=== PATIENT | male | born 1960 | race Caucasian/White ===

== ENCOUNTER → 2016-04-02 | Outpatient (CLI) | payer BC ==
--- NOTE | 2016-04-02 19:21 | US ---
EXAMINATION TYPE: US axilla extremity RT DATE OF EXAM: 04/02/2016 7:09 PM COMPARISON: NONE CLINICAL HISTORY: R59.1 Enlarged lymph node. Two palpable areas, no pain or tenderness TECHNOLOGIST IMPRESSION: Two palpable areas scanned. 1- Location- Right lateral anterior chest. Superficial. Vascular. Heterogeneous. Size= 0.9 x 1.0 x 0.6 cm 2- Location- Right axilla. Complex. Peripheral vascularity. Size= 2.7 x 3.3 x 2.3 cm. IMPRESSION: There is demonstrated a 9 x 6 mm axillary lymph node. There is demonstrated a complex mass with central fluid that measures 3.3 x 2.3 cm. I would consider possibilities of necrotic lymph node and also abscess.
== END | disposition home or self-care (01) ==
LOC: RADUSMAIN 18:28
PROVIDERS: ATTEND Family Medicine
DX: R59.0 Localized enlarged lymph nodes (principal)

== ENCOUNTER 2016-04-16 08:53 | Day surgery (SDC) | payer BC ==
[2016-04-16] MEDS ORDERED: SODIUM BICARB 4% 5 ML VIAL (0.48 MEQ/ML) MISCELLANE PRN (08:58)
[2016-04-16] MEDS ORDERED: ALPRAZolam 0.5 MG TAB PO ONE ×2 (08:58→09:05)
[2016-04-16 09:08] VITALS: BP 108/67; PULSE 95; RESP 20; TEMP 97.6
--- NOTE | 2016-04-16 11:57 | US ---
Ultrasound-guided core biopsy of 2 right-sided axilla masses CLINICAL HISTORY: 2 right axillary lymph nodes and history of melanoma FINDINGS: The procedure was explained to the patient. The risks, complications, benefits and alternatives were discussed and any questions were answered. Informed consent was obtained. Patient was placed supin e on the ultrasound table and prepped and draped in the usual sterile fashion. Utilizing a 18-gauge core biopsy needle 4 passes were made into the 3.3 cm right axilla lymph node an d a single pass was made into the right axilla 1 cm lymph node. Patient was stable throughout the pro cedure. Pathology is pending. All elements of maximal barrier and sterile technique were utilized. IMPRESSION: 1. Successful ultrasound guided core biopsy of 2 right axillary lymph nodes.
== END 2016-04-16 10:45 | disposition home or self-care (01) ==
LOC: RADPROMAIN 08:53
PROVIDERS: ATTEND Family Medicine
DX: C77.3 Secondary and unspecified malignant neoplasm of axilla and upper limb lymph nodes (principal); C96.9 Malignant neoplasm of lymphoid, hematopoietic and related tissue, unspecified; Z85.820 Personal history of malignant melanoma of skin
CPT/HCPCS: 38505; 76942; 88305; 88341; 88342

== ENCOUNTER → 2016-05-04 | Outpatient (CLI) | payer BC ==
--- NOTE | 2016-05-05 13:39 | PE ---
EXAMINATION TYPE: PET CT fusion whole body DATE OF EXAM: 05/04/2016 1:16 PM CLINICAL HISTORY: 55-year-old male history of right shoulder and axillary melanoma, initial staging. Patient with surgery in October 2015. TECHNIQUE: Following the intravenous administration of 13.2 mCi of F-18 FDG, whole body images are performed from the vertex to the toes. Images are reviewed on the computer in the coronal, axial, and sagittal planes. Reconstructed rotating images are created on independent workstation and reviewed on the computer. A localization and attenuation correction CT is performed in conjunction with the PET scan. Glucose level: 96 mg/dL COMPARISON: None. FINDINGS: PET: A small right supraclavicular lymph node measures 6 mm but demonstrates suspicious mild FDG uptake, m aximum SUV 2.3. The 1.0 x 1.7 cm soft tissue nodule within the subcutaneous fat of the anterior lower right axilla sh ows intense hypermetabolism, maximum SUV 7.1. A centrally necrotic right axillary lymph node measures 3.8 x 2.4 cm and shows intense hypermetabolis m, maximum SUV 8.5. There are small foci of increased FDG uptake within both doc, greater on the left, moderate hypermet abolism, maximal SUV 4.1. On the right, maximal SUV 3.1. Very early metastatic hilar lymphadenopathy is difficult to exclude. Lungs show a 1 cm nodular density medial right upper lobe at the mid lung level without discrete FDG uptake. Additional small area of focal moderate hypermetabolism at the level of the alicia hepatis, maximal LAGOS V 3.8. This may correspond to a small lymph node. 2.8 cm hypodense lesion medial left kidney shows a photopenic defect compatible with a benign cyst. Focal intense hypermetabolism involving a small bowel loop in the anterior lower left abdomen, maximu m SUV 7.1. No other bowel activity is seen. Otherwise, physiologic FDG uptake throughout the body down to the toes. ATTENUATION CORRECTION CT: Visualized intracranial structures show no evidence for midline shift or herniation. No hydrocephalus . Visualized paranasal sinuses and mastoid air cells are clear. Slight leftward nasal septal deviation. No cervical lymphadenopathy seen. Heart is upper limits of normal in size without pericardial effusion. Ascending aorta is borderline e ctatic at 3.5 cm within the tortuous vessel branching anatomy. Mild bilateral gynecomastia. No consol idation or pleural effusion. Small hiatal hernia. No mesenteric or retroperitoneal lymphadenopathy by CT size criteria. No dilate d small bowel, free fluid, or free air. Bladder is nondistended. No abnormal fluid collection the pelvis or pelvic lymphadenopathy. Bones: No osseous destructive process. Mild degenerative changes of the hips. IMPRESSION: 1. Metastatic, centrally necrotic 3.8 cm right axillary lymph node. There is also a 1.7 cm metastatic soft tissue nodule along the anterior right axilla just adjacent. 2. Additional findings are suspicious but not definitive for metastatic disease including a 6 mm righ t supraclavicular lymph node, tiny bilateral hilar lymph nodes, and a suspected portahepatic lymph no de. These show variable mild to moderate FDG uptake, maximal SUV up to 4.1 at the left hilum. If defi nitive evaluation would alter management, consider locating the small right supraclavicular lymph nod e and performing an excisional biopsy. This has the least uptake at only 2.3 SUV. 3. There is also an isolated focus of small bowel activity in the anterior left lower abdomen that s hows intense uptake. While physiologic activity is possible, given that this is an isolated focus, a metastatic small bowel deposit is difficult to exclude.
== END | disposition home or self-care (01) ==
LOC: RADPETMAIN 10:31
PROVIDERS: ATTEND Surgery Surgical Oncology
DX: C77.3 Secondary and unspecified malignant neoplasm of axilla and upper limb lymph nodes (principal); C43.9 Malignant melanoma of skin, unspecified
CPT/HCPCS: 78816; A9552

== ENCOUNTER → 2016-05-07 | Outpatient (CLI) | payer BC ==
--- NOTE | 2016-05-07 21:45 | MR ---
EXAMINATION TYPE: MR brain wo/w con DATE OF EXAM: 05/07/2016 5:08 PM COMPARISON: 06/19/2015 HISTORY: Malignant melanoma of lip, malignant neoplasm CONTRAST: Performed utilizing 15 mL intravenous MultiHance gadolinium contrast. TECHNIQUE: Multiplanar, multiecho imaging on a 3.0 Grace magnet is performed through the brain. Stud y is performed within 24 hours of arrival to the hospital. The craniovertebral junction is normal. The pituitary is normal. Diffusion-weighted imaging is performed. No abnormal hyperintensity is present to suggest an acute i ntracranial infarct or acute ischemic change. No suspicious signal abnormality is evident to suggest metastatic lesions. There are scattered subcor tical white matter changes most likely on the basis of chronic white matter ischemic changes. These a re slightly greater than expected for patient of this age. Other etiologies including vasculitis, gli osis from migraine headaches, Lyme's disease, multiple sclerosis could be considered. Metastatic lesi ons are not excluded although typical findings identified on diffusion associated with melanoma are n ot evident on this exam. Ventricles and sulci are appropriate for the patient age. No abnormal enhancement is evident. No mass effect is evident. IMPRESSIONS: 1. Chronic appearing white matter ischemic changes. 2. No suspicious changes to suggest metastatic melanoma.
== END | disposition home or self-care (01) ==
LOC: RADMRIMAIN 16:23
PROVIDERS: ATTEND Surgery Surgical Oncology
DX: C77.9 Secondary and unspecified malignant neoplasm of lymph node, unspecified (principal); C43.0 Malignant melanoma of lip; R90.82 White matter disease, unspecified; I67.82 Cerebral ischemia
CPT/HCPCS: 70553; A9577

== ENCOUNTER → 2017-04-07 | Outpatient (CLI) | payer OTHER ==
--- NOTE | 2017-04-07 13:54 | US ---
EXAMINATION TYPE: US venous doppler duplex LE BI DATE OF EXAM: 04/07/2017 1:02 PM COMPARISON: NONE CLINICAL HISTORY: Edema R60.9. SIDE PERFORMED: Bilateral TECHNIQUE: The lower extremity deep venous system is examined utilizing real time linear array sonog remigio with graded compression, doppler sonography and color-flow sonography. VESSELS IMAGED: External Iliac Vein (EIV) Common Femoral Vein Deep Femoral Vein Greater Saphenous Vein * Femoral Vein Popliteal Vein Small Saphenous Vein * Proximal Calf Veins (* superficial vessels) Right Leg: Negative for DVT Left Leg: Negative for DVT IMPRESSION: 1. Bilateral lower extremities negative for deep venous thrombosis.
== END | disposition home or self-care (01) ==
LOC: RADUSWWP 12:59
PROVIDERS: ATTEND Internal Medicine
DX: R60.9 Edema, unspecified (principal)
CPT/HCPCS: 93970

== ENCOUNTER → 2017-05-20 | Outpatient (CLI) | payer OTHER ==
[2017-05-20 14:20] LABS: Basophils % (A) 0 %; Eosinophils % (A) 0 %; HCT 37.2 % (39.0-53.0); HGB 12.3 gm/dL (13.0-17.5); Lymphocytes # (A) 0.4 k/uL (1.0-4.8); Lymphocytes % (A) 8 %; MCH 29.6 pg (25.0-35.0); MCHC 33.1 g/dL (31.0-37.0); MCV 89.5 fL (80.0-100.0); Mean Platelet Volume 6.6; Monocytes # (A) 0.2 k/uL (0-1.0); Monocytes % (A) 3 %; Neutrophils # (A) 4.4 k/uL (1.3-7.7); Neutrophils % (A) 86 %; Platelet Count 175 k/uL (150-450); RBC 4.16 m/uL (4.30-5.90); RDW 12.2 % (11.5-15.5); WBC 5.1 k/uL (3.8-10.6)
[2017-05-20 14:35] LABS: Calcium 9.3 mg/dL (8.4-10.2); Potassium 4.4 mmol/L (3.5-5.1)
== END | disposition home or self-care (01) ==
LOC: LABWHC1 13:36
PROVIDERS: ATTEND Urology
DX: Z01.818 Encounter for other preprocedural examination (principal); Z01.812 Encounter for preprocedural laboratory examination; N40.1 Benign prostatic hyperplasia with lower urinary tract symptoms; R53.83 Other fatigue; Z79.899 Other long term (current) drug therapy
CPT/HCPCS: 36415; 80048; 85025; 93005

== ENCOUNTER 2017-05-22 10:07 | Day surgery (SDC) | payer OTHER ==
[2017-05-20 15:28] VITALS: BMI 26.6
[~2017-05-22 10:07] MED LIST: DEXAMETHASONE SOD PHOSPHATE 10 MG/ML 1 ML VIAL IV ONE; MORPHINE SULFATE 4 MG/ML SYRINGE IV PRN; ceFAZolin IN SWFI 2 GM/20 ML SYRINGE IVP ONE
[2017-05-22] MEDS: LACTATED RINGERS 1,000 ML IV SCH ×2 (10:52→11:59)
[2017-05-22] MEDS ORDERED: LIDOCAINE 1% 20 ML VIAL (10MG/ML) FOR IV START INTRADERMA ONE (10:52)
[2017-05-22] MEDS: ONDANSETRON 4 MG/2 ML VIAL IVP ONE ×2 (10:53→10:54)
[2017-05-22] MEDS ORDERED: fentaNYL (PF) 50 MCG/ML 2 ML AMP ONE (12:01)
[2017-05-22] MEDS ORDERED: PROPOFOL 10 MG/ML 20 ML VIAL IV ONE (12:01)
[2017-05-22] MEDS ORDERED: LIDOCAINE 1% INJ 10MG/ML (20 ML MDV) ONE (12:01)
[2017-05-22] MEDS ORDERED: SUCCINYLCHOLINE CHLORIDE 100 MG/5 ML SYR IV ONE (12:01)
[2017-05-22] MEDS ORDERED: PHENYLEPHRINE-0.9% NACL SYG 1 MG/10 ML SYRINGE ONE (12:01)
--- NOTE | 2017-05-22 13:01 | P.OP ---
Date of Procedure: 05/22/17 Preoperative Diagnosis: BPH with Obstruction Postoperative Diagnosis: Same Procedure(s) Performed: Cystoscopy, Transurethral Resection of Prostate (TURP) Anesthesia: YOUNG Surgeon: Yunior Du Estimated Blood Loss (ml): 5 IV fluids (ml): 600 Pathology: other (Prostate chips) Condition: stable Disposition: PACU Indications for Procedure: He is a 56-year-old male with Parkinson's disease. He presents with urinary frequency, urgency, urge incontinence, and a weak urinary stream. He also reports erectile dysfunction. Physical examination was unremarkable. He tried Cialis daily, but it failed to help his voiding symptoms. It did help with his erections. He was given Cialis 20 mg, and the proper use and potential side effects were reviewed. Urodynamic testing and cystoscopy were consistent with bladder outflow obstruction. Options discussed: alpha-zane therapy vs. TUIP. He chose a trial of tamsulosin 0.8 mg daily but does not feel it works better than 0.4 mg. Trospium was prescribed, to be taken along with tamsulosin. He took Trospium and he was also on Myrbetriq, so he took both. He was then unable to void, and Bladder scan showed 922 ml in his bladder. A catheter was placed with a urine return of 750 ml. He stopped Trospium and Myrbetriq, and continues to take Tamsulosin twice daily. His catheter is now out but he continues to empty his bladder incompletely. Today, his urine looks infected, and PVR was 485 ml. Culture was sent, and he will be placed on Bactrim DS. He desires a TUIP if cleared by Medical Oncology. Operative Findings: High median bar, obstructing. Description of Procedure: The patient was taken in the operating room and placed in the dorsolithotomy position, The external genitalia was prepped and draped sterilely. The 25- Mongolian ACMI resectoscope sheath was introduced into the bladder. The bladder was inspected. Both ureteral orifices were of normal anatomic location and configuration, and clear urine effluxed from both. No tumors or foreign bodies were seen. Examination of the prostate revealed partial obstruction due to a high median bar. Using the cutting loop, incisions were made at 5:00 and 7:00, extending through the vesical neck up to the verumontanum. The incisions were carried down until the prostatic fossa was wide open. The tissue between these 2 incisions was fulgurated, as was the bed of the resection. Excellent hemostasis was attained. The resectoscope was withdrawn into the bulbous urethra. The external urinary sphincter remained intact. The prostatic fossa was open. The prostate chips were removed from the bladder. These were saved and sent for pathologic examination. The resectoscope was removed, and an 18 Mongolian Muñiz catheter was placed. The return was essentially clear. The patient tolerated the procedure well was taken to the recovery room in stable condition.
[2017-05-22 13:48] VITALS: RESP 16; TEMP 98.5
[2017-05-22 14:50] VITALS: BP 99/54; PULSE 82
== END 2017-05-22 15:11 | disposition home or self-care (01) ==
LOC: OR 10:07
PROVIDERS: ATTEND Urology
DX: N40.1 Benign prostatic hyperplasia with lower urinary tract symptoms (principal); N13.8 Other obstructive and reflux uropathy; R35.0 Frequency of micturition; N52.9 Male erectile dysfunction, unspecified; R35.1 Nocturia; R33.8 Other retention of urine; R30.0 Dysuria; R39.12 Poor urinary stream; N39.0 Urinary tract infection, site not specified; N39.41 Urge incontinence; K59.00 Constipation, unspecified; G20 Parkinson's disease; N28.9 Disorder of kidney and ureter, unspecified; C78.00 Secondary malignant neoplasm of unspecified lung; C78.7 Secondary malignant neoplasm of liver and intrahepatic bile duct; Z85.820 Personal history of malignant melanoma of skin; Z79.899 Other long term (current) drug therapy
CPT/HCPCS: 88305; 52601; J1100; J2405; J2001; J3010; J2370; J0330; J2704; J0690

== ENCOUNTER → 2017-06-09 | Outpatient (CLI) | payer OTHER | END | disposition home or self-care (01) | LOC: LABWHC1 11:43 | PROVIDERS: ATTEND Internal Medicine | DX: C43.9 Malignant melanoma of skin, unspecified (principal) | CPT/HCPCS: 36415 ==

== ENCOUNTER → 2017-06-11 | Outpatient (CLI) | payer OTHER ==
[2017-06-11 13:06] LABS: Basophils % (A) 0 %; Eosinophils # (A) 0.1 k/uL (0-0.7); Eosinophils % (A) 2 %; HCT 42.3 % (39.0-53.0); HGB 13.8 gm/dL (13.0-17.5); Lymphocytes # (A) 1.3 k/uL (1.0-4.8); Lymphocytes % (A) 24 %; MCH 29.1 pg (25.0-35.0); MCHC 32.7 g/dL (31.0-37.0); MCV 89.1 fL (80.0-100.0); Mean Platelet Volume 6.9; Monocytes # (A) 0.4 k/uL (0-1.0); Monocytes % (A) 7 %; Neutrophils # (A) 3.3 k/uL (1.3-7.7); Neutrophils % (A) 64 %; Platelet Count 198 k/uL (150-450); RBC 4.75 m/uL (4.30-5.90); RDW 12.7 % (11.5-15.5); WBC 5.2 k/uL (3.8-10.6)
[2017-06-11 13:14] LABS: INR 1.1 (<1.2); Partial Thromboplastin Time 22.8 sec (22.0-30.0); Prothrombin Time 10.5 sec (9.0-12.0)
[2017-06-11 13:29] LABS: ALT 26 U/L (21-72); AST 19 U/L (17-59); Albumin 4.1 g/dL (3.5-5.0); Alkaline Phosphatase 88 U/L (38-126); Amylase 43 U/L (30-110); Anion Gap 12 mmol/L; Blood Urea Nitrogen 24 mg/dL (9-20); Calcium 9.9 mg/dL (8.4-10.2); Carbon Dioxide 29 mmol/L (22-30); Chloride 100 mmol/L (98-107); Creatine Kinase 77 U/L (55-170); Glucose 111 mg/dL (74-99); LDH 407 U/L (313-618); Lipase 50 U/L (23-300); Magnesium 2.2 mg/dL (1.6-2.3); Phosphorus 4.4 mg/dL (2.5-4.5); Potassium 4.4 mmol/L (3.5-5.1); Sodium 141 mmol/L (137-145); Total Bilirubin 0.5 mg/dL (0.2-1.3); Total Protein 7.1 g/dL (6.3-8.2)
== END | disposition home or self-care (01) ==
LOC: LABWHC1 12:48
PROVIDERS: ATTEND Internal Medicine
DX: C79.9 Secondary malignant neoplasm of unspecified site (principal)
CPT/HCPCS: 36415; 80053; 82150; 82550; 83615; 83690; 83735; 84100; 84550; 85025; 85610; 85730

== ENCOUNTER → 2017-07-24 | Outpatient (CLI) | payer OTHER ==
[2017-07-24 16:34] LABS: ALT 95 U/L (21-72); AST 116 U/L (17-59); Albumin 3.8 g/dL (3.5-5.0); Alkaline Phosphatase 94 U/L (38-126); Anion Gap 10 mmol/L; Blood Urea Nitrogen 33 mg/dL (9-20); Calcium 9.6 mg/dL (8.4-10.2); Carbon Dioxide 30 mmol/L (22-30); Chloride 101 mmol/L (98-107); Glucose 117 mg/dL (74-99); Potassium 4.3 mmol/L (3.5-5.1); Sodium 141 mmol/L (137-145); Total Bilirubin 0.6 mg/dL (0.2-1.3); Total Protein 6.4 g/dL (6.3-8.2)
== END ==
LOC: LABWHC1 15:32
PROVIDERS: ATTEND Internal Medicine
DX: C43.9 Malignant melanoma of skin, unspecified (principal); R74.0 Nonspecific elevation of levels of transaminase and lactic acid dehydrogenase [LDH]
CPT/HCPCS: 36415; 80053

== ENCOUNTER 2017-08-26 17:31 | Emergency (ER) | payer OTHER ==
--- NOTE | 2017-08-26 18:28 | ED ---
Male Urogenital HPI - General Chief complaint: Urogenital Stated complaint: male Time Seen by Provider: 08/26/17 18:12 Source: patient, RN notes reviewed, old records reviewed Mode of arrival: ambulatory Limitations: no limitations - History of Present Illness Initial comments: Patient is a 56-year-old male with Parkinson's disease presents with urinary urge, and lower abdominal distention. He reports that he feels very full and has been having acute pain and only able to produce a small amount of urine today. He does report that he recently had a TURP procedure by Dr. Tyson. He has a history of prostate cancer and melanoma. For the last time he had acute urinary retention and was due to medications. He states that he stopped all those medications.Patient is on pramipexole and a stool softener. He states he is also on a clinical trial for melenoma and taking those medication. - Related Data Home Medications Medication Instructions Recorded Confirmed Atezolizumab [Tecentriq] 1,200 mg IV Q14D 08/26/17 08/26/17 Cobimetinib Fumarate [Cotellic] 60 mg PO DAILY 08/26/17 08/26/17 Docusate [Colace] 100 mg PO DAILY 08/26/17 08/26/17 Naproxen Sodium [Aleve] 220 mg PO DAILY PRN 08/26/17 08/26/17 Pramipexole [Mirapex] 1.5 mg PO TID 08/26/17 08/26/17 Previous Rx's Medication Instructions Recorded Sulfamethox-Tmp 800-160Mg [Bactrim 1 tab PO Q12HR #14 tab 08/26/17 DS 800-160 mg] Allergies Allergy/AdvReac Type Severity Reaction Status Date / Time No Known Allergies Allergy Verified 08/26/17 18:32 Review of Systems ROS Statement: Those systems with pertinent positive or pertinent negative responses have been documented in the HPI. ROS Other: All systems not noted in ROS Statement are negative. Past Medical History Past Medical History: Cancer, Prostate Disorder Additional Past Medical History / Comment(s): PARKINSON'S. 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 History of Any Multi-Drug Resistant Organisms: None Reported Past Surgical History: Tonsillectomy Additional Past Surgical History / Comment(s): rt axillary biopsy - POSITIVE FOR CANCER, LIP BX, RT SHOULDER MOLE BX , dental extraction Past Anesthesia/Blood Transfusion Reactions: No Reported Reaction Past Psychological History: No Psychological Hx Reported Smoking Status: Never smoker Past Alcohol Use History: None Reported Past Drug Use History: None Reported - Past Family History Mother Family Medical History: Cancer Additional Family Medical History / Comment(s): breast cancer also had moles removed - not sure if positive or not for cancer General Exam - General Exam Comments Initial Comments: 56-year-old male. Patient suffers from Parkinson's disease.. Rigid and posture. Limitations: no limitations General appearance: alert, in no apparent distress Head exam: Present: atraumatic, normocephalic, normal inspection Eye exam: Present: normal appearance, PERRL, EOMI. Absent: scleral icterus, conjunctival injection, periorbital swelling ENT exam: Present: normal exam, mucous membranes moist Neck exam: Present: normal inspection. Absent: tenderness, meningismus, lymphadenopathy Respiratory exam: Present: normal lung sounds bilaterally. Absent: respiratory distress, wheezes, rales, rhonchi, stridor Cardiovascular Exam: Present: regular rate, normal rhythm, normal heart sounds. Absent: systolic murmur, diastolic murmur, rubs, gallop, clicks GI/Abdominal exam: Present: soft, distended (Lower abdominal distention.), normal bowel sounds. Absent: tenderness, guarding, rebound, rigid Extremities exam: Present: normal inspection, full ROM, normal capillary refill. Absent: tenderness, pedal edema, joint swelling, calf tenderness Back exam: Present: normal inspection Neurological exam: Present: alert, oriented X3, CN II-XII intact Psychiatric exam: Present: normal affect, normal mood Skin exam: Present: warm, dry, intact, normal color. Absent: rash Course Vital Signs 08/26/17 08/26/17 08/26/17 18:00 19:44 21:16 Temperature 97.6 F 98.2 F 97.4 F L Pulse Rate 105 H 98 90 Respiratory 18 18 16 Rate Blood Pressure 111/68 113/67 124/75 O2 Sat by Pulse 99 100 100 Oximetry Medical Decision Making - Medical Decision Making 56 year old male with Hx of Parkinson, Melenoma, and Prostate Cancer presents 2months post TURP with CC of urinary retention. Patient had 1800 cc in bladder on Bladder scan US. Muñiz catheter initiated. Initial Urine output was cloudy and bloody. Sample obtained, and culture completed. Patient is on 2 clinical trial medications, therefore needed to contact the physician Dr. April Orta of starting any new medication. Patient Urine output eventually started to run somewhat clearer. I believe urinary retention was likely due to blood clot or debris from TURP procedure. I contacted Dr. Orta, she informed me to start patient on Bactrim. After reading clincal trial pamphlet, these medications can cause transaminitis and increased bleeding. Therefore decided to check CBC and CMP, and coags. CBC shows no significant changes from previous. Mild change in Hgb. Patient Coags are within normal range. Patient does have evidence of transaminitis, consistent with taking these medications. I discussed with patient. Patient has no significant RUQ tenderness, and discussed that these results can be sent to Dr. Orta. She will follow up with him tomorrow, and will continue bactrim until a negative urine culture. All questions answered and return parameters discussed. Discussed also following up with Urology for Catheter discontinuation. - Lab Data Result diagrams: 08/26/17 19:55 08/26/17 19:55 Lab Results 08/26/17 08/26/17 08/26/17 Range/Units 19:02 19:55 19:55 WBC 4.3 (3.8-10.6) k/uL RBC 3.79 L (4.30-5.90) m/uL Hgb 11.6 L (13.0-17.5) gm/dL Hct 34.6 L (39.0-53.0) % MCV 91.2 (80.0-100.0) fL MCH 30.5 (25.0-35.0) pg MCHC 33.5 (31.0-37.0) g/dL RDW 13.5 (11.5-15.5) % Plt Count 303 (150-450) k/uL Neutrophils % 72 % Lymphocytes % 15 % Monocytes % 6 % Eosinophils % 5 % Basophils % 0 % Neutrophils # 3.1 (1.3-7.7) k/uL Lymphocytes # 0.6 L (1.0-4.8) k/uL Monocytes # 0.3 (0-1.0) k/uL Eosinophils # 0.2 (0-0.7) k/uL Basophils # 0.0 (0-0.2) k/uL PT (9.0-12.0) sec INR (<1.2) APTT (22.0-30.0) sec Sodium 140 (137-145) mmol/L Potassium 4.1 (3.5-5.1) mmol/L Chloride 102 (98-107) mmol/L Carbon Dioxide 30 (22-30) mmol/L Anion Gap 8 mmol/L BUN 32 H (9-20) mg/dL Creatinine 0.75 (0.66-1.25) mg/dL Est GFR (CKD-EPI)AfAm >90 (>60 ml/min/1.73 sqM) Est GFR (CKD-EPI)NonAf >90 (>60 ml/min/1.73 sqM) Glucose 113 H (74-99) mg/dL Calcium 9.0 (8.4-10.2) mg/dL Total Bilirubin 0.3 (0.2-1.3) mg/dL AST 34 (17-59) U/L ALT 132 H (21-72) U/L Alkaline Phosphatase 269 H (38-126) U/L Total Protein 6.0 L (6.3-8.2) g/dL Albumin 3.4 L (3.5-5.0) g/dL Urine Color Yellow Urine Appearance Cloudy (Clear) Urine pH 6.0 (5.0-8.0) Ur Specific [place] 1.022 (1.001-1.035) Urine Protein 1+ H (Negative) Urine Glucose (UA) Negative (Negative) Urine Ketones Negative (Negative) Urine Blood Large H (Negative) Urine Nitrite Negative (Negative) Urine Bilirubin Negative (Negative) Urine Urobilinogen <2.0 (<2.0) mg/dL Ur Leukocyte Esterase Large H (Negative) Urine RBC >182 H (0-5) /hpf Urine WBC >182 H (0-5) /hpf Urine Mucus Moderate H (None) /hpf 08/26/17 Range/Units 19:55 WBC (3.8-10.6) k/uL RBC (4.30-5.90) m/uL Hgb (13.0-17.5) gm/dL Hct (39.0-53.0) % MCV (80.0-100.0) fL MCH (25.0-35.0) pg MCHC (31.0-37.0) g/dL RDW (11.5-15.5) % Plt Count (150-450) k/uL Neutrophils % % Lymphocytes % % Monocytes % % Eosinophils % % Basophils % % Neutrophils # (1.3-7.7) k/uL Lymphocytes # (1.0-4.8) k/uL Monocytes # (0-1.0) k/uL Eosinophils # (0-0.7) k/uL Basophils # (0-0.2) k/uL PT 10.5 (9.0-12.0) sec INR 1.1 (<1.2) APTT 21.8 L (22.0-30.0) sec Sodium (137-145) mmol/L Potassium (3.5-5.1) mmol/L Chloride (98-107) mmol/L Carbon Dioxide (22-30) mmol/L Anion Gap mmol/L BUN (9-20) mg/dL Creatinine (0.66-1.25) mg/dL Est GFR (CKD-EPI)AfAm (>60 ml/min/1.73 sqM) Est GFR (CKD-EPI)NonAf (>60 ml/min/1.73 sqM) Glucose (74-99) mg/dL Calcium (8.4-10.2) mg/dL Total Bilirubin (0.2-1.3) mg/dL AST (17-59) U/L ALT (21-72) U/L Alkaline Phosphatase (38-126) U/L Total Protein (6.3-8.2) g/dL Albumin (3.5-5.0) g/dL Urine Color Urine Appearance (Clear) Urine pH (5.0-8.0) Ur Specific [place] (1.001-1.035) Urine Protein (Negative) Urine Glucose (UA) (Negative) Urine Ketones (Negative) Urine Blood (Negative) Urine Nitrite (Negative) Urine Bilirubin (Negative) Urine Urobilinogen (<2.0) mg/dL Ur Leukocyte Esterase (Negative) Urine RBC (0-5) /hpf Urine WBC (0-5) /hpf Urine Mucus (None) /hpf Disposition Clinical Impression: Acute urinary retention, Elevated transaminase measurement Disposition: HOME SELF-CARE Condition: Good Instructions: Urinary Retention in Men (ED) Additional Instructions: Patient advised to follow-up with Dr. Zamora and urology. He needed follow-up with urology for discontinuation of catheter. Start the antibiotic until urine culture completed. Return to the emergency department if any alarming signs or symptoms occur. Prescriptions: Sulfamethox-Tmp 800-160Mg [Bactrim DS 800-160 mg] 1 tab PO Q12HR #14 tab Is patient prescribed a controlled substance at d/c from ED?: No When asked, does pt state using other controlled substances?: No If prescribed controlled substance>3 days was MAPS reviewed?: No If opioid is for acute pain is fill amount 7 days or less?: No If Rx opioid, was Start Talking consent form obtained?: No Referrals: Sadiq Jacinto MD [Primary Care Provider] - 1-2 days Yunior Du MD [STAFF PHYSICIAN] - 1-2 days April Orta DO [REFERRING] - 1-2 days Time of Disposition: 20:44
[2017-08-26 19:23] LABS: Appearance,Urine Cloudy (Clear); Bilirubin,Urine Negative (Negative); Blood,Urine Large (Negative); Color,Urine Yellow; Glucose,Urine (UA) Negative (Negative); Ketones,Urine Negative (Negative); Leukocyte Esterase,Urine Large (Negative); Mucus,Urine Moderate /hpf; Nitrite,Urine Negative (Negative); Protein,Urine 1+ (Negative); RBC,Urine >182 /hpf (0-5); Specific Gravity,Urine 1.022 (1.001-1.035); Urobilinogen,Urine <2.0 mg/dL (<2.0); WBC,Urine >182 /hpf (0-5)
[2017-08-26 20:07] LABS: Basophils % (A) 0 %; Eosinophils # (A) 0.2 k/uL (0-0.7); Eosinophils % (A) 5 %; HCT 34.6 % (39.0-53.0); HGB 11.6 gm/dL (13.0-17.5); Lymphocytes # (A) 0.6 k/uL (1.0-4.8); Lymphocytes % (A) 15 %; MCH 30.5 pg (25.0-35.0); MCHC 33.5 g/dL (31.0-37.0); MCV 91.2 fL (80.0-100.0); Mean Platelet Volume 6.5; Monocytes # (A) 0.3 k/uL (0-1.0); Monocytes % (A) 6 %; Neutrophils # (A) 3.1 k/uL (1.3-7.7); Neutrophils % (A) 72 %; Platelet Count 303 k/uL (150-450); RBC 3.79 m/uL (4.30-5.90); RDW 13.5 % (11.5-15.5); WBC 4.3 k/uL (3.8-10.6)
[2017-08-26 20:15] LABS: ALT 132 U/L (21-72); AST 34 U/L (17-59); Albumin 3.4 g/dL (3.5-5.0); Alkaline Phosphatase 269 U/L (38-126); Anion Gap 8 mmol/L; Blood Urea Nitrogen 32 mg/dL (9-20); Carbon Dioxide 30 mmol/L (22-30); Chloride 102 mmol/L (98-107); Glucose 113 mg/dL (74-99); Potassium 4.1 mmol/L (3.5-5.1); Sodium 140 mmol/L (137-145); Total Bilirubin 0.3 mg/dL (0.2-1.3)
[2017-08-26 20:31] LABS: INR 1.1 (<1.2); Prothrombin Time 10.5 sec (9.0-12.0)
[2017-08-26 20:33] LABS: Partial Thromboplastin Time 21.8 sec (22.0-30.0)
[2017-08-26 21:19] VITALS: BP 124/75; PULSE 90; RESP 16; TEMP 97.4
== END 2017-08-26 21:22 | disposition home or self-care (01) ==
LOC: EC 17:31
DX: R33.9 Retention of urine, unspecified (principal); R74.0 Nonspecific elevation of levels of transaminase and lactic acid dehydrogenase [LDH]; G20 Parkinson's disease; Z85.46 Personal history of malignant neoplasm of prostate; Z98.890 Other specified postprocedural states; Z79.899 Other long term (current) drug therapy; R14.0 Abdominal distension (gaseous)
CPT/HCPCS: 36415; 51702; 51798; 80053; 81001; 85025; 85610; 85730; 87086; 99284

== ENCOUNTER 2017-10-19 08:40 | Emergency (ER) | payer OTHER ==
[2017-10-19 08:50] VITALS: RESP 16; TEMP 97.5
[2017-10-19] MEDS ORDERED: SODIUM CHLORIDE 0.9% 1,000 ML IV STA (09:04)
--- NOTE | 2017-10-19 09:06 | ED ---
General Adult HPI - General Chief complaint: Nausea/Vomiting/Diarrhea Stated complaint: diarrhea Time Seen by Provider: 10/19/17 08:53 Source: patient, RN notes reviewed Mode of arrival: ambulatory Limitations: no limitations - History of Present Illness Initial comments: Patient 56-year-old male presenting to the emergency room today with a chief complaint of diarrhea 10 days. He does admit that he saw small amount of blood in brief this morning. Patient does admit that he was on antibiotics of Bactrim approximately a month ago placed on by the urologist. Patient denies any other antibiotic use. Denies any travel. Patient denies any other complaints or symptoms. Patient denies any recent fever, chills, shortness of breath, chest pain, back pain, abdominal pain, vomiting, numbness or tingling, dysuria or hematuria, constipation, or any other complaints. - Related Data Home Medications Medication Instructions Recorded Confirmed Atezolizumab [Tecentriq] 1,200 mg IV Q14D 08/26/17 10/19/17 Cobimetinib Fumarate [Cotellic] 60 mg PO DAILY 08/26/17 10/19/17 Docusate [Colace] 100 mg PO DAILY 08/26/17 10/19/17 Naproxen Sodium [Aleve] 220 mg PO DAILY PRN 08/26/17 10/19/17 Pramipexole [Mirapex] 1.5 mg PO TID 08/26/17 10/19/17 Carbidopa-Levodopa 25-100 mg 1 each PO TID 10/19/17 10/19/17 [Sinemet 25-100] Previous Rx's Medication Instructions Recorded Ciprofloxacin HCl [Cipro] 500 mg PO Q12HR #20 day 10/19/17 Allergies Allergy/AdvReac Type Severity Reaction Status Date / Time Sulfa (Sulfonamide Allergy Rash/Hives Verified 10/19/17 08:50 Antibiotics) Review of Systems ROS Statement: Those systems with pertinent positive or pertinent negative responses have been documented in the HPI. ROS Other: All systems not noted in ROS Statement are negative. Past Medical History Past Medical History: Cancer, Prostate Disorder Additional Past Medical History / Comment(s): PARKINSON'S. 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 History of Any Multi-Drug Resistant Organisms: None Reported Past Surgical History: Tonsillectomy Additional Past Surgical History / Comment(s): rt axillary biopsy - POSITIVE FOR CANCER, LIP BX, RT SHOULDER MOLE BX , dental extraction Past Anesthesia/Blood Transfusion Reactions: No Reported Reaction Past Psychological History: No Psychological Hx Reported Smoking Status: Never smoker Past Alcohol Use History: None Reported Past Drug Use History: None Reported - Past Family History Mother Family Medical History: Cancer Additional Family Medical History / Comment(s): breast cancer also had moles removed - not sure if positive or not for cancer General Exam - General Exam Comments Initial Comments: General: The patient is awake and alert, in no distress, and does not appear acutely ill. Eye: Pupils are equal, round and reactive to light, extra-ocular movements are intact. No nystagmus. There is normal conjunctiva bilaterally. No signs of icterus. Ears, nose, mouth and throat: There are moist mucous membranes and no oral lesions. Neck: The neck is supple, there is no tenderness or JVD. Cardiovascular: There is a regular rate and rhythm. No murmur, rub or gallop is appreciated. Respiratory: Lungs are clear to auscultation, respirations are non-labored, breath sounds are equal. No wheezes, stridor, rales, or rhonchi. Gastrointestinal: Soft, non-distended, non-tender abdomen without masses or organomegaly noted. There is no rebound or guarding present. No CVA tenderness. Bowel sounds are unremarkable. Musculoskeletal: Normal ROM, no tenderness. Strength 5/5. Sensation intact. Pulses equal bilaterally 2+. Neurological: A&O x 3. CN II-XII intact, There are no obvious motor or sensory deficits. Coordination appears grossly intact. Speech is normal. Skin: Skin is warm and dry and no rashes or lesions are noted. Psychiatric: Cooperative, appropriate mood & affect, normal judgment. Limitations: no limitations Course Vital Signs 10/19/17 08:47 Temperature 97.5 F L Pulse Rate 90 Respiratory 16 Rate Blood Pressure 107/66 O2 Sat by Pulse 96 Oximetry Medical Decision Making - Medical Decision Making Patient reexamined at this time shows no signs of distress is resting comfortable. His abdomen soft nontender. Patient's urinalysis does show evidence for infection. Culture has been added. Patient abdomen soft on palpation. No flank tenderness. Patient does have diarrhea for the past 10 days. Unable to give stool sample here in the emergency room. Will be given a prescription for C. diff and stool culture to be performed. Will be started on antibiotics. His [facility] urologist tomorrow. Advised return to emergency room if any symptoms increase worsen. - Lab Data Result diagrams: 10/19/17 09:14 10/19/17 09:14 Lab Results 10/19/17 10/19/17 10/19/17 Range/Units 09:14 09:14 09:14 WBC 6.1 (3.8-10.6) k/uL RBC 4.35 (4.30-5.90) m/uL Hgb 13.1 (13.0-17.5) gm/dL Hct 39.2 (39.0-53.0) % MCV 90.1 (80.0-100.0) fL MCH 30.1 (25.0-35.0) pg MCHC 33.4 (31.0-37.0) g/dL RDW 12.9 (11.5-15.5) % Plt Count 248 (150-450) k/uL Neutrophils % 78 % Lymphocytes % 13 % Monocytes % 7 % Eosinophils % 1 % Basophils % 0 % Neutrophils # 4.8 (1.3-7.7) k/uL Lymphocytes # 0.8 L (1.0-4.8) k/uL Monocytes # 0.4 (0-1.0) k/uL Eosinophils # 0.0 (0-0.7) k/uL Basophils # 0.0 (0-0.2) k/uL PT 10.8 (9.0-12.0) sec INR 1.1 (<1.2) APTT 22.5 (22.0-30.0) sec Sodium 134 L (137-145) mmol/L Potassium 4.5 (3.5-5.1) mmol/L Chloride 99 (98-107) mmol/L Carbon Dioxide 26 (22-30) mmol/L Anion Gap 9 mmol/L BUN 29 H (9-20) mg/dL Creatinine 0.80 (0.66-1.25) mg/dL Est GFR (CKD-EPI)AfAm >90 (>60 ml/min/1.73 sqM) Est GFR (CKD-EPI)NonAf >90 (>60 ml/min/1.73 sqM) Glucose 138 H (74-99) mg/dL Calcium 9.3 (8.4-10.2) mg/dL Total Bilirubin 0.7 (0.2-1.3) mg/dL AST 35 (17-59) U/L ALT 19 L (21-72) U/L Alkaline Phosphatase 105 (38-126) U/L Total Protein 6.2 L (6.3-8.2) g/dL Albumin 3.7 (3.5-5.0) g/dL Urine Color Urine Appearance (Clear) Urine pH (5.0-8.0) Ur Specific Shannon (1.001-1.035) Urine Protein (Negative) Urine Glucose (UA) (Negative) Urine Ketones (Negative) Urine Blood (Negative) Urine Nitrite (Negative) Urine Bilirubin (Negative) Urine Urobilinogen (<2.0) mg/dL Ur Leukocyte Esterase (Negative) Urine RBC (0-5) /hpf Urine WBC (0-5) /hpf Urine WBC Clumps (None) /hpf Urine Bacteria (None) /hpf Urine Mucus (None) /hpf 10/19/17 Range/Units 09:14 WBC (3.8-10.6) k/uL RBC (4.30-5.90) m/uL Hgb (13.0-17.5) gm/dL Hct (39.0-53.0) % MCV (80.0-100.0) fL MCH (25.0-35.0) pg MCHC (31.0-37.0) g/dL RDW (11.5-15.5) % Plt Count (150-450) k/uL Neutrophils % % Lymphocytes % % Monocytes % % Eosinophils % % Basophils % % Neutrophils # (1.3-7.7) k/uL Lymphocytes # (1.0-4.8) k/uL Monocytes # (0-1.0) k/uL Eosinophils # (0-0.7) k/uL Basophils # (0-0.2) k/uL PT (9.0-12.0) sec INR (<1.2) APTT (22.0-30.0) sec Sodium (137-145) mmol/L Potassium (3.5-5.1) mmol/L Chloride (98-107) mmol/L Carbon Dioxide (22-30) mmol/L Anion Gap mmol/L BUN (9-20) mg/dL Creatinine (0.66-1.25) mg/dL Est GFR (CKD-EPI)AfAm (>60 ml/min/1.73 sqM) Est GFR (CKD-EPI)NonAf (>60 ml/min/1.73 sqM) Glucose (74-99) mg/dL Calcium (8.4-10.2) mg/dL Total Bilirubin (0.2-1.3) mg/dL AST (17-59) U/L ALT (21-72) U/L Alkaline Phosphatase (38-126) U/L Total Protein (6.3-8.2) g/dL Albumin (3.5-5.0) g/dL Urine Color Yellow Urine Appearance Cloudy (Clear) Urine pH 5.5 (5.0-8.0) Ur Specific Shannon 1.017 (1.001-1.035) Urine Protein 1+ H (Negative) Urine Glucose (UA) Negative (Negative) Urine Ketones Negative (Negative) Urine Blood Large H (Negative) Urine Nitrite Positive (Negative) Urine Bilirubin Negative (Negative) Urine Urobilinogen <2.0 (<2.0) mg/dL Ur Leukocyte Esterase Large H (Negative) Urine RBC >182 H (0-5) /hpf Urine WBC 162 H (0-5) /hpf Urine WBC Clumps Occasional H (None) /hpf Urine Bacteria Many H (None) /hpf Urine Mucus Few H (None) /hpf Disposition Clinical Impression: Acute diarrhea, UTI (urinary tract infection) Disposition: HOME SELF-CARE Condition: Good Instructions: Acute Diarrhea (ED) Additional Instructions: Please use medication as discussed. Please follow-up with family doctor in the next 2 days of symptoms have not improved. Please return to emergency room if the symptoms increase or worsen or for any other concerns. Prescriptions: Ciprofloxacin HCl [Cipro] 500 mg PO Q12HR #20 day Is patient prescribed a controlled substance at d/c from ED?: No Referrals: Sadiq Jacinto MD [Primary Care Provider] - 1-2 days Yunior Du MD [STAFF PHYSICIAN] - 1-2 days Time of Disposition: 09:56
[2017-10-19 09:29] LABS: Basophils % (A) 0 %; Eosinophils % (A) 1 %; HCT 39.2 % (39.0-53.0); HGB 13.1 gm/dL (13.0-17.5); Lymphocytes # (A) 0.8 k/uL (1.0-4.8); Lymphocytes % (A) 13 %; MCH 30.1 pg (25.0-35.0); MCHC 33.4 g/dL (31.0-37.0); MCV 90.1 fL (80.0-100.0); Mean Platelet Volume 6.6; Monocytes # (A) 0.4 k/uL (0-1.0); Monocytes % (A) 7 %; Neutrophils # (A) 4.8 k/uL (1.3-7.7); Neutrophils % (A) 78 %; Platelet Count 248 k/uL (150-450); RBC 4.35 m/uL (4.30-5.90); RDW 12.9 % (11.5-15.5); WBC 6.1 k/uL (3.8-10.6)
[2017-10-19 09:35] LABS: Appearance,Urine Cloudy (Clear); Bacteria,Urine Many /hpf; Bilirubin,Urine Negative (Negative); Blood,Urine Large (Negative); Color,Urine Yellow; Glucose,Urine (UA) Negative (Negative); Ketones,Urine Negative (Negative); Leukocyte Esterase,Urine Large (Negative); Mucus,Urine Few /hpf; Nitrite,Urine Positive (Negative); PH, Urine 5.5 (5.0-8.0); Protein,Urine 1+ (Negative); RBC,Urine >182 /hpf (0-5); Specific Gravity,Urine 1.017 (1.001-1.035); Urobilinogen,Urine <2.0 mg/dL (<2.0); WBC,Urine 162 /hpf (0-5)
[2017-10-19 09:39] LABS: ALT 19 U/L (21-72); AST 35 U/L (17-59); Albumin 3.7 g/dL (3.5-5.0); Alkaline Phosphatase 105 U/L (38-126); Anion Gap 9 mmol/L; Blood Urea Nitrogen 29 mg/dL (9-20); Calcium 9.3 mg/dL (8.4-10.2); Carbon Dioxide 26 mmol/L (22-30); Chloride 99 mmol/L (98-107); Glucose 138 mg/dL (74-99); Potassium 4.5 mmol/L (3.5-5.1); Sodium 134 mmol/L (137-145); Total Bilirubin 0.7 mg/dL (0.2-1.3); Total Protein 6.2 g/dL (6.3-8.2)
[2017-10-19 09:44] LABS: INR 1.1 (<1.2); Partial Thromboplastin Time 22.5 sec (22.0-30.0); Prothrombin Time 10.8 sec (9.0-12.0)
[2017-10-19 10:14] VITALS: BP 108/68; PULSE 70
== END 2017-10-19 10:12 | disposition home or self-care (01) ==
LOC: EC 08:40
DX: N39.0 Urinary tract infection, site not specified (principal); R19.7 Diarrhea, unspecified; G20 Parkinson's disease; Z85.820 Personal history of malignant melanoma of skin; Z79.899 Other long term (current) drug therapy; Z88.2 Allergy status to sulfonamides
CPT/HCPCS: 36415; 80053; 81001; 85025; 85610; 85730; 87086; 96360; 99284

== ENCOUNTER → 2017-10-21 | Outpatient (CLI) | payer OTHER ==
--- NOTE | 2017-10-21 10:43 | CT ---
EXAMINATION TYPE: CT abdomen pelvis wo con DATE OF EXAM: 10/21/2017 HISTORY: Diarrhea per order and patient. History of melanoma. CT DLP: 529 mGycm. Automated Exposure Control for Dose Reduction was Utilized. TECHNIQUE: CT scan of the abdomen and pelvis is performed without oral or IV contrast. COMPARISON: PET/CT May 04, 2016 FINDINGS: Within the limitations of a non-contrast study, the following observations are made. LUNG BASES: There is redemonstration of 5 mm right basilar nodule axial image 9 unchanged in size fro m PET/CT. Dependent atelectasis both bases is present. LIVER/GB: There are new round hyperdense lesions scattered throughout the gallbladder measuring up to 2.1 cm on long axis sagittal image 19. Dependent density is also noted. No surrounding inflammatory changes are present. PANCREAS: No significant abnormality is seen. SPLEEN: No significant abnormality is seen. ADRENALS: No significant abnormality is seen. KIDNEYS: Simple appearing 3.0 cm cyst medially left kidney axial image 27 is redemonstrated. BOWEL: Evaluation bowel is slightly suboptimal secondary to lack of enteric contrast. Stomach is not suspiciously distended. There is no suspicious small bowel dilatation. There is mild wall thickening in the colon near splenic flexure. Fluid is seen in the right and left colon. There is fluid-filled p rominence of the left and sigmoid colon into the rectum. There is mild wall thickening with mild to m inimal surrounding fat stranding in the sigmoid colon extending into rectum. Findings consistent with diarrhea and/or mild diffuse distal colitis. GENITAL ORGANS: Prostate gland is felt mildly enlarged in size bulging on bladder base, underlying BP H is suspected. Bladder has mild concentric wall thickening presumed related to outlet obstruction LYMPH NODES: No greater than 1cm abdominal or pelvic lymph nodes are appreciated. OSSEOUS STRUCTURES: Multilevel facet arthropathy mid to lower lumbar spine is present. There is moder ate multilevel spurring in the lower thoracic spine. Moderate joint space loss in both hips is presen t. OTHER: No significant additional abnormality is seen. IMPRESSION: 1. Fluid-filled prominent of distal colon with mild wall thickening and surrounding inflammatory henson ge involving sigmoid colon and rectum is consistent with diarrhea and/or mild diffuse colitis. No bow el obstruction is present. 2. New density and rounded hyperdense lesions within gallbladder favors gallbladder sludge and gallst ones. No CT evidence for acute cholecystitis.
== END | disposition home or self-care (01) ==
LOC: RADCTMAIN 10:12
PROVIDERS: ATTEND Nurse Practitioner Adult Health
DX: R19.7 Diarrhea, unspecified (principal); N32.89 Other specified disorders of bladder
CPT/HCPCS: 74176

== ENCOUNTER 2017-11-24 12:27 | Inpatient (IN) | payer OTHER ==
--- NOTE | 2017-11-24 13:11 | ED ---
General Adult HPI - General Chief complaint: Shortness of Breath Stated complaint: tachycardia, diarrhea Time Seen by Provider: 11/24/17 12:55 Source: patient, EMS, RN notes reviewed Mode of arrival: EMS Limitations: physical limitation - History of Present Illness Initial comments: Patient is a pleasant 57-year-old male presenting to the emergency Department with complaints of not feeling well and leg pain. Patient states he was recently discharged from [facility] secondary to leg problems. Patient has continued discomfort. Patient does feel somewhat ill generally. Patient does have known C. diff. Patient states his stool is x-ray starting to improve and for more. Patient is having diarrhea around 3 times daily now. No abdominal pain. Patient feels somewhat weak all over. Patient does have stage IV malignant melanoma. Patient failed chemotherapy. Patient then went on a clinical trial which he is going to discontinue because he continues to get worse. - Related Data Home Medications Medication Instructions Recorded Confirmed Atezolizumab [Tecentriq] 1,200 mg IV Q14D 08/26/17 10/19/17 Cobimetinib Fumarate [Cotellic] 60 mg PO DAILY 08/26/17 10/19/17 Docusate [Colace] 100 mg PO DAILY 08/26/17 10/19/17 Naproxen Sodium [Aleve] 220 mg PO DAILY PRN 08/26/17 10/19/17 Pramipexole [Mirapex] 1.5 mg PO TID 08/26/17 10/19/17 Carbidopa-Levodopa 25-100 mg 1 each PO TID 10/19/17 10/19/17 [Sinemet 25-100] Previous Rx's Medication Instructions Recorded Ciprofloxacin HCl [Cipro] 500 mg PO Q12HR #20 day 10/19/17 Allergies Allergy/AdvReac Type Severity Reaction Status Date / Time Sulfa (Sulfonamide Allergy Rash/Hives Verified 10/19/17 08:50 Antibiotics) Review of Systems ROS Statement: Those systems with pertinent positive or pertinent negative responses have been documented in the HPI. ROS Other: All systems not noted in ROS Statement are negative. Constitutional: Denies: fever Eyes: Denies: eye pain ENT: Denies: ear pain Respiratory: Denies: cough Cardiovascular: Denies: chest pain Endocrine: Reports: fatigue Gastrointestinal: Reports: diarrhea Genitourinary: Denies: dysuria Musculoskeletal: Denies: back pain Neurological: Denies: headache Past Medical History Past Medical History: Cancer, Prostate Disorder Additional Past Medical History / Comment(s): PARKINSON'S. 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, C-Diff History of Any Multi-Drug Resistant Organisms: C-DIFF Date of last positivie culture/infection: unknown MDRO Source:: stool Past Surgical History: Tonsillectomy Additional Past Surgical History / Comment(s): rt axillary biopsy - POSITIVE FOR CANCER, LIP BX, RT SHOULDER MOLE BX , dental extraction Past Anesthesia/Blood Transfusion Reactions: No Reported Reaction Past Psychological History: No Psychological Hx Reported Smoking Status: Never smoker Past Alcohol Use History: None Reported Past Drug Use History: None Reported - Past Family History Mother Family Medical History: Cancer Additional Family Medical History / Comment(s): breast cancer also had moles removed - not sure if positive or not for cancer General Exam Limitations: physical limitation General appearance: alert Head exam: Present: atraumatic Eye exam: Present: normal appearance, PERRL ENT exam: Present: normal oropharynx Neck exam: Present: normal inspection Respiratory exam: Present: normal lung sounds bilaterally Cardiovascular Exam: Present: tachycardia Expanded Peripheral pulses: 2+: Dorsalis Pedis (R), Dorsalis Pedis (L) GI/Abdominal exam: Present: soft, normal bowel sounds. Absent: distended, tenderness Extremities exam: Present: pedal edema, other (Pedal edema, +1 on the right, +2 on the left. Left leg with erythema and tenderness more on the lower medial portion.) Neurological exam: Present: alert Psychiatric exam: Present: normal affect, normal mood Skin exam: Present: cyanosis (Patient has mild discoloration bilateral toes. Cap refill 3 seconds.) Course Vital Signs 11/24/17 11/24/17 11/24/17 12:39 13:07 13:13 Temperature 99.5 F 101.8 F H Pulse Rate 139 H Pulse Rate [ 141 H [employer] ] Respiratory 22 Rate Blood Pressure 96/55 O2 Sat by Pulse 95 Oximetry 11/24/17 11/24/17 11/24/17 13:48 15:26 15:32 Temperature 101.0 F H Pulse Rate 140 H 139 H Pulse Rate [ [employer] ] Respiratory 20 22 Rate Blood Pressure O2 Sat by Pulse 97 96 Oximetry - Reevaluation(s) Reevaluation #1: 11/24/17 15:44 Patient meets sepsis criteria diagnosed at 1500. Blood culture and lactic acid and IV antibiotics and fluid boluses have all been ordered. Patient reevaluated without significant improvement. Patient and family updated on results and plan. Patient is still full code at this time. Patient' s blood pressure has started to decrease. Case was discussed in detail with Dr. Funez, covering for Dr. vallejo, who admits for Dr. Jacinto. 11/24/17 15:47 case also discussed with Dr. Lopez, who will consult. EKG Findings - EKG Comments: EKG Findings:: Sinus tachycardia 141. SC 140. QRS 74. QT to 72. QTC 416. Normal axis. Normal QRS. No acute ST change. Procedures - Central Line Placement Right SC Consent Obtained: verbal consent, emergent situation Time Out Performed: Yes Patient Placed on Monitor/Pulse Ox: Yes MD Prep: mask, gown, gloves Central Line Prep: Chlorhexidine scrub Local Anesthesia Used: Lidocaine 1% Ultrasound Used for Placement: No Central Line Lumen Inserted: triple Central Line Position: good blood return, all ports aspirated, flushed, capped, sutured in place with 3-0 nylon Dressing Applied: Tegaderm Patient Tolerated Procedure: well Complications: none - Sepsis Sepsis Focused Exam #1 Time Sepsis Criteria Met: 15:00 Sepsis Focused Exam Date: 11/24/17 Sepsis Focused Exam Time: 15:45 Sepsis Focused Exam Complete: Yes Vital Signs & RN Notes Reviewed: Yes Capillary Refill: < 2 Seconds: Fingers, > 2 Seconds: Toes Peripheral Pulses: Normal: Radial (R), Radial (L) Skin Color: Cyanotic (Patient does have minimal cyanotic appearance of the distal toes) Respiratory Exam: normal lung sounds Cardiovascular Exam: tachycardia Medical Decision Making - Lab Data Result diagrams: 11/24/17 13:00 11/24/17 13:00 Lab Results 11/24/17 11/24/17 11/24/17 Range/Units 13:00 13:00 13:00 WBC 9.6 (3.8-10.6) k/uL RBC 3.36 L (4.30-5.90) m/uL Hgb 10.4 L (13.0-17.5) gm/dL Hct 32.9 L (39.0-53.0) % MCV 98.1 D (80.0-100.0) fL MCH 31.0 (25.0-35.0) pg MCHC 31.6 (31.0-37.0) g/dL RDW 14.2 (11.5-15.5) % Plt Count 93 L (150-450) k/uL Neutrophils % (Manual) 46 % Band Neutrophils % 25 % Lymphocytes % (Manual) 13 % Monocytes % (Manual) 4 % Eosinophils % (Manual) 1 % Metamyelocytes % 8 % Myelocytes % 5 % Neutrophils # (Manual) 6.80 (1.3-7.7) k/uL Lymphocytes # (Manual) 1.25 (1.0-4.8) k/uL Monocytes # (Manual) 0.38 (0-1.0) k/uL Eosinophils # (Manual) 0.10 (0-0.7) k/uL Metamyelocytes # (Man) 0.77 H (0) k/uL Myelocytes # (Manual) 0.48 H (0) k/uL Nucleated RBCs 0 (0-0) /100 WBC Manual Slide Review Performed Toxic Granulation Present Dohle Bodies Present Hypochromasia Moderate PT (9.0-12.0) sec INR (<1.2) APTT (22.0-30.0) sec Sodium 144 (137-145) mmol/L Potassium 3.1 L (3.5-5.1) mmol/L Chloride 120 H (98-107) mmol/L Carbon Dioxide 13 L (22-30) mmol/L Anion Gap 11 mmol/L BUN 29 H (9-20) mg/dL Creatinine 2.12 H (0.66-1.25) mg/dL Est GFR (CKD-EPI)AfAm 38 (>60 ml/min/1.73 sqM) Est GFR (CKD-EPI)NonAf 33 (>60 ml/min/1.73 sqM) Glucose 66 L (74-99) mg/dL Plasma Lactic Acid Yang 8.6 H* (0.7-2.0) mmol/L Calcium 4.8 L* (8.4-10.2) mg/dL Ionized Calcium Michael (4.5-5.3) mg/dL Total Bilirubin 0.7 (0.2-1.3) mg/dL AST 25 (17-59) U/L ALT 61 (21-72) U/L Alkaline Phosphatase 35 L (38-126) U/L Total Protein 2.8 L (6.3-8.2) g/dL Albumin 1.4 L (3.5-5.0) g/dL 11/24/17 11/24/17 Range/Units 13:00 14:43 WBC (3.8-10.6) k/uL RBC (4.30-5.90) m/uL Hgb (13.0-17.5) gm/dL Hct (39.0-53.0) % MCV (80.0-100.0) fL MCH (25.0-35.0) pg MCHC (31.0-37.0) g/dL RDW (11.5-15.5) % Plt Count (150-450) k/uL Neutrophils % (Manual) % Band Neutrophils % % Lymphocytes % (Manual) % Monocytes % (Manual) % Eosinophils % (Manual) % Metamyelocytes % % Myelocytes % % Neutrophils # (Manual) (1.3-7.7) k/uL Lymphocytes # (Manual) (1.0-4.8) k/uL Monocytes # (Manual) (0-1.0) k/uL Eosinophils # (Manual) (0-0.7) k/uL Metamyelocytes # (Man) (0) k/uL Myelocytes # (Manual) (0) k/uL Nucleated RBCs (0-0) /100 WBC Manual Slide Review Toxic Granulation Dohle Bodies Hypochromasia PT 13.5 H (9.0-12.0) sec INR 1.4 H (<1.2) APTT 24.0 (22.0-30.0) sec Sodium (137-145) mmol/L Potassium (3.5-5.1) mmol/L Chloride (98-107) mmol/L Carbon Dioxide (22-30) mmol/L Anion Gap mmol/L BUN (9-20) mg/dL Creatinine (0.66-1.25) mg/dL Est GFR (CKD-EPI)AfAm (>60 ml/min/1.73 sqM) Est GFR (CKD-EPI)NonAf (>60 ml/min/1.73 sqM) Glucose (74-99) mg/dL Plasma Lactic Acid Yang (0.7-2.0) mmol/L Calcium (8.4-10.2) mg/dL Ionized Calcium Michael 3.5 L* (4.5-5.3) mg/dL Total Bilirubin (0.2-1.3) mg/dL AST (17-59) U/L ALT (21-72) U/L Alkaline Phosphatase (38-126) U/L Total Protein (6.3-8.2) g/dL Albumin (3.5-5.0) g/dL - Radiology Data Radiology results: report reviewed (Ultrasound negative for DVT), image reviewed (X-ray left tib-fib shows questionable tiny avulsion fracture medial malleolus. Chest x-ray shows no acute process. Repeat x-ray does show central line in appropriate position. No pneumothorax. Mild patchy density right midlung.) Critical Care Time Critical Care Time: Yes Total Critical Care Time: 55 Disposition Clinical Impression: Septic shock, C. difficile colitis, Cellulitis Disposition: ADMITTED IP TO THIS [facility] Condition: Critical Is patient prescribed a controlled substance at d/c from ED?: No Referrals: Sadiq Jacinto MD [Primary Care Provider] - 1-2 days Decision Time: 16:11
[2017-11-24] MEDS ORDERED: ACETAMINOPHEN TAB 500 MG TAB PO STA (13:41)
[2017-11-24] MEDS: SODIUM CHLORIDE 0.9% 500 ML IV SCH ×5 (13:46→23:26)
[2017-11-24 14:13] LABS: INR 1.4 (<1.2); Prothrombin Time 13.5 sec (9.0-12.0)
[2017-11-24 14:14] LABS: Albumin 1.4 g/dL (3.5-5.0); Potassium 3.1 mmol/L (3.5-5.1); Total Bilirubin 0.7 mg/dL (0.2-1.3); Total Protein 2.8 g/dL (6.3-8.2)
--- NOTE | 2017-11-24 14:27 | XR ---
EXAMINATION TYPE: XR chest 2V DATE OF EXAM: 11/24/2017 COMPARISON: NONE HISTORY: Shortness of breath TECHNIQUE: Frontal and lateral views of the chest are obtained. FINDINGS: Scattered senescent parenchymal changes noted. Hyperinflation compatible with COPD. No evidence for infiltrate. No evidence for atelectasis. Heart size is stable. Mediastinal structures are stable and grossly unremarkable. No evidence for hilar prominence. Degenerative changes dorsal spine. IMPRESSION: 1. No evidence for acute pulmonary disease.
--- NOTE | 2017-11-24 14:28 | XR ---
EXAMINATION TYPE: XR tibia fibula LT DATE OF EXAM: 11/24/2017 CLINICAL HISTORY: pain TECHNIQUE: AP and lateral images of the left tibia and fibula are obtained. COMPARISON: None. FINDINGS: Tiny ossific density adjacent to the medial malleolar tip may reflect tiny avulsion fractur e. The joint spaces appear within normal limits. Lateral soft tissue swelling. IMPRESSION: Correlate for tiny medial malleolar avulsion fracture.
[2017-11-24 14:32] LABS: Calcium 4.8 mg/dL (8.4-10.2)
[2017-11-24 14:39] LABS: HCT 32.9 % (39.0-53.0); HGB 10.4 gm/dL (13.0-17.5); Hypochromasia Moderate; MCHC 31.6 g/dL (31.0-37.0); Mean Platelet Volume 6.8; RBC 3.36 m/uL (4.30-5.90); RDW 14.2 % (11.5-15.5); WBC 9.6 k/uL (3.8-10.6)
[2017-11-24 14:41] LABS: MCV 98.1 fL (80.0-100.0)
[2017-11-24] MEDS ORDERED: SODIUM CHLORIDE 0.9% 500 ML IV STA (14:44)
[2017-11-24] MEDS ORDERED: AMPICILLIN-SULBACTAM 3 GM in SODIUM CHLORIDE 0.9% 100 ML IVPB STA (14:45)
[2017-11-24] MEDS ORDERED: CALCIUM GLUCONATE 1,000 MG in SODIUM CHLORIDE 0.9% 100 ML IVPB ONE (14:46)
[2017-11-24 15:01] LABS: Band Neutrophils % 25 %; Dohle Bodies Present; Lymphocytes # (M) 1.25 k/uL (1.0-4.8); Metamyelocytes # (M) 0.77 k/uL (0); Metamyelocytes % 8 %; Monocytes # (M) 0.38 k/uL (0-1.0); Myelocytes # (M) 0.48 k/uL (0); Myelocytes % 5 %; Neutrophils % (M) 46 %; Nucleated Red Blood Cells 0 /100 WBC (0-0); Total Cells Counted 200; Toxic Granulation Present
[2017-11-24 15:04] LABS: Platelet Count 93 k/uL (150-450)
--- NOTE | 2017-11-24 15:37 | US ---
EXAMINATION TYPE: US venous doppler duplex LE LT DATE OF EXAM: 11/24/2017 2:54 PM COMPARISON: NONE CLINICAL HISTORY: Pain. Left lower leg pain, swelling and cellulitis x 1 week; C difficile SIDE PERFORMED: Left TECHNIQUE: The lower extremity deep venous system is examined utilizing real time linear array sonog remigio with graded compression, doppler sonography and color-flow sonography. VESSELS IMAGED: Common Femoral Vein Deep Femoral Vein Greater Saphenous Vein * Femoral Vein Popliteal Vein Small Saphenous Vein * Proximal Calf Veins (* superficial vessels) Left Leg: Negative for DVT. Thickened and stuck wall valves are noted in Femoral Vein. IMPRESSION: No evidence of DVT at this time.
[2017-11-24] MEDS ORDERED: VANCOMYCIN IV PER PHARMACY 1 EACH MISC MISCELLANE PRN (15:47)
[2017-11-24] MEDS ORDERED: SODIUM CHLORIDE 0.9% 1,000 ML IV ONE (16:00)
[2017-11-24] MEDS ORDERED: VANCOMYCIN 1,500 MG in SODIUM CHLORIDE 0.9% 250 ML IVPB STA (16:07)
[2017-11-24] MEDS ORDERED: IBUPROFEN IV 400 MG in SODIUM CHLORIDE 0.9% 250 ML IV ONE (16:11)
--- NOTE | 2017-11-24 16:27 | XR ---
EXAMINATION TYPE: XR chest 1V portable DATE OF EXAM: 11/24/2017 HISTORY: Shortness of breath. COMPARISON: 11/24/2017 TECHNIQUE: Single view of the chest is submitted. FINDINGS: Demonstrated are scattered senescent parenchymal change. Patchy density right medial lung base. Right-sided central line with its distal tip overlying the SVC . No evidence for pneumothorax. The heart is stable. Hilar and mediastinal structures are within normal limits. Degenerative changes are seen of the dorsal spine. IMPRESSION: 1. Patchy density right medial lung base. Right-sided central line with its distal tip overlying the SVC . No evidence for pneumothorax.
[2017-11-24] MEDS: NOREPINEPHRINE 16 MG in SODIUM CHLORIDE 0.9% 250 ML IV SCH (16:28)
[2017-11-24] MEDS ORDERED: Potassium Replacement Protocol 1 EACH MISC MISCELLANE PRN (16:57)
--- NOTE | 2017-11-24 17:12 | P.HPIM ---
History of Present Illness H&P Date: 11/24/17 Chief Complaint: The left leg pain and swelling and diarrhea The patient is a 57-year-old male with a past medical history of stage IV melanoma currently on chemotherapy daily with periodic biweekly IV infusions who presents to the ER with chief complaint of severe left leg pain. The patient reports increasing tenderness in his left leg over the last week, this morning the patient noted sick significant redness to the left lower extremity and worsening pain with fevers beginning when he presented here to the ER. The patient also complains of 2 weeks of diarrhea described as loose watery stools, he denies any abdominal pain nausea or vomiting. The patient denies any chest pain palpitations, but does note progressive exertional dyspnea. Patient does complain of generalized fatigue and weakness. Patient had a comprehensie workup in the ER with significant abnormal lab abnormalities serum lactate 8.6, 25% bands, serum creatinine 2.12, potassium 3.1 , serum bicarb 13. Patient was noted to be tachycardic HR 141 and febrile Tmax 101.8 and hypotensive with systolic blood pressure in the 60s, patient was given 3 L of normal saline bolus, had a central line placed and started on levophed for pressure support and started on empiric IV antibiotics with Unasyn and vancomycin and recommended for admission for septic shock. Left lower extremity venous Doppler were negative for DVT, tibia-fibula x-rays were suggestive of medial malleolus avulsion fracture Review of Systems Pertinent positives per HPI, all other review of systems are otherwise negative Past Medical History Past Medical History: Cancer, Prostate Disorder Additional Past Medical History / Comment(s): PARKINSON'S. 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, C-Diff History of Any Multi-Drug Resistant Organisms: C-DIFF Date of last positivie culture/infection: unknown MDRO Source:: stool Past Surgical History: Tonsillectomy Additional Past Surgical History / Comment(s): rt axillary biopsy - POSITIVE FOR CANCER, LIP BX, RT SHOULDER MOLE BX , dental extraction Past Anesthesia/Blood Transfusion Reactions: No Reported Reaction Past Psychological History: No Psychological Hx Reported Smoking Status: Never smoker Past Alcohol Use History: None Reported Past Drug Use History: None Reported - Past Family History Mother Family Medical History: Cancer Additional Family Medical History / Comment(s): breast cancer also had moles removed - not sure if positive or not for cancer Father Family Medical History: Congestive Heart Failure (CHF) Additional Family Medical History / Comment(s): Parkinsons Medications and Allergies Home Medications Medication Instructions Recorded Confirmed Type Carbidopa-Levodopa 25-100 mg 1 tab PO TID 10/19/17 11/24/17 History [Sinemet 25-100] Pantoprazole [Protonix] 40 mg PO DAILY 11/24/17 11/24/17 History Pramipexole Di-HCl [Mirapex] 1.5 mg PO TID 11/24/17 11/24/17 History Vancomycin HCl 125 mg PO Q6H 11/24/17 11/24/17 History predniSONE 50 mg PO BID 11/24/17 11/24/17 History Allergies Allergy/AdvReac Type Severity Reaction Status Date / Time Sulfa (Sulfonamide Allergy Rash/Hives Verified 11/24/17 16:49 Antibiotics) Physical Exam Vitals: Vital Signs Temp Pulse Pulse Resp BP Pulse Ox 11/24/17 15:32 101.0 F H 11/24/17 15:26 139 H 22 96 11/24/17 13:48 140 H 20 97 11/24/17 13:13 101.8 F H 11/24/17 13:07 141 H 11/24/17 12:39 99.5 F 139 H 22 96/55 95 Intake and Output 11/24/17 11/24/17 11/24/17 06:59 14:59 22:59 Other: Weight 79.379 kg Constitutional: No acute distress, conversant, pleasant Eyes: Anicteric sclerae, moist conjunctiva, no lid-lag, PERRLA ENMT: NC/AT,Oropharynx clear, no erythema, exudates Neck:Supple, FROM, no masses, or JVD, No carotid bruits; No thyromegaly Lungs: Clear to auscultation, Clear to percussion, Normal respiratory effort, no accessory muscle use Cardiovascular: Tachycardic, No murmurs, gallops, or rubs no peripheral edema Abdominal: Soft Nontender, nom distended, no guarding, no rebound or rigidity, Normoactive bowel sounds No hepatomegaly, No splenomegaly, No palpable mass No abdominal wall hernia noted Skin: Erythematous left lower extremity, warmth to touch, with noted swelling and induration. Extremities:No digital cyanosis No clubbing, Pedal pulses intact and symmetrical Radial pulses intact and symmetrical Normal gait and station, No calf tenderness Psychiatric: Alert and oriented to person, place and time, Appropriate affect Intact judgement Neuro: Muscles Strength 5/5 in all 4 extremities, Sensation to light touch grossly present throughout, Cranial nerves II-XII grossly intact. No focal sensory deficits Results CBC & Chem 7: 11/25/17 04:01 11/25/17 04:01 Labs: Abnormal Lab Results - Last 24 Hours (Table) 11/24/17 11/24/17 11/24/17 Range/Units 13:00 13:00 13:00 RBC 3.36 L (4.30-5.90) m/uL Hgb 10.4 L (13.0-17.5) gm/dL Hct 32.9 L (39.0-53.0) % Plt Count 93 L (150-450) k/uL Metamyelocytes # (Man) 0.77 H (0) k/uL Myelocytes # (Manual) 0.48 H (0) k/uL PT (9.0-12.0) sec INR (<1.2) Potassium 3.1 L (3.5-5.1) mmol/L Chloride 120 H (98-107) mmol/L Carbon Dioxide 13 L (22-30) mmol/L BUN 29 H (9-20) mg/dL Creatinine 2.12 H (0.66-1.25) mg/dL Glucose 66 L (74-99) mg/dL Plasma Lactic Acid Yang 8.6 H* (0.7-2.0) mmol/L Calcium 4.8 L* (8.4-10.2) mg/dL Ionized Calcium Michael (4.5-5.3) mg/dL Alkaline Phosphatase 35 L (38-126) U/L Total Protein 2.8 L (6.3-8.2) g/dL Albumin 1.4 L (3.5-5.0) g/dL 11/24/17 11/24/17 Range/Units 13:00 14:43 RBC (4.30-5.90) m/uL Hgb (13.0-17.5) gm/dL Hct (39.0-53.0) % Plt Count (150-450) k/uL Metamyelocytes # (Man) (0) k/uL Myelocytes # (Manual) (0) k/uL PT 13.5 H (9.0-12.0) sec INR 1.4 H (<1.2) Potassium (3.5-5.1) mmol/L Chloride (98-107) mmol/L Carbon Dioxide (22-30) mmol/L BUN (9-20) mg/dL Creatinine (0.66-1.25) mg/dL Glucose (74-99) mg/dL Plasma Lactic Acid Yang (0.7-2.0) mmol/L Calcium (8.4-10.2) mg/dL Ionized Calcium Michael 3.5 L* (4.5-5.3) mg/dL Alkaline Phosphatase (38-126) U/L Total Protein (6.3-8.2) g/dL Albumin (3.5-5.0) g/dL Assessment and Plan (1) Septic shock Current Visit: Yes Status: Acute Code(s): A41.9 - SEPSIS, UNSPECIFIED ORGANISM; R65.21 - SEVERE SEPSIS WITH SEPTIC SHOCK SNOMED Code(s): 30054503 (2) Cellulitis of left lower extremity Current Visit: Yes Status: Acute Code(s): L03.116 - CELLULITIS OF LEFT LOWER LIMB SNOMED Code(s): 337449927 (3) Acute kidney injury Current Visit: Yes Status: Acute Code(s): N17.9 - ACUTE KIDNEY FAILURE, UNSPECIFIED SNOMED Code(s): 80401811 (4) Hypokalemia Current Visit: Yes Status: Acute Code(s): E87.6 - HYPOKALEMIA SNOMED Code( s): 43711584 (5) C. difficile colitis Current Visit: Yes Status: Acute Code(s): A04.72 - ENTEROCOLITIS D/T CLOSTRIDIUM DIFFICILE, NOT SPCF RECUR SNOMED Code(s): 753227734 Plan: The patient is admitted to the ICU with septic shock after failure to respond to aggressive IV fluids, he started on IV Levaphed to maintain a map greater than 65, source likely left lower extremity cellulitis versus possible C. diff colitis. Patient has organ dysfunction acute kidney injury with metabolic acidosis due to renal hypoperfusion. We'll initiate septic protocol, repeat bolus 1.5L and initiated antibiotic therapy with guidance of infectious disease , continue with IV vancomycin, Unasyn and Flagyl for now. Coreas cultures are pending, final dressing cutter also consulted. We'll replace patient's potassium. Initiate [place] for pain, Zofran for nausea when necessary. Patient possibly has malleolus avulsion fracture, consult Ortho for further recommendations. Continue to follow patient's clinical course CODE STATUS Full code Discussed plan of care with the patient/Gladis Harrison DVT prophylaxis : Lovenox GI prophylaxis: Protonix Anticipated discharge:to be determined by clinical course
[2017-11-24 19:19] LABS: Appearance,Urine Cloudy (Clear); Bilirubin,Urine Negative (Negative); Blood,Urine Large (Negative); Budding Yeast,Urine Rare /hpf; Color,Urine Yellow; Glucose,Urine (UA) 3+ (Negative); Hyaline Casts,Urine 2 /lpf (0-2); Ketones,Urine Negative (Negative); Leukocyte Esterase,Urine Trace (Negative); Mucus,Urine Occasional /hpf; Nitrite,Urine Positive (Negative); PH, Urine 5.5 (5.0-8.0); Protein,Urine 1+ (Negative); RBC,Urine 16 /hpf (0-5); Specific Gravity,Urine 1.015 (1.001-1.035); Urobilinogen,Urine <2.0 mg/dL (<2.0); WBC,Urine 10 /hpf (0-5)
--- NOTE | 2017-11-24 20:29 | XR ---
EXAMINATION: XR chest 1V portable DATE AND TIME: 11/24/2017 7:07 PM CLINICAL INDICATION: pain TECHNIQUE: AP portable upright COMPARISON: 11/24/2017 FINDINGS: Right upper extremity PIC line tip superimposed over the distal SVC. The hemidiaphragms are elevated, consistent with low lung inflation at the moment of x-ray radiograph y. The mid and upper lungs are negative for consolidative pulmonary opacity, but the lower third of t he lung parenchyma cannot be visualized. The pleural spaces are negative. The cardiac silhouette appears top normal in size on this AP radiograph. The skeletal structures and soft tissues are negative for acute findings. IMPRESSION: NO DEFINITE ACUTE PROCESS.
[2017-11-24] MEDS ORDERED: FUROSEMIDE 10 MG/ML 4 ML VIAL IV STA (21:00)
[2017-11-24 21:42] LABS: ABG Base Excess -6.6 mmol/L; ABG HCO3 19 mmol/L (21-25); ABG Oxygen Saturation 97.9 % (94-97); ABG PCO2 32 mmHg (35-45); ABG PH 7.37 (7.35-7.45); ABG PO2 173 mmHg (83-108); ABG TCO2 20 mmol/L (19-24)
[2017-11-24] MEDS: AMPICILLIN-SULBACTAM 3 GM in SODIUM CHLORIDE 0.9% 100 ML IVPB SCH (21:54)
[2017-11-24 23:09] LABS: Glucose,Whole Blood 88 mg/dL (75-99)
[2017-11-24] MEDS: SODIUM CHLORIDE 0.9% 1,000 ML IV SCH (23:27)
[2017-11-25 00:01] LABS: HCT 43.6 % (39.0-53.0); Hypochromasia Slight; MCH 30.1 pg (25.0-35.0); MCHC 31.4 g/dL (31.0-37.0); MCV 95.8 fL (80.0-100.0); Platelet Count 114 k/uL (150-450); RBC 4.55 m/uL (4.30-5.90); RDW 14.3 % (11.5-15.5); WBC 12.8 k/uL (3.8-10.6)
[2017-11-25 00:03] LABS: Ionized Calcium 4.6 mg/dL (4.5-5.3)
[2017-11-25] MEDS: AMPICILLIN-SULBACTAM 3 GM in SODIUM CHLORIDE 0.9% 100 ML IVPB SCH ×2 (00:13→05:40)
[2017-11-25 00:15] LABS: Albumin 2.7 g/dL (3.5-5.0); Potassium 5.2 mmol/L (3.5-5.1); Total Bilirubin 1.6 mg/dL (0.2-1.3)
[2017-11-25 00:16] LABS: Calcium 7.8 mg/dL (8.4-10.2)
[2017-11-25 00:34] LABS: HGB 13.7 gm/dL (13.0-17.5)
[2017-11-25] MEDS ORDERED: SODIUM CHLORIDE 0.9% 1,000 ML IV ONE ×2 (01:00→07:42)
[2017-11-25 01:23] LABS: Band Neutrophils % 35 %; Lymphocytes # (M) 1.28 k/uL (1.0-4.8); Metamyelocytes # (M) 0.51 k/uL (0); Metamyelocytes % 4 %; Monocytes # (M) 0.26 k/uL (0-1.0); Neutrophils % (M) 49 %; Nucleated Red Blood Cells 0 /100 WBC (0-0); Total Cells Counted 100
[2017-11-25] MEDS: PROPOFOL 1,000 MG in EMPTY BAG 1 BAG IV SCH ×3 (02:05→12:14)
--- NOTE | 2017-11-25 02:16 | XR ---
EXAMINATION TYPE: XR chest 1V portable DATE OF EXAM: 11/25/2017 COMPARISON: 11/24/2017 HISTORY: Intubation TECHNIQUE: Single frontal view of the chest is obtained. FINDINGS: Endotracheal tube is 5 cm from the anderson. Right central venous catheter has tip in the gary perior vena cava. There is no pneumothorax. Nasogastric tube is in good position. There is slight coa rsening of interstitial markings. There is mild blunting of the right costophrenic angle. IMPRESSION: Tubing in good position. There is improvement in the congestive heart failure compared t o exam yesterday. Small right pleural effusion.
[2017-11-25] MEDS: NOREPINEPHRINE 16 MG in SODIUM CHLORIDE 0.9% 250 ML IV SCH ×3 (02:49→17:01)
[2017-11-25] MEDS: SODIUM CHLORIDE 0.9% 99 ML with VASOPRESSIN 20 UNIT IV SCH ×4 (02:49→13:18)
[2017-11-25 03:04] LABS: ABG Base Excess -8.9 mmol/L; ABG HCO3 17 mmol/L (21-25); ABG Oxygen Saturation 98.3 % (94-97); ABG PCO2 34 mmHg (35-45); ABG PH 7.31 (7.35-7.45); ABG PO2 >400 mmHg (83-108); ABG TCO2 18 mmol/L (19-24)
[2017-11-25 04:29] LABS: Albumin 2.6 g/dL (3.5-5.0); Calcium 7.2 mg/dL (8.4-10.2); Phosphorus 8.6 mg/dL (2.5-4.5); Potassium 5.3 mmol/L (3.5-5.1); Total Bilirubin 1.8 mg/dL (0.2-1.3); Total Protein 4.7 g/dL (6.3-8.2)
[2017-11-25] MEDS: SODIUM CHLORIDE 0.9% 1,000 ML IV SCH ×5 (04:29→17:04)
[2017-11-25 04:37] LABS: HCT 45.2 % (39.0-53.0); HGB 13.8 gm/dL (13.0-17.5); Hypochromasia Slight; MCH 29.6 pg (25.0-35.0); MCHC 30.5 g/dL (31.0-37.0); Mean Platelet Volume 6.9; Platelet Count 124 k/uL (150-450); RBC 4.66 m/uL (4.30-5.90); RDW 14.5 % (11.5-15.5); WBC 15.8 k/uL (3.8-10.6)
[2017-11-25 05:20] LABS: Band Neutrophils % 26 %; Lymphocytes # (M) 0.47 k/uL (1.0-4.8); Metamyelocytes # (M) 0.32 k/uL (0); Metamyelocytes % 2 %; Monocytes # (M) 0.16 k/uL (0-1.0); Myelocytes # (M) 0.16 k/uL (0); Myelocytes % 1 %; Neutrophils % (M) 67 %; Nucleated Red Blood Cells 0 /100 WBC (0-0); Total Cells Counted 100
[2017-11-25 06:49] LABS: Glucose,Whole Blood 136 mg/dL (75-99)
[2017-11-25 07:49] LABS: ABG Base Excess -7.6 mmol/L; ABG HCO3 18 mmol/L (21-25); ABG Oxygen Saturation 97.5 % (94-97); ABG PCO2 32 mmHg (35-45); ABG PH 7.36 (7.35-7.45); ABG PO2 169 mmHg (83-108); ABG TCO2 19 mmol/L (19-24)
[2017-11-25 08:35] LABS: Glucose,Whole Blood 169 mg/dL (75-99)
[2017-11-25] MEDS: CHLORHEXIDINE GLUCONATE 15 ML CUP MUCOUS MEM SCH ×2 (08:49→21:05)
[2017-11-25] MEDS: ENOXAPARIN 30 MG/0.3 ML SYRINGE SQ SCH (08:50)
[2017-11-25] MEDS: PANTOPRAZOLE 40 MG/10 ML VIAL IV SCH (08:50)
[2017-11-25] MEDS: metroNIDAZOLE-NS PMX 500 MG in SALINE 1 100ML.BAG IVPB SCH ×2 (08:50→16:04)
--- NOTE | 2017-11-25 08:52 | XR ---
EXAMINATION TYPE: XR chest 1V portable DATE OF EXAM: 11/25/2017 Comparison: 11/25/2017 Clinical History: 57-year-old male Tube placement Findings: ET tube satisfactory. NG tube courses below the diaphragm. Right subclavian CVC tip at the lower SVC level. Heart borderline enlarged. Mild diffuse interstitial prominence is similar. Suspect small righ t pleural effusion. Adjacent right basilar opacity. Impression: 1. Overall similar exam. There may be minimal residual pulmonary vascular congestion. 2. Residual small right pleural effusion with adjacent atelectasis and/or consolidation.
[2017-11-25] MEDS ORDERED: VANCOMYCIN 1,500 MG in SODIUM CHLORIDE 0.9% 250 ML IVPB SCH (09:00)
--- NOTE | 2017-11-25 10:16 | ECHOF ---
Referral Reason:elevated BNP MEASUREMENTS -------- HEIGHT: 170.2 cm WEIGHT: 80.3 kg BP: 85/58 RVIDd: 2.6 cm (< 3.3) IVSd: 0.7 cm (0.6 - 1.1) LVIDd: 4.7 cm (3.9 - 5.3) LVPWd: 1.0 cm (0.6 - 1.1) IVSs: 0.9 cm LVIDs: 4.2 cm LVPWs: 1.2 cm LAESV Index (A-L): 15.01 ml/m Ao Diam: 3.5 cm (2.0 - 3.7) AV Cusp: 2.1 cm (1.5 - 2.6) LA Diam: 3.3 cm (2.7 - 3.8) MV E Nikhil: 0.72 m/s MV DecT: 128 ms MV A Nikhil: 0.30 m/s MV E/A Ratio: 2.37 RAP: 20.00 mmHg RVSP: 36.93 mmHg FINDINGS -------- Resting tachycardia (HR>100bpm). Pt. on a vent. The left ventricular size is normal. Left ventricular wall thickness is normal. There is severe g lobal hypokinesis of LV . Overall left ventricular systolic function is severely impaired with, an EF between 20 - 25 %. The right ventricle is normal in size and function. Normal LA size by volume 22+/-6 ml/m2. The right atrium is normal in size. Aortic valve is trileaflet and is mildly thickened. Moderate mitral regurgitation is present. Mild tricuspid regurgitation present. There is borderline pulmonary hypertension. The right ventr icular systolic pressure, as measured by Doppler, is 36.93mmHg. Pulmonic valve appears structurally normal. The aortic root, ascending aorta and aortic arch are normal. The inferior vena cava is dilated with no significant inspiratory collapse which is consistent estima anton right atrial pressure of >20 mmHg. The pericardium is normal. CONCLUSIONS -------- 1. Resting tachycardia (HR>100bpm). 2. Pt. on a vent. 3. The left ventricular size is normal. 4. Left ventricular wall thickness is normal. 5. There is severe global hypokinesis of LV . 6. Overall left ventricular systolic function is severely impaired with, an EF between 20 - 25 %. 7. The right ventricle is normal in size and function. 8. Normal LA size by volume 22+/-6 ml/m2. 9. The right atrium is normal in size. 10. Aortic valve is trileaflet and is mildly thickened. 11. Moderate mitral regurgitation is present. 12. Mild tricuspid regurgitation present. 13. There is borderline pulmonary hypertension. 14. The right ventricular systolic pressure, as measured by Doppler, is 36.93mmHg. 15. Pulmonic valve appears structurally normal. 16. The aortic root, ascending aorta and aortic arch are normal. 17. The inferior vena cava is dilated with no significant inspiratory collapse which is consistent es timated right atrial pressure of >20 mmHg. 18. The pericardium is normal. [employer]: April Figueroa RDCS
--- NOTE | 2017-11-25 10:49 | P.PN ---
Subjective Progress Note Date: 11/25/17 Principal diagnosis: Patient admitted with septic shock initiated on IV pressors with Levophed and vasopressin after not responding to initial fluid resuscitation orders, continued on empiric IV antibiotics with vancomycin and Unasyn and Flagyl. Source suspected left lower extremity cellulitis superimposed on possible C. diff colitis (lab pending).PAteint Had multiple organ dysfunction and renal hypoperfusion and likely shock liver with elevated serum creatinine and transaminitis on admission, with subsequent respiratory failure due to severe septic shock. Patient ventilated and sedated, noted respiratory failure overnight requiring mechanical ventilation. Still with low-grade temperature, hypotensive and tachycardic, elevated serum lactate still at 4.2. Muñiz catheter in place making adequate urine. Objective - Vital Signs Vital signs: Vital Signs Temp 100.2 F H 11/25/17 08:00 Pulse 122 H 11/25/17 08:30 Resp 24 11/25/17 08:30 BP 84/60 11/25/17 08:30 Pulse Ox 98 11/25/17 08:30 Intake & Output 11/24/17 11/25/17 11/25/17 18:59 06:59 18:59 Intake Total 18.738 2321.232 429.496 Output Total 2800 425 Balance 18.738 -478.768 4.496 Weight 79.379 kg 80.4 kg Intake: IV 1875 250 Sodium Chloride 0.9% 1, 875 250 000 ml @ 125 mls/hr IV . Q8H CATHLEEN Rx#:[id number] Sodium Chloride 0.9% 1, 1000 000 ml @ 999 mls/hr IV . Q1H1M ONE Rx#:[id number] Intake, IV Titration 18.738 446.232 179.496 Amount Norepinephrine 16 mg In 18.738 374.525 152.826 Sodium Chloride 0.9% 250 ml @ Titrate IV .Q0M CATHLEEN Rx#:[id number] Propofol 1,000 mg In 65.357 26.67 Empty Bag 1 bag @ Titrate IV .Q0M CATHLEEN Rx#: [id number] Sodium Chloride 0.9% 99 6.35 ml @ 0.01 UNITS/MIN 3 mls /hr IV .Q24H CATHLEEN with Vasopressin 20 unit Rx#: [id number] Output: Urine 2800 425 Other: Voiding Method Indwelling Catheter - Exam Constitutional: Ventilated and intubated sedated on propofol Eyes: Anicteric sclerae, moist conjunctiva, no lid-lag, PERRLA ENMT: NC/AT,Oropharynx clear, no erythema, exudates Neck:Supple, FROM, no masses, or JVD, No carotid bruits; No thyromegaly Lungs: Clear to auscultation, Clear to percussion, Normal respiratory effort, no accessory muscle use, currently on ventilator Cardiovascular: Tachycardic regular rhythm, No murmurs, gallops, or rubs no peripheral edema Abdominal: Soft Nontender, nom distended, no guarding, no rebound or rigidity, Normoactive bowel sounds No hepatomegaly, No splenomegaly, No palpable mass No abdominal wall hernia noted Skin: Left lower extremity erythema intensity improving, no blisters or vesicles noted, warm to touch and swollen. Extremities:No digital cyanosis No clubbing, Pedal pulses intact and symmetrical Radial pulses intact and symmetrical Normal gait and station, No calf tenderness Psychiatric: Unable to assess Neuro: Currently sedated on propofol, requiring mechanical ventilation at this time - Labs CBC & Chem 7: 11/25/17 04:01 11/25/17 04:01 Labs: Abnormal Lab Results - Last 24 Hours (Table) 11/24/17 11/24/17 11/24/17 Range/Units 13:00 13:00 13:00 WBC (3.8-10.6) k/uL RBC 3.36 L (4.30-5.90) m/uL Hgb 10.4 L (13.0-17.5) gm/dL Hct 32.9 L (39.0-53.0) % MCHC (31.0-37.0) g/dL Plt Count 93 L (150-450) k/uL Neutrophils # (Manual) (1.3-7.7) k/uL Lymphocytes # (Manual) (1.0-4.8) k/uL Metamyelocytes # (Man) 0.77 H (0) k/uL Myelocytes # (Manual) 0.48 H (0) k/uL PT (9.0-12.0) sec INR (<1.2) ABG pH (7.35-7.45) ABG pCO2 (35-45) mmHg ABG pO2 (83-108) mmHg ABG HCO3 (21-25) mmol/L ABG Total CO2 (19-24) mmol/L ABG O2 Saturation (94-97) % Potassium 3.1 L (3.5-5.1) mmol/L Chloride 120 H (98-107) mmol/L Carbon Dioxide 13 L (22-30) mmol/L BUN 29 H (9-20) mg/dL Creatinine 2.12 H (0.66-1.25) mg/dL Glucose 66 L (74-99) mg/dL POC Glucose (mg/dL) (75-99) mg/dL Plasma Lactic Acid Yang 8.6 H* (0.7-2.0) mmol/L Calcium 4.8 L* (8.4-10.2) mg/dL Ionized Calcium Michael (4.5-5.3) mg/dL Phosphorus (2.5-4.5) mg/dL Total Bilirubin (0.2-1.3) mg/dL AST (17-59) U/L ALT (21-72) U/L Alkaline Phosphatase 35 L (38-126) U/L Total Protein 2.8 L (6.3-8.2) g/dL Albumin 1.4 L (3.5-5.0) g/dL Urine Protein (Negative) Urine Glucose (UA) (Negative) Urine Blood (Negative) Ur Leukocyte Esterase (Negative) Urine RBC (0-5) /hpf Urine WBC (0-5) /hpf Urine Mucus (None) /hpf Urine Yeast (Budding) (None) /hpf 11/24/17 11/24/17 11/24/17 Range/Units 13:00 14:43 19:03 WBC (3.8-10.6) k/uL RBC (4.30-5.90) m/uL Hgb (13.0-17.5) gm/dL Hct (39.0-53.0) % MCHC (31.0-37.0) g/dL Plt Count (150-450) k/uL Neutrophils # (Manual) (1.3-7.7) k/uL Lymphocytes # (Manual) (1.0-4.8) k/uL Metamyelocytes # (Man) (0) k/uL Myelocytes # (Manual) (0) k/uL PT 13.5 H (9.0-12.0) sec INR 1.4 H (<1.2) ABG pH (7.35-7.45) ABG pCO2 (35-45) mmHg ABG pO2 (83-108) mmHg ABG HCO3 (21-25) mmol/L ABG Total CO2 (19-24) mmol/L ABG O2 Saturation (94-97) % Potassium (3.5-5.1) mmol/L Chloride (98-107) mmol/L Carbon Dioxide (22-30) mmol/L BUN (9-20) mg/dL Creatinine (0.66-1.25) mg/dL Glucose (74-99) mg/dL POC Glucose (mg/dL) (75-99) mg/dL Plasma Lactic Acid Yang 3.6 H* (0.7-2.0) mmol/L Calcium (8.4-10.2) mg/dL Ionized Calcium Michael 3.5 L* (4.5-5.3) mg/dL Phosphorus (2.5-4.5) mg/dL Total Bilirubin (0.2-1.3) mg/dL AST (17-59) U/L ALT (21-72) U/L Alkaline Phosphatase (38-126) U/L Total Protein (6.3-8.2) g/dL Albumin (3.5-5.0) g/dL Urine Protein (Negative) Urine Glucose (UA) (Negative) Urine Blood (Negative) Ur Leukocyte Esterase (Negative) Urine RBC (0-5) /hpf Urine WBC (0-5) /hpf Urine Mucus (None) /hpf Urine Yeast (Budding) (None) /hpf 11/24/17 11/24/17 11/24/17 Range/Units 19:11 21:37 23:45 WBC 12.8 H (3.8-10.6) k/uL RBC (4.30-5.90) m/uL Hgb (13.0-17.5) gm/dL Hct (39.0-53.0) % MCHC (31.0-37.0) g/dL Plt Count 114 L (150-450) k/uL Neutrophils # (Manual) 10.70 H (1.3-7.7) k/uL Lymphocytes # (Manual) (1.0-4.8) k/uL Metamyelocytes # (Man) 0.51 H (0) k/uL Myelocytes # (Manual) (0) k/uL PT (9.0-12.0) sec INR (<1.2) ABG pH (7.35-7.45) ABG pCO2 32 L (35-45) mmHg ABG pO2 173 H (83-108) mmHg ABG HCO3 19 L (21-25) mmol/L ABG Total CO2 (19-24) mmol/L ABG O2 Saturation 97.9 H (94-97) % Potassium (3.5-5.1) mmol/L Chloride (98-107) mmol/L Carbon Dioxide (22-30) mmol/L BUN (9-20) mg/dL Creatinine (0.66-1.25) mg/dL Glucose (74-99) mg/dL POC Glucose (mg/dL) (75-99) mg/dL Plasma Lactic Acid Yang (0.7-2.0) mmol/L Calcium (8.4-10.2) mg/dL Ionized Calcium Michael (4.5-5.3) mg/dL Phosphorus (2.5-4.5) mg/dL Total Bilirubin (0.2-1.3) mg/dL AST (17-59) U/L ALT (21-72) U/L Alkaline Phosphatase (38-126) U/L Total Protein (6.3-8.2) g/dL Albumin (3.5-5.0) g/dL Urine Protein 1+ H (Negative) Urine Glucose (UA) 3+ H (Negative) Urine Blood Large H (Negative) Ur Leukocyte Esterase Trace H (Negative) Urine RBC 16 H (0-5) /hpf Urine WBC 10 H (0-5) /hpf Urine Mucus Occasional H (None) /hpf Urine Yeast (Budding) Rare H (None) /hpf 11/24/17 11/24/17 11/25/17 Range/Units 23:45 23:45 03:03 WBC (3.8-10.6) k/uL RBC (4.30-5.90) m/uL Hgb (13.0-17.5) gm/dL Hct (39.0-53.0) % MCHC (31.0-37.0) g/dL Plt Count (150-450) k/uL Neutrophils # (Manual) (1.3-7.7) k/uL Lymphocytes # (Manual) (1.0-4.8) k/uL Metamyelocytes # (Man) (0) k/uL Myelocytes # (Manual) (0) k/uL PT (9.0-12.0) sec INR (<1.2) ABG pH 7.31 L (7.35-7.45) ABG pCO2 34 L (35-45) mmHg ABG pO2 >400 H (83-108) mmHg ABG HCO3 17 L (21-25) mmol/L ABG Total CO2 18 L (19-24) mmol/L ABG O2 Saturation 98.3 H (94-97) % Potassium 5.2 H (3.5-5.1) mmol/L Chloride (98-107) mmol/L Carbon Dioxide 21 L (22-30) mmol/L BUN 49 H (9-20) mg/dL Creatinine 2.84 H (0.66-1.25) mg/dL Glucose 105 H (74-99) mg/dL POC Glucose (mg/dL) (75-99) mg/dL Plasma Lactic Acid Yang 5.6 H* (0.7-2.0) mmol/L Calcium 7.8 L (8.4-10.2) mg/dL Ionized Calcium Michael (4.5-5.3) mg/dL Phosphorus (2.5-4.5) mg/dL Total Bilirubin 1.6 H (0.2-1.3) mg/dL AST 123 H (17-59) U/L ALT 152 H (21-72) U/L Alkaline Phosphatase (38-126) U/L Total Protein 5.0 L (6.3-8.2) g/dL Albumin 2.7 L (3.5-5.0) g/dL Urine Protein (Negative) Urine Glucose (UA) (Negative) Urine Blood (Negative) Ur Leukocyte Esterase (Negative) Urine RBC (0-5) /hpf Urine WBC (0-5) /hpf Urine Mucus (None) /hpf Urine Yeast (Budding) (None) /hpf 11/25/17 11/25/17 11/25/17 Range/Units 04:01 04:01 04:01 WBC 15.8 H (3.8-10.6) k/uL RBC (4.30-5.90) m/uL Hgb (13.0-17.5) gm/dL Hct (39.0-53.0) % MCHC 30.5 L (31.0-37.0) g/dL Plt Count 124 L (150-450) k/uL Neutrophils # (Manual) 14.60 H (1.3-7.7) k/uL Lymphocytes # (Manual) 0.47 L (1.0-4.8) k/uL Metamyelocytes # (Man) 0.32 H (0) k/uL Myelocytes # (Manual) 0.16 H (0) k/uL PT (9.0-12.0) sec INR (<1.2) ABG pH (7.35-7.45) ABG pCO2 (35-45) mmHg ABG pO2 (83-108) mmHg ABG HCO3 (21-25) mmol/L ABG Total CO2 (19-24) mmol/L ABG O2 Saturation (94-97) % Potassium 5.3 H (3.5-5.1) mmol/L Chloride 109 H (98-107) mmol/L Carbon Dioxide 20 L (22-30) mmol/L BUN 47 H (9-20) mg/dL Creatinine 2.63 H (0.66-1.25) mg/dL Glucose 132 H (74-99) mg/dL POC Glucose (mg/dL) (75-99) mg/dL Plasma Lactic Acid Yang 4.5 H* (0.7-2.0) mmol/L Calcium 7.2 L (8.4-10.2) mg/dL Ionized Calcium Michael (4.5-5.3) mg/dL Phosphorus 8.6 H (2.5-4.5) mg/dL Total Bilirubin 1.8 H (0.2-1.3) mg/dL AST 120 H (17-59) U/L ALT 149 H (21-72) U/L Alkaline Phosphatase (38-126) U/L Total Protein 4.7 L (6.3-8.2) g/dL Albumin 2.6 L (3.5-5.0) g/dL Urine Protein (Negative) Urine Glucose (UA) (Negative) Urine Blood (Negative) Ur Leukocyte Esterase (Negative) Urine RBC (0-5) /hpf Urine WBC (0-5) /hpf Urine Mucus (None) /hpf Urine Yeast (Budding) (None) /hpf 11/25/17 11/25/17 11/25/17 Range/Units 06:48 07:42 08:24 WBC (3.8-10.6) k/uL RBC (4.30-5.90) m/uL Hgb (13.0-17.5) gm/dL Hct (39.0-53.0) % MCHC (31.0-37.0) g/dL Plt Count (150-450) k/uL Neutrophils # (Manual) (1.3-7.7) k/uL Lymphocytes # (Manual) (1.0-4.8) k/uL Metamyelocytes # (Man) (0) k/uL Myelocytes # (Manual) (0) k/uL PT (9.0-12.0) sec INR (<1.2) ABG pH (7.35-7.45) ABG pCO2 32 L (35-45) mmHg ABG pO2 169 H (83-108) mmHg ABG HCO3 18 L (21-25) mmol/L ABG Total CO2 (19-24) mmol/L ABG O2 Saturation 97.5 H (94-97) % Potassium (3.5-5.1) mmol/L Chloride (98-107) mmol/L Carbon Dioxide (22-30) mmol/L BUN (9-20) mg/dL Creatinine (0.66-1.25) mg/dL Glucose (74-99) mg/dL POC Glucose (mg/dL) 136 H 169 H (75-99) mg/dL Plasma Lactic Acid Yang (0.7-2.0) mmol/L Calcium (8.4-10.2) mg/dL Ionized Calcium Michael (4.5-5.3) mg/dL Phosphorus (2.5-4.5) mg/dL Total Bilirubin (0.2-1.3) mg/dL AST (17-59) U/L ALT (21-72) U/L Alkaline Phosphatase (38-126) U/L Total Protein (6.3-8.2) g/dL Albumin (3.5-5.0) g/dL Urine Protein (Negative) Urine Glucose (UA) (Negative) Urine Blood (Negative) Ur Leukocyte Esterase (Negative) Urine RBC (0-5) /hpf Urine WBC (0-5) /hpf Urine Mucus (None) /hpf Urine Yeast (Budding) (None) /hpf Microbiology - Last 24 Hours (Table) 11/24/17 19:11 Urine Culture - Preliminary Urine,Catheterized Assessment and Plan (1) Septic shock Narrative/Plan: * Likely secondary to left lower extremity cellulitis versus possible C. diff colitis in the setting of recent chemo and immunotherapy * Patient requiring more Iv pressor support overnight continue on levophed and vasopressin to keep map greater than 65, having adequate output * Patient still tachycardic, we'll repeat a bolus of 2 L, will need CVP line to correctly assess fluid status * Leukocytosis trending up 15.8, still febrile continue current antibiotic regimen with IV vancomycin and Flagyl and Unasyn (ID consult pending) * Coreas cultures pending Current Visit: Yes Status: Acute Code(s): A41.9 - SEPSIS, UNSPECIFIED ORGANISM; R65.21 - SEVERE SEPSIS WITH SEPTIC SHOCK SNOMED Code(s): 48518924 (2) Acute respiratory failure Narrative/Plan: * Secondary to septic shock with possible CHF exacerbation given elevated NT proBNP 5530 * Mechanical ventilation per pulmonary Current Visit: Yes Status: Acute Code(s): J96.00 - ACUTE RESPIRATORY FAILURE , UNSP W HYPOXIA OR HYPERCAPNIA SNOMED Code(s): 10413573 (3) Acute kidney injury Narrative/Plan: * Acute kidney injury with hyperkalemia and anion gap metabolic acidosis secondary to severe septic shock and renal hypoperfusion prerenal etiology * Likely ATN * Continue with aggressive fluids We'll repeat bolus and continue maintenance fluids Current Visit: Yes Status: Acute Code(s): N17.9 - ACUTE KIDNEY FAILURE, UNSPECIFIED SNOMED Code(s): 83937555 (4) Cellulitis of left lower extremity Narrative/Plan: * And treatment as above continue with antibiotic regimen Current Visit: Yes Status: Acute Code(s): L03.116 - CELLULITIS OF LEFT LOWER LIMB SNOMED Code(s): 280671733 (5) C. difficile colitis Narrative/Plan: * C. diff pending continue with Flagyl IV Current Visit: Yes Status: Acute Code(s): A04.72 - ENTEROCOLITIS D/T CLOSTRIDIUM DIFFICILE, NOT SPCF RECUR SNOMED Code(s): 502032141 (6) Transaminitis Narrative/Plan: * Likely secondary to shock liver * rule out acute hepatitis and acute cholecystitis with right upper quadrant ultrasound hep panel Current Visit: Yes Status: Acute Code(s): R74.0 - NONSPEC ELEV OF LEVELS OF TRANSAMNS & LACTIC ACID DEHYDRGNSE SNOMED Code(s): 474283093 (7) Hyperkalemia Narrative/Plan: * Previously hypokalemic, now hyperkalemic after preplacement * Superimposed on acute kidney injury likely secondary to severe septic shock Current Visit: Yes Status: Acute Code(s): E87.5 - HYPERKALEMIA SNOMED Code (s): 06509553 Plan: Disposition * Critically ill patient with septic shock requiring multiple pressors, currently on mechanical ventilation and broad-spectrum antibiotics and aggressive IV fluids * Discussed plan of care with Gladis richardson, CODE STATUS is full code. * Social work attempting to contact his children who is his next of kin
--- NOTE | 2017-11-25 10:58 | PCN ---
PROCEDURE NOTE PROCEDURE: Placement of a right femoral arterial line. PREOPERATIVE DIAGNOSIS: Acute septic shock and hypotension. POSTOPERATIVE DIAGNOSIS: Acute septic shock and hypotension. ANESTHESIA: None deployed. PROCEDURE DESCRIPTION: The patient was placed in a supine position, the area of the right groin was prepared in a sterile fashion and drapes were applied. The right femoral artery was palpated, easily cannulated, and a guidewire was placed. The dilator was placed over the guidewire, and the area was dilated. Then the femoral neck catheter was used, it is a Cook catheter, and it was placed over the guidewire, the guidewire was removed. Good blood flow and good waveform were noted, and no evidence of any immediate complication. Line was secured using silk sutures. MMODL / IJN: [id number] /
--- NOTE | 2017-11-25 11:08 | CT ---
EXAMINATION TYPE: CT lower extremity LT wo con DATE OF EXAM: 11/25/2017 COMPARISON: None HISTORY: 57-year-old male with pain R/o compartment syndrome TECHNIQUE: Contiguous axial scanning of the left leg without IV contrast. Coronal and sagittal recons tructions performed. 3-D reconstructions generated on a dedicated independent workstation. CT DLP: 762 mGycm Automated exposure control for dose reduction was used. FINDINGS: There is moderate to marked generalized subcutaneous soft tissue edema with more confluent edema raleigh g the superficial fascia of the leg. There is some mild fluid which extends along the deeper fascial planes between the superficial and de ep posterior compartments of the upper to mid leg. The remainder of the deep fascial planes are maint ained without fatty effacement. No osseous erosions. The left leg measures up to 14.3 cm wide versus 14 cm for the right length Additional confluent edema about the ankle and visualized hindfoot. Moderate knee joint effusion. No acute fracture identified. IMPRESSION: 1. EXTENSIVE SOFT TISSUE EDEMA PARTICULARLY OF THE SUBCUTANEOUS ADIPOSE LAYER AND CONFLUENT EDEMA ROBIN NG THE SUPERFICIAL FASCIA. CORRELATE FOR POSSIBLE CAUSES SUCH CELLULITIS. 2. SMALL AMOUNT OF DEEPER FASCIAL EDEMA IN THE UPPER LEG BETWEEN THE SUPERFICIAL AND DEEP POSTERIOR C OMPARTMENTS. THIS IS A NONSPECIFIC FINDING. IT CAN BE SEEN WITH DVT, FASCIITIS, MYOSITIS, MYONECROSIS , INFLAMMATORY MYOPATHY, AND COMPARTMENT SYNDROME WELL. IT SHOULD BE NOTED THAT THIS DEEPER FASCIA L EDEMA IS MUCH LESS RELATIVE TO THE EDEMA IN THE SUBCUTANEOUS TISSUES. FURTHER CLINICAL CORRELATION WILL BE NEEDED IF THERE IS CONCERN FOR COMPARTMENT SYNDROME.
--- NOTE | 2017-11-25 11:39 | P.CNPUL ---
History of Present Illness Consult date: 11/25/17 Requesting physician: Eris Funez Reason for consult: other (Acute septic shock) Chief complaint: Left leg swelling and diarrhea. History of present illness: This is a 57-year-old white male, known history of stage IV melanoma, on clinical trial/chemotherapy with daily periodic biweekly IV infusions. Patient presented to the ER yesterday with chief complaint of severe leg swelling and pain. Patient was noted to have significant tenderness in the left leg, and this has been going on for the last 1 week. There was also evidence of cellulitis, patient was complaining of fever and pain, and had a recent episode of C. difficile colitis. In the ER, the patient was clinically diagnosed as septic, and considering the patient did not improve with significant amount of fluid boluses, required norepinephrine, and later on required vasopressin, it was felt that the patient has acute septic shock from acute cellulitis of the left lower extremity. Patient was noted to have significantly elevated lactic acid of 8.6, significant bandemia was noted, and he had acute kidney injury with creatinine of 2.12. Patient was tachycardic, his temp was 101.8, and initially his systolic blood pressure was in the 50s requiring a central line placement and fluid boluses as well as norepinephrine drip. Patient was transferred to the ICU, and shortly after arrival to the ICU, I was notified by the nurse taking care of the patient that he wasn't doing too well. Hence patient was intubated, placed on mechanical ventilation, he is presently on FiO2 of 40%, tidal volume of 450, assist control rate of 20 and PEEP of 5. His venous Doppler of the left lower extremity was negative for deep vein thrombosis. X-rays of the tibia and fibula showed possible avulsion fracture of medial malleolus. CT of the left lower extremity showed moderate to marked generalized subcutaneous soft tissue edema mild fluid extending along the deeper fascial planes between the superficial and deep posterior compartment of the upper to mid leg. No fatty effacement was noted. Moderate left TM effusions noted. The findings were described as nonspecific findings, can be seen with fasciitis, myositis, myonecrosis, inflammatory myopathy, and in compartment syndrome as well. Hence a vascular surgery consultation will be initiated, infectious disease consultation was also initiated. Chest x-ray showed small tiny right-sided pleural effusion and adjacent atelectasis. Review of Systems ROS unobtainable: due to endotracheal tube (According to the significant other, patient has been mostly dealing with his metastatic melanoma recently.) Past Medical History Past Medical History: Cancer, Prostate Disorder Additional Past Medical History / Comment(s): PARKINSON'S. 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, C-Diff History of Any Multi-Drug Resistant Organisms: C-DIFF Date of last positivie culture/infection: unknown MDRO Source:: stool Past Surgical History: Tonsillectomy Additional Past Surgical History / Comment(s): rt axillary biopsy - POSITIVE FOR CANCER, LIP BX, RT SHOULDER MOLE BX , dental extraction Past Anesthesia/Blood Transfusion Reactions: No Reported Reaction Past Psychological History: No Psychological Hx Reported Smoking Status: Never smoker Past Alcohol Use History: None Reported Past Drug Use History: None Reported - Past Family History Mother Family Medical History: Cancer Additional Family Medical History / Comment(s): breast cancer also had moles removed - not sure if positive or not for cancer Father Family Medical History: Congestive Heart Failure (CHF) Additional Family Medical History / Comment(s): Parkinsons Medications and Allergies Home Medications Medication Instructions Recorded Confirmed Type Carbidopa-Levodopa 25-100 mg 1 tab PO TID 10/19/17 11/24/17 History [Sinemet 25-100] Pantoprazole [Protonix] 40 mg PO DAILY 11/24/17 11/24/17 History Pramipexole Di-HCl [Mirapex] 1.5 mg PO TID 11/24/17 11/24/17 History Vancomycin HCl 125 mg PO Q6H 11/24/17 11/24/17 History predniSONE 50 mg PO BID 11/24/17 11/24/17 History Allergies Allergy/AdvReac Type Severity Reaction Status Date / Time Sulfa (Sulfonamide Allergy Rash/Hives Verified 11/24/17 16:49 Antibiotics) Physical Exam Vitals: Vital Signs Temp Pulse Pulse Resp BP Pulse Ox 11/25/17 11:00 115 H 22 100 11/25/17 10:45 114 H 20 100 11/25/17 10:30 112 H 21 100 11/25/17 10:25 112 H 19 11/25/17 09:45 118 H 19 114/57 99 11/25/17 09:30 117 H 24 100 09/18/18 09:15 117 H 28 H 91/62 100 11/25/17 09:00 118 H 25 H 94/67 100 11/25/17 08:45 119 H 24 85/64 100 11/25/17 08:30 122 H 24 84/60 98 11/25/17 08:15 122 H 25 H 92/52 100 11/25/17 08:00 100.2 F H 123 H 23 89/58 100 11/25/17 07:45 123 H 26 H 91/60 100 11/25/17 07:30 122 H 20 99/61 100 11/25/17 07:15 121 H 20 84/56 100 11/25/17 07:00 122 H 21 85/58 100 11/25/17 06:50 123 H 27 H 86/60 100 11/25/17 06:40 122 H 19 85/63 99 11/25/17 06:30 124 H 21 100 11/25/17 06:20 123 H 27 H 98/60 100 11/25/17 06:10 125 H 22 95/70 100 11/25/17 06:00 124 H 23 86/66 100 11/25/17 05:50 124 H 26 H 90/65 99 11/25/17 05:40 125 H 23 91/69 99 11/25/17 05:30 125 H 24 96/59 99 11/25/17 05:20 126 H 26 H 100/65 100 11/25/17 05:10 126 H 25 H 88/65 99 11/25/17 05:00 126 H 24 96/58 99 11/25/17 04:50 127 H 24 99 11/25/17 04:40 128 H 27 H 97/60 99 11/25/17 04:30 128 H 21 98/60 99 18 04:20 126 H 21 84/58 100 11/25/17 04:10 127 H 22 85/58 99 11/25/17 04:00 99.9 F H 130 H 22 93/63 99 11/25/17 03:50 130 H 22 88/62 99 11/25/17 03:40 130 H 23 98/63 99 11/25/17 03:30 130 H 22 92/59 99 11/25/17 03:20 131 H 22 95/68 99 11/25/17 03:10 131 H 25 H 95/69 100 11/25/17 03:00 132 H 25 H 77/70 100 11/25/17 02:50 131 H 25 H 86/61 100 11/25/17 02:40 129 H 21 101/73 100 11/25/17 02:30 128 H 27 H 113/71 100 11/25/17 02:20 128 H 24 84/57 100 11/25/17 02:10 127 H 30 H 100/67 99 11/25/17 02:00 123 H 27 H 99 11/25/17 01:50 120 H 26 H 95/67 99 11/25/17 01:40 129 H 26 H 98 11/25/17 01:30 127 H 22 84/55 99 11/25/17 01:20 127 H 21 97/59 98 11/25/17 01:10 126 H 21 88/66 100 11/25/17 01:00 127 H 21 85/53 100 11/25/17 00:50 123 H 17 101/58 100 11/25/17 00:40 126 H 20 89/59 99 11/25/17 00:30 124 H 19 87/61 100 11/25/17 00:20 122 H 19 79/60 100 11/25/17 00:10 124 H 19 76/49 99 11/25/17 00:00 125 H 20 80/51 98 11/24/17 23:50 125 H 21 81/55 99 18 23:40 124 H 20 79/62 98 18 23:30 126 H 23 78/61 99 18 23:22 99 11/24/17 23:20 97.5 F L 123 H 19 89/72 100 11/24/17 23:10 126 H 19 75/62 98 18 23:07 126 H 11/24/17 22:40 124 H 24 103/73 99 11/24/17 22:06 99.2 F 126 H 24 103/58 100 18 21:43 125 H 30 H 97/61 100 11/24/17 20:27 128 H 34 H 99/55 100 11/24/17 20:11 126 H 32 H 100 11/24/17 19:51 125 H 40 H 95 09/17/18 19:17 127 H 24 80/43 91 L 11/24/17 19:08 161/111 11/24/17 17:33 102.3 F H 141 H 20 148/112 95 11/24/17 15:32 101.0 F H 11/24/17 15:26 139 H 22 96 11/24/17 13:48 140 H 20 97 11/24/17 13:13 101.8 F H 11/24/17 13:07 141 H 11/24/17 12:39 99.5 F 139 H 22 96/55 95 Intake and Output 11/24/17 11/25/17 11/25/17 22:59 06:59 14:59 Intake Total 43.406 2296.564 3041.145 Output Total 2800 1295 Balance 43.406 -542.866 8953.145 Intake: IV 1875 2725 Sodium Chloride 0.9% 1, 875 625 000 ml @ 125 mls/hr IV . Q8H [facility] Rx#:[id number] Sodium Chloride 0.9% 1, 2000 000 ml @ 999 mls/hr IV . Q1H1M [facility] Rx#:[id number] Sodium Chloride 0.9% 1, 1000 000 ml @ 999 mls/hr IV . Q1H1M [facility] Rx#:[id number] metroNIDAZOLE-NS PMX 500 100 mg In Saline 1 100ml.bag @ 100 mls/hr IVPB Q8HR [facility] Rx#:[id number] Intake, IV Titration 43.406 421.564 316.145 Amount Norepinephrine 16 mg In 43.406 349.857 228.863 Sodium Chloride 0.9% 250 ml @ Titrate IV .Q0M [facility] Rx#:[id number] Propofol 1,000 mg In 65.357 87.282 Empty Bag 1 bag @ Titrate IV .Q0M [facility] Rx#: [id number] Sodium Chloride 0.9% 99 6.35 ml @ 0.01 UNITS/MIN 3 mls /hr IV .Q24H [facility] with Vasopressin 20 unit Rx#: [id number] Output: Urine 2800 1295 Other: Voiding Method Indwelling Catheter Weight 80.4 kg ABP, PAP, CO, CI - Last 8 Hours Arterial Blood Pressure 109/62 Arterial Blood Pressure 114/68 Arterial Blood Pressure 106/61 Arterial Blood Pressure 112/64 Physical Exam: Revealed a 57-year-old white male, sedated, on propofol drip, on mechanical ventilation. Endotracheal tube and orogastric tube are intact. Head: Atraumatic, normocephalic. Endotracheal tube is intact, throat is clear. No erythema, no exudates. HEENT:[Neck is supple.] [No neck masses.] [No thyromegaly.] [No JVD.] No palpable lymphadenopathy noted. Chest: [Clear throughout, no crackles, no rhonchi, no wheezes.] Cardiac Exam: [Normal S1 and S2, no S3 gallop, no murmur.] Abdomen: [Soft, nontender, no megaly, no rebound, no guarding, normal bowel sounds.] Extremities: [Significant swelling and erythema noted in the left lower extremity from the knee down to the ankles, ecchymosis around the ankle is noted. There seems to be a left foot drop, diminished pulses bilaterally in both lower extremities and upper extremities. Neurological Exam: Cannot be assessed, patient is fully sedated, on propofol drip. Psychiatric: Cannot be assessed. Results - Laboratory Findings CBC and BMP: 11/25/17 04:01 11/25/17 04:01 ABG ABG pH 7.36 (7.35-7.45) 11/25/17 07:42 ABG pCO2 32 mmHg (35-45) L 11/25/17 07:42 ABG pO2 169 mmHg (83-108) H 11/25/17 07:42 ABG O2 Saturation 97.5 % (94-97) H 11/25/17 07:42 PT/INR, D-dimer PT 13.5 sec (9.0-12.0) H 11/24/17 13:00 INR 1.4 (<1.2) H 11/24/17 13:00 Abnormal lab findings: Abnormal Labs 11/24/17 11/24/17 11/24/17 13:00 13:00 13:00 WBC RBC 3.36 L Hgb 10.4 L Hct 32.9 L MCHC Plt Count 93 L Neutrophils # (Manual) Lymphocytes # (Manual) Metamyelocytes # (Man) 0.77 H Myelocytes # (Manual) 0.48 H PT INR ABG pH ABG pCO2 ABG pO2 ABG HCO3 ABG Total CO2 ABG O2 Saturation Potassium 3.1 L Chloride 120 H Carbon Dioxide 13 L BUN 29 H Creatinine 2.12 H Glucose 66 L POC Glucose (mg/dL) Plasma Lactic Acid Yang 8.6 H* Calcium 4.8 L* Ionized Calcium Michael Phosphorus Total Bilirubin AST ALT Alkaline Phosphatase 35 L Total Protein 2.8 L Albumin 1.4 L Urine Protein Urine Glucose (UA) Urine Blood Ur Leukocyte Esterase Urine RBC Urine WBC Urine Mucus Urine Yeast (Budding) 11/24/17 11/24/17 11/24/17 13:00 14:43 19:03 WBC RBC Hgb Hct MCHC Plt Count Neutrophils # (Manual) Lymphocytes # (Manual) Metamyelocytes # (Man) Myelocytes # (Manual) PT 13.5 H INR 1.4 H ABG pH ABG pCO2 ABG pO2 ABG HCO3 ABG Total CO2 ABG O2 Saturation Potassium Chloride Carbon Dioxide BUN Creatinine Glucose POC Glucose (mg/dL) Plasma Lactic Acid Yang 3.6 H* Calcium Ionized Calcium Michael 3.5 L* Phosphorus Total Bilirubin AST ALT Alkaline Phosphatase Total Protein Albumin Urine Protein Urine Glucose (UA) Urine Blood Ur Leukocyte Esterase Urine RBC Urine WBC Urine Mucus Urine Yeast (Budding) 11/24/17 11/24/17 11/24/17 19:11 21:37 23:45 WBC 12.8 H RBC Hgb Hct MCHC Plt Count 114 L Neutrophils # (Manual) 10.70 H Lymphocytes # (Manual) Metamyelocytes # (Man) 0.51 H Myelocytes # (Manual) PT INR ABG pH ABG pCO2 32 L ABG pO2 173 H ABG HCO3 19 L ABG Total CO2 ABG O2 Saturation 97.9 H Potassium Chloride Carbon Dioxide BUN Creatinine Glucose POC Glucose (mg/dL) Plasma Lactic Acid Yang Calcium Ionized Calcium Michael Phosphorus Total Bilirubin AST ALT Alkaline Phosphatase Total Protein Albumin Urine Protein 1+ H Urine Glucose (UA) 3+ H Urine Blood Large H Ur Leukocyte Esterase Trace H Urine RBC 16 H Urine WBC 10 H Urine Mucus Occasional H Urine Yeast (Budding) Rare H 11/24/17 11/24/17 11/25/17 23:45 23:45 03:03 WBC RBC Hgb Hct MCHC Plt Count Neutrophils # (Manual) Lymphocytes # (Manual) Metamyelocytes # (Man) Myelocytes # (Manual) PT INR ABG pH 7.31 L ABG pCO2 34 L ABG pO2 >400 H ABG HCO3 17 L ABG Total CO2 18 L ABG O2 Saturation 98.3 H Potassium 5.2 H Chloride Carbon Dioxide 21 L BUN 49 H Creatinine 2.84 H Glucose 105 H POC Glucose (mg/dL) Plasma Lactic Acid Yang 5.6 H* Calcium 7.8 L Ionized Calcium Michael Phosphorus Total Bilirubin 1.6 H AST 123 H ALT 152 H Alkaline Phosphatase Total Protein 5.0 L Albumin 2.7 L Urine Protein Urine Glucose (UA) Urine Blood Ur Leukocyte Esterase Urine RBC Urine WBC Urine Mucus Urine Yeast (Budding) 11/25/17 11/25/17 11/25/17 04:01 04:01 04:01 WBC 15.8 H RBC Hgb Hct MCHC 30.5 L Plt Count 124 L Neutrophils # (Manual) 14.60 H Lymphocytes # (Manual) 0.47 L Metamyelocytes # (Man) 0.32 H Myelocytes # (Manual) 0.16 H PT INR ABG pH ABG pCO2 ABG pO2 ABG HCO3 ABG Total CO2 ABG O2 Saturation Potassium 5.3 H Chloride 109 H Carbon Dioxide 20 L BUN 47 H Creatinine 2.63 H Glucose 132 H POC Glucose (mg/dL) Plasma Lactic Acid Yang 4.5 H* Calcium 7.2 L Ionized Calcium Michael Phosphorus 8.6 H Total Bilirubin 1.8 H AST 120 H ALT 149 H Alkaline Phosphatase Total Protein 4.7 L Albumin 2.6 L Urine Protein Urine Glucose (UA) Urine Blood Ur Leukocyte Esterase Urine RBC Urine WBC Urine Mucus Urine Yeast (Budding) 11/25/17 11/25/17 11/25/17 06:48 07:42 08:24 WBC RBC Hgb Hct MCHC Plt Count Neutrophils # (Manual) Lymphocytes # (Manual) Metamyelocytes # (Man) Myelocytes # (Manual) PT INR ABG pH ABG pCO2 32 L ABG pO2 169 H ABG HCO3 18 L ABG Total CO2 ABG O2 Saturation 97.5 H Potassium Chloride Carbon Dioxide BUN Creatinine Glucose POC Glucose (mg/dL) 136 H 169 H Plasma Lactic Acid Yang Calcium Ionized Calcium Michael Phosphorus Total Bilirubin AST ALT Alkaline Phosphatase Total Protein Albumin Urine Protein Urine Glucose (UA) Urine Blood Ur Leukocyte Esterase Urine RBC Urine WBC Urine Mucus Urine Yeast (Budding) - Diagnostic Findings Chest x-ray: image reviewed (As noted in HPI.) Assessment and Plan Assessment: Impression: 1 acute hypoxic respiratory failure secondary to acute septic shock secondary to cellulitis of the left lower extremity. 2 acute kidney injury secondary to sepsis and septic shock. 3 recent history of C. difficile colitis. Patient has been on oral Vancocin. This will be addressed by infectious disease who has been consulted on this case. 4 stage IV metastatic melanoma, patient is on clinical trials. 5 profound hypotension, secondary to septic shock, however considering the patient is now maximized on norepinephrine and is also maximized on vasopressin , considering the patient was on prednisone, I will go ahead and start the patient on Solu-Cortef 100 mg IV push every 8 hours. Recommendation: Continue ventilatory support, antibiotics, hemodynamic support with pressors, initiate Solu-Cortef 100 mg IV push every 8 hours, consult vascular surgery for possible compartment syndrome involving the left leg, had a long discussion with his family at bedside, placed a right femoral arterial line for hemodynamic monitoring, patient must be evaluated by infectious disease , must also be evaluated by vascular surgery. We'll continue to follow closely. Critical care time is 45 minutes, not including time spent on procedures. Time with Patient: Greater than 30
[2017-11-25 11:51] LABS: Glucose,Whole Blood 133 mg/dL (75-99)
--- NOTE | 2017-11-25 12:37 | CONS ---
CONSULTATION This is a 57-year-old male who has been admitted to [facility] intensive care unit with stage IV melanoma with mets and patient is on chemotherapy. He has been extubated. Patient has some swelling of the left lower extremity and patient had a CT scan of the lower extremity suggestive of generalized subcutaneous soft tissue edema, mild fluid extending into the deeper fascia affecting the posterior and deep compartment of the leg. On examination, patient was seen in his room. Patient has been intubated. Femoral pulses are present and dorsal pedis by the Doppler. There is some cellulitis noted in the left lower extremity. Differential diagnosis could be due to following due to the swelling and myositis and there was a concern about compartment syndrome also. His left upper thigh is soft only. Patient has swelling of the left lower extremity below the knee. There is no vascular compromise noted. At this point, we will keep the one leg pillow elevation and some compression dressing to reduce the edema for compartment syndrome. We may obtain a consult from Orthopedics to check the pressure in the different compartments. We will follow with you. MMJESSIEL / IJN: [id number] /
[2017-11-25] MEDS ORDERED: DAPTOmycin 500 MG in SODIUM CHLORIDE 0.9% 50 ML IVPB SCH (13:00)
[2017-11-25] MEDS: HYDROCORTISONE SUCCINATE 100 MG/2 ML VIAL IV SCH ×2 (13:03→17:07)
--- NOTE | 2017-11-25 13:37 | CONS ---
CONSULTATION DATE OF SERVICE: 11/25/2017 REASON FOR CONSULTATION: Sepsis/septic shock and left leg cellulitis versus C difficile colitis. HISTORY OF PRESENT ILLNESS: The patient is a 57-year-old male with a past medical history significant for stage IV melanoma. The patient is currently on a clinical trial of chemotherapy which apparently the patient is getting at [facility]. Patient also recently has been diagnosed with C difficile colitis been treated with oral antibiotics. The patient presented to the [facility] ER yesterday afternoon with chief complaints of swelling and redness to the left leg, which apparently has been going on for about a week. The patient on arrival to the ER noticed to be septic, hypotensive with a systolic at one time down to 50, received multiple fluid boluses. He was tachycardic with a heart rate in 120s to 130s and the patient did have a fever of 101.8 degrees Fahrenheit, subsequently did spike a fever 102.3. The patient subsequently has been evaluated by the ER physician. The patient initially had a normal white count, but repeat is 12.8 and this morning white count 15.8. The patient also have elevated BUN and creatinine. Creatinine on admission was 2.12, is up to 2.63 now, though it at one point was elevated to 2.8. Also has slightly elevated liver enzymes and the lactic acid is elevated at 8.6 down to 4.5 now. The patient received multiple fluid boluses. He did have a stool for C difficile requested, which is currently in the process. The patient has been treated with broad-spectrum antibiotics in form of vancomycin, Unasyn and Flagyl. Infectious Disease was consulted for further recommendation regarding antibiotic therapy. Unfortunately, I was not notified of this consult. The patient was seen on the list this morning and subsequently evaluated. The patient just came back from a CT of the left lower extremity to rule out fasciitis. The patient is currently on the vent who was maxed on Levophed earlier though Levophed slightly decreased down to 15 mcg and still requiring vasopressin for blood pressure control. He is sedated on the vent and unable to provide any history. Most of the information has been obtained from prior review of the chart and talking to nursing staff. REVIEW OF SYSTEMS: Could not be reliably obtained, though the positive points have been mentioned in HPI. PAST MEDICAL HISTORY: Significant for a melanoma stage IV, prostate disorder, history of C difficile colitis. PAST SURGICAL HISTORY: Right axillary biopsy, right shoulder surgery and dental extraction. SOCIAL HISTORY: No history of smoking, drinking or drug use. FAMILY HISTORY: Mother with history of breast cancer. Father with history of congestive heart failure and parkinsonism. ALLERGIES: Allergy to SULFA. MEDICATIONS: Medications currently include patient is on chlorhexidine, Lovenox, hydrocortisone, Flagyl, norepinephrine, Protonix, Unasyn, vancomycin, vasopressin, propofol and IV fluid. PHYSICAL EXAMINATION: On examination, blood pressure 90/55 with a pulse of 116, temperature 99.1, T-max 102. He is 100% on 40% FiO2. General description is a middle-aged male lying in bed in no distress. No tachypnea or accessory muscle of respiration use. HEENT examination shows no pallor or scleral icterus. The patient is orally intubated, limited examination of oral cavity. NECK: Trachea central. No thyromegaly. LUNGS: Unlabored breathing with decreased breath sounds at the bases. No wheeze or crackle. HEART: S1, S2. Tachycardic. ABDOMEN: Soft. There is no tenderness. No guarding or rigidity. EXTREMITIES: Right leg with no swelling redness. Left leg is swollen, erythematous, but cold to touch. No crepitus or fluctuation was noticed. NEUROLOGICALLY: The patient currently sedated on the vent. LABS: Hemoglobin 13.8, white count 15.8. BUN of 47, creatinine 2.63. Platelet count is 124. Liver enzymes are elevated. Cultures currently pending. A CT of the left leg completed and the patient with possible fasciitis versus myositis. DIAGNOSTIC IMPRESSION AND PLAN: 1. Patient with sepsis with septic shock, source is acute left lower extremity cellulitis, now with evidence of possible fasciitis and myositis in a patient who has been in and out of the hospital, could be related to either or however in view of overall critical condition will need to cover for resistant gram-positive and gram-negative pathogen such as methicillin-resistant Staphylococcus aureus and Pseudomonas aeruginosa. 2. The patient noted to have a borderline kidney function, high risk of nephrotoxicity from the vancomycin. PLAN: 1. We will discontinue the vancomycin and the Unasyn. 2. Will start the patient on daptomycin q.48 dose has been adjusted to his kidney function with the first dose now. 3. Zosyn 3.375 grams q.8 hours. 4. The patient needs to be transferred to tertiary care for possible consideration of fasciitis/myositis of the left leg. This has been discussed with the patient's RN as well as the hospitalist. 5. Aggressive IV fluid. 6. Overall prognosis remains to be poor. MMODL / IJN: [id number] /
[2017-11-25] MEDS: NEOMYCIN-BACITRACIN-POLY OINT 14 GM TUBE TOPICAL SCH (15:30)
--- NOTE | 2017-11-25 15:58 | P.CNOR ---
History of Present Illness - [facility] Consult date: 11/25/17 Consult reason: other History of present illness: Patient is a 57 year old male who presented to [facility] yesterday with regards to swelling and pain involving the left lower extremity. Symptoms had been present for about 1 week. Patient has a history of Stage 4 melanoma with metastasis which he currently receives treatment for. He also has a history of Parkinson disease. Via multiple consult notes, he has recent history of C diff. A cellulitis of the left lower extremity was documented, lab results revealed evidence of sepsis. He was admitted to the ICU. He was then intubated in the ICU due to his medical status. A initial consult was placed for a possible fracture involving the left medial malleolus. I was able to review the xrays that were present. No significant fracture was identified. Due to his current medical status, the consult was cancelled. Later on during the day there was concern of a possible compartment syndrome involving the left lower extremity. A CT scan was initially ordered, followed by a consult for vascular and infectious disease. Vascular mentioned further evaluation by Orthopedics for possible compartment syndrome. Our orthopedic team was consulted for possible compartment syndrome. Dr. Melgoza spoke with attending Eris Funez regarding the need for immediate transfer to a tertiary care facility. I was able to examine the patient at bedside. Patient was intubated, there were a few family members at bedside. I discussed with them our recommendations of a immediate transfer to a tertiary care facility for evaluation and treatment of the left lower extremity for possible compartment syndrome. I explained to the family that our service does not do fasciotomy procedures and we are inexperienced in using the tool to check compartments. I discussed with them the severity and risk of compartment syndrome and possible outcomes if left untreated. Patient family is concerned with transferring the patient to a different facility due to his current medical state. They are considering making this patient a DNR code. Review of Systems Constitutional: Reports as per HPI Past Medical History Past Medical History: Cancer, Prostate Disorder Additional Past Medical History / Comment(s): PARKINSON'S. 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, C-Diff History of Any Multi-Drug Resistant Organisms: C-DIFF Year Discovered:: unknown MDRO Source:: stool Past Surgical History: Tonsillectomy Additional Past Surgical History / Comment(s): rt axillary biopsy - POSITIVE FOR CANCER, LIP BX, RT SHOULDER MOLE BX , dental extraction Past Anesthesia/Blood Transfusion Reactions: No Reported Reaction Past Psychological History: No Psychological Hx Reported Smoking Status: Never smoker Past Alcohol Use History: None Reported Past Drug Use History: None Reported - Past Family History Mother Family Medical History: Cancer Additional Family Medical History / Comment(s): breast cancer also had moles removed - not sure if positive or not for cancer Father Family Medical History: Congestive Heart Failure (CHF) Additional Family Medical History / Comment(s): Parkinsons Medications and Allergies Home Medications Medication Instructions Recorded Confirmed Type Carbidopa-Levodopa 25-100 mg 1 tab PO TID 10/19/17 11/24/17 History [Sinemet 25-100] Pantoprazole [Protonix] 40 mg PO DAILY 11/24/17 11/24/17 History Pramipexole Di-HCl [Mirapex] 1.5 mg PO TID 11/24/17 11/24/17 History Vancomycin HCl 125 mg PO Q6H 11/24/17 11/24/17 History predniSONE 50 mg PO BID 11/24/17 11/24/17 History Allergies Allergy/AdvReac Type Severity Reaction Status Date / Time Sulfa (Sulfonamide Allergy Rash/Hives Verified 11/24/17 16:49 Antibiotics) Physical Examination Left lower extremity: Obvious soft tissue swelling present from below the knee to foot/ankle No obvious open lesions appreciated Erythema present on medial aspect of lower leg, cellulitic component Nursing staff informed me dorsal pedis pulse was recently obtained with doppler Remaining physical exam unattainable due to current medical status Results - Labs Labs: Abnormal Lab Results - Last 24 Hours (Table) 11/24/17 11/24/17 11/24/17 Range/Units 19:03 19:11 21:37 WBC (3.8-10.6) k/uL MCHC (31.0-37.0) g/dL Plt Count (150-450) k/uL Neutrophils # (Manual) (1.3-7.7) k/uL Lymphocytes # (Manual) (1.0-4.8) k/uL Metamyelocytes # (Man) (0) k/uL Myelocytes # (Manual) (0) k/uL ABG pH (7.35-7.45) ABG pCO2 32 L (35-45) mmHg ABG pO2 173 H (83-108) mmHg ABG HCO3 19 L (21-25) mmol/L ABG Total CO2 (19-24) mmol/L ABG O2 Saturation 97.9 H (94-97) % Potassium (3.5-5.1) mmol/L Chloride (98-107) mmol/L Carbon Dioxide (22-30) mmol/L BUN (9-20) mg/dL Creatinine (0.66-1.25) mg/dL Glucose (74-99) mg/dL POC Glucose (mg/dL) (75-99) mg/dL Plasma Lactic Acid Yang 3.6 H* (0.7-2.0) mmol/L Calcium (8.4-10.2) mg/dL Phosphorus (2.5-4.5) mg/dL Total Bilirubin (0.2-1.3) mg/dL AST (17-59) U/L ALT (21-72) U/L Creatine Kinase (55-170) U/L Total Protein (6.3-8.2) g/dL Albumin (3.5-5.0) g/dL Urine Protein 1+ H (Negative) Urine Glucose (UA) 3+ H (Negative) Urine Blood Large H (Negative) Ur Leukocyte Esterase Trace H (Negative) Urine RBC 16 H (0-5) /hpf Urine WBC 10 H (0-5) /hpf Urine Mucus Occasional H (None) /hpf Urine Yeast (Budding) Rare H (None) /hpf 11/24/17 11/24/17 11/24/17 Range/Units 23:45 23:45 23:45 WBC 12.8 H (3.8-10.6) k/uL MCHC (31.0-37.0) g/dL Plt Count 114 L (150-450) k/uL Neutrophils # (Manual) 10.70 H (1.3-7.7) k/uL Lymphocytes # (Manual) (1.0-4.8) k/uL Metamyelocytes # (Man) 0.51 H (0) k/uL Myelocytes # (Manual) (0) k/uL ABG pH (7.35-7.45) ABG pCO2 (35-45) mmHg ABG pO2 (83-108) mmHg ABG HCO3 (21-25) mmol/L ABG Total CO2 (19-24) mmol/L ABG O2 Saturation (94-97) % Potassium 5.2 H (3.5-5.1) mmol/L Chloride (98-107) mmol/L Carbon Dioxide 21 L (22-30) mmol/L BUN 49 H (9-20) mg/dL Creatinine 2.84 H (0.66-1.25) mg/dL Glucose 105 H (74-99) mg/dL POC Glucose (mg/dL) (75-99) mg/dL Plasma Lactic Acid Yang 5.6 H* (0.7-2.0) mmol/L Calcium 7.8 L (8.4-10.2) mg/dL Phosphorus (2.5-4.5) mg/dL Total Bilirubin 1.6 H (0.2-1.3) mg/dL AST 123 H (17-59) U/L ALT 152 H (21-72) U/L Creatine Kinase (55-170) U/L Total Protein 5.0 L (6.3-8.2) g/dL Albumin 2.7 L (3.5-5.0) g/dL Urine Protein (Negative) Urine Glucose (UA) (Negative) Urine Blood (Negative) Ur Leukocyte Esterase (Negative) Urine RBC (0-5) /hpf Urine WBC (0-5) /hpf Urine Mucus (None) /hpf Urine Yeast (Budding) (None) /hpf 11/25/17 11/25/17 11/25/17 Range/Units 03:03 04:01 04:01 WBC 15.8 H (3.8-10.6) k/uL MCHC 30.5 L (31.0-37.0) g/dL Plt Count 124 L (150-450) k/uL Neutrophils # (Manual) 14.60 H (1.3-7.7) k/uL Lymphocytes # (Manual) 0.47 L (1.0-4.8) k/uL Metamyelocytes # (Man) 0.32 H (0) k/uL Myelocytes # (Manual) 0.16 H (0) k/uL ABG pH 7.31 L (7.35-7.45) ABG pCO2 34 L (35-45) mmHg ABG pO2 >400 H (83-108) mmHg ABG HCO3 17 L (21-25) mmol/L ABG Total CO2 18 L (19-24) mmol/L ABG O2 Saturation 98.3 H (94-97) % Potassium 5.3 H (3.5-5.1) mmol/L Chloride 109 H (98-107) mmol/L Carbon Dioxide 20 L (22-30) mmol/L BUN 47 H (9-20) mg/dL Creatinine 2.63 H (0.66-1.25) mg/dL Glucose 132 H (74-99) mg/dL POC Glucose (mg/dL) (75-99) mg/dL Plasma Lactic Acid Yang (0.7-2.0) mmol/L Calcium 7.2 L (8.4-10.2) mg/dL Phosphorus 8.6 H (2.5-4.5) mg/dL Total Bilirubin 1.8 H (0.2-1.3) mg/dL AST 120 H (17-59) U/L ALT 149 H (21-72) U/L Creatine Kinase (55-170) U/L Total Protein 4.7 L (6.3-8.2) g/dL Albumin 2.6 L (3.5-5.0) g/dL Urine Protein (Negative) Urine Glucose (UA) (Negative) Urine Blood (Negative) Ur Leukocyte Esterase (Negative) Urine RBC (0-5) /hpf Urine WBC (0-5) /hpf Urine Mucus (None) /hpf Urine Yeast (Budding) (None) /hpf 11/25/17 11/25/17 11/25/17 Range/Units 04:01 06:48 07:42 WBC (3.8-10.6) k/uL MCHC (31.0-37.0) g/dL Plt Count (150-450) k/uL Neutrophils # (Manual) (1.3-7.7) k/uL Lymphocytes # (Manual) (1.0-4.8) k/uL Metamyelocytes # (Man) (0) k/uL Myelocytes # (Manual) (0) k/uL ABG pH (7.35-7.45) ABG pCO2 32 L (35-45) mmHg ABG pO2 169 H (83-108) mmHg ABG HCO3 18 L (21-25) mmol/L ABG Total CO2 (19-24) mmol/L ABG O2 Saturation 97.5 H (94-97) % Potassium (3.5-5.1) mmol/L Chloride (98-107) mmol/L Carbon Dioxide (22-30) mmol/L BUN (9-20) mg/dL Creatinine (0.66-1.25) mg/dL Glucose (74-99) mg/dL POC Glucose (mg/dL) 136 H (75-99) mg/dL Plasma Lactic Acid Yang 4.5 H* (0.7-2.0) mmol/L Calcium (8.4-10.2) mg/dL Phosphorus (2.5-4.5) mg/dL Total Bilirubin (0.2-1.3) mg/dL AST (17-59) U/L ALT (21-72) U/L Creatine Kinase (55-170) U/L Total Protein (6.3-8.2) g/dL Albumin (3.5-5.0) g/dL Urine Protein (Negative) Urine Glucose (UA) (Negative) Urine Blood (Negative) Ur Leukocyte Esterase (Negative) Urine RBC (0-5) /hpf Urine WBC (0-5) /hpf Urine Mucus (None) /hpf Urine Yeast (Budding) (None) /hpf 11/25/17 11/25/17 11/25/17 Range/Units 08:24 11:50 14:16 WBC (3.8-10.6) k/uL MCHC (31.0-37.0) g/dL Plt Count (150-450) k/uL Neutrophils # (Manual) (1.3-7.7) k/uL Lymphocytes # (Manual) (1.0-4.8) k/uL Metamyelocytes # (Man) (0) k/uL Myelocytes # (Manual) (0) k/uL ABG pH (7.35-7.45) ABG pCO2 (35-45) mmHg ABG pO2 (83-108) mmHg ABG HCO3 (21-25) mmol/L ABG Total CO2 (19-24) mmol/L ABG O2 Saturation (94-97) % Potassium (3.5-5.1) mmol/L Chloride (98-107) mmol/L Carbon Dioxide (22-30) mmol/L BUN (9-20) mg/dL Creatinine (0.66-1.25) mg/dL Glucose (74-99) mg/dL POC Glucose (mg/dL) 169 H 133 H (75-99) mg/dL Plasma Lactic Acid Yang (0.7-2.0) mmol/L Calcium (8.4-10.2) mg/dL Phosphorus (2.5-4.5) mg/dL Total Bilirubin (0.2-1.3) mg/dL AST (17-59) U/L ALT (21-72) U/L Creatine Kinase 1213 H* (55-170) U/L Total Protein (6.3-8.2) g/dL Albumin (3.5-5.0) g/dL Urine Protein (Negative) Urine Glucose (UA) (Negative) Urine Blood (Negative) Ur Leukocyte Esterase (Negative) Urine RBC (0-5) /hpf Urine WBC (0-5) /hpf Urine Mucus (None) /hpf Urine Yeast (Budding) (None) /hpf Microbiology - Last 24 Hours (Table) 11/25/17 01:56 Sputum Culture - Preliminary Sputum 11/24/17 19:11 Urine Culture - Preliminary Urine,Catheterized H & H 11/24/17 11/24/17 11/25/17 Range/Units 13:00 23:45 04:01 Hgb 10.4 L 13.7 D 13.8 (13.0-17.5) gm/dL Hct 32.9 L 43.6 45.2 (39.0-53.0) % Coagulation 11/24/17 Range/Units 13:00 INR 1.4 H (<1.2) Result Diagrams: 11/25/17 04:01 11/25/17 04:01 Assessment and Plan Plan: Imaging: CT of lower left leg obtained, please see report Xrays were reviewed of tib/fib which included ankle images. Images demonstrated intact Mortise joint, do obvious displaced fractures of lateral or medial malleolus Assessment: Left leg swelling/pain Left leg cellulitis Possible lower left leg compartment syndrome Multiple medical cormobidities Plan: Recommend immediate transfer to tertiary care facility for evaluation and treatment of possible lower left leg compartment syndrome. Time with Patient: Less than 30
[2017-11-25] MEDS: PIPERACILLIN-TAZOBACTAM 3.375 GM in DEXTROSE/WATER 1 50ML.BAG IVPB SCH (16:04)
[2017-11-25 16:37] LABS: Glucose,Whole Blood 148 mg/dL (75-99)
[2017-11-25 17:56] LABS: Glucose,Whole Blood 148 mg/dL (75-99)
[2017-11-25] MEDS ORDERED: AMPICILLIN-SULBACTAM 3 GM in SODIUM CHLORIDE 0.9% 100 ML IVPB SCH (18:00)
[2017-11-25] MEDS: INSULIN ASPART 100 UNIT/ML 1 ML 10 ML VIAL SQ SCH ×2 (18:01→21:04)
[2017-11-25 18:03] LABS: Hepatitis A Antibody IgM Non-Reactive (Non-Reactive); Hepatitis B Core IgM Non-Reactive (Non-Reactive)
--- NOTE | 2017-11-25 18:27 | US ---
EXAMINATION TYPE: US abdomen limited DATE OF EXAM: 11/25/2017 COMPARISON: Correlation CT 10/21/2017 CLINICAL HISTORY: 57-year-old male Transaminitis. Intubated ICU patient with abn GB on CT TECHNIQUE: Multiple sonographic images of the right upper quadrant are obtained. FINDINGS: EXAM MEASUREMENTS: Liver Length: 19.9 cm Gallbladder Wall: 0.3 cm CBD: 0.4 cm Right Kidney: 10.8 x 4.6 x 4.3 cm Pancreas: wnl Liver: enlarged as compared to prior CT, 2 lesions, largest within left lobe = 3.0cm, is hypoechoic with irregular borders, smaller hypoechoic area within anterior right lobe = 1.5cm Gallbladder: internal debris seen that could represent sludge ball verus other etiology, could not a ssess mobility and no vascularity noted. No abnormal gallbladder distention, wall thickening, or ho cholecystic fluid. Evidence for sonographic Florian's sign: no CBD: wnl Right Kidney: No hydronephrosis IMPRESSION: 1. Hepatomegaly (19.9 cm), new from 10/21/2017. Slightly heterogeneous appearance suggests nonspecific hepatocellular disease. 2. Two focal lesions in the liver are indeterminate, largest measuring 3 cm. When patient's condition allows, contrast enhanced dynamic liver CT or MRI can further evaluate. Metastatic disease should be excluded. 3. Abnormal lobulated material within the gallbladder. This may represent tumefactive sludge. Unable to assess mobility due to patient's condition. Recommend assessment of mobility to confirm sludge whe n patient's condition allows. Otherwise, neoplasm is in the differential. This could also be further evaluated on the dynamic CT or MRI.
[2017-11-25 20:01] LABS: Glucose,Whole Blood 180 mg/dL (75-99)
[2017-11-26 00:02] LABS: Glucose,Whole Blood 172 mg/dL (75-99)
[2017-11-26] MEDS: PIPERACILLIN-TAZOBACTAM 3.375 GM in DEXTROSE/WATER 1 50ML.BAG IVPB SCH ×3 (00:48→16:14)
[2017-11-26] MEDS: metroNIDAZOLE-NS PMX 500 MG in SALINE 1 100ML.BAG IVPB SCH ×3 (00:48→16:15)
[2017-11-26] MEDS: HYDROCORTISONE SUCCINATE 100 MG/2 ML VIAL IV SCH ×3 (00:48→16:14)
[2017-11-26] MEDS: SODIUM CHLORIDE 0.9% 1,000 ML IV SCH ×3 (00:49→16:15)
[2017-11-26] MEDS: PROPOFOL 1,000 MG in EMPTY BAG 1 BAG IV SCH ×4 (00:53→21:07)
[2017-11-26 02:46] LABS: Glucose,Whole Blood 202 mg/dL (75-99)
[2017-11-26] MEDS: INSULIN ASPART 100 UNIT/ML 1 ML 10 ML VIAL SQ SCH ×5 (03:00→21:08)
[2017-11-26 05:32] LABS: Basophils % (A) 0 %; Eosinophils % (A) 0 %; HCT 33.4 % (39.0-53.0); Hypochromasia Slight; Lymphocytes # (A) 0.3 k/uL (1.0-4.8); Lymphocytes % (A) 3 %; MCH 30.1 pg (25.0-35.0); MCHC 31.2 g/dL (31.0-37.0); MCV 96.5 fL (80.0-100.0); Mean Platelet Volume 7.4; Monocytes # (A) 0.2 k/uL (0-1.0); Monocytes % (A) 2 %; Neutrophils # (A) 8.5 k/uL (1.3-7.7); Neutrophils % (A) 94 %; RBC 3.46 m/uL (4.30-5.90); RDW 14.7 % (11.5-15.5); WBC 9.1 k/uL (3.8-10.6)
[2017-11-26 05:35] LABS: Albumin 1.9 g/dL (3.5-5.0); Calcium 7.4 mg/dL (8.4-10.2); Magnesium 2.3 mg/dL (1.6-2.3); Phosphorus 5.5 mg/dL (2.5-4.5); Potassium 3.9 mmol/L (3.5-5.1); Total Protein 3.8 g/dL (6.3-8.2)
[2017-11-26 05:59] LABS: Glucose,Whole Blood 174 mg/dL (75-99)
[2017-11-26 06:39] LABS: HGB 10.4 gm/dL (13.0-17.5); Platelet Count 77 k/uL (150-450)
[2017-11-26 07:43] LABS: ABG Base Excess -5.2 mmol/L; ABG HCO3 20 mmol/L (21-25); ABG Oxygen Saturation 98.2 % (94-97); ABG PCO2 36 mmHg (35-45); ABG PH 7.36 (7.35-7.45); ABG PO2 190 mmHg (83-108); ABG TCO2 21 mmol/L (19-24)
--- NOTE | 2017-11-26 07:54 | XR ---
EXAMINATION TYPE: XR chest 1V portable DATE OF EXAM: 11/26/2017 CLINICAL HISTORY: Difficulty breathing progress study. TECHNIQUE: Single AP portable upright view of the chest is obtained. COMPARISON: Chest x-ray from one day earlier and older studies. FINDINGS: An endotracheal tube, orogastric tube, and right-sided subclavian central venous catheter are all stable in appearance. There is persistent cardiomegaly with central vascular congestion seen on current study perhaps sligh tly more prominent due to diminished inspiration. There is patchy right basilar atelectasis and suspe cted small right pleural effusion. No pneumothorax is evident bilaterally. The osseous structures are intact. IMPRESSION: Mild cardiomegaly with perhaps slightly more prominent mild central vascular congestion t florian this may be exaggerated by diminished inspiration. Stable small right pleural effusion and asso ciated right basilar atelectasis.
[2017-11-26] MEDS ORDERED: VANCOMYCIN 1,500 MG in SODIUM CHLORIDE 0.9% 250 ML IVPB SCH (09:00)
[2017-11-26] MEDS: NEOMYCIN-BACITRACIN-POLY OINT 14 GM TUBE TOPICAL SCH (09:26)
[2017-11-26] MEDS: PANTOPRAZOLE 40 MG/10 ML VIAL IV SCH (09:26)
[2017-11-26] MEDS: CHLORHEXIDINE GLUCONATE 15 ML CUP MUCOUS MEM SCH ×2 (09:26→20:39)
[2017-11-26] MEDS: ENOXAPARIN 30 MG/0.3 ML SYRINGE SQ SCH (09:26)
[2017-11-26 09:58] LABS: Glucose,Whole Blood 163 mg/dL (75-99)
[2017-11-26 12:11] LABS: Glucose,Whole Blood 203 mg/dL (75-99)
--- NOTE | 2017-11-26 12:38 | P.PN ---
Subjective Progress Note Date: 11/26/17 Principal diagnosis: Acute hypoxic respiratory failure secondary to acute septic shock. And left lower extremity cellulitis This is a 57-year-old white male, known history of stage IV melanoma, on clinical trial/chemotherapy with daily periodic biweekly IV infusions. Patient presented to the ER yesterday with chief complaint of severe leg swelling and pain. Patient was noted to have significant tenderness in the left leg, and this has been going on for the last 1 week. There was also evidence of cellulitis, patient was complaining of fever and pain, and had a recent episode of C. difficile colitis. In the ER, the patient was clinically diagnosed as septic, and considering the patient did not improve with significant amount of fluid boluses, required norepinephrine, and later on required vasopressin, it was felt that the patient has acute septic shock from acute cellulitis of the left lower extremity. Patient was noted to have significantly elevated lactic acid of 8.6, significant bandemia was noted, and he had acute kidney injury with creatinine of 2.12. Patient was tachycardic, his temp was 101.8, and initially his systolic blood pressure was in the 50s requiring a central line placement and fluid boluses as well as norepinephrine drip. Patient was transferred to the ICU, and shortly after arrival to the ICU, I was notified by the nurse taking care of the patient that he wasn't doing too well. Hence patient was intubated, placed on mechanical ventilation, he is presently on FiO2 of 40%, tidal volume of 450, assist control rate of 20 and PEEP of 5. His venous Doppler of the left lower extremity was negative for deep vein thrombosis. X-rays of the tibia and fibula showed possible avulsion fracture of medial malleolus. CT of the left lower extremity showed moderate to marked generalized subcutaneous soft tissue edema mild fluid extending along the deeper fascial planes between the superficial and deep posterior compartment of the upper to mid leg. No fatty effacement was noted. Moderate left TM effusions noted. The findings were described as nonspecific findings, can be seen with fasciitis, myositis, myonecrosis, inflammatory myopathy, and in compartment syndrome as well. Hence a vascular surgery consultation will be initiated, infectious disease consultation was also initiated. Chest x-ray showed small tiny right-sided pleural effusion and adjacent atelectasis. Patient was reevaluated today on 11/26/2017, remains on mechanical ventilation, ventilator settings are assist control rate of 20, tidal volume of 450, FiO2 35% , cut down from 40% today. ABG today showed a pO2 of 190 pCO2 of 36 pH of 7.36. WBC count is 9.1 hemoglobin is 10.4 basic metabolic profile is improving with BUN improved and creatinine is down to 1.66, it was 2.84 on presentation and BUN was 49. Patient remains on pressors in the form of vasopressin, and his norepinephrine is down to 6 mcg/m. Chest x-ray showed mild central vascular congestion, minimal right basilar atelectasis otherwise no major change. Patient remains on propofol, 25 g, fully sedated. Cultures of urine blood and sputum are negative so far. Patient was seen by many consultants regarding his left lower extremity cellulitis, and questionable necrotizing fasciitis or compartment syndrome, almost everybody felt the patient will need to be transferred to a tertiary care center, however family declined. As a matter of fact they went on to state to me that we change his CODE STATUS to DO NOT RESUSCITATE. However he has a daughter who is supposedly coming today, and we will discuss that issue with her today. The family is basing that decision on the fact that the patient has stage IV melanoma, and overall prognosis is very poor anyway. Objective - Vital Signs Vital signs: Vital Signs Temp 98.7 F 11/26/17 08:00 Pulse 92 11/26/17 11:00 Resp 19 11/26/17 11:00 BP 114/57 11/25/17 09:45 Pulse Ox 100 11/26/17 11:00 Intake & Output 11/25/17 11/26/17 11/26/17 18:59 06:59 18:59 Intake Total 4472.225 2112.454 1067.475 Output Total 2465 1305 385 Balance 2006.225 807.454 682.475 Weight 80.4 kg 76.6 kg Intake: IV 3775.0 1587.5 762.5 0.9 300 DAPTOmycin 500 mg In 50 Sodium Chloride 0.9% 50 ml @ 100 mls/hr IVPB Q48H [facility] Rx#:[id number] Piperacillin-Tazobactam 3 25.0 62.5 37.5 .375 gm In Dextrose/Water 1 50ml.bag @ 12.5 mls/hr IVPB Q8HR [facility] Rx#: [id number] Sodium Chloride 0.9% 1, 1500 1125 625 000 ml @ 125 mls/hr IV . Q8H [facility] Rx#:[id number] Sodium Chloride 0.9% 1, 2000 000 ml @ 999 mls/hr IV . Q1H1M [facility] Rx#:[id number] metroNIDAZOLE-NS PMX 500 200 100 100 mg In Saline 1 100ml.bag @ 100 mls/hr IVPB Q8HR [facility] Rx#:[id number] Intake, IV Titration 657.225 124.954 104.975 Amount Norepinephrine 16 mg In 386.167 17.970 104.975 Sodium Chloride 0.9% 250 ml @ Titrate IV .Q0M [facility] Rx#:[id number] Propofol 1,000 mg In 192.608 106.984 Empty Bag 1 bag @ Titrate IV .Q0M [facility] Rx#: [id number] Sodium Chloride 0.9% 99 78.45 ml @ 0.01 UNITS/MIN 3 mls /hr IV .Q24H [facility] with Vasopressin 20 unit Rx#: [id number] Tube Feeding 40 370 170 Other 30 30 Output: Urine 2465 1305 385 Other: Voiding Method Indwelling Catheter Indwelling Catheter ABP, PAP, CO, CI - Last Documented Arterial Blood Pressure 90/59 - Exam Physical Exam: 57-year-old on mechanical ventilation, sedated, on propofol drip. Head: Atraumatic, normocephalic, nasogastric endotracheal tube and orogastric tube seems to be in proper positions. HEENT:[Neck is supple.] [No neck masses.] [No thyromegaly.] [No JVD.] No icterus. Moist mucous membranes noted. Chest: [Minimal crackles at the bases especially at the right base, no rhonchi, no wheezes. Cardiac Exam: [PMI is not displaced, Normal S1 and S2, no S3 gallop, no murmur.] Abdomen: [Soft, nontender, no megaly, no rebound, no guarding, normal bowel sounds.] Extremities: [Significant swelling of the left lower extremity is noted from the knee down to the ankle, foot drop is noted, ecchymosis around the ankle is noted, Yvan wrap is noted over the left lower extremity. Neurological Exam: Cannot be assessed, patient is on propofol drip. Lymphatics: No lymphadenopathy was appreciated. Psychiatric could not be assessed. - Labs CBC & Chem 7: 11/26/17 05:00 11/26/17 05:00 Labs: Abnormal Lab Results - Last 24 Hours (Table) 11/25/17 11/25/17 11/25/17 Range/Units 14:16 16:34 17:55 RBC (4.30-5.90) m/uL Hgb (13.0-17.5) gm/dL Hct (39.0-53.0) % Plt Count (150-450) k/uL Neutrophils # (1.3-7.7) k/uL Lymphocytes # (1.0-4.8) k/uL ABG pO2 (83-108) mmHg ABG HCO3 (21-25) mmol/L ABG O2 Saturation (94-97) % Chloride (98-107) mmol/L Carbon Dioxide (22-30) mmol/L BUN (9-20) mg/dL Creatinine (0.66-1.25) mg/dL Glucose (74-99) mg/dL POC Glucose (mg/dL) 148 H 148 H (75-99) mg/dL Calcium (8.4-10.2) mg/dL Phosphorus (2.5-4.5) mg/dL AST (17-59) U/L ALT (21-72) U/L Creatine Kinase 1213 H* (55-170) U/L Total Protein (6.3-8.2) g/dL Albumin (3.5-5.0) g/dL 11/25/17 11/26/17 11/26/17 Range/Units 19:59 00:00 02:44 RBC (4.30-5.90) m/uL Hgb (13.0-17.5) gm/dL Hct (39.0-53.0) % Plt Count (150-450) k/uL Neutrophils # (1.3-7.7) k/uL Lymphocytes # (1.0-4.8) k/uL ABG pO2 (83-108) mmHg ABG HCO3 (21-25) mmol/L ABG O2 Saturation (94-97) % Chloride (98-107) mmol/L Carbon Dioxide (22-30) mmol/L BUN (9-20) mg/dL Creatinine (0.66-1.25) mg/dL Glucose (74-99) mg/dL POC Glucose (mg/dL) 180 H 172 H 202 H (75-99) mg/dL Calcium (8.4-10.2) mg/dL Phosphorus (2.5-4.5) mg/dL AST (17-59) U/L ALT (21-72) U/L Creatine Kinase (55-170) U/L Total Protein (6.3-8.2) g/dL Albumin (3.5-5.0) g/dL 11/26/17 11/26/17 11/26/17 Range/Units 05:00 05:00 05:58 RBC 3.46 L (4.30-5.90) m/uL Hgb 10.4 L D (13.0-17.5) gm/dL Hct 33.4 L (39.0-53.0) % Plt Count 77 L (150-450) k/uL Neutrophils # 8.5 H (1.3-7.7) k/uL Lymphocytes # 0.3 L (1.0-4.8) k/uL ABG pO2 (83-108) mmHg ABG HCO3 (21-25) mmol/L ABG O2 Saturation (94-97) % Chloride 116 H (98-107) mmol/L Carbon Dioxide 21 L (22-30) mmol/L BUN 43 H (9-20) mg/dL Creatinine 1.66 H (0.66-1.25) mg/dL Glucose 182 H (74-99) mg/dL POC Glucose (mg/dL) 174 H (75-99) mg/dL Calcium 7.4 L (8.4-10.2) mg/dL Phosphorus 5.5 H (2.5-4.5) mg/dL AST 61 H (17-59) U/L ALT 106 H (21-72) U/L Creatine Kinase (55-170) U/L Total Protein 3.8 L (6.3-8.2) g/dL Albumin 1.9 L (3.5-5.0) g/dL 11/26/17 11/26/17 11/26/17 Range/Units 07:37 09:56 12:09 RBC (4.30-5.90) m/uL Hgb (13.0-17.5) gm/dL Hct (39.0-53.0) % Plt Count (150-450) k/uL Neutrophils # (1.3-7.7) k/uL Lymphocytes # (1.0-4.8) k/uL ABG pO2 190 H (83-108) mmHg ABG HCO3 20 L (21-25) mmol/L ABG O2 Saturation 98.2 H (94-97) % Chloride (98-107) mmol/L Carbon Dioxide (22-30) mmol/L BUN (9-20) mg/dL Creatinine (0.66-1.25) mg/dL Glucose (74-99) mg/dL POC Glucose (mg/dL) 163 H 203 H (75-99) mg/dL Calcium (8.4-10.2) mg/dL Phosphorus (2.5-4.5) mg/dL AST (17-59) U/L ALT (21-72) U/L Creatine Kinase (55-170) U/L Total Protein (6.3-8.2) g/dL Albumin (3.5-5.0) g/dL Microbiology - Last 24 Hours (Table) 11/24/17 19:11 Urine Culture - Final Urine,Catheterized 11/25/17 01:56 Gram Stain - Preliminary Sputum Sputum Culture - Preliminary 11/24/17 13:00 Blood Culture - Preliminary Blood No Growth after 24 hours Assessment and Plan Assessment: Impression: 1 acute septic shock with acute hypoxic respiratory failure requiring intubation and mechanical ventilation. 2 acute kidney injury secondary to sepsis and septic shock. Acute tubular necrosis, improving since admission with hemodynamic support, and possibly better renal perfusion. 3 recent history of C. difficile colitis. Being addressed by infectious disease 4 stage IV metastatic melanoma, has been recently on the clinical trials. 5 profound hypotension, still requiring significant amount of vasopressin and norepinephrine but improved compared to admission but pressure. Recommendation: Continue present treatment plan including hemodynamic support, ventilatory support, nutritional support, GI and DVT prophylaxis, had a long discussion with all family members including mother significant other sisters, and they all seem to be in agreement as not to transfer the patient to a tertiary care center, patient would like him to stay here and hopefully I will get a chance to discuss his condition with his daughter who is supposedly coming from out of town today. I updated his family members today on his condition, improving but the patient remains critically ill. And prognosis remains very poor and guarded. Critical care time is 45 minutes. Time with Patient: Greater than 30
[2017-11-26] MEDS: SODIUM CHLORIDE 0.9% 99 ML with VASOPRESSIN 20 UNIT IV SCH ×2 (13:00)
--- NOTE | 2017-11-26 14:11 | P.PN ---
Subjective Progress Note Date: 11/26/17 (Delayed charting patient seen at 0900) Principal diagnosis: leg pain Patient is a 57-year-old male with a past medical history of stage IV melanoma who recently finished a clinical trial medication, Parkinson's disease , and enlarged prostate who presented with complaints of diarrhea and severe left leg pain. In the ER the patient was found to have acute kidney injury, severe sepsis with an elevated lactic at 8.6. And hypotension. He was given 3 L of normal saline and remained hypotensive and therefore started on levo 5. He was started on empiric IV antibiotics with Unasyn and vancomycin. He was admitted to the ICU for further monitoring. Lower extremity venous Doppler was negative for DVT and tibial fibula x-rays were suggestive of medial malleolus avulsion fracture. Overnight on 11/24 the patient required mechanical ventilation. Critical care has been following the patient. He underwent a CT of the left lower extremity which showed extensive soft tissue edema of the subcutaneous adipose layer with confluent edema in the superficial fascia. It also showed deeper fascial edema on the upper leg. There is concern for possible compartment syndrome and vascular surgery and orthopedic surgery were consulted. They're unable to determine if patient truly had compartment syndrome. They recommended transfer to tertiary care center however family would not want surgery for the patient with his stage IV melanoma and therefore did not want transfer to tertiary care. He was seen by infectious disease and his antibiotics were broadened to daptomycin and Zosyn. There is concern for C. diff colitis was started on Flagyl as well. His stools to form to run C. diff testing however his Flagyl was continued with his history of C. diff and need for broad-spectrum antibiotics. Patient seen and examined. Currently sedated and ventilated. Nursing present at bedside they have been able to go down on his levo throughout the night. Significant other at bedside and updated on prognosis. She will also attempt to provide us with the names of his immune modulating drugs to see if there is a history of myositis with these drugs. Objective - Vital Signs Vital signs: Vital Signs Temp 100.2 F H 11/26/17 12:00 Pulse 84 11/26/17 13:00 Resp 21 11/26/17 13:00 BP 114/57 11/25/17 09:45 Pulse Ox 100 11/26/17 13:00 Intake & Output 11/25/17 11/26/17 11/26/17 18:59 06:59 18:59 Intake Total 4472.225 2112.454 1439.975 Output Total 2465 1305 515 Balance 807.454 924.975 Weight 80.4 kg 76.6 kg Intake: IV 3775.0 1587.5 1025.0 0.9 300 DAPTOmycin 500 mg In 50 Sodium Chloride 0.9% 50 ml @ 100 mls/hr IVPB Q48H [facility] Rx#:[id number] Piperacillin-Tazobactam 3 25.0 62.5 50.0 .375 gm In Dextrose/Water 1 50ml.bag @ 12.5 mls/hr IVPB Q8HR [facility] Rx#: [id number] Sodium Chloride 0.9% 1, 1500 1125 875 000 ml @ 125 mls/hr IV . Q8H [facility] Rx#:[id number] Sodium Chloride 0.9% 1, 2000 000 ml @ 999 mls/hr IV . Q1H1[facility] Rx#:[id number] metroNIDAZOLE-NS PMX 500 200 100 100 mg In Saline 1 100ml.bag @ 100 mls/hr IVPB Q8HR [facility] Rx#:[id number] Intake, IV Titration 657.225 124.954 104.975 Amount Norepinephrine 16 mg In 386.167 17.970 104.975 Sodium Chloride 0.9% 250 ml @ Titrate IV .Q0M [facility] Rx#:[id number] Propofol 1,000 mg In 192.608 106.984 Empty Bag 1 bag @ Titrate IV .Q0M [facility] Rx#: [id number] Sodium Chloride 0.9% 99 78.45 ml @ 0.01 UNITS/MIN 3 mls /hr IV .Q24H [facility] with Vasopressin 20 unit Rx#: [id number] Tube Feeding 40 370 250 Other 30 60 Output: Urine 2465 1305 515 Other: Voiding Method Indwelling Catheter Indwelling Catheter ABP, PAP, CO, CI - Last Documented Arterial Blood Pressure 84/57 - Exam General: Ill-appearing, moderate distress, appears older than stated age Derm: warm, dry, left lower extremity with dressing in place. Area of erythema and warmth and marked with pen by nursing. 2+ edema. Head: atraumatic, normocephalic, symmetric Eyes: no lid lag, anicteric sclera Mouth: no lip lesion, mucus membranes moist Cardiovascular: S1S2 reg, no murmur, positive posterior tibial pulse bilateral, Lungs: Breath sounds bilaterally, no rhonchi, no rales , no accessory muscle use , on ventilator Abdominal: soft, nontender to palpation, no guarding, no appreciable organomegaly Ext: no gross muscle atrophy, no edema, no contractures Neuro: Withdrawal to painful stimuli and left lower extremity however on maximal sedation, positive cough and gag per respiratory Psych: sedated on ventilator Lymphatic: No cervical lymphadenopathy, no axillary lymphadenopathy - Labs CBC & Chem 7: 11/26/17 05:00 11/26/17 05:00 Labs: Abnormal Lab Results - Last 24 Hours (Table) 11/25/17 11/25/17 11/25/17 Range/Units 14:16 16:34 17:55 RBC (4.30-5.90) m/uL Hgb (13.0-17.5) gm/dL Hct (39.0-53.0) % Plt Count (150-450) k/uL Neutrophils # (1.3-7.7) k/uL Lymphocytes # (1.0-4.8) k/uL ABG pO2 (83-108) mmHg ABG HCO3 (21-25) mmol/L ABG O2 Saturation (94-97) % Chloride (98-107) mmol/L Carbon Dioxide (22-30) mmol/L BUN (9-20) mg/dL Creatinine (0.66-1.25) mg/dL Glucose (74-99) mg/dL POC Glucose (mg/dL) 148 H 148 H (75-99) mg/dL Calcium (8.4-10.2) mg/dL Phosphorus (2.5-4.5) mg/dL AST (17-59) U/L ALT (21-72) U/L Creatine Kinase 1213 H* (55-170) U/L Total Protein (6.3-8.2) g/dL Albumin (3.5-5.0) g/dL 11/25/17 11/26/17 11/26/17 Range/Units 19:59 00:00 02:44 RBC (4.30-5.90) m/uL Hgb (13.0-17.5) gm/dL Hct (39.0-53.0) % Plt Count (150-450) k/uL Neutrophils # (1.3-7.7) k/uL Lymphocytes # (1.0-4.8) k/uL ABG pO2 (83-108) mmHg ABG HCO3 (21-25) mmol/L ABG O2 Saturation (94-97) % Chloride (98-107) mmol/L Carbon Dioxide (22-30) mmol/L BUN (9-20) mg/dL Creatinine (0.66-1.25) mg/dL Glucose (74-99) mg/dL POC Glucose (mg/dL) 180 H 172 H 202 H (75-99) mg/dL Calcium (8.4-10.2) mg/dL Phosphorus (2.5-4.5) mg/dL AST (17-59) U/L ALT (21-72) U/L Creatine Kinase (55-170) U/L Total Protein (6.3-8.2) g/dL Albumin (3.5-5.0) g/dL 11/26/17 11/26/17 11/26/17 Range/Units 05:00 05:00 05:58 RBC 3.46 L (4.30-5.90) m/uL Hgb 10.4 L D (13.0-17.5) gm/dL Hct 33.4 L (39.0-53.0) % Plt Count 77 L (150-450) k/uL Neutrophils # 8.5 H (1.3-7.7) k/uL Lymphocytes # 0.3 L (1.0-4.8) k/uL ABG pO2 (83-108) mmHg ABG HCO3 (21-25) mmol/L ABG O2 Saturation (94-97) % Chloride 116 H (98-107) mmol/L Carbon Dioxide 21 L (22-30) mmol/L BUN 43 H (9-20) mg/dL Creatinine 1.66 H (0.66-1.25) mg/dL Glucose 182 H (74-99) mg/dL POC Glucose (mg/dL) 174 H (75-99) mg/dL Calcium 7.4 L (8.4-10.2) mg/dL Phosphorus 5.5 H (2.5-4.5) mg/dL AST 61 H (17-59) U/L ALT 106 H (21-72) U/L Creatine Kinase (55-170) U/L Total Protein 3.8 L (6.3-8.2) g/dL Albumin 1.9 L (3.5-5.0) g/dL 11/26/17 11/26/17 11/26/17 Range/Units 07:37 09:56 12:09 RBC (4.30-5.90) m/uL Hgb (13.0-17.5) gm/dL Hct (39.0-53.0) % Plt Count (150-450) k/uL Neutrophils # (1.3-7.7) k/uL Lymphocytes # (1.0-4.8) k/uL ABG pO2 190 H (83-108) mmHg ABG HCO3 20 L (21-25) mmol/L ABG O2 Saturation 98.2 H (94-97) % Chloride (98-107) mmol/L Carbon Dioxide (22-30) mmol/L BUN (9-20) mg/dL Creatinine (0.66-1.25) mg/dL Glucose (74-99) mg/dL POC Glucose (mg/dL) 163 H 203 H (75-99) mg/dL Calcium (8.4-10.2) mg/dL Phosphorus (2.5-4.5) mg/dL AST (17-59) U/L ALT (21-72) U/L Creatine Kinase (55-170) U/L Total Protein (6.3-8.2) g/dL Albumin (3.5-5.0) g/dL Microbiology - Last 24 Hours (Table) 11/24/17 19:11 Urine Culture - Final Urine,Catheterized 11/25/17 01:56 Gram Stain - Preliminary Sputum Sputum Culture - Preliminary 11/24/17 13:00 Blood Culture - Preliminary Blood No Growth after 24 hours Assessment and Plan Assessment: Left lower extremity cellulitis with septic shock, concern for compartment syndrome -No transfer to tertiary care facility is family would not want surgery -Continue with daptomycin and Zosyn as recommended by infectious disease -Continue with wrappings -Orthopedic surgery and vascular surgery recommendations appreciated -repeat CPK in a.m. -Attempt to reach oncologist to determine correlation with medication regiment. (Atezolizumab and cobimetinib) - wean pressors as able and continue stress dose steroids. Acute hypoxic respiratory failure likely secondary to sepsis -Management as per pulmonary/critical care Acute kidney injury secondary to dehydration and ATN, improving -IV fluids -Renal dose medications -Repeat basic metabolic profile in a.m. Anemia, likely delusional with aggressive fluid resuscitation -Repeat CBC in a.m. 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 diff less likely -Patient does have a history of C. diff so would recommend continuing Flagyl will requiring broad-spectrum antibiotics Hyperkalemia, resolved DVT prophylaxis: Lovenox Discussed with: Significant other, nursing Anticipated discharge: 5-[address]: Undetermined at this point in time A total of 45 minutes was spent on the care of this complex patient more than 50 % of the time was spent in counseling and care coordination.
--- NOTE | 2017-11-26 15:17 | PN ---
PROGRESS NOTE DATE OF SERVICE: 11/26/2017. REASON FOR FOLLOWUP: Sepsis with septic shock with left lower extremity cellulitis and possible myositis. INTERVAL HISTORY: The patient's family refused the patient to be transferred to tertiary care. They were aware of the risk of worsening condition and even need for amputation with delayed surgery for possible myositis and necrotizing fasciitis. The patient's fever pattern as of this morning has improved. Last night he did have fever of 100.4 and 100.2 around noon. The patient is currently requiring 5 mcg of Levophed and some vasopressin. He remains to be sedated on the vent, unable to provide any history. Sister was present at bedside. Care was discussed with her. EXAMINATION: Blood pressure is 90/59 with a pulse of 92, temperature of 100.2. He is 100% on 40% FiO2. General description is a middle aged male, intubated on the vent. HEENT: Shows slight pallor. No scleral icterus. The patient is orally intubated. LUNGS: Unlabored breathing. Clear to auscultation anteriorly. HEART: S1, S2. Regular rate and rhythm. ABDOMEN: Soft, no tenderness. Left leg still has some swelling and redness. No crepitation has been noticed or any bullae formation. LABS: Hemoglobin 10.4, white count 9.1. BUN of 43, creatinine 1.66. DIAGNOSTIC IMPRESSION AND PLAN: Patient with sepsis and septic shock with left lower extremity cellulitis, concern for possible necrotizing fasciitis and myositis. Family refused transfer to tertiary care. The patient has some clinical improvement with less requirement of pressor support. Did have improvement in his kidney function. The daptomycin dose to be adjusted up to 24 hours and continue with Zosyn. Overall prognosis remains to be guarded. Marked redness in the right leg. Sister was present at bedside. All her questions were sought and answered. MMODL / IJN: [id number] /
--- NOTE | 2017-11-26 15:23 | PN ---
PROGRESS NOTE This is a 57-year-old gentleman who has metastatic melanoma, consulted for swelling of the both lower extremities, more on the left than on the right. Patient had a CT scan which showed some fluid and soft tissue swelling. There was also some cellulitis noted in the left lower extremity. We have been using a compression wrap and leg elevation. Patient swelling is less today. Motor function around the toes are present. Doppler signal by the foot. MMODL / IJN: [id number] /
[2017-11-26] MEDS ORDERED: SODIUM CHLORIDE 0.9% 500 ML IV ONE (15:52)
[2017-11-26 16:06] LABS: Glucose,Whole Blood 208 mg/dL (75-99)
[2017-11-26 20:36] LABS: Glucose,Whole Blood 227 mg/dL (75-99)
[2017-11-26] MEDS: DAPTOmycin 500 MG in SODIUM CHLORIDE 0.9% 50 ML IVPB SCH (21:07)
[2017-11-26] MEDS: NOREPINEPHRINE 16 MG in SODIUM CHLORIDE 0.9% 250 ML IV SCH (21:07)
[2017-11-26 23:55] LABS: Glucose,Whole Blood 168 mg/dL (75-99)
[2017-11-27] MEDS: HYDROCORTISONE SUCCINATE 100 MG/2 ML VIAL IV SCH ×4 (00:02→23:48)
[2017-11-27] MEDS: metroNIDAZOLE-NS PMX 500 MG in SALINE 1 100ML.BAG IVPB SCH ×4 (00:05→23:48)
[2017-11-27] MEDS: PIPERACILLIN-TAZOBACTAM 3.375 GM in DEXTROSE/WATER 1 50ML.BAG IVPB SCH ×4 (00:05→23:48)
[2017-11-27] MEDS: INSULIN ASPART 100 UNIT/ML 1 ML 10 ML VIAL SQ SCH ×6 (00:05→20:24)
[2017-11-27] MEDS: SODIUM CHLORIDE 0.9% 99 ML with VASOPRESSIN 20 UNIT IV SCH ×4 (00:12→13:38)
[2017-11-27] MEDS: SODIUM CHLORIDE 0.9% 1,000 ML IV SCH ×3 (03:27→18:53)
[2017-11-27] MEDS: PROPOFOL 1,000 MG in EMPTY BAG 1 BAG IV SCH ×3 (03:39→23:35)
[2017-11-27 04:17] LABS: Glucose,Whole Blood 158 mg/dL (75-99)
[2017-11-27 04:40] LABS: Basophils % (A) 0 %; Eosinophils % (A) 0 %; HCT 31.9 % (39.0-53.0); Hypochromasia Slight; Lymphocytes # (A) 0.4 k/uL (1.0-4.8); Lymphocytes % (A) 6 %; MCH 29.9 pg (25.0-35.0); MCHC 31.3 g/dL (31.0-37.0); MCV 95.5 fL (80.0-100.0); Mean Platelet Volume 7.7; Monocytes # (A) 0.2 k/uL (0-1.0); Monocytes % (A) 3 %; Neutrophils # (A) 6.2 k/uL (1.3-7.7); Neutrophils % (A) 90 %; RBC 3.35 m/uL (4.30-5.90); RDW 14.5 % (11.5-15.5); WBC 6.9 k/uL (3.8-10.6)
[2017-11-27 04:47] LABS: Platelet Count 68 k/uL (150-450)
[2017-11-27 04:52] LABS: Albumin 1.9 g/dL (3.5-5.0); Calcium 7.7 mg/dL (8.4-10.2); Magnesium 2.5 mg/dL (1.6-2.3); Phosphorus 3.7 mg/dL (2.5-4.5); Potassium 3.4 mmol/L (3.5-5.1); Total Bilirubin 1.9 mg/dL (0.2-1.3)
[2017-11-27] MEDS: POTASSIUM BICARBONATE/CIT AC 20 MEQ TABLET.EFF NG-TUBE SCH ×4 (05:14→21:51)
[2017-11-27 07:41] LABS: ABG Base Excess -4.3 mmol/L; ABG HCO3 21 mmol/L (21-25); ABG PCO2 34 mmHg (35-45); ABG PO2 168 mmHg (83-108); ABG TCO2 22 mmol/L (19-24)
--- NOTE | 2017-11-27 08:15 | XR ---
EXAMINATION TYPE: XR chest 1V portable DATE OF EXAM: 11/27/2017 COMPARISON: 11/26/2017 HISTORY: SOB, Follow Up FINDINGS: Indwelling tubes and catheters are unchanged. No change in bibasilar opacities. Stable appearance of the cardio-mediastinal structures at this time. Pleural effusion unchanged. IMPRESSION: 1. Stable portable chest. Clinical correlation and follow up until resolution is recommended.
[2017-11-27] MEDS ORDERED: ENOXAPARIN 40 MG/0.4 ML SYRINGE SQ SCH (09:00)
[2017-11-27] MEDS: NEOMYCIN-BACITRACIN-POLY OINT 14 GM TUBE TOPICAL SCH (09:33)
[2017-11-27] MEDS: PANTOPRAZOLE 40 MG/10 ML VIAL IV SCH (09:33)
[2017-11-27] MEDS: CHLORHEXIDINE GLUCONATE 15 ML CUP MUCOUS MEM SCH ×2 (09:33→20:24)
[2017-11-27 10:02] LABS: Glucose,Whole Blood 233 mg/dL (75-99)
[2017-11-27 10:02] LABS: Glucose,Whole Blood 227 mg/dL (75-99)
[2017-11-27] MEDS ORDERED: FUROSEMIDE 10 MG/ML 4 ML VIAL IV STA (10:22)
[2017-11-27 13:09] LABS: Glucose,Whole Blood 212 mg/dL (75-99)
--- NOTE | 2017-11-27 14:31 | P.PN ---
Subjective Progress Note Date: 11/27/17 Principal diagnosis: Acute hypoxic respiratory failure secondary to acute septic shock. And left lower extremity cellulitis This is a 57-year-old white male, known history of stage IV melanoma, on clinical trial/chemotherapy with daily periodic biweekly IV infusions. Patient presented to the ER yesterday with chief complaint of severe leg swelling and pain. Patient was noted to have significant tenderness in the left leg, and this has been going on for the last 1 week. There was also evidence of cellulitis, patient was complaining of fever and pain, and had a recent episode of C. difficile colitis. In the ER, the patient was clinically diagnosed as septic, and considering the patient did not improve with significant amount of fluid boluses, required norepinephrine, and later on required vasopressin, it was felt that the patient has acute septic shock from acute cellulitis of the left lower extremity. Patient was noted to have significantly elevated lactic acid of 8.6, significant bandemia was noted, and he had acute kidney injury with creatinine of 2.12. Patient was tachycardic, his temp was 101.8, and initially his systolic blood pressure was in the 50s requiring a central line placement and fluid boluses as well as norepinephrine drip. Patient was transferred to the ICU, and shortly after arrival to the ICU, I was notified by the nurse taking care of the patient that he wasn't doing too well. Hence patient was intubated, placed on mechanical ventilation, he is presently on FiO2 of 40%, tidal volume of 450, assist control rate of 20 and PEEP of 5. His venous Doppler of the left lower extremity was negative for deep vein thrombosis. X-rays of the tibia and fibula showed possible avulsion fracture of medial malleolus. CT of the left lower extremity showed moderate to marked generalized subcutaneous soft tissue edema mild fluid extending along the deeper fascial planes between the superficial and deep posterior compartment of the upper to mid leg. No fatty effacement was noted. Moderate left TM effusions noted. The findings were described as nonspecific findings, can be seen with fasciitis, myositis, myonecrosis, inflammatory myopathy, and in compartment syndrome as well. Hence a vascular surgery consultation will be initiated, infectious disease consultation was also initiated. Chest x-ray showed small tiny right-sided pleural effusion and adjacent atelectasis. Patient was reevaluated today on 11/26/2017, remains on mechanical ventilation, ventilator settings are assist control rate of 20, tidal volume of 450, FiO2 35% , cut down from 40% today. ABG today showed a pO2 of 190 pCO2 of 36 pH of 7.36. WBC count is 9.1 hemoglobin is 10.4 basic metabolic profile is improving with BUN improved and creatinine is down to 1.66, it was 2.84 on presentation and BUN was 49. Patient remains on pressors in the form of vasopressin, and his norepinephrine is down to 6 mcg/m. Chest x-ray showed mild central vascular congestion, minimal right basilar atelectasis otherwise no major change. Patient remains on propofol, 25 g, fully sedated. Cultures of urine blood and sputum are negative so far. Patient was seen by many consultants regarding his left lower extremity cellulitis, and questionable necrotizing fasciitis or compartment syndrome, almost everybody felt the patient will need to be transferred to a tertiary care center, however family declined. As a matter of fact they went on to state to me that we change his CODE STATUS to DO NOT RESUSCITATE. However he has a daughter who is supposedly coming today, and we will discuss that issue with her today. The family is basing that decision on the fact that the patient has stage IV melanoma, and overall prognosis is very poor anyway. Reevaluated today on 11/27/2017, remains on mechanical ventilation, ventilator settings are tidal volume of 450 FiO2 is down to 28%, assist control rate is 18. PEEP is 5. ABG showed a pO2 of 168 pCO2 of 34 pH of 7.40. Chest x-ray showed minimal atelectasis at the bases, and small pleural effusions. All labs were reviewed, electrolytes showed low potassium of 3.4 elevated chloride of 120 BUN is improving down to 49 and creatinine improving down to 1.54. WBC count is 6.9 hemoglobin is 10.0. Patient remains on propofol, he is on 2 g of norepinephrine which I will discontinue remains on vasopressin which is being titrated down and hopefully to discontinue sometime today if possible. Urine output is excellent, patient is developing significant edema all over, and the swelling in the left lower extremity seems to be significantly improved. But continues to have areas of erythema and cellulitis. Objective - Vital Signs Vital signs: Vital Signs Temp 98.3 F 11/27/17 12:00 Pulse 84 11/27/17 13:00 Resp 19 11/27/17 13:00 BP 85/64 11/26/17 21:15 Pulse Ox 100 11/27/17 13:00 Intake & Output 11/26/17 11/27/17 11/27/17 18:59 06:59 18:59 Intake Total 3085.002 2922.330 738.389 Output Total 765 585 485 Balance 2320.002 2337.330 253.389 Weight 80.3 kg Intake: IV 2275.0 1909.5 200 0.9 72 DAPTOmycin 500 mg In 50 Sodium Chloride 0.9% 50 ml @ 100 mls/hr IVPB Q48H [facility] Rx#:[id number] Piperacillin-Tazobactam 3 75.0 62.5 .375 gm In Dextrose/Water 1 50ml.bag @ 12.5 mls/hr IVPB Q8HR [facility] Rx#: [id number] Sodium Chloride 0.9% 1, 1500 1625 200 000 ml @ 125 mls/hr IV . Q8H [facility] Rx#:[id number] Sodium Chloride 0.9% 500 500 ml @ 999 mls/hr IV .Q31M [facility] Rx#:[id number] metroNIDAZOLE-NS PMX 500 200 100 mg In Saline 1 100ml.bag @ 100 mls/hr IVPB Q8HR [facility] Rx#:[id number] Intake, IV Titration 250.002 302.830 196.389 Amount Norepinephrine 16 mg In 150.002 57.481 10.214 Sodium Chloride 0.9% 250 ml @ Titrate IV .Q0M [facility] Rx#:[id number] Propofol 1,000 mg In 100.000 145.349 86.175 Empty Bag 1 bag @ Titrate IV .Q0M [facility] Rx#: [id number] Sodium Chloride 0.9% 99 100 100 ml @ 0.01 UNITS/MIN 3 mls /hr IV .Q24H [facility] with Vasopressin 20 unit Rx#: [id number] Tube Feeding 470 650 342 Other 90 60 Output: Urine 765 585 485 Other: Voiding Method Indwelling Catheter Indwelling Catheter Indwelling Catheter # Bowel Movements 1 ABP, PAP, CO, CI - Last Documented Arterial Blood Pressure 104/68 - Exam Physical Exam: 57-year-old, sedated, remains on mechanical ventilation. Head: Atraumatic, normocephalic, HEENT:[Neck is supple.] [No neck masses.] [No thyromegaly.] [No JVD.] No icterus. ER leg, EOMI, no icterus, tubes including endotracheal tube and orogastric tube are intact. Chest: [Diminished breath sounds at the bases, symmetrical expansion, no rhonchi. No wheezes. Cardiac Exam: [Normal S1 and S2, no S3 gallop, no murmur..] Abdomen: [Soft, nontender, no megaly, no rebound, no guarding, normal bowel sounds.] Extremities: [Cellulitis and erythema noted in the left lower extremity area, the area was demarcated, and the swelling is significantly improved. Good pulses bilaterally. Neurological Exam: Not assessed, remains on propofol.. Lymphatics: No lymphadenopathy Psychiatric could not be assessed. Remains on propofol. - Labs CBC & Chem 7: 11/27/17 04:30 11/27/17 04:30 Labs: Abnormal Lab Results - Last 24 Hours (Table) 11/26/17 11/26/17 11/26/17 Range/Units 16:04 20:34 23:53 RBC (4.30-5.90) m/uL Hgb (13.0-17.5) gm/dL Hct (39.0-53.0) % Plt Count (150-450) k/uL Lymphocytes # (1.0-4.8) k/uL ABG pCO2 (35-45) mmHg ABG pO2 (83-108) mmHg ABG O2 Saturation (94-97) % Sodium (137-145) mmol/L Potassium (3.5-5.1) mmol/L Chloride (98-107) mmol/L Carbon Dioxide (22-30) mmol/L BUN (9-20) mg/dL Creatinine (0.66-1.25) mg/dL Glucose (74-99) mg/dL POC Glucose (mg/dL) 208 H 227 H 168 H (75-99) mg/dL Calcium (8.4-10.2) mg/dL Magnesium (1.6-2.3) mg/dL Total Bilirubin (0.2-1.3) mg/dL AST (17-59) U/L ALT (21-72) U/L Alkaline Phosphatase (38-126) U/L Creatine Kinase (55-170) U/L Total Protein (6.3-8.2) g/dL Albumin (3.5-5.0) g/dL 11/27/17 11/27/17 11/27/17 Range/Units 04:16 04:30 04:30 RBC 3.35 L (4.30-5.90) m/uL Hgb 10.0 L (13.0-17.5) gm/dL Hct 31.9 L (39.0-53.0) % Plt Count 68 L (150-450) k/uL Lymphocytes # 0.4 L (1.0-4.8) k/uL ABG pCO2 (35-45) mmHg ABG pO2 (83-108) mmHg ABG O2 Saturation (94-97) % Sodium 146 H (137-145) mmol/L Potassium 3.4 L (3.5-5.1) mmol/L Chloride 120 H (98-107) mmol/L Carbon Dioxide 20 L (22-30) mmol/L BUN 49 H (9-20) mg/dL Creatinine 1.54 H (0.66-1.25) mg/dL Glucose 158 H (74-99) mg/dL POC Glucose (mg/dL) 158 H (75-99) mg/dL Calcium 7.7 L (8.4-10.2) mg/dL Magnesium 2.5 H (1.6-2.3) mg/dL Total Bilirubin 1.9 H (0.2-1.3) mg/dL AST 98 H (17-59) U/L ALT 132 H (21-72) U/L Alkaline Phosphatase 168 H (38-126) U/L Creatine Kinase 176 H (55-170) U/L Total Protein 4.0 L (6.3-8.2) g/dL Albumin 1.9 L (3.5-5.0) g/dL 11/27/17 11/27/17 11/27/17 Range/Units 07:31 09:58 09:59 RBC (4.30-5.90) m/uL Hgb (13.0-17.5) gm/dL Hct (39.0-53.0) % Plt Count (150-450) k/uL Lymphocytes # (1.0-4.8) k/uL ABG pCO2 34 L (35-45) mmHg ABG pO2 168 H (83-108) mmHg ABG O2 Saturation 98.0 H (94-97) % Sodium (137-145) mmol/L Potassium (3.5-5.1) mmol/L Chloride (98-107) mmol/L Carbon Dioxide (22-30) mmol/L BUN (9-20) mg/dL Creatinine (0.66-1.25) mg/dL Glucose (74-99) mg/dL POC Glucose (mg/dL) 233 H 227 H (75-99) mg/dL Calcium (8.4-10.2) mg/dL Magnesium (1.6-2.3) mg/dL Total Bilirubin (0.2-1.3) mg/dL AST (17-59) U/L ALT (21-72) U/L Alkaline Phosphatase (38-126) U/L Creatine Kinase (55-170) U/L Total Protein (6.3-8.2) g/dL Albumin (3.5-5.0) g/dL 11/27/17 Range/Units 13:06 RBC (4.30-5.90) m/uL Hgb (13.0-17.5) gm/dL Hct (39.0-53.0) % Plt Count (150-450) k/uL Lymphocytes # (1.0-4.8) k/uL ABG pCO2 (35-45) mmHg ABG pO2 (83-108) mmHg ABG O2 Saturation (94-97) % Sodium (137-145) mmol/L Potassium (3.5-5.1) mmol/L Chloride (98-107) mmol/L Carbon Dioxide (22-30) mmol/L BUN (9-20) mg/dL Creatinine (0.66-1.25) mg/dL Glucose (74-99) mg/dL POC Glucose (mg/dL) 212 H (75-99) mg/dL Calcium (8.4-10.2) mg/dL Magnesium (1.6-2.3) mg/dL Total Bilirubin (0.2-1.3) mg/dL AST (17-59) U/L ALT (21-72) U/L Alkaline Phosphatase (38-126) U/L Creatine Kinase (55-170) U/L Total Protein (6.3-8.2) g/dL Albumin (3.5-5.0) g/dL Microbiology - Last 24 Hours (Table) 11/24/17 13:00 Blood Culture - Preliminary Blood No Growth after 48 hours 11/25/17 01:56 Gram Stain - Preliminary Sputum Sputum Culture - Preliminary Gram Neg Bacilli Assessment and Plan Assessment: Impression: 1 acute hypoxic respiratory failure secondary to acute septic shock secondary to cellulitis of the left lower extremity. 2 stage IV metastatic melanoma, on clinical trials. 3 acute kidney injury on presentation secondary to ATN and septic shock 4 recent history of C. difficile colitis, presently on Flagyl. Recommendation: We'll continue antibiotics, continue hemodynamic, ventilatory, nutritional support today. Continue GI and DVT prophylaxis. Had a long discussion with his family members at bedside including his father and significant other, updated on his condition, patient is still critically ill, but there is definite improvement compared to the last 2 days. And the fact that the left lower extremity is less swollen the kidneys are improving, he is on lesser amount of pressors, that all points to good prognosis. We'll continue to follow. Critical care time is 40 minutes. Time with Patient: Greater than 30
--- NOTE | 2017-11-27 17:08 | P.PN ---
Subjective Progress Note Date: 11/27/17 (Delayed charting patient seen at 0815) Principal diagnosis: leg pain Patient is a 57-year-old male with a past medical history of stage IV melanoma who recently finished a clinical trial of atezolizumab and cobimetirnib (taken off for colitis), Parkinson's disease, and enlarged prostate who presented with complaints of diarrhea and severe left leg pain. In the ER the patient was found to have acute kidney injury, severe sepsis with an elevated lactic at 8.6 and hypotension. He was given 3 L of normal saline and remained hypotensive and therefore started on levo. He was started on empiric IV antibiotics with Unasyn and vancomycin. He was admitted to the ICU for further monitoring and critical care was consulted. Lower extremity venous Doppler was negative for DVT and tibial fibula x-rays were suggestive of medial malleolus avulsion fracture. Overnight on 11/24 the patient required mechanical ventilation. He underwent a CT of the left lower extremity which showed extensive soft tissue edema of the subcutaneous adipose layer with confluent edema in the superficial fascia. It also showed deeper fascial edema on the upper leg. There was concern for possible compartment syndrome and vascular surgery and orthopedic surgery were consulted. They were unable to determine if patient truly had compartment syndrome. They recommended transfer to tertiary care center however family would not want surgery for the patient with his stage IV melanoma and therefore did not want transfer to tertiary care. He was seen by infectious disease and his antibiotics were broadened to daptomycin and Zosyn. There is concern for C. diff colitis was started on Flagyl as well. His stools formed and therefore C. diff testing was not preformed. However his Flagyl was continued with his history of C. diff and need for broad- spectrum antibiotics. His pressors were able to be weanerd down and he was off levo on the morning of 11/27. Patient seen and examined. Currently sedated and ventilated, not following commends. Significant other at bedisd and updated. Nursing present at bedside. Levo off, increasing edema. Objective - Vital Signs Vital signs: Vital Signs Temp 98.3 F 11/27/17 12:00 Pulse 84 11/27/17 13:00 Resp 19 11/27/17 13:00 BP 85/64 11/26/17 21:15 Pulse Ox 100 11/27/17 13:00 Intake & Output 0911/27/17 11/27/17 18:59 06:59 18:59 Intake Total 3085.002 2922.330 867.389 Output Total 765 585 835 Balance 2320.002 2337.330 32.389 Weight 80.3 kg Intake: IV 2275.0 1909.5 215 0.9 72 DAPTOmycin 500 mg In 50 Sodium Chloride 0.9% 50 ml @ 100 mls/hr IVPB Q48H [facility] Rx#:[id number] Piperacillin-Tazobactam 3 75.0 62.5 .375 gm In Dextrose/Water 1 50ml.bag @ 12.5 mls/hr IVPB Q8HR [facility] Rx#: [id number] Sodium Chloride 0.9% 1, 1500 1625 215 000 ml @ 125 mls/hr IV . Q8H [facility] Rx#:[id number] Sodium Chloride 0.9% 500 500 ml @ 999 mls/hr IV .Q31M [facility] Rx#:[id number] metroNIDAZOLE-NS PMX 500 200 100 mg In Saline 1 100ml.bag @ 100 mls/hr IVPB Q8HR [facility] Rx#:[id number] Intake, IV Titration 250.002 302.830 196.389 Amount Norepinephrine 16 mg In 150.002 57.481 10.214 Sodium Chloride 0.9% 250 ml @ Titrate IV .Q0M [facility] Rx#:[id number] Propofol 1,000 mg In 100.000 145.349 86.175 Empty Bag 1 bag @ Titrate IV .Q0M [facility] Rx#: [id number] Sodium Chloride 0.9% 99 100 100 ml @ 0.01 UNITS/MIN 3 mls /hr IV .Q24H [facility] with Vasopressin 20 unit Rx#: [id number] Tube Feeding 470 650 456 Other 90 60 Output: Urine 765 585 835 Other: Voiding Method Indwelling Catheter Indwelling Catheter Indwelling Catheter # Bowel Movements 1 ABP, PAP, CO, CI - Last Documented Arterial Blood Pressure 104/68 - Exam General: Ill-appearing, moderate distress, appears older than stated age Derm: warm, dry, left lower extremity with dressing in place. Area of erythema and warmth and marked with pen by nursing- decreasing. 1+ edema left lower extremity. Head: atraumatic, normocephalic, symmetric Eyes: no lid lag, anicteric sclera, PERRL Mouth: no lip lesion, mucus membranes moist Neck: Trachea midline, neck supple Cardiovascular: S1S2 reg, no murmur, positive posterior tibial pulse bilateral, Lungs: Breath sounds bilaterally, no rhonchi, no rales , no accessory muscle use , on ventilator Abdominal: soft, nontender to palpation, no guarding, no appreciable organomegaly Ext: no gross muscle atrophy, diffuse anasarca, no contractures Neuro: sedated on vent Psych: sedated on ventilator Lymphatic: No cervical lymphadenopathy, no axillary lymphadenopathy - Labs CBC & Chem 7: 11/27/17 04:30 11/27/17 04:30 Labs: Abnormal Lab Results - Last 24 Hours (Table) 11/26/17 11/26/17 11/27/17 Range/Units 20:34 23:53 04:16 RBC (4.30-5.90) m/uL Hgb (13.0-17.5) gm/dL Hct (39.0-53.0) % Plt Count (150-450) k/uL Lymphocytes # (1.0-4.8) k/uL ABG pCO2 (35-45) mmHg ABG pO2 (83-108) mmHg ABG O2 Saturation (94-97) % Sodium (137-145) mmol/L Potassium (3.5-5.1) mmol/L Chloride (98-107) mmol/L Carbon Dioxide (22-30) mmol/L BUN (9-20) mg/dL Creatinine (0.66-1.25) mg/dL Glucose (74-99) mg/dL POC Glucose (mg/dL) 227 H 168 H 158 H (75-99) mg/dL Calcium (8.4-10.2) mg/dL Magnesium (1.6-2.3) mg/dL Total Bilirubin (0.2-1.3) mg/dL AST (17-59) U/L ALT (21-72) U/L Alkaline Phosphatase (38-126) U/L Creatine Kinase (55-170) U/L Total Protein (6.3-8.2) g/dL Albumin (3.5-5.0) g/dL 11/27/17 11/27/17 11/27/17 Range/Units 04:30 04:30 07:31 RBC 3.35 L (4.30-5.90) m/uL Hgb 10.0 L (13.0-17.5) gm/dL Hct 31.9 L (39.0-53.0) % Plt Count 68 L (150-450) k/uL Lymphocytes # 0.4 L (1.0-4.8) k/uL ABG pCO2 34 L (35-45) mmHg ABG pO2 168 H (83-108) mmHg ABG O2 Saturation 98.0 H (94-97) % Sodium 146 H (137-145) mmol/L Potassium 3.4 L (3.5-5.1) mmol/L Chloride 120 H (98-107) mmol/L Carbon Dioxide 20 L (22-30) mmol/L BUN 49 H (9-20) mg/dL Creatinine 1.54 H (0.66-1.25) mg/dL Glucose 158 H (74-99) mg/dL POC Glucose (mg/dL) (75-99) mg/dL Calcium 7.7 L (8.4-10.2) mg/dL Magnesium 2.5 H (1.6-2.3) mg/dL Total Bilirubin 1.9 H (0.2-1.3) mg/dL AST 98 H (17-59) U/L ALT 132 H (21-72) U/L Alkaline Phosphatase 168 H (38-126) U/L Creatine Kinase 176 H (55-170) U/L Total Protein 4.0 L (6.3-8.2) g/dL Albumin 1.9 L (3.5-5.0) g/dL 11/27/17 11/27/17 11/27/17 Range/Units 09:58 09:59 13:06 RBC (4.30-5.90) m/uL Hgb (13.0-17.5) gm/dL Hct (39.0-53.0) % Plt Count (150-450) k/uL Lymphocytes # (1.0-4.8) k/uL ABG pCO2 (35-45) mmHg ABG pO2 (83-108) mmHg ABG O2 Saturation (94-97) % Sodium (137-145) mmol/L Potassium (3.5-5.1) mmol/L Chloride (98-107) mmol/L Carbon Dioxide (22-30) mmol/L BUN (9-20) mg/dL Creatinine (0.66-1.25) mg/dL Glucose (74-99) mg/dL POC Glucose (mg/dL) 233 H 227 H 212 H (75-99) mg/dL Calcium (8.4-10.2) mg/dL Magnesium (1.6-2.3) mg/dL Total Bilirubin (0.2-1.3) mg/dL AST (17-59) U/L ALT (21-72) U/L Alkaline Phosphatase (38-126) U/L Creatine Kinase (55-170) U/L Total Protein (6.3-8.2) g/dL Albumin (3.5-5.0) g/dL Microbiology - Last 24 Hours (Table) 11/24/17 13:00 Blood Culture - Preliminary Blood No Growth after 72 hours 11/25/17 01:56 Gram Stain - Preliminary Sputum Sputum Culture - Preliminary Gram Neg Bacilli Assessment and Plan Assessment: Left lower extremity cellulitis with septic shock, concern for compartment syndrome -No transfer to tertiary care facility as family would not want surgery -Continue with daptomycin and Zosyn as recommended by infectious disease -Continue with wrappings -Orthopedic surgery and vascular surgery recommendations appreciated -repeat CPK impoving -Attempt to reach oncologist to determine correlation with medication regiment. (Atezolizumab and cobimetinib). - wean pressors as able and continue stress dose steroids. Systolic cardiomyopathy, EF 20-25% - limit IVF - No BB or ACEI due to hypotension and ELIECER - Tele - if improves will need cardiac evaluation. Hyperchloremic metabolic acidosis - suggest stopping NS with anasarca in combination, monitor BP and need for pressors - follow BMP Acute hypoxic respiratory failure likely secondary to sepsis -Management as per pulmonary/critical care GNB in sputum - await identification - Zosyn should cover Acute kidney injury secondary to dehydration and ATN, improving -IV fluids -Renal dose medications -Repeat basic metabolic profile in a.m. Anemia, likely delusional with aggressive fluid resuscitation -Repeat CBC in a.m. 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 diff less likely -Patient does have a history of C. diff so would recommend continuing Flagyl will requiring broad-spectrum antibiotics Hyperkalemia, resolved DVT prophylaxis: SCDs Discussed with: Significant other, nursing Anticipated discharge: 5-[address]: Undetermined at this point in time A total of 35 minutes was spent on the care of this complex patient more than 50 % of the time was spent in counseling and care coordination.
--- NOTE | 2017-11-27 17:09 | PN ---
PROGRESS NOTE DATE OF SERVICE: 11/27/2017 REASON FOR FOLLOWUP: Sepsis with left lower extremity cellulitis. INTERVAL HISTORY: The patient is afebrile. He still shows clinical improvement hemodynamically, currently off the Levophed. Patient remains intubated on the vent. No significant other changes have been noted by the nursing staff. PHYSICAL EXAMINATION: Blood pressure is 104/68 with a pulse of 84, temperature 98. He is 100% on 28% FiO2. General description is a middle-aged male intubated on the vent. RESPIRATORY SYSTEM: Unlabored breathing. Clear to auscultation anteriorly. HEART: S1, S2. Regular rate and rhythm. ABDOMEN: Soft. No tenderness. Left leg swelling persists, though redness has slightly decreased. LABS: Hemoglobin is 10 with a white count of 6.9, BUN of 49 and creatinine 1.54. Liver enzymes remain elevated. DIAGNOSTIC IMPRESSION AND PLAN: Patient with sepsis and septic shock. Source is left lower extremity cellulitis. Concern about possible fasciitis or myositis, currently being treated medically. He is currently on daptomycin and Zosyn. That will be continued, waiting for his clinical condition to stabilize. Family was present at the bedside. Their questions and concerns were answered. MMODL / IJN: [id number] /
[2017-11-27 17:27] LABS: Glucose,Whole Blood 189 mg/dL (75-99)
[2017-11-27] MEDS: POTASSIUM CHLORIDE ER 20 MEQ TAB.ER PO SCH (19:07)
[2017-11-27 20:08] LABS: Glucose,Whole Blood 197 mg/dL (75-99)
[2017-11-27] MEDS: DAPTOmycin 500 MG in SODIUM CHLORIDE 0.9% 50 ML IVPB SCH (20:24)
[2017-11-27 22:51] LABS: Hemoglobin A1C 7.4 % (4.0-6.0)
[2017-11-28 00:05] LABS: Glucose,Whole Blood 193 mg/dL (75-99)
[2017-11-28] MEDS: INSULIN ASPART 100 UNIT/ML 1 ML 10 ML VIAL SQ SCH ×6 (00:10→20:56)
[2017-11-28] MEDS: SODIUM CHLORIDE 0.9% 1,000 ML IV SCH (00:11)
[2017-11-28] MEDS: POTASSIUM BICARBONATE/CIT AC 20 MEQ TABLET.EFF NG-TUBE SCH ×4 (02:39→06:39)
[2017-11-28] MEDS: SODIUM CHLORIDE 0.9% 99 ML with VASOPRESSIN 20 UNIT IV SCH ×2 (03:50)
[2017-11-28 04:28] LABS: Glucose,Whole Blood 233 mg/dL (75-99)
[2017-11-28 04:47] LABS: Basophils % (A) 0 %; Eosinophils % (A) 1 %; HCT 28.8 % (39.0-53.0); HGB 9.1 gm/dL (13.0-17.5); Lymphocytes # (A) 0.3 k/uL (1.0-4.8); Lymphocytes % (A) 7 %; MCH 29.7 pg (25.0-35.0); MCHC 31.7 g/dL (31.0-37.0); MCV 93.6 fL (80.0-100.0); Mean Platelet Volume 8.4; Monocytes # (A) 0.1 k/uL (0-1.0); Monocytes % (A) 4 %; Neutrophils # (A) 3.4 k/uL (1.3-7.7); Neutrophils % (A) 89 %; RBC 3.08 m/uL (4.30-5.90); RDW 14.5 % (11.5-15.5); WBC 3.8 k/uL (3.8-10.6)
[2017-11-28 05:00] LABS: Platelet Count 62 k/uL (150-450)
[2017-11-28 05:11] LABS: Albumin 1.9 g/dL (3.5-5.0); Calcium 8.1 mg/dL (8.4-10.2); Magnesium 2.2 mg/dL (1.6-2.3); Phosphorus 2.7 mg/dL (2.5-4.5); Potassium 3.4 mmol/L (3.5-5.1); Total Bilirubin 2.2 mg/dL (0.2-1.3); Total Protein 3.9 g/dL (6.3-8.2)
[2017-11-28] MEDS: PROPOFOL 1,000 MG in EMPTY BAG 1 BAG IV SCH (05:43)
[2017-11-28 07:16] LABS: ABG Base Excess 5.4 mmol/L; ABG HCO3 28 mmol/L (21-25); ABG Oxygen Saturation 97.3 % (94-97); ABG PCO2 34 mmHg (35-45); ABG PH 7.53 (7.35-7.45); ABG PO2 113 mmHg (83-108); ABG TCO2 29 mmol/L (19-24)
[2017-11-28 07:56] LABS: Glucose,Whole Blood 164 mg/dL (75-99)
--- NOTE | 2017-11-28 08:07 | XR ---
EXAMINATION TYPE: XR chest 1V portable DATE OF EXAM: 11/28/2017 CLINICAL HISTORY: Difficulty breathing progress study. TECHNIQUE: Single AP portable semiupright view of the chest is obtained. COMPARISON: Chest x-ray from one day earlier and older studies. FINDINGS: An endotracheal tube, orogastric tube, and right-sided subclavian central venous catheter are all stable in appearance. There is persistent mild cardiomegaly with improving central vascular congestion . There is persisten t patchy bibasilar atelectasis and/or infiltrate and probable small bilateral pleural effusions redem onstrated. No pneumothorax is evident bilaterally. The osseous structures are intact. IMPRESSION: Overall stable findings, mild cardiomegaly with patchy bibasilar atelectasis and/or inf iltrates and likely tiny bilateral pleural effusions all redemonstrated. Improving central vascular c ongestion noted.
[2017-11-28] MEDS: HYDROCORTISONE SUCCINATE 100 MG/2 ML VIAL IV SCH ×2 (09:28→16:14)
[2017-11-28] MEDS: NEOMYCIN-BACITRACIN-POLY OINT 14 GM TUBE TOPICAL SCH (09:29)
[2017-11-28] MEDS: PIPERACILLIN-TAZOBACTAM 3.375 GM in DEXTROSE/WATER 1 50ML.BAG IVPB SCH ×2 (09:29→16:14)
[2017-11-28] MEDS: PANTOPRAZOLE 40 MG/10 ML VIAL IV SCH (09:30)
[2017-11-28] MEDS: CHLORHEXIDINE GLUCONATE 15 ML CUP MUCOUS MEM SCH ×2 (09:30→20:57)
[2017-11-28] MEDS: metroNIDAZOLE-NS PMX 500 MG in SALINE 1 100ML.BAG IVPB SCH ×2 (09:58→18:27)
[2017-11-28 12:03] LABS: Glucose,Whole Blood 186 mg/dL (75-99)
[2017-11-28 12:54] LABS: Glucose,Whole Blood 167 mg/dL (75-99)
--- NOTE | 2017-11-28 13:16 | P.PN ---
Subjective Progress Note Date: 11/28/17 Principal diagnosis: Acute hypoxic respiratory failure secondary to acute septic shock. This is a 57-year-old white male, known history of stage IV melanoma, on clinical trial/chemotherapy with daily periodic biweekly IV infusions. Patient presented to the ER yesterday with chief complaint of severe leg swelling and pain. Patient was noted to have significant tenderness in the left leg, and this has been going on for the last 1 week. There was also evidence of cellulitis, patient was complaining of fever and pain, and had a recent episode of C. difficile colitis. In the ER, the patient was clinically diagnosed as septic, and considering the patient did not improve with significant amount of fluid boluses, required norepinephrine, and later on required vasopressin, it was felt that the patient has acute septic shock from acute cellulitis of the left lower extremity. Patient was noted to have significantly elevated lactic acid of 8.6, significant bandemia was noted, and he had acute kidney injury with creatinine of 2.12. Patient was tachycardic, his temp was 101.8, and initially his systolic blood pressure was in the 50s requiring a central line placement and fluid boluses as well as norepinephrine drip. Patient was transferred to the ICU, and shortly after arrival to the ICU, I was notified by the nurse taking care of the patient that he wasn't doing too well. Hence patient was intubated, placed on mechanical ventilation, he is presently on FiO2 of 40%, tidal volume of 450, assist control rate of 20 and PEEP of 5. His venous Doppler of the left lower extremity was negative for deep vein thrombosis. X-rays of the tibia and fibula showed possible avulsion fracture of medial malleolus. CT of the left lower extremity showed moderate to marked generalized subcutaneous soft tissue edema mild fluid extending along the deeper fascial planes between the superficial and deep posterior compartment of the upper to mid leg. No fatty effacement was noted. Moderate left TM effusions noted. The findings were described as nonspecific findings, can be seen with fasciitis, myositis, myonecrosis, inflammatory myopathy, and in compartment syndrome as well. Hence a vascular surgery consultation will be initiated, infectious disease consultation was also initiated. Chest x-ray showed small tiny right-sided pleural effusion and adjacent atelectasis. Patient was reevaluated today on 11/26/2017, remains on mechanical ventilation, ventilator settings are assist control rate of 20, tidal volume of 450, FiO2 35% , cut down from 40% today. ABG today showed a pO2 of 190 pCO2 of 36 pH of 7.36. WBC count is 9.1 hemoglobin is 10.4 basic metabolic profile is improving with BUN improved and creatinine is down to 1.66, it was 2.84 on presentation and BUN was 49. Patient remains on pressors in the form of vasopressin, and his norepinephrine is down to 6 mcg/m. Chest x-ray showed mild central vascular congestion, minimal right basilar atelectasis otherwise no major change. Patient remains on propofol, 25 g, fully sedated. Cultures of urine blood and sputum are negative so far. Patient was seen by many consultants regarding his left lower extremity cellulitis, and questionable necrotizing fasciitis or compartment syndrome, almost everybody felt the patient will need to be transferred to a tertiary care center, however family declined. As a matter of fact they went on to state to me that we change his CODE STATUS to DO NOT RESUSCITATE. However he has a daughter who is supposedly coming today, and we will discuss that issue with her today. The family is basing that decision on the fact that the patient has stage IV melanoma, and overall prognosis is very poor anyway. Reevaluated today on 11/27/2017, remains on mechanical ventilation, ventilator settings are tidal volume of 450 FiO2 is down to 28%, assist control rate is 18. PEEP is 5. ABG showed a pO2 of 168 pCO2 of 34 pH of 7.40. Chest x-ray showed minimal atelectasis at the bases, and small pleural effusions. All labs were reviewed, electrolytes showed low potassium of 3.4 elevated chloride of 120 BUN is improving down to 49 and creatinine improving down to 1.54. WBC count is 6.9 hemoglobin is 10.0. Patient remains on propofol, he is on 2 g of norepinephrine which I will discontinue remains on vasopressin which is being titrated down and hopefully to discontinue sometime today if possible. Urine output is excellent, patient is developing significant edema all over, and the swelling in the left lower extremity seems to be significantly improved. But continues to have areas of erythema and cellulitis. Reevaluated today on 11/28/2017, remains on mechanical ventilation, ventilator settings are basically the same, unchanged since yesterday. He is on low FiO2 of 28%. ABG this morning showed a pO2 of 113 pCO2 of 34 pH of 7.53. His sodium is a bit elevated at 149, and I plan to use free water flushes via nasogastric tube. Renal profile remains abnormal but improved, creatinine is 1.40 today compared to 1.54 yesterday, 2.84 a few days ago chest x-ray continues to show by basilar atelectasis, possible small tiny pleural effusions. But improving overall. Patient remains on propofol, hence I recommended placing the propofol on hold, discussed his condition with his significant other at bedside, and I would likely plan to give the patient a weaning trial and check weaning parameters and later on today. Seems to be coming around slowly off propofol. Objective - Vital Signs Vital signs: Vital Signs Temp 99.1 F 11/28/17 12:00 Pulse 89 11/28/17 12:00 Resp 21 11/28/17 12:00 BP 82/53 11/28/17 05:00 Pulse Ox 99 11/28/17 12:00 Intake & Output 11/27/17 11/28/17 11/28/17 18:59 06:59 18:59 Intake Total 1192.546 3434.988 405.9 Output Total 1835 1900 625 Balance -513.504 -305.012 -219.1 Weight 81.6 kg 81.6 kg Intake: IV 315 386 176 0.9 pressure bags 66 36 DAPTOmycin 500 mg In 50 Sodium Chloride 0.9% 50 ml @ 100 mls/hr IVPB Q24H [facility] Rx#:[id number] Piperacillin-Tazobactam 3 50 50 .375 gm In Dextrose/Water 1 50ml.bag @ 12.5 mls/hr IVPB Q8HR [facility] Rx#: [id number] Sodium Chloride 0.9% 1, 265 120 40 000 ml @ 10 mls/hr IV . Q24H [facility] Rx#:[id number] metroNIDAZOLE-NS PMX 500 100 100 mg In Saline 1 100ml.bag @ 100 mls/hr IVPB Q8HR [facility] Rx#:[id number] Intake, IV Titration 265.496 230.988 1.9 Amount Norepinephrine 16 mg In 10.214 Sodium Chloride 0.9% 250 ml @ Titrate IV .Q0M [facility] Rx#:[id number] Propofol 1,000 mg In 107.432 152.588 Empty Bag 1 bag @ Titrate IV .Q0M [facility] Rx#: [id number] Sodium Chloride 0.9% 99 147.85 78.40 1.9 ml @ 0.01 UNITS/MIN 3 mls /hr IV .Q24H [facility] with Vasopressin 20 unit Rx#: [id number] Oral 90 Tube Feeding 741 798 228 Other 90 Output: Urine 1835 1900 625 Other: Voiding Method Indwelling Catheter Indwelling Catheter Indwelling Catheter ABP, PAP, CO, CI - Last Documented Arterial Blood Pressure 113/64 - Exam Physical Exam: 57-year-old, sedated, on propofol, ventilated. Head: Unremarkable. HEENT:[ [No neck masses.] [No thyromegaly.] [No JVD.] No icterus. Endotracheal tube is intact orogastric tube is intact Chest: [Good breath sound bilaterally no rhonchi, no wheezes. Cardiac Exam: [Normal S1 and S2, no S3 gallop, no murmur..] Abdomen: [Soft, nontender, no megaly, no rebound, no guarding, normal bowel sounds.] Extremities: [Cellulitis and erythema noted in the left lower extremity area, the area was demarcated, less swelling noted in the left lower extremity. And less erythema compared to yesterday. Neurological Exam: Not assessed, remains on propofol.. Lymphatics: No lymphadenopathy Psychiatric poorly arousable. On propofol. - Labs CBC & Chem 7: 11/28/17 04:30 11/28/17 08:00 Labs: Abnormal Lab Results - Last 24 Hours (Table) 11/27/17 11/27/17 11/27/17 Range/Units 04:30 13:06 17:20 RBC (4.30-5.90) m/uL Hgb (13.0-17.5) gm/dL Hct (39.0-53.0) % Plt Count (150-450) k/uL Lymphocytes # (1.0-4.8) k/uL ABG pH (7.35-7.45) ABG pCO2 (35-45) mmHg ABG pO2 (83-108) mmHg ABG HCO3 (21-25) mmol/L ABG Total CO2 (19-24) mmol/L ABG O2 Saturation (94-97) % Sodium (137-145) mmol/L Potassium 2.9 L (3.5-5.1) mmol/L Chloride (98-107) mmol/L BUN (9-20) mg/dL Creatinine (0.66-1.25) mg/dL Glucose (74-99) mg/dL POC Glucose (mg/dL) 212 H (75-99) mg/dL Hemoglobin A1c 7.4 H (4.0-6.0) % Calcium (8.4-10.2) mg/dL Total Bilirubin (0.2-1.3) mg/dL AST (17-59) U/L ALT (21-72) U/L Alkaline Phosphatase (38-126) U/L Total Protein (6.3-8.2) g/dL Albumin (3.5-5.0) g/dL 11/27/17 11/27/17 11/28/17 Range/Units 17:25 19:57 00:04 RBC (4.30-5.90) m/uL Hgb (13.0-17.5) gm/dL Hct (39.0-53.0) % Plt Count (150-450) k/uL Lymphocytes # (1.0-4.8) k/uL ABG pH (7.35-7.45) ABG pCO2 (35-45) mmHg ABG pO2 (83-108) mmHg ABG HCO3 (21-25) mmol/L ABG Total CO2 (19-24) mmol/L ABG O2 Saturation (94-97) % Sodium (137-145) mmol/L Potassium (3.5-5.1) mmol/L Chloride (98-107) mmol/L BUN (9-20) mg/dL Creatinine (0.66-1.25) mg/dL Glucose (74-99) mg/dL POC Glucose (mg/dL) 189 H 197 H 193 H (75-99) mg/dL Hemoglobin A1c (4.0-6.0) % Calcium (8.4-10.2) mg/dL Total Bilirubin (0.2-1.3) mg/dL AST (17-59) U/L ALT (21-72) U/L Alkaline Phosphatase (38-126) U/L Total Protein (6.3-8.2) g/dL Albumin (3.5-5.0) g/dL 11/28/17 11/28/17 11/28/17 Range/Units 01:40 04:17 04:30 RBC 3.08 L (4.30-5.90) m/uL Hgb 9.1 L (13.0-17.5) gm/dL Hct 28.8 L (39.0-53.0) % Plt Count 62 L (150-450) k/uL Lymphocytes # 0.3 L (1.0-4.8) k/uL ABG pH (7.35-7.45) ABG pCO2 (35-45) mmHg ABG pO2 (83-108) mmHg ABG HCO3 (21-25) mmol/L ABG Total CO2 (19-24) mmol/L ABG O2 Saturation (94-97) % Sodium (137-145) mmol/L Potassium 3.0 L (3.5-5.1) mmol/L Chloride (98-107) mmol/L BUN (9-20) mg/dL Creatinine (0.66-1.25) mg/dL Glucose (74-99) mg/dL POC Glucose (mg/dL) 233 H (75-99) mg/dL Hemoglobin A1c (4.0-6.0) % Calcium (8.4-10.2) mg/dL Total Bilirubin (0.2-1.3) mg/dL AST (17-59) U/L ALT (21-72) U/L Alkaline Phosphatase (38-126) U/L Total Protein (6.3-8.2) g/dL Albumin (3.5-5.0) g/dL 11/28/17 11/28/17 11/28/17 Range/Units 04:30 07:14 07:55 RBC (4.30-5.90) m/uL Hgb (13.0-17.5) gm/dL Hct (39.0-53.0) % Plt Count (150-450) k/uL Lymphocytes # (1.0-4.8) k/uL ABG pH 7.53 H (7.35-7.45) ABG pCO2 34 L (35-45) mmHg ABG pO2 113 H (83-108) mmHg ABG HCO3 28 H (21-25) mmol/L ABG Total CO2 29 H (19-24) mmol/L ABG O2 Saturation 97.3 H (94-97) % Sodium 149 H (137-145) mmol/L Potassium 3.4 L (3.5-5.1) mmol/L Chloride 118 H (98-107) mmol/L BUN 58 H (9-20) mg/dL Creatinine 1.40 H (0.66-1.25) mg/dL Glucose 191 H (74-99) mg/dL POC Glucose (mg/dL) 164 H (75-99) mg/dL Hemoglobin A1c (4.0-6.0) % Calcium 8.1 L (8.4-10.2) mg/dL Total Bilirubin 2.2 H (0.2-1.3) mg/dL AST 84 H (17-59) U/L ALT 132 H (21-72) U/L Alkaline Phosphatase 246 H (38-126) U/L Total Protein 3.9 L (6.3-8.2) g/dL Albumin 1.9 L (3.5-5.0) g/dL 11/28/17 11/28/17 Range/Units 12:02 12:53 RBC (4.30-5.90) m/uL Hgb (13.0-17.5) gm/dL Hct (39.0-53.0) % Plt Count (150-450) k/uL Lymphocytes # (1.0-4.8) k/uL ABG pH (7.35-7.45) ABG pCO2 (35-45) mmHg ABG pO2 (83-108) mmHg ABG HCO3 (21-25) mmol/L ABG Total CO2 (19-24) mmol/L ABG O2 Saturation (94-97) % Sodium (137-145) mmol/L Potassium (3.5-5.1) mmol/L Chloride (98-107) mmol/L BUN (9-20) mg/dL Creatinine (0.66-1.25) mg/dL Glucose (74-99) mg/dL POC Glucose (mg/dL) 186 H 167 H (75-99) mg/dL Hemoglobin A1c (4.0-6.0) % Calcium (8.4-10.2) mg/dL Total Bilirubin (0.2-1.3) mg/dL AST (17-59) U/L ALT (21-72) U/L Alkaline Phosphatase (38-126) U/L Total Protein (6.3-8.2) g/dL Albumin (3.5-5.0) g/dL Microbiology - Last 24 Hours (Table) 11/24/17 13:00 Blood Culture - Preliminary Blood No Growth after 72 hours Assessment and Plan Assessment: Impression: Acute hypoxic respiratory failure with left lower extremity cellulitis and septic shock on presentation. Stage IV metastatic melanoma Acute kidney injury secondary to ATN and septic shock gradually improving over the last few days but not completely resolved. Recent C. difficile colitis. Acute hypernatremia secondary to free water deficit which will be addressed accordingly by giving him free water via nasogastric tube. Continue antibiotics, hemodynamic support, nutritional support, GI and DVT prophylaxis, patient will be likely weaned, address his hypernatremia with free water correction, this will be given via nasogastric tube. Continue GI and DVT prophylaxis. Continue to hold propofol, once the patient is more awake and responsive, will check weaning parameters, may consider weaning trial even today. Discussed this with his significant other at bedside. Critical care time is 40 minutes. Patient remains critically ill and prognosis remains relatively guarded. Not to mention that the patient has stage IV metastatic melanoma. Time with Patient: Greater than 30
[2017-11-28] MEDS ORDERED: POTASSIUM BICARBONATE/CIT AC 20 MEQ TABLET.EFF PO ONE (15:24)
[2017-11-28] MEDS: POTASSIUM CHLORIDE 20 MEQ in WATER FOR INJECTION 1 100ML.BAG IVPB SCH ×2 (16:12→18:30)
[2017-11-28 16:58] LABS: Glucose,Whole Blood 152 mg/dL (75-99)
[2017-11-28 18:13] LABS: Glucose,Whole Blood 184 mg/dL (75-99)
--- NOTE | 2017-11-28 18:58 | P.PN ---
Subjective Progress Note Date: 11/28/17 (Delayed charting patient seen at 0930) Principal diagnosis: leg pain Patient is a 57-year-old male with a past medical history of stage IV melanoma who recently finished a clinical trial of atezolizumab and cobimetirnib (taken off for colitis), Parkinson's disease, and enlarged prostate who presented with complaints of diarrhea and severe left leg pain. In the ER the patient was found to have acute kidney injury, severe sepsis with an elevated lactic at 8.6 and hypotension. He was given 3 L of normal saline and remained hypotensive and therefore started on levo. He was started on empiric IV antibiotics with Unasyn and vancomycin. He was admitted to the ICU for further monitoring and critical care was consulted. Lower extremity venous Doppler was negative for DVT and tibial fibula x-rays were suggestive of medial malleolus avulsion fracture. Overnight on 11/24 the patient required mechanical ventilation. He underwent a CT of the left lower extremity which showed extensive soft tissue edema of the subcutaneous adipose layer with confluent edema in the superficial fascia. It also showed deeper fascial edema on the upper leg. There was concern for possible compartment syndrome and vascular surgery and orthopedic surgery were consulted. They were unable to determine if patient truly had compartment syndrome. They recommended transfer to tertiary care center however family would not want surgery for the patient with his stage IV melanoma and therefore did not want transfer to tertiary care. He was seen by infectious disease and his antibiotics were broadened to daptomycin and Zosyn. There is concern for C. diff colitis was started on Flagyl as well. His stools formed and therefore C. diff testing was not preformed. However his Flagyl was continued with his history of C. diff and need for broad- spectrum antibiotics. His pressors were able to be weanerd down and he was off levo on the morning of 11/27. Vasopressin discontinued on the morning on 11/28. White blood cell count had improved. Patient seen and examined.On sedation holiday and ventilated, not following commends,. but independently moving extremities. Significant other at bedside and updated. Nursing present at bedside. Objective - Vital Signs Vital signs: Vital Signs Temp 99.1 F 11/28/17 12:00 Pulse 92 11/28/17 17:00 Resp 20 11/28/17 17:00 BP 82/53 11/28/17 05:00 Pulse Ox 100 11/28/17 17:00 Intake & Output 11/27/17 11/28/17 11/28/17 18:59 06:59 18:59 Intake Total 2731.941 5584.988 993.165 Output Total 1835 1900 1025 Balance -627.504 -305.012 -31.835 Weight 81.6 kg 81.6 kg Intake: IV 315 386 281 0.9 pressure bags 66 66 DAPTOmycin 500 mg In 50 Sodium Chloride 0.9% 50 ml @ 100 mls/hr IVPB Q24H [facility] Rx#:[id number] Piperacillin-Tazobactam 3 50 50 50 .375 gm In Dextrose/Water 1 50ml.bag @ 12.5 mls/hr IVPB Q8HR [facility] Rx#: [id number] Sodium Chloride 0.9% 1, 265 120 65 000 ml @ 10 mls/hr IV . Q24H [facility] Rx#:[id number] metroNIDAZOLE-NS PMX 500 100 100 mg In Saline 1 100ml.bag @ 100 mls/hr IVPB Q8HR [facility] Rx#:[id number] Intake, IV Titration 265.496 230.988 27.165 Amount Norepinephrine 16 mg In 10.214 Sodium Chloride 0.9% 250 ml @ Titrate IV .Q0M [facility] Rx#:[id number] Propofol 1,000 mg In 107.432 152.588 19.465 Empty Bag 1 bag @ Titrate IV .Q0M [facility] Rx#: [id number] Sodium Chloride 0.9% 99 147.85 78.40 7.7 ml @ 0.01 UNITS/MIN 3 mls /hr IV .Q24H [facility] with Vasopressin 20 unit Rx#: [id number] Oral 90 Tube Feeding 627 798 285 Other 90 400 Output: Urine 1835 1900 1025 Other: Voiding Method Indwelling Catheter Indwelling Catheter Indwelling Catheter ABP, PAP, CO, CI - Last Documented Arterial Blood Pressure 107/62 - Exam General: Ill-appearing, no distress, appears older than stated age Derm: warm, dry, left lower extremity with dressing in place. Area of erythema and warmth and marked with pen by nursing significantly improved with decreased edema/warmth/ and erythema. 1+ edema left lower extremity. Head: atraumatic, normocephalic, symmetric Eyes: no lid lag, anicteric sclera, PERRL Mouth: no lip lesion, mucus membranes moist Neck: Trachea midline, neck supple Cardiovascular: S1S2 reg, no murmur, positive posterior tibial pulse bilateral, Lungs: Breath sounds bilaterally, no rhonchi, no rales , no accessory muscle use , on ventilator Abdominal: soft, nontender to palpation, no guarding, no appreciable organomegaly Ext: no gross muscle atrophy, diffuse anasarca, no contractures Neuro: Moving all 4 extremities on vent Psych: still sedated on ventilator Lymphatic: No cervical lymphadenopathy, - Labs CBC & Chem 7: 11/28/17 04:30 11/28/17 08:00 Labs: Abnormal Lab Results - Last 24 Hours (Table) 11/27/17 11/27/17 11/28/17 Range/Units 04:30 19:57 00:04 RBC (4.30-5.90) m/uL Hgb (13.0-17.5) gm/dL Hct (39.0-53.0) % Plt Count (150-450) k/uL Lymphocytes # (1.0-4.8) k/uL ABG pH (7.35-7.45) ABG pCO2 (35-45) mmHg ABG pO2 (83-108) mmHg ABG HCO3 (21-25) mmol/L ABG Total CO2 (19-24) mmol/L ABG O2 Saturation (94-97) % Sodium (137-145) mmol/L Potassium (3.5-5.1) mmol/L Chloride (98-107) mmol/L BUN (9-20) mg/dL Creatinine (0.66-1.25) mg/dL Glucose (74-99) mg/dL POC Glucose (mg/dL) 197 H 193 H (75-99) mg/dL Hemoglobin A1c 7.4 H (4.0-6.0) % Calcium (8.4-10.2) mg/dL Total Bilirubin (0.2-1.3) mg/dL AST (17-59) U/L ALT (21-72) U/L Alkaline Phosphatase (38-126) U/L Total Protein (6.3-8.2) g/dL Albumin (3.5-5.0) g/dL 11/28/17 11/28/17 11/28/17 Range/Units 01:40 04:17 04:30 RBC 3.08 L (4.30-5.90) m/uL Hgb 9.1 L (13.0-17.5) gm/dL Hct 28.8 L (39.0-53.0) % Plt Count 62 L (150-450) k/uL Lymphocytes # 0.3 L (1.0-4.8) k/uL ABG pH (7.35-7.45) ABG pCO2 (35-45) mmHg ABG pO2 (83-108) mmHg ABG HCO3 (21-25) mmol/L ABG Total CO2 (19-24) mmol/L ABG O2 Saturation (94-97) % Sodium (137-145) mmol/L Potassium 3.0 L (3.5-5.1) mmol/L Chloride (98-107) mmol/L BUN (9-20) mg/dL Creatinine (0.66-1.25) mg/dL Glucose (74-99) mg/dL POC Glucose (mg/dL) 233 H (75-99) mg/dL Hemoglobin A1c (4.0-6.0) % Calcium (8.4-10.2) mg/dL Total Bilirubin (0.2-1.3) mg/dL AST (17-59) U/L ALT (21-72) U/L Alkaline Phosphatase (38-126) U/L Total Protein (6.3-8.2) g/dL Albumin (3.5-5.0) g/dL 11/28/17 11/28/17 11/28/17 Range/Units 04:30 07:14 07:55 RBC (4.30-5.90) m/uL Hgb (13.0-17.5) gm/dL Hct (39.0-53.0) % Plt Count (150-450) k/uL Lymphocytes # (1.0-4.8) k/uL ABG pH 7.53 H (7.35-7.45) ABG pCO2 34 L (35-45) mmHg ABG pO2 113 H (83-108) mmHg ABG HCO3 28 H (21-25) mmol/L ABG Total CO2 29 H (19-24) mmol/L ABG O2 Saturation 97.3 H (94-97) % Sodium 149 H (137-145) mmol/L Potassium 3.4 L (3.5-5.1) mmol/L Chloride 118 H (98-107) mmol/L BUN 58 H (9-20) mg/dL Creatinine 1.40 H (0.66-1.25) mg/dL Glucose 191 H (74-99) mg/dL POC Glucose (mg/dL) 164 H (75-99) mg/dL Hemoglobin A1c (4.0-6.0) % Calcium 8.1 L (8.4-10.2) mg/dL Total Bilirubin 2.2 H (0.2-1.3) mg/dL AST 84 H (17-59) U/L ALT 132 H (21-72) U/L Alkaline Phosphatase 246 H (38-126) U/L Total Protein 3.9 L (6.3-8.2) g/dL Albumin 1.9 L (3.5-5.0) g/dL 11/28/17 11/28/17 11/28/17 Range/Units 12:02 12:53 16:47 RBC (4.30-5.90) m/uL Hgb (13.0-17.5) gm/dL Hct (39.0-53.0) % Plt Count (150-450) k/uL Lymphocytes # (1.0-4.8) k/uL ABG pH (7.35-7.45) ABG pCO2 (35-45) mmHg ABG pO2 (83-108) mmHg ABG HCO3 (21-25) mmol/L ABG Total CO2 (19-24) mmol/L ABG O2 Saturation (94-97) % Sodium (137-145) mmol/L Potassium (3.5-5.1) mmol/L Chloride (98-107) mmol/L BUN (9-20) mg/dL Creatinine (0.66-1.25) mg/dL Glucose (74-99) mg/dL POC Glucose (mg/dL) 186 H 167 H 152 H (75-99) mg/dL Hemoglobin A1c (4.0-6.0) % Calcium (8.4-10.2) mg/dL Total Bilirubin (0.2-1.3) mg/dL AST (17-59) U/L ALT (21-72) U/L Alkaline Phosphatase (38-126) U/L Total Protein (6.3-8.2) g/dL Albumin (3.5-5.0) g/dL 11/28/17 Range/Units 18:11 RBC (4.30-5.90) m/uL Hgb (13.0-17.5) gm/dL Hct (39.0-53.0) % Plt Count (150-450) k/uL Lymphocytes # (1.0-4.8) k/uL ABG pH (7.35-7.45) ABG pCO2 (35-45) mmHg ABG pO2 (83-108) mmHg ABG HCO3 (21-25) mmol/L ABG Total CO2 (19-24) mmol/L ABG O2 Saturation (94-97) % Sodium (137-145) mmol/L Potassium (3.5-5.1) mmol/L Chloride (98-107) mmol/L BUN (9-20) mg/dL Creatinine (0.66-1.25) mg/dL Glucose (74-99) mg/dL POC Glucose (mg/dL) 184 H (75-99) mg/dL Hemoglobin A1c (4.0-6.0) % Calcium (8.4-10.2) mg/dL Total Bilirubin (0.2-1.3) mg/dL AST (17-59) U/L ALT (21-72) U/L Alkaline Phosphatase (38-126) U/L Total Protein (6.3-8.2) g/dL Albumin (3.5-5.0) g/dL Microbiology - Last 24 Hours (Table) 11/24/17 13:00 Blood Culture - Preliminary Blood No Growth after 96 hours Assessment and Plan Assessment: Left lower extremity cellulitis with septic shock (resolved), compartment syndrome ruled out. -Continue with daptomycin and Zosyn as recommended by infectious disease -Continue with wrappings -Orthopedic surgery and vascular surgery recommendations appreciated -repeat CPK improved Systolic cardiomyopathy, EF 20-25% - limit IVF - No BB or ACEI due to hypotension and [facility] - Tele - consult cardio Hypernatremia - increase free water in tube feeds goal would be 1.4L per day will increase to 200cc q 4 hours. Hypokalemia - replace and recheck Acute hypoxic respiratory failure likely secondary to sepsis -Management as per pulmonary/critical care GNB in sputum - await identification - Zosyn should cover Acute kidney injury secondary to dehydration and ATN, improving -IV fluids completed, receivied lasix 11/27 -Renal dose medications -Repeat basic metabolic profile in a.m. Anemia, likely delusional with aggressive fluid resuscitation -Repeat CBC in a.m. 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 diff less likely -Patient does have a history of C. diff so would recommend continuing Flagyl will requiring broad-spectrum antibiotics Hyperkalemia, resolved Hyperchloremic metabolic acidosis, resolved DVT prophylaxis: SCDs Discussed with: Significant other, nursing Anticipated discharge: 4-[address]: Undetermined at this point in time A total of 35 minutes was spent on the care of this complex patient more than 50 % of the time was spent in counseling and care coordination.
[2017-11-28 20:33] LABS: Glucose,Whole Blood 229 mg/dL (75-99)
[2017-11-28] MEDS: DAPTOmycin 500 MG in SODIUM CHLORIDE 0.9% 50 ML IVPB SCH (20:57)
[2017-11-29 00:02] LABS: Glucose,Whole Blood 189 mg/dL (75-99)
[2017-11-29] MEDS: INSULIN ASPART 100 UNIT/ML 1 ML 10 ML VIAL SQ SCH ×6 (00:13→20:35)
[2017-11-29] MEDS: SODIUM CHLORIDE 0.9% 1,000 ML IV SCH (00:14)
[2017-11-29] MEDS: PIPERACILLIN-TAZOBACTAM 3.375 GM in DEXTROSE/WATER 1 50ML.BAG IVPB SCH ×4 (00:14→23:01)
[2017-11-29] MEDS: HYDROCORTISONE SUCCINATE 100 MG/2 ML VIAL IV SCH ×4 (00:14→23:01)
[2017-11-29] MEDS: metroNIDAZOLE-NS PMX 500 MG in SALINE 1 100ML.BAG IVPB SCH ×4 (00:15→23:01)
[2017-11-29 05:14] LABS: HCT 27.9 % (39.0-53.0); HGB 8.9 gm/dL (13.0-17.5); Hypochromasia Slight; MCH 30.5 pg (25.0-35.0); MCHC 31.8 g/dL (31.0-37.0); MCV 95.9 fL (80.0-100.0); RBC 2.91 m/uL (4.30-5.90); RDW 14.5 % (11.5-15.5); WBC 4.9 k/uL (3.8-10.6)
[2017-11-29 05:26] LABS: Platelet Count 84 k/uL (150-450)
[2017-11-29 05:32] LABS: Albumin 1.9 g/dL (3.5-5.0); Magnesium 2.2 mg/dL (1.6-2.3); Phosphorus 2.4 mg/dL (2.5-4.5); Potassium 3.4 mmol/L (3.5-5.1); Total Bilirubin 2.7 mg/dL (0.2-1.3)
[2017-11-29 05:37] LABS: INR 1.4 (<1.2); Prothrombin Time 13.1 sec (9.0-12.0)
--- NOTE | 2017-11-29 05:52 | PN ---
PROGRESS NOTE DATE OF SERVICE: 11/28/2017. REASON FOR FOLLOWUP: 1. Left lower extremity cellulitis. 2. Gram-negative pneumonia. INTERVAL HISTORY: The patient is afebrile. He is hemodynamically stable. The patient is to be intubated on the vent, sedated and unable to provide any history. No significant diarrhea. EXAMINATION: Blood pressure 130/62 with a pulse of 89, temperature 98. He is 99% on the FiO2. General description is a middle-aged male lying in bed in no distress. RESPIRATORY SYSTEM: Unlabored breathing. Clear to auscultation anteriorly. HEART: S1, S2. Regular rate and rhythm. ABDOMEN: Soft, no tenderness. Left leg with swelling and redness slightly decreased. No drainage. There is blister on the dorsal aspect of his left foot. LABS: Hemoglobin is 9.1, white count 3.8, BUN of 58, creatinine is 1.40. Sputum showing a gram-negative bacilli. DIAGNOSTIC IMPRESSION AND PLAN: 1. Patient with acute left lower extremity cellulitis with concern for possible myositis and secondary sepsis and septic shock, currently covered with daptomycin. 2. Patient with gram negative pneumonia currently covered with Zosyn. Will continue watching his kidney function closely. Continue supportive care. MMODL / IJN: [id number] /
[2017-11-29 05:59] LABS: Glucose,Whole Blood 211 mg/dL (75-99)
[2017-11-29] MEDS ORDERED: POTASSIUM CHLORIDE 20 MEQ in WATER FOR INJECTION 1 100ML.BAG IVPB SCH (06:30)
[2017-11-29] MEDS: POTASSIUM CHLORIDE 20 MEQ in WATER FOR INJECTION 1 100ML.BAG IVPB SCH ×2 (06:58→09:39)
--- NOTE | 2017-11-29 06:58 | XR ---
EXAMINATION TYPE: XR chest 1V portable DATE OF EXAM: 11/29/2017 HISTORY: Tube placement. REFERENCE: Previous study dated 11/28/2017. FINDINGS: The patient is ET tube, NG tube and right subclavian catheter remain in place, unchanged in appearance. There is bibasilar airspace disease. There are small, bilateral effusions. Heart size upper limits of normal. IMPRESSION: 1. MILD BIBASILAR AIRSPACE DISEASE. 2. SMALL, BILATERAL EFFUSIONS.
[2017-11-29 07:43] LABS: ABG Base Excess 8.3 mmol/L; ABG HCO3 31 mmol/L (21-25); ABG Oxygen Saturation 98.5 % (94-97); ABG PCO2 35 mmHg (35-45); ABG PH 7.55 (7.35-7.45); ABG PO2 100 mmHg (83-108); ABG TCO2 32 mmol/L (19-24)
[2017-11-29 09:35] LABS: Glucose,Whole Blood 204 mg/dL (75-99)
[2017-11-29] MEDS: PANTOPRAZOLE 40 MG/10 ML VIAL IV SCH (09:37)
[2017-11-29] MEDS: CHLORHEXIDINE GLUCONATE 15 ML CUP MUCOUS MEM SCH ×2 (09:37→20:35)
[2017-11-29] MEDS: NEOMYCIN-BACITRACIN-POLY OINT 14 GM TUBE TOPICAL SCH (09:38)
[2017-11-29 10:59] LABS: Potassium 3.1 mmol/L (3.5-5.1)
--- NOTE | 2017-11-29 11:25 | P.CRDCN ---
History of Present Illness Consult date: 11/29/17 History of present illness: This is a 57-year-old gentleman with history of stage IV melanoma who was the clinical trials with some experimental medications, history of Parkinson's disease and also prostate issues was admitted to the hospital with increasing left leg pain and also diarrhea. In the emergency room and was diagnosed to have acute kidney injury and severe sepsis and hypotension. Apparently in the emergency room patient developed respiratory difficulties requiring intubation. He is being treated for infected legs. He was on vasopressors, which are gradually weaned off. We're asked to see the patient because of cardiomyopathy with an ejection fraction of 20-25%. Apparently while he was on experimental medication during the trial, patient was having periodic echocardiograms. The last echocardiogram was about 6 weeks ago and apparently his LV function was preserved at the time. His blood pressures running in the range of 110 today. Patient is essentially intubated and unresponsive. His prognosis seems to be poor. I'm going to add small dose of Coreg. If he tolerates it will gradually increase the dose. He is a renal functions have some improvement. If that remains stable, we'll make add PATEL inhibitor. Prognosis overall is poor Review of Systems As per the chart Past Medical History Past Medical History: Cancer, Prostate Disorder Additional Past Medical History / Comment(s): PARKINSON'S. 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, C-Diff History of Any Multi-Drug Resistant Organisms: C-DIFF Date of last positivie culture/infection: unknown MDRO Source:: stool Past Surgical History: Tonsillectomy Additional Past Surgical History / Comment(s): rt axillary biopsy - POSITIVE FOR CANCER, LIP BX, RT SHOULDER MOLE BX , dental extraction Past Anesthesia/Blood Transfusion Reactions: No Reported Reaction Past Psychological History: No Psychological Hx Reported Smoking Status: Never smoker Past Alcohol Use History: None Reported Past Drug Use History: None Reported - Past Family History Mother Family Medical History: Cancer Additional Family Medical History / Comment(s): breast cancer also had moles removed - not sure if positive or not for cancer Father Family Medical History: Congestive Heart Failure (CHF) Additional Family Medical History / Comment(s): Parkinsons Medications and Allergies Home Medications Medication Instructions Recorded Confirmed Type Carbidopa-Levodopa 25-100 mg 1 tab PO TID 10/19/17 11/24/17 History [Sinemet 25-100] Pantoprazole [Protonix] 40 mg PO DAILY 11/24/17 11/24/17 History Pramipexole Di-HCl [Mirapex] 1.5 mg PO TID 11/24/17 11/24/17 History Vancomycin HCl 125 mg PO Q6H 11/24/17 11/24/17 History predniSONE 50 mg PO BID 11/24/17 11/24/17 History Allergies Allergy/AdvReac Type Severity Reaction Status Date / Time Sulfa (Sulfonamide Allergy Rash/Hives Verified 11/24/17 16:49 Antibiotics) Physical Exam Vitals: Vital Signs Temp Pulse Resp Pulse Ox 11/29/17 11:00 81 22 99 11/29/17 10:00 78 21 99 11/29/17 09:00 84 21 99 11/29/17 08:00 99.7 F H 89 22 99 11/29/17 07:00 89 23 100 11/29/17 06:00 79 19 100 11/29/17 05:00 76 20 99 11/29/17 04:00 99.1 F 84 20 99 11/29/17 03:00 83 20 99 11/29/17 02:00 88 20 100 11/29/17 01:00 85 20 100 11/29/17 00:00 99.1 F 85 19 99 11/28/17 23:00 89 20 11/28/17 22:00 91 21 11/28/17 21:00 89 20 99 11/28/17 20:00 99.8 F H 92 20 99 11/28/17 19:00 94 21 100 11/28/17 18:00 98.8 F 89 20 100 11/28/17 17:00 92 20 100 11/28/17 16:00 88 20 99 11/28/17 15:00 87 20 99 11/28/17 14:00 88 20 99 11/28/17 13:00 88 19 99 11/28/17 12:00 99.1 F 89 21 99 Intake and Output 11/28/17 11/29/17 11/29/17 22:59 06:59 14:59 Intake Total 745 1248 908.5 Output Total 710 935 440 Balance 35 313 468.5 Intake: IV 203 278 366.5 0.9 pressure bags 48 48 24 DAPTOmycin 500 mg In 50 Sodium Chloride 0.9% 50 ml @ 100 mls/hr IVPB Q24H [facility] Rx#:[id number] Piperacillin-Tazobactam 3 50 50 12.5 .375 gm In Dextrose/Water 1 50ml.bag @ 12.5 mls/hr IVPB Q8HR [facility] Rx#: [id number] Potassium Chloride 20 meq 200 In Water For Injection 1 100ml.bag @ 50 mls/hr IVPB Q2H [facility] Rx#: [id number] Sodium Chloride 0.9% 1, 55 80 30 000 ml @ 10 mls/hr IV . Q24H [facility] Rx#:[id number] metroNIDAZOLE-NS PMX 500 100 100 mg In Saline 1 100ml.bag @ 100 mls/hr IVPB Q8HR [facility] Rx#:[id number] Tube Feeding 342 570 342 Other 200 400 200 Output: Urine 710 935 440 Other: Voiding Method Indwelling Catheter Indwelling Catheter Weight 81.9 kg ABP, PAP, CO, CI - Last 8 Hours Arterial Blood Pressure 123/70 Arterial Blood Pressure 122/68 Arterial Blood Pressure 124/69 Arterial Blood Pressure 125/68 Arterial Blood Pressure 120/65 Arterial Blood Pressure 119/63 Arterial Blood Pressure 124/71 Arterial Blood Pressure 123/66 GENERAL EXAM: Patient is intubated and unresponsive HEENT: Normocephalic. CHEST: No chest wall deformity. LUNGS: Diminished air entry HEART: S1 and S2 normal with no audible mumurs or gallops. Regular rhythm, ABDOMEN: No hepatosplenomegaly, normal bowel sounds, no guarding or rigidity. SKIN: No rashes CENTRAL NERVOUS SYSTEM: Patient is unresponsive EXTREMITIES: No cyanosis, clubbing or edema. Results 11/29/17 04:50 11/29/17 10:15 Cardiac Enzymes 11/29/17 Range/Units 04:50 AST 94 H (17-59) U/L Coagulation 11/29/17 Range/Units 05:15 PT 13.1 H (9.0-12.0) sec CBC 11/29/17 Range/Units 04:50 WBC 4.9 (3.8-10.6) k/uL RBC 2.91 L (4.30-5.90) m/uL Hgb 8.9 L (13.0-17.5) gm/dL Hct 27.9 L (39.0-53.0) % Plt Count 84 L (150-450) k/uL Comprehensive Metabolic Panel 11/29/17 11/29/17 Range/Units 04:50 10:15 Sodium 152 H 152 H (137-145) mmol/L Potassium 3.4 L 3.1 L (3.5-5.1) mmol/L Chloride 116 H 117 H (98-107) mmol/L Carbon Dioxide 30 30 (22-30) mmol/L BUN 55 H (9-20) mg/dL Creatinine 1.26 H (0.66-1.25) mg/dL Glucose 196 H (74-99) mg/dL Calcium 8.0 L (8.4-10.2) mg/dL AST 94 H (17-59) U/L ALT 142 H (21-72) U/L Alkaline Phosphatase 315 H (38-126) U/L Total Protein 4.0 L (6.3-8.2) g/dL Albumin 1.9 L (3.5-5.0) g/dL Current Medications Generic Name Dose Route Start Last Admin Trade Name Freq PRN Reason Stop Dose Admin Carvedilol 1.563 mg 11/29/17 11:15 Coreg PO BID-W/MEALS [facility] Chlorhexidine Gluconate 15 ml 11/25/17 09:00 11/29/17 09:37 Peridex MUCOUS MEM 15 ml BID [facility] Administration Hydrocortisone Sodium Succinate 100 mg 11/25/17 11:45 11/29/17 09:37 Solu-Cortef IV 100 mg Q8HR [facility] Administration Norepinephrine Bitartrate 16 250 mls @ 0 mls/hr 11/24/17 15:45 11/27/17 10:30 mg/ Sodium Chloride IV 0 mcg/min .Q0M [facility] 0 mls/hr Titration Protocol Titrate Vasopressin 20 unit/ Sodium 100 mls @ 3 mls/hr 11/25/17 02:00 11/28/17 09:00 Chloride IV 0 units/min .Q24H [facility] 0 mls/hr Titration Protocol 0.01 UNITS/MIN Propofol 1,000 mg/ IV Solution 100 mls @ 0 mls/hr 11/25/17 02:00 11/28/17 07: 20 IV 0 mcg/kg/min .Q0M [facility] 0 mls/hr Titration Protocol Titrate Metronidazole 500 mg/ IV 100 mls @ 100 mls/hr 11/25/17 08:30 11/29/17 09:37 Solution IVPB 100 mls/hr Q8HR [facility] Administration Piperacillin/Tazobactam/ 50 mls @ 12.5 mls/hr 11/25/17 16:00 11/29/17 09:37 Dextrose 3.375 gm/ IV Solution IVPB 12.5 mls/hr Q8HR [facility] Administration Daptomycin 500 mg/ Sodium 50 mls @ 100 mls/hr 11/26/17 21:00 11/28/17 20:57 Chloride IVPB 100 mls/hr Q24H [facility] Administration Protocol Dextrose/Water 1,000 mls @ 100 mls/hr 11/29/17 09:30 Dextrose 5%-Water Iv Soln IV .Q10H [facility] Insulin Aspart 0 unit 11/26/17 16:00 11/29/17 09:37 Novolog SQ 6 unit Q4H [facility] Administration Protocol Miscellaneous Information 1 each 11/24/17 16:57 Potassium Per Protocol MISCELLANE DAILY PRN Per Protocol Protocol Neomycin/Polymyxin/Bacitracin 1 applic 11/25/17 13:00 11/29/17 09:38 Triple Antibiotic Ointment TOPICAL 1 applic DAILY [facility] Administration Pantoprazole Sodium 40 mg 11/25/17 09:00 11/29/17 09:37 Protonix IV 40 mg DAILY [facility] Administration Intake and Output 11/28/17 11/29/17 11/29/17 22:59 06:59 14:59 Intake Total 745 1248 908.5 Output Total 710 935 440 Balance 35 313 468.5 Intake: IV 203 278 366.5 0.9 pressure bags 48 48 24 DAPTOmycin 500 mg In 50 Sodium Chloride 0.9% 50 ml @ 100 mls/hr IVPB Q24H [facility] Rx#:[id number] Piperacillin-Tazobactam 3 50 50 12.5 .375 gm In Dextrose/Water 1 50ml.bag @ 12.5 mls/hr IVPB Q8HR [facility] Rx#: [id number] Potassium Chloride 20 meq 200 In Water For Injection 1 100ml.bag @ 50 mls/hr IVPB Q2H [facility] Rx#: [id number] Sodium Chloride 0.9% 1, 55 80 30 000 ml @ 10 mls/hr IV . Q24H [facility] Rx#:[id number] metroNIDAZOLE-NS PMX 500 100 100 mg In Saline 1 100ml.bag @ 100 mls/hr IVPB Q8HR [facility] Rx#:[id number] Tube Feeding 342 570 342 Other 200 400 200 Output: Urine 710 935 440 Other: Voiding Method Indwelling Catheter Indwelling Catheter Weight 81.9 kg 11/29/17 04:50 11/29/17 10:15 EKG Interpretations (text) Sinus tachycardia Assessment and Plan (1) Cardiomyopathy, nonischemic Current Visit: Yes Status: Acute Code(s): I42.8 - OTHER CARDIOMYOPATHIES SNOMED Code(s): 04814988 (2) Acute respiratory failure Current Visit: Yes Status: Acute Code(s): J96.00 - ACUTE RESPIRATORY FAILURE , UNSP W HYPOXIA OR HYPERCAPNIA SNOMED Code(s): 88556076 (3) C. difficile colitis Current Visit: Yes Status: Acute Code(s): A04.72 - ENTEROCOLITIS D/T CLOSTRIDIUM DIFFICILE, NOT SPCF RECUR SNOMED Code(s): 627470218 (4) Cellulitis of left lower extremity Current Visit: Yes Status: Acute Code(s): L03.116 - CELLULITIS OF LEFT LOWER LIMB SNOMED Code(s): 099756215 (5) Septic shock Current Visit: Yes Status: Acute Code(s): A41.9 - SEPSIS, UNSPECIFIED ORGANISM; R65.21 - SEVERE SEPSIS WITH SEPTIC SHOCK SNOMED Code(s): 79214019 Plan: I'll start him on small dose of Coreg and increase the dose as tolerated. If the blood pressure and kidney function remained stable, we'll my also add PATEL inhibitor. Overall prognosis is guarded
[2017-11-29] MEDS: DEXTROSE 5% IN WATER 1,000 ML IV SCH ×2 (11:27→18:51)
[2017-11-29 11:48] LABS: Glucose,Whole Blood 169 mg/dL (75-99)
[2017-11-29] MEDS: CARVEDILOL 1.563 MG TAB PO SCH ×2 (12:09→17:17)
--- NOTE | 2017-11-29 12:14 | P.PN ---
Subjective Progress Note Date: 11/29/17 Principal diagnosis: Acute hypoxic respiratory failure secondary to acute septic shock. This is a 57-year-old white male, known history of stage IV melanoma, on clinical trial/chemotherapy with daily periodic biweekly IV infusions. Patient presented to the ER yesterday with chief complaint of severe leg swelling and pain. Patient was noted to have significant tenderness in the left leg, and this has been going on for the last 1 week. There was also evidence of cellulitis, patient was complaining of fever and pain, and had a recent episode of C. difficile colitis. In the ER, the patient was clinically diagnosed as septic, and considering the patient did not improve with significant amount of fluid boluses, required norepinephrine, and later on required vasopressin, it was felt that the patient has acute septic shock from acute cellulitis of the left lower extremity. Patient was noted to have significantly elevated lactic acid of 8.6, significant bandemia was noted, and he had acute kidney injury with creatinine of 2.12. Patient was tachycardic, his temp was 101.8, and initially his systolic blood pressure was in the 50s requiring a central line placement and fluid boluses as well as norepinephrine drip. Patient was transferred to the ICU, and shortly after arrival to the ICU, I was notified by the nurse taking care of the patient that he wasn't doing too well. Hence patient was intubated, placed on mechanical ventilation, he is presently on FiO2 of 40%, tidal volume of 450, assist control rate of 20 and PEEP of 5. His venous Doppler of the left lower extremity was negative for deep vein thrombosis. X-rays of the tibia and fibula showed possible avulsion fracture of medial malleolus. CT of the left lower extremity showed moderate to marked generalized subcutaneous soft tissue edema mild fluid extending along the deeper fascial planes between the superficial and deep posterior compartment of the upper to mid leg. No fatty effacement was noted. Moderate left TM effusions noted. The findings were described as nonspecific findings, can be seen with fasciitis, myositis, myonecrosis, inflammatory myopathy, and in compartment syndrome as well. Hence a vascular surgery consultation will be initiated, infectious disease consultation was also initiated. Chest x-ray showed small tiny right-sided pleural effusion and adjacent atelectasis. Patient was reevaluated today on 11/26/2017, remains on mechanical ventilation, ventilator settings are assist control rate of 20, tidal volume of 450, FiO2 35% , cut down from 40% today. ABG today showed a pO2 of 190 pCO2 of 36 pH of 7.36. WBC count is 9.1 hemoglobin is 10.4 basic metabolic profile is improving with BUN improved and creatinine is down to 1.66, it was 2.84 on presentation and BUN was 49. Patient remains on pressors in the form of vasopressin, and his norepinephrine is down to 6 mcg/m. Chest x-ray showed mild central vascular congestion, minimal right basilar atelectasis otherwise no major change. Patient remains on propofol, 25 g, fully sedated. Cultures of urine blood and sputum are negative so far. Patient was seen by many consultants regarding his left lower extremity cellulitis, and questionable necrotizing fasciitis or compartment syndrome, almost everybody felt the patient will need to be transferred to a tertiary care center, however family declined. As a matter of fact they went on to state to me that we change his CODE STATUS to DO NOT RESUSCITATE. However he has a daughter who is supposedly coming today, and we will discuss that issue with her today. The family is basing that decision on the fact that the patient has stage IV melanoma, and overall prognosis is very poor anyway. Reevaluated today on 11/27/2017, remains on mechanical ventilation, ventilator settings are tidal volume of 450 FiO2 is down to 28%, assist control rate is 18. PEEP is 5. ABG showed a pO2 of 168 pCO2 of 34 pH of 7.40. Chest x-ray showed minimal atelectasis at the bases, and small pleural effusions. All labs were reviewed, electrolytes showed low potassium of 3.4 elevated chloride of 120 BUN is improving down to 49 and creatinine improving down to 1.54. WBC count is 6.9 hemoglobin is 10.0. Patient remains on propofol, he is on 2 g of norepinephrine which I will discontinue remains on vasopressin which is being titrated down and hopefully to discontinue sometime today if possible. Urine output is excellent, patient is developing significant edema all over, and the swelling in the left lower extremity seems to be significantly improved. But continues to have areas of erythema and cellulitis. Reevaluated today on 11/28/2017, remains on mechanical ventilation, ventilator settings are basically the same, unchanged since yesterday. He is on low FiO2 of 28%. ABG this morning showed a pO2 of 113 pCO2 of 34 pH of 7.53. His sodium is a bit elevated at 149, and I plan to use free water flushes via nasogastric tube. Renal profile remains abnormal but improved, creatinine is 1.40 today compared to 1.54 yesterday, 2.84 a few days ago chest x-ray continues to show by basilar atelectasis, possible small tiny pleural effusions. But improving overall. Patient remains on propofol, hence I recommended placing the propofol on hold, discussed his condition with his significant other at bedside, and I would likely plan to give the patient a weaning trial and check weaning parameters and later on today. Seems to be coming around slowly off propofol. Reevaluated today on 11/29/2017, patient has been off propofol now for almost over 24 hours, remains on mechanical ventilation, follows simple instructions, but does not open eyes. Seems to be quite lethargic, but in no distress, remains on mechanical ventilation, endotracheal tube is intact. His sodium is climbing up again, and I have recommended changing his IV fluid to D5W, and we will continue free water flushes. His ventilator settings are unchanged, remains on 28% FiO2. ABG showed a pO2 of 100 pCO2 of 35 pH of 7.55. Sodium is 152 today. Renal profile continues to improve, BUN today is 55 and creatinine is 1.6. WBC count is 4.9 hemoglobin is 8.9. Platelets are down to 84,000, but improved compared to platelets in the last few days but in the 60s and 70,000. Chest x-ray showed mild bibasilar atelectasis, and small tiny effusions. Seen by cardiology today for his cardiomyopathy and LV dysfunction, ejection fraction was noted to be 20-25%. recommended adding Coreg. Objective - Vital Signs Vital signs: Vital Signs Temp 99.7 F H 11/29/17 08:00 Pulse 81 11/29/17 11:00 Resp 22 11/29/17 11:00 BP 82/53 11/28/17 05:00 Pulse Ox 99 11/29/17 11:00 Intake & Output 11/28/17 11/29/17 11/29/17 18:59 06:59 18:59 Intake Total 4018.368 9883 994.0 Output Total 1135 1285 540 Balance -80.835 500 454.0 Weight 81.6 kg 81.9 kg Intake: IV 342 387 395.0 0.9 pressure bags 72 72 30 DAPTOmycin 500 mg In 50 Sodium Chloride 0.9% 50 ml @ 100 mls/hr IVPB Q24H [facility] Rx#:[id number] Piperacillin-Tazobactam 3 100 50 25.0 .375 gm In Dextrose/Water 1 50ml.bag @ 12.5 mls/hr IVPB Q8HR [facility] Rx#: [id number] Potassium Chloride 20 meq 200 In Water For Injection 1 100ml.bag @ 50 mls/hr IVPB Q2H [facility] Rx#: [id number] Sodium Chloride 0.9% 1, 70 115 40 000 ml @ 10 mls/hr IV . Q24H [facility] Rx#:[id number] metroNIDAZOLE-NS PMX 500 100 100 100 mg In Saline 1 100ml.bag @ 100 mls/hr IVPB Q8HR [facility] Rx#:[id number] Intake, IV Titration 27.165 Amount Propofol 1,000 mg In 19.465 Empty Bag 1 bag @ Titrate IV .Q0M [facility] Rx#: [id number] Sodium Chloride 0.9% 99 7.7 ml @ 0.01 UNITS/MIN 3 mls /hr IV .Q24H [facility] with Vasopressin 20 unit Rx#: [id number] Tube Feeding 285 798 399 Other 400 600 200 Output: Urine 1135 1285 540 Other: Voiding Method Indwelling Catheter Indwelling Catheter ABP, PAP, CO, CI - Last Documented Arterial Blood Pressure 123/70 - Exam Physical Exam: 57-year-old, off propofol, off sedation, quite lethargic, does not open eyes even upon deep painful stimuli. Head: Normocephalic, atraumatic. HEENT:[ [No neck masses.] [No thyromegaly.] [No JVD.] No icterus. PERRLA, EOMI , endotracheal tube is intact orogastric tube is intact. Chest: [Diminished breath sounds at the bases, no rhonchi and no wheezes.. Cardiac Exam: [Normal S1 and S2, no S3 gallop, no murmur..] Abdomen: [Soft, nontender, no megaly, no rebound, no guarding, normal bowel sounds.] Extremities: [Cellulitis and erythema noted in the left lower extremity area, improving, the area of redness is regressing, however he has a large blister on the dorsal aspect of the left foot, seems to be full of serous fluid. Measuring about 34 severe. Will likely culture that location today. Left foot drop is noted. Neurological Exam: Not assessed, remains on propofol.. Lymphatics: No lymphadenopathy Psychiatric poorly arousable. Does not open eyes. Follows other simple instructions. - Labs CBC & Chem 7: 11/29/17 04:50 11/29/17 10:15 Labs: Abnormal Lab Results - Last 24 Hours (Table) 11/28/17 11/28/17 11/28/17 Range/Units 12:02 12:53 16:47 RBC (4.30-5.90) m/uL Hgb (13.0-17.5) gm/dL Hct (39.0-53.0) % Plt Count (150-450) k/uL PT (9.0-12.0) sec INR (<1.2) ABG pH (7.35-7.45) ABG HCO3 (21-25) mmol/L ABG Total CO2 (19-24) mmol/L ABG O2 Saturation (94-97) % Sodium (137-145) mmol/L Potassium (3.5-5.1) mmol/L Chloride (98-107) mmol/L BUN (9-20) mg/dL Creatinine (0.66-1.25) mg/dL Glucose (74-99) mg/dL POC Glucose (mg/dL) 186 H 167 H 152 H (75-99) mg/dL Calcium (8.4-10.2) mg/dL Phosphorus (2.5-4.5) mg/dL Total Bilirubin (0.2-1.3) mg/dL AST (17-59) U/L ALT (21-72) U/L Alkaline Phosphatase (38-126) U/L Total Protein (6.3-8.2) g/dL Albumin (3.5-5.0) g/dL 11/28/17 11/28/17 11/29/17 Range/Units 18:11 20:31 00:00 RBC (4.30-5.90) m/uL Hgb (13.0-17.5) gm/dL Hct (39.0-53.0) % Plt Count (150-450) k/uL PT (9.0-12.0) sec INR (<1.2) ABG pH (7.35-7.45) ABG HCO3 (21-25) mmol/L ABG Total CO2 (19-24) mmol/L ABG O2 Saturation (94-97) % Sodium (137-145) mmol/L Potassium (3.5-5.1) mmol/L Chloride (98-107) mmol/L BUN (9-20) mg/dL Creatinine (0.66-1.25) mg/dL Glucose (74-99) mg/dL POC Glucose (mg/dL) 184 H 229 H 189 H (75-99) mg/dL Calcium (8.4-10.2) mg/dL Phosphorus (2.5-4.5) mg/dL Total Bilirubin (0.2-1.3) mg/dL AST (17-59) U/L ALT (21-72) U/L Alkaline Phosphatase (38-126) U/L Total Protein (6.3-8.2) g/dL Albumin (3.5-5.0) g/dL 11/29/17 11/29/17 11/29/17 Range/Units 04:50 04:50 05:15 RBC 2.91 L (4.30-5.90) m/uL Hgb 8.9 L (13.0-17.5) gm/dL Hct 27.9 L (39.0-53.0) % Plt Count 84 L (150-450) k/uL PT 13.1 H (9.0-12.0) sec INR 1.4 H (<1.2) ABG pH (7.35-7.45) ABG HCO3 (21-25) mmol/L ABG Total CO2 (19-24) mmol/L ABG O2 Saturation (94-97) % Sodium 152 H (137-145) mmol/L Potassium 3.4 L (3.5-5.1) mmol/L Chloride 116 H (98-107) mmol/L BUN 55 H (9-20) mg/dL Creatinine 1.26 H (0.66-1.25) mg/dL Glucose 196 H (74-99) mg/dL POC Glucose (mg/dL) (75-99) mg/dL Calcium 8.0 L (8.4-10.2) mg/dL Phosphorus 2.4 L (2.5-4.5) mg/dL Total Bilirubin 2.7 H (0.2-1.3) mg/dL AST 94 H (17-59) U/L ALT 142 H (21-72) U/L Alkaline Phosphatase 315 H (38-126) U/L Total Protein 4.0 L (6.3-8.2) g/dL Albumin 1.9 L (3.5-5.0) g/dL 11/29/17 11/29/17 11/29/17 Range/Units 05:57 07:33 09:33 RBC (4.30-5.90) m/uL Hgb (13.0-17.5) gm/dL Hct (39.0-53.0) % Plt Count (150-450) k/uL PT (9.0-12.0) sec INR (<1.2) ABG pH 7.55 H (7.35-7.45) ABG HCO3 31 H (21-25) mmol/L ABG Total CO2 32 H (19-24) mmol/L ABG O2 Saturation 98.5 H (94-97) % Sodium (137-145) mmol/L Potassium (3.5-5.1) mmol/L Chloride (98-107) mmol/L BUN (9-20) mg/dL Creatinine (0.66-1.25) mg/dL Glucose (74-99) mg/dL POC Glucose (mg/dL) 211 H 204 H (75-99) mg/dL Calcium (8.4-10.2) mg/dL Phosphorus (2.5-4.5) mg/dL Total Bilirubin (0.2-1.3) mg/dL AST (17-59) U/L ALT (21-72) U/L Alkaline Phosphatase (38-126) U/L Total Protein (6.3-8.2) g/dL Albumin (3.5-5.0) g/dL 11/29/17 11/29/17 Range/Units 10:15 11:44 RBC (4.30-5.90) m/uL Hgb (13.0-17.5) gm/dL Hct (39.0-53.0) % Plt Count (150-450) k/uL PT (9.0-12.0) sec INR (<1.2) ABG pH (7.35-7.45) ABG HCO3 (21-25) mmol/L ABG Total CO2 (19-24) mmol/L ABG O2 Saturation (94-97) % Sodium 152 H (137-145) mmol/L Potassium 3.1 L (3.5-5.1) mmol/L Chloride 117 H (98-107) mmol/L BUN (9-20) mg/dL Creatinine (0.66-1.25) mg/dL Glucose (74-99) mg/dL POC Glucose (mg/dL) 169 H (75-99) mg/dL Calcium (8.4-10.2) mg/dL Phosphorus (2.5-4.5) mg/dL Total Bilirubin (0.2-1.3) mg/dL AST (17-59) U/L ALT (21-72) U/L Alkaline Phosphatase (38-126) U/L Total Protein (6.3-8.2) g/dL Albumin (3.5-5.0) g/dL Microbiology - Last 24 Hours (Table) 11/24/17 13:00 Blood Culture - Preliminary Blood No Growth after 96 hours Assessment and Plan Assessment: Impression: Acute hypoxic respiratory failure secondary to septic shock, secondary to acute cellulitis of the left lower extremity. Stage IV metastatic melanoma Acute kidney injury secondary to ATN and septic shock gradually improving over the last few days but not completely resolved. Recent C. difficile colitis. Not documented on this admission. Acute hypernatremia secondary to free water deficit, change IV fluid to D5W, continue free water flushes via nasogastric tube. Nonischemic cardiomyopathy as noted on his echocardiogram. Being addressed by cardiology. Metabolic encephalopathy may consider a CT of the brain, however will remain off propofol, address the hypernatremia, consider neurology consultation if the patient doesn't improve in the next 24 hours. Continue antibiotics, hemodynamic support, nutritional support, GI and DVT prophylaxis, considering his metabolic encephalopathy picture, patient is not ready to be weaned at this point. Family at bedside were all updated on his condition, and we'll continue to follow. Patient remains critically ill, not quite ready for extubation, and all his other issues are being addressed. As noted above. Critical care time is 35 minutes. Time with Patient: Greater than 30
[2017-11-29] MEDS ORDERED: POTASSIUM PHOSPHATE 10 MMOL in SODIUM CHLORIDE 0.9% 100 ML IV ONE (12:49)
[2017-11-29] MEDS ORDERED: Phosphorus Replacement Protoco 1 EACH MISC MISCELLANE PRN (12:49)
--- NOTE | 2017-11-29 14:42 | P.PN ---
Subjective Progress Note Date: 11/29/17 Principal diagnosis: leg pain Patient is a 57-year-old male with a past medical history of stage IV melanoma who recently finished a clinical trial of atezolizumab and cobimetirnib (taken off for colitis), Parkinson's disease, and enlarged prostate who presented with complaints of diarrhea and severe left leg pain. In the ER the patient was found to have acute kidney injury, severe sepsis with an elevated lactic at 8.6 and hypotension. He was given 3 L of normal saline and remained hypotensive and therefore started on levo. He was started on empiric IV antibiotics with Unasyn and vancomycin. He was admitted to the ICU for further monitoring and critical care was consulted. Lower extremity venous Doppler was negative for DVT and tibial fibula x-rays were suggestive of medial malleolus avulsion fracture. Overnight on 11/24 the patient required mechanical ventilation. He underwent a CT of the left lower extremity which showed extensive soft tissue edema of the subcutaneous adipose layer with confluent edema in the superficial fascia. It also showed deeper fascial edema on the upper leg. There was concern for possible compartment syndrome and vascular surgery and orthopedic surgery were consulted. They were unable to determine if patient truly had compartment syndrome. They recommended transfer to tertiary care center however family would not want surgery for the patient with his stage IV melanoma and therefore did not want transfer to tertiary care. He was seen by infectious disease and his antibiotics were broadened to daptomycin and Zosyn. There is concern for C. diff colitis was started on Flagyl as well. His stools formed and therefore C. diff testing was not preformed. However his Flagyl was continued with his history of C. diff and need for broad- spectrum antibiotics. His pressors were able to be weanerd down and he was off levo on the morning of 11/27. Vasopressin discontinued on the morning on 11/28. White blood cell count had improved. Sedation was held on the morning of 11/28 and patient did not have improvement in mentation by the morning of 11/29. Patient seen and examined. Still off sedation, grimacing with suctioning, not following commands. No acute events overnight. Objective - Vital Signs Vital signs: Vital Signs Temp 99.7 F H 11/29/17 12:00 Pulse 70 11/29/17 14:00 Resp 20 11/29/17 14:00 BP 82/53 11/28/17 05:00 Pulse Ox 100 11/29/17 14:00 Intake & Output 11/28/17 11/29/17 11/29/17 18:59 06:59 18:59 Intake Total 4296.349 4268 1852.0 Output Total 1135 1285 855 Balance -80.835 500 997.0 Weight 81.6 kg 81.9 kg Intake: IV 342 387 668.0 0.9 pressure bags 72 72 48 DAPTOmycin 500 mg In 50 Sodium Chloride 0.9% 50 ml @ 100 mls/hr IVPB Q24H [facility] Rx#:[id number] Dextrose 5% in Water 1, 200 000 ml @ 100 mls/hr IV . Q10H [facility] Rx#:[id number] Piperacillin-Tazobactam 3 100 50 50.0 .375 gm In Dextrose/Water 1 50ml.bag @ 12.5 mls/hr IVPB Q8HR [facility] Rx#: [id number] Potassium Chloride 20 meq 200 In Water For Injection 1 100ml.bag @ 50 mls/hr IVPB Q2H [facility] Rx#: [id number] Sodium Chloride 0.9% 1, 70 115 70 000 ml @ 10 mls/hr IV . Q24H [facility] Rx#:[id number] metroNIDAZOLE-NS PMX 500 100 100 100 mg In Saline 1 100ml.bag @ 100 mls/hr IVPB Q8HR [facility] Rx#:[id number] Intake, IV Titration 27.165 Amount Propofol 1,000 mg In 19.465 Empty Bag 1 bag @ Titrate IV .Q0M [facility] Rx#: [id number] Sodium Chloride 0.9% 99 7.7 ml @ 0.01 UNITS/MIN 3 mls /hr IV .Q24H [facility] with Vasopressin 20 unit Rx#: [id number] Tube Feeding 285 798 684 Other 400 600 500 Output: Urine 1135 1285 855 Other: Voiding Method Indwelling Catheter Indwelling Catheter ABP, PAP, CO, CI - Last Documented Arterial Blood Pressure 118/66 - Exam General: Ill-appearing, no distress, appears older than stated age Derm: warm, dry, left lower extremity with dressing in place. Area of erythema and warmth and marked with pen by nursing decreased size of area/edema/warmth/ and erythema. 1+ edema left lower extremity. Head: atraumatic, normocephalic, symmetric Eyes: no lid lag, anicteric sclera, PERRL Mouth: no lip lesion, mucus membranes moist Neck: Trachea midline, neck supple Cardiovascular: S1S2 reg, no murmur, positive posterior tibial pulse bilateral, Lungs: Course breath sounds bilaterally, no rhonchi, no rales , no accessory muscle use, on ventilator Abdominal: soft, nontender to palpation, no guarding, no appreciable organomegaly Ext: no gross muscle atrophy, diffuse anasarca, no contractures Neuro: Grimicing to suctioning, no withdrawal to pain in b/l upper extremities. Psych: still on vnt off sedation but not responsive. - Labs CBC & Chem 7: 11/29/17 04:50 11/29/17 10:15 Labs: Abnormal Lab Results - Last 24 Hours (Table) 11/28/17 11/28/17 11/28/17 Range/Units 16:47 18:11 20:31 RBC (4.30-5.90) m/uL Hgb (13.0-17.5) gm/dL Hct (39.0-53.0) % Plt Count (150-450) k/uL PT (9.0-12.0) sec INR (<1.2) ABG pH (7.35-7.45) ABG HCO3 (21-25) mmol/L ABG Total CO2 (19-24) mmol/L ABG O2 Saturation (94-97) % Sodium (137-145) mmol/L Potassium (3.5-5.1) mmol/L Chloride (98-107) mmol/L BUN (9-20) mg/dL Creatinine (0.66-1.25) mg/dL Glucose (74-99) mg/dL POC Glucose (mg/dL) 152 H 184 H 229 H (75-99) mg/dL Calcium (8.4-10.2) mg/dL Phosphorus (2.5-4.5) mg/dL Total Bilirubin (0.2-1.3) mg/dL AST (17-59) U/L ALT (21-72) U/L Alkaline Phosphatase (38-126) U/L Total Protein (6.3-8.2) g/dL Albumin (3.5-5.0) g/dL 0911/29/17 11/29/17 Range/Units 00:00 04:50 04:50 RBC 2.91 L (4.30-5.90) m/uL Hgb 8.9 L (13.0-17.5) gm/dL Hct 27.9 L (39.0-53.0) % Plt Count 84 L (150-450) k/uL PT (9.0-12.0) sec INR (<1.2) ABG pH (7.35-7.45) ABG HCO3 (21-25) mmol/L ABG Total CO2 (19-24) mmol/L ABG O2 Saturation (94-97) % Sodium 152 H (137-145) mmol/L Potassium 3.4 L (3.5-5.1) mmol/L Chloride 116 H (98-107) mmol/L BUN 55 H (9-20) mg/dL Creatinine 1.26 H (0.66-1.25) mg/dL Glucose 196 H (74-99) mg/dL POC Glucose (mg/dL) 189 H (75-99) mg/dL Calcium 8.0 L (8.4-10.2) mg/dL Phosphorus 2.4 L (2.5-4.5) mg/dL Total Bilirubin 2.7 H (0.2-1.3) mg/dL AST 94 H (17-59) U/L ALT 142 H (21-72) U/L Alkaline Phosphatase 315 H (38-126) U/L Total Protein 4.0 L (6.3-8.2) g/dL Albumin 1.9 L (3.5-5.0) g/dL 11/29/17 11/29/17 11/29/17 Range/Units 05:15 05:57 07:33 RBC (4.30-5.90) m/uL Hgb (13.0-17.5) gm/dL Hct (39.0-53.0) % Plt Count (150-450) k/uL PT 13.1 H (9.0-12.0) sec INR 1.4 H (<1.2) ABG pH 7.55 H (7.35-7.45) ABG HCO3 31 H (21-25) mmol/L ABG Total CO2 32 H (19-24) mmol/L ABG O2 Saturation 98.5 H (94-97) % Sodium (137-145) mmol/L Potassium (3.5-5.1) mmol/L Chloride (98-107) mmol/L BUN (9-20) mg/dL Creatinine (0.66-1.25) mg/dL Glucose (74-99) mg/dL POC Glucose (mg/dL) 211 H (75-99) mg/dL Calcium (8.4-10.2) mg/dL Phosphorus (2.5-4.5) mg/dL Total Bilirubin (0.2-1.3) mg/dL AST (17-59) U/L ALT (21-72) U/L Alkaline Phosphatase (38-126) U/L Total Protein (6.3-8.2) g/dL Albumin (3.5-5.0) g/dL 11/29/17 11/29/17 11/29/17 Range/Units 09:33 10:15 11:44 RBC (4.30-5.90) m/uL Hgb (13.0-17.5) gm/dL Hct (39.0-53.0) % Plt Count (150-450) k/uL PT (9.0-12.0) sec INR (<1.2) ABG pH (7.35-7.45) ABG HCO3 (21-25) mmol/L ABG Total CO2 (19-24) mmol/L ABG O2 Saturation (94-97) % Sodium 152 H (137-145) mmol/L Potassium 3.1 L (3.5-5.1) mmol/L Chloride 117 H (98-107) mmol/L BUN (9-20) mg/dL Creatinine (0.66-1.25) mg/dL Glucose (74-99) mg/dL POC Glucose (mg/dL) 204 H 169 H (75-99) mg/dL Calcium (8.4-10.2) mg/dL Phosphorus (2.5-4.5) mg/dL Total Bilirubin (0.2-1.3) mg/dL AST (17-59) U/L ALT (21-72) U/L Alkaline Phosphatase (38-126) U/L Total Protein (6.3-8.2) g/dL Albumin (3.5-5.0) g/dL Microbiology - Last 24 Hours (Table) 11/24/17 13:00 Blood Culture - Preliminary Blood No Growth after 96 hours Assessment and Plan Assessment: Left lower extremity cellulitis with septic shock (resolved), compartment syndrome ruled out. -Continue with daptomycin and Zosyn as recommended by infectious disease -Continue with wrappings -Orthopedic surgery and vascular surgery recommendations appreciated Systolic cardiomyopathy, EF 20-25% - limit IVF - low doses coreg ordered by cardio - Tele - cardio recs Metabolic encephalopathy - monitor off sedation for improvement - D/W significant other they would not interventions such a trach or PEG. Family is all in agreement per her. Hypernatremia - increase free water in tube feeds goal would be increase to 300 cc q 4 hours Hypokalemia - replace and recheck Acute hypoxic respiratory failure likely secondary to sepsis -Management as per pulmonary/critical care GNB PNA - await identification - Zosyn should cover - ID recs Acute kidney injury secondary to dehydration and ATN, improving -IV fluids completed -Renal dose medications -Repeat basic metabolic profile in a.m. Anemia, likely delusional with aggressive fluid resuscitation -Repeat CBC in a.m. 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 diff less likely -Patient does have a history of C. diff so would recommend continuing Flagyl will requiring broad-spectrum antibiotics Hyperkalemia, resolved Hyperchloremic metabolic acidosis, resolved DVT prophylaxis: SCDs Discussed with: Significant other, nursing Anticipated discharge: 4-6 days ? [address]: Undetermined at this point in time A total of 35 minutes was spent on the care of this complex patient more than 50 % of the time was spent in counseling and care coordination.
[2017-11-29 14:43] LABS: Potassium 3.4 mmol/L (3.5-5.1)
[2017-11-29 17:10] LABS: Glucose,Whole Blood 263 mg/dL (75-99)
[2017-11-29] MEDS: INSULIN DETEMIR 100 UNIT/ML 10 ML VIAL SQ SCH (17:58)
[2017-11-29 19:55] LABS: Glucose,Whole Blood 257 mg/dL (75-99)
[2017-11-29] MEDS: DAPTOmycin 500 MG in SODIUM CHLORIDE 0.9% 50 ML IVPB SCH (20:35)
[2017-11-29 20:55] LABS: Potassium 3.3 mmol/L (3.5-5.1)
[2017-11-29 21:47] LABS: Glucose,Whole Blood 293 mg/dL (75-99)
[2017-11-29] MEDS: POTASSIUM BICARBONATE/CIT AC 20 MEQ TABLET.EFF NG-TUBE SCH ×2 (22:33→23:01)
[2017-11-29 22:56] LABS: Glucose,Whole Blood 279 mg/dL (75-99)
[2017-11-29] MEDS ORDERED: INSULIN REGULAR BOLUS (FROM DRIP BAG) IV PRN (23:35)
[2017-11-30] MEDS ORDERED: INSULIN REGULAR 100 UNIT in SODIUM CHLORIDE 0.9% 100 ML IV SCH ×2
[2017-11-30 00:04] LABS: Glucose,Whole Blood 247 mg/dL (75-99)
[2017-11-30 00:33] LABS: Glucose,Whole Blood 224 mg/dL (75-99)
[2017-11-30 01:20] LABS: Glucose,Whole Blood 190 mg/dL (75-99)
[2017-11-30 02:08] LABS: Glucose,Whole Blood 167 mg/dL (75-99)
[2017-11-30 03:02] LABS: Glucose,Whole Blood 167 mg/dL (75-99)
[2017-11-30] MEDS: POTASSIUM CHLORIDE 20 MEQ in WATER FOR INJECTION 1 100ML.BAG IVPB SCH ×2 (03:03→05:22)
[2017-11-30 04:04] LABS: Glucose,Whole Blood 157 mg/dL (75-99)
[2017-11-30 04:45] LABS: HCT 28.1 % (39.0-53.0); HGB 8.8 gm/dL (13.0-17.5); Hypochromasia Slight; MCH 29.8 pg (25.0-35.0); MCHC 31.5 g/dL (31.0-37.0); MCV 94.5 fL (80.0-100.0); Mean Platelet Volume 9.1; RBC 2.97 m/uL (4.30-5.90); RDW 14.5 % (11.5-15.5); WBC 5.5 k/uL (3.8-10.6)
[2017-11-30 04:58] LABS: Platelet Count 95 k/uL (150-450)
[2017-11-30 05:16] LABS: Albumin 1.9 g/dL (3.5-5.0); Calcium 7.9 mg/dL (8.4-10.2); Magnesium 2.2 mg/dL (1.6-2.3); Phosphorus 2.5 mg/dL (2.5-4.5); Potassium 3.5 mmol/L (3.5-5.1)
[2017-11-30 05:22] LABS: Glucose,Whole Blood 131 mg/dL (75-99)
[2017-11-30] MEDS: DEXTROSE 5% IN WATER 1,000 ML IV SCH ×3 (05:23→23:45)
[2017-11-30 06:03] LABS: Glucose,Whole Blood 140 mg/dL (75-99)
--- NOTE | 2017-11-30 06:39 | XR ---
EXAMINATION TYPE: XR chest 1V portable DATE OF EXAM: 11/30/2017 HISTORY: Tube placement. REFERENCE: Previous study dated 11/29/2017. FINDINGS: The patient's ET tube, NG tube and right subclavian catheter remain in place, unchanged in appearance. There is continuing bibasilar airspace disease. The heart is mildly enlarged. There are small, bilate ral effusions. IMPRESSION: NO SIGNIFICANT INTERVAL CHANGE IN THE APPEARANCE OF THE CHEST.
[2017-11-30 07:14] LABS: Glucose,Whole Blood 173 mg/dL (75-99)
[2017-11-30 07:47] LABS: ABG Base Excess 8.1 mmol/L; ABG HCO3 31 mmol/L (21-25); ABG Oxygen Saturation 96.7 % (94-97); ABG PCO2 36 mmHg (35-45); ABG PH 7.54 (7.35-7.45); ABG PO2 90 mmHg (83-108); ABG TCO2 32 mmol/L (19-24)
[2017-11-30] MEDS: metroNIDAZOLE-NS PMX 500 MG in SALINE 1 100ML.BAG IVPB SCH ×3 (07:53→23:46)
[2017-11-30] MEDS: PIPERACILLIN-TAZOBACTAM 3.375 GM in DEXTROSE/WATER 1 50ML.BAG IVPB SCH ×3 (07:53→23:45)
[2017-11-30] MEDS: CHLORHEXIDINE GLUCONATE 15 ML CUP MUCOUS MEM SCH ×2 (07:53→21:28)
[2017-11-30] MEDS: HYDROCORTISONE SUCCINATE 100 MG/2 ML VIAL IV SCH ×2 (07:53→15:37)
[2017-11-30] MEDS: NEOMYCIN-BACITRACIN-POLY OINT 14 GM TUBE TOPICAL SCH (07:54)
[2017-11-30] MEDS: CARVEDILOL 1.563 MG TAB PO SCH (07:54)
[2017-11-30] MEDS: PANTOPRAZOLE 40 MG/10 ML VIAL IV SCH (07:54)
[2017-11-30] MEDS: INSULIN DETEMIR 100 UNIT/ML 10 ML VIAL SQ SCH ×2 (08:11→09:56)
[2017-11-30 08:18] LABS: Glucose,Whole Blood 183 mg/dL (75-99)
[2017-11-30 09:12] LABS: Glucose,Whole Blood 180 mg/dL (75-99)
[2017-11-30 10:10] LABS: Glucose,Whole Blood 191 mg/dL (75-99)
--- NOTE | 2017-11-30 11:06 | P.PN ---
Subjective Progress Note Date: 11/30/17 This patient made significant progress since yesterday. He seemed to be responding to verbal stimuli. His blood pressure is more stable. No arrhythmias noted. Could increase the dose of the Coreg and add lisinopril. His renal function is improved. Creatinine is 1.06. Rest of the management to be continued Objective - Vital Signs Vital signs: Vital Signs Temp 97.6 F 11/30/17 08:00 Pulse 66 11/30/17 10:00 Resp 20 11/30/17 10:00 BP 82/53 11/28/17 05:00 Pulse Ox 100 11/30/17 10:00 Intake & Output 11/29/17 11/30/17 11/30/17 18:59 06:59 18:59 Intake Total 3186.5 3455.543 1110.03 Output Total 1295 1235 525 Balance 1891.5 2220.543 585.03 Weight 81.4 kg Intake: IV 1360.5 1676 579.0 0.9 pressure bags 78 66 24 DAPTOmycin 500 mg In 50 Sodium Chloride 0.9% 50 ml @ 100 mls/hr IVPB Q24H [facility] Rx#:[id number] Dextrose 5% in Water 1, 700 1100 400 000 ml @ 100 mls/hr IV . Q10H [facility] Rx#:[id number] Piperacillin-Tazobactam 3 62.5 50 25.0 .375 gm In Dextrose/Water 1 50ml.bag @ 12.5 mls/hr IVPB Q8HR [facility] Rx#: [id number] Potassium Chloride 20 meq 200 200 In Water For Injection 1 100ml.bag @ 50 mls/hr IVPB Q2H [facility] Rx#: [id number] Sodium Chloride 0.9% 1, 120 110 30 000 ml @ 10 mls/hr IV . Q24H [facility] Rx#:[id number] metroNIDAZOLE-NS PMX 500 200 100 100 mg In Saline 1 100ml.bag @ 100 mls/hr IVPB Q8HR [facility] Rx#:[id number] Intake, IV Titration 24.543 3.03 Amount Insulin Regular 100 unit 24.543 3.03 In Sodium Chloride 0.9% 100 ml @ Per Protocol IV .Q0M [facility] Rx#:[id number] Tube Feeding 1026 855 228 Other 800 900 300 Output: Urine 1295 1235 525 Other: Voiding Method Indwelling Catheter Indwelling Catheter Indwelling Catheter ABP, PAP, CO, CI - Last Documented Arterial Blood Pressure 128/65 - Exam GENERAL EXAM: Patient is alert and seems to follow commands. Still intubated HEENT: Normocephalic. Normal reaction of pupils, equal size, normal range of extraocular motion. No erythema or exudates in the throat. NECK: No masses, no nuchal rigidity. CHEST: No chest wall deformity. LUNGS: Equal air entry with no crackles or wheeze. HEART: S1 and S2 normal with no audible mumurs or gallops. Regular rhythm, femorals equal on both sides.. ABDOMEN: No hepatosplenomegaly, normal bowel sounds, no guarding or rigidity. SKIN: No rashes CENTRAL NERVOUS SYSTEM: Alert. EXTREMITIES: Bilateral ulceration on edema - Labs CBC & Chem 7: 11/30/17 04:35 11/30/17 04:35 Labs: Abnormal Lab Results - Last 24 Hours (Table) 11/29/17 11/29/17 11/29/17 Range/Units 11:44 14:05 16:50 RBC (4.30-5.90) m/uL Hgb (13.0-17.5) gm/dL Hct (39.0-53.0) % Plt Count (150-450) k/uL ABG pH (7.35-7.45) ABG HCO3 (21-25) mmol/L ABG Total CO2 (19-24) mmol/L Sodium 150 H (137-145) mmol/L Potassium 3.4 L (3.5-5.1) mmol/L Chloride 116 H (98-107) mmol/L Carbon Dioxide (22-30) mmol/L BUN (9-20) mg/dL Glucose (74-99) mg/dL POC Glucose (mg/dL) 169 H 263 H (75-99) mg/dL Calcium (8.4-10.2) mg/dL Total Bilirubin (0.2-1.3) mg/dL AST (17-59) U/L ALT (21-72) U/L Alkaline Phosphatase (38-126) U/L Total Protein (6.3-8.2) g/dL Albumin (3.5-5.0) g/dL 11/29/17 11/29/17 11/29/17 Range/Units 19:53 20:25 21:46 RBC (4.30-5.90) m/uL Hgb (13.0-17.5) gm/dL Hct (39.0-53.0) % Plt Count (150-450) k/uL ABG pH (7.35-7.45) ABG HCO3 (21-25) mmol/L ABG Total CO2 (19-24) mmol/L Sodium 149 H (137-145) mmol/L Potassium 3.3 L (3.5-5.1) mmol/L Chloride 114 H (98-107) mmol/L Carbon Dioxide 31 H (22-30) mmol/L BUN (9-20) mg/dL Glucose (74-99) mg/dL POC Glucose (mg/dL) 257 H 293 H (75-99) mg/dL Calcium (8.4-10.2) mg/dL Total Bilirubin (0.2-1.3) mg/dL AST (17-59) U/L ALT (21-72) U/L Alkaline Phosphatase (38-126) U/L Total Protein (6.3-8.2) g/dL Albumin (3.5-5.0) g/dL 11/29/17 11/30/17 11/30/17 Range/Units 22:54 00:03 00:32 RBC (4.30-5.90) m/uL Hgb (13.0-17.5) gm/dL Hct (39.0-53.0) % Plt Count (150-450) k/uL ABG pH (7.35-7.45) ABG HCO3 (21-25) mmol/L ABG Total CO2 (19-24) mmol/L Sodium (137-145) mmol/L Potassium (3.5-5.1) mmol/L Chloride (98-107) mmol/L Carbon Dioxide (22-30) mmol/L BUN (9-20) mg/dL Glucose (74-99) mg/dL POC Glucose (mg/dL) 279 H 247 H 224 H (75-99) mg/dL Calcium (8.4-10.2) mg/dL Total Bilirubin (0.2-1.3) mg/dL AST (17-59) U/L ALT (21-72) U/L Alkaline Phosphatase (38-126) U/L Total Protein (6.3-8.2) g/dL Albumin (3.5-5.0) g/dL 11/30/17 11/30/17 11/30/17 Range/Units 01:18 01:25 02:06 RBC (4.30-5.90) m/uL Hgb (13.0-17.5) gm/dL Hct (39.0-53.0) % Plt Count (150-450) k/uL ABG pH (7.35-7.45) ABG HCO3 (21-25) mmol/L ABG Total CO2 (19-24) mmol/L Sodium (137-145) mmol/L Potassium 3.3 L (3.5-5.1) mmol/L Chloride (98-107) mmol/L Carbon Dioxide (22-30) mmol/L BUN (9-20) mg/dL Glucose (74-99) mg/dL POC Glucose (mg/dL) 190 H 167 H (75-99) mg/dL Calcium (8.4-10.2) mg/dL Total Bilirubin (0.2-1.3) mg/dL AST (17-59) U/L ALT (21-72) U/L Alkaline Phosphatase (38-126) U/L Total Protein (6.3-8.2) g/dL Albumin (3.5-5.0) g/dL 11/30/17 11/30/17 11/30/17 Range/Units 03:00 04:03 04:35 RBC 2.97 L (4.30-5.90) m/uL Hgb 8.8 L (13.0-17.5) gm/dL Hct 28.1 L (39.0-53.0) % Plt Count 95 L (150-450) k/uL ABG pH (7.35-7.45) ABG HCO3 (21-25) mmol/L ABG Total CO2 (19-24) mmol/L Sodium (137-145) mmol/L Potassium (3.5-5.1) mmol/L Chloride (98-107) mmol/L Carbon Dioxide (22-30) mmol/L BUN (9-20) mg/dL Glucose (74-99) mg/dL POC Glucose (mg/dL) 167 H 157 H (75-99) mg/dL Calcium (8.4-10.2) mg/dL Total Bilirubin (0.2-1.3) mg/dL AST (17-59) U/L ALT (21-72) U/L Alkaline Phosphatase (38-126) U/L Total Protein (6.3-8.2) g/dL Albumin (3.5-5.0) g/dL 11/30/17 11/30/17 11/30/17 Range/Units 04:35 05:21 06:01 RBC (4.30-5.90) m/uL Hgb (13.0-17.5) gm/dL Hct (39.0-53.0) % Plt Count (150-450) k/uL ABG pH (7.35-7.45) ABG HCO3 (21-25) mmol/L ABG Total CO2 (19-24) mmol/L Sodium 148 H (137-145) mmol/L Potassium (3.5-5.1) mmol/L Chloride 113 H (98-107) mmol/L Carbon Dioxide (22-30) mmol/L BUN 53 H (9-20) mg/dL Glucose 149 H (74-99) mg/dL POC Glucose (mg/dL) 131 H 140 H (75-99) mg/dL Calcium 7.9 L (8.4-10.2) mg/dL Total Bilirubin 2.0 H (0.2-1.3) mg/dL AST 72 H (17-59) U/L ALT 135 H (21-72) U/L Alkaline Phosphatase 334 H (38-126) U/L Total Protein 4.0 L (6.3-8.2) g/dL Albumin 1.9 L (3.5-5.0) g/dL 11/30/17 11/30/17 11/30/17 Range/Units 07:03 07:39 08:16 RBC (4.30-5.90) m/uL Hgb (13.0-17.5) gm/dL Hct (39.0-53.0) % Plt Count (150-450) k/uL ABG pH 7.54 H (7.35-7.45) ABG HCO3 31 H (21-25) mmol/L ABG Total CO2 32 H (19-24) mmol/L Sodium (137-145) mmol/L Potassium (3.5-5.1) mmol/L Chloride (98-107) mmol/L Carbon Dioxide (22-30) mmol/L BUN (9-20) mg/dL Glucose (74-99) mg/dL POC Glucose (mg/dL) 173 H 183 H (75-99) mg/dL Calcium (8.4-10.2) mg/dL Total Bilirubin (0.2-1.3) mg/dL AST (17-59) U/L ALT (21-72) U/L Alkaline Phosphatase (38-126) U/L Total Protein (6.3-8.2) g/dL Albumin (3.5-5.0) g/dL 11/30/17 11/30/17 Range/Units 09:10 10:07 RBC (4.30-5.90) m/uL Hgb (13.0-17.5) gm/dL Hct (39.0-53.0) % Plt Count (150-450) k/uL ABG pH (7.35-7.45) ABG HCO3 (21-25) mmol/L ABG Total CO2 (19-24) mmol/L Sodium (137-145) mmol/L Potassium (3.5-5.1) mmol/L Chloride (98-107) mmol/L Carbon Dioxide (22-30) mmol/L BUN (9-20) mg/dL Glucose (74-99) mg/dL POC Glucose (mg/dL) 180 H 191 H (75-99) mg/dL Calcium (8.4-10.2) mg/dL Total Bilirubin (0.2-1.3) mg/dL AST (17-59) U/L ALT (21-72) U/L Alkaline Phosphatase (38-126) U/L Total Protein (6.3-8.2) g/dL Albumin (3.5-5.0) g/dL Microbiology - Last 24 Hours (Table) 11/29/17 17:57 Gram Stain - Preliminary Foot - Left Wound Culture - Preliminary 11/29/17 18:28 Anaerobic Culture - Preliminary Foot - Left 11/24/17 13:00 Blood Culture - Preliminary Blood No Growth after 120 hours Assessment and Plan (1) Cardiomyopathy, nonischemic Current Visit: Yes Status: Acute Code(s): I42.8 - OTHER CARDIOMYOPATHIES SNOMED Code(s): 28505703 (2) Acute respiratory failure Current Visit: Yes Status: Acute Code(s): J96.00 - ACUTE RESPIRATORY FAILURE , UNSP W HYPOXIA OR HYPERCAPNIA SNOMED Code(s): 38855935 (3) C. difficile colitis Current Visit: Yes Status: Acute Code(s): A04.72 - ENTEROCOLITIS D/T CLOSTRIDIUM DIFFICILE, NOT SPCF RECUR SNOMED Code(s): 110414436 (4) Cellulitis of left lower extremity Current Visit: Yes Status: Acute Code(s): L03.116 - CELLULITIS OF LEFT LOWER LIMB SNOMED Code(s): 326878768 (5) Septic shock Current Visit: Yes Status: Acute Code(s): A41.9 - SEPSIS, UNSPECIFIED ORGANISM; R65.21 - SEVERE SEPSIS WITH SEPTIC SHOCK SNOMED Code(s): 42034305 Plan: I'll start him on small dose of Coreg and increase the dose as tolerated. If the blood pressure and kidney function remained stable, we'll my also add PATEL inhibitor. Overall prognosis is guarded. 11/30/2017: I'm going to increase the dose of Coreg 2.125 mg twice daily. We' ll also add lisinopril. We'll follow renal functions closely.
[2017-11-30 12:01] LABS: Glucose,Whole Blood 151 mg/dL (75-99)
[2017-11-30] MEDS: INSULIN ASPART 100 UNIT/ML 1 ML 10 ML VIAL SQ SCH ×2 (12:25→17:57)
[2017-11-30] MEDS: LISINOPRIL 2.5 MG TAB PO SCH (13:21)
--- NOTE | 2017-11-30 13:30 | P.PN ---
Subjective Progress Note Date: 11/30/17 Principal diagnosis: Acute hypoxic respiratory failure secondary to acute septic shock. This is a 57-year-old white male, known history of stage IV melanoma, on clinical trial/chemotherapy with daily periodic biweekly IV infusions. Patient presented to the ER yesterday with chief complaint of severe leg swelling and pain. Patient was noted to have significant tenderness in the left leg, and this has been going on for the last 1 week. There was also evidence of cellulitis, patient was complaining of fever and pain, and had a recent episode of C. difficile colitis. In the ER, the patient was clinically diagnosed as septic, and considering the patient did not improve with significant amount of fluid boluses, required norepinephrine, and later on required vasopressin, it was felt that the patient has acute septic shock from acute cellulitis of the left lower extremity. Patient was noted to have significantly elevated lactic acid of 8.6, significant bandemia was noted, and he had acute kidney injury with creatinine of 2.12. Patient was tachycardic, his temp was 101.8, and initially his systolic blood pressure was in the 50s requiring a central line placement and fluid boluses as well as norepinephrine drip. Patient was transferred to the ICU, and shortly after arrival to the ICU, I was notified by the nurse taking care of the patient that he wasn't doing too well. Hence patient was intubated, placed on mechanical ventilation, he is presently on FiO2 of 40%, tidal volume of 450, assist control rate of 20 and PEEP of 5. His venous Doppler of the left lower extremity was negative for deep vein thrombosis. X-rays of the tibia and fibula showed possible avulsion fracture of medial malleolus. CT of the left lower extremity showed moderate to marked generalized subcutaneous soft tissue edema mild fluid extending along the deeper fascial planes between the superficial and deep posterior compartment of the upper to mid leg. No fatty effacement was noted. Moderate left TM effusions noted. The findings were described as nonspecific findings, can be seen with fasciitis, myositis, myonecrosis, inflammatory myopathy, and in compartment syndrome as well. Hence a vascular surgery consultation will be initiated, infectious disease consultation was also initiated. Chest x-ray showed small tiny right-sided pleural effusion and adjacent atelectasis. Patient was reevaluated today on 11/26/2017, remains on mechanical ventilation, ventilator settings are assist control rate of 20, tidal volume of 450, FiO2 35% , cut down from 40% today. ABG today showed a pO2 of 190 pCO2 of 36 pH of 7.36. WBC count is 9.1 hemoglobin is 10.4 basic metabolic profile is improving with BUN improved and creatinine is down to 1.66, it was 2.84 on presentation and BUN was 49. Patient remains on pressors in the form of vasopressin, and his norepinephrine is down to 6 mcg/m. Chest x-ray showed mild central vascular congestion, minimal right basilar atelectasis otherwise no major change. Patient remains on propofol, 25 g, fully sedated. Cultures of urine blood and sputum are negative so far. Patient was seen by many consultants regarding his left lower extremity cellulitis, and questionable necrotizing fasciitis or compartment syndrome, almost everybody felt the patient will need to be transferred to a tertiary care center, however family declined. As a matter of fact they went on to state to me that we change his CODE STATUS to DO NOT RESUSCITATE. However he has a daughter who is supposedly coming today, and we will discuss that issue with her today. The family is basing that decision on the fact that the patient has stage IV melanoma, and overall prognosis is very poor anyway. Reevaluated today on 11/27/2017, remains on mechanical ventilation, ventilator settings are tidal volume of 450 FiO2 is down to 28%, assist control rate is 18. PEEP is 5. ABG showed a pO2 of 168 pCO2 of 34 pH of 7.40. Chest x-ray showed minimal atelectasis at the bases, and small pleural effusions. All labs were reviewed, electrolytes showed low potassium of 3.4 elevated chloride of 120 BUN is improving down to 49 and creatinine improving down to 1.54. WBC count is 6.9 hemoglobin is 10.0. Patient remains on propofol, he is on 2 g of norepinephrine which I will discontinue remains on vasopressin which is being titrated down and hopefully to discontinue sometime today if possible. Urine output is excellent, patient is developing significant edema all over, and the swelling in the left lower extremity seems to be significantly improved. But continues to have areas of erythema and cellulitis. Reevaluated today on 11/28/2017, remains on mechanical ventilation, ventilator settings are basically the same, unchanged since yesterday. He is on low FiO2 of 28%. ABG this morning showed a pO2 of 113 pCO2 of 34 pH of 7.53. His sodium is a bit elevated at 149, and I plan to use free water flushes via nasogastric tube. Renal profile remains abnormal but improved, creatinine is 1.40 today compared to 1.54 yesterday, 2.84 a few days ago chest x-ray continues to show by basilar atelectasis, possible small tiny pleural effusions. But improving overall. Patient remains on propofol, hence I recommended placing the propofol on hold, discussed his condition with his significant other at bedside, and I would likely plan to give the patient a weaning trial and check weaning parameters and later on today. Seems to be coming around slowly off propofol. Reevaluated today on 11/29/2017, patient has been off propofol now for almost over 24 hours, remains on mechanical ventilation, follows simple instructions, but does not open eyes. Seems to be quite lethargic, but in no distress, remains on mechanical ventilation, endotracheal tube is intact. His sodium is climbing up again, and I have recommended changing his IV fluid to D5W, and we will continue free water flushes. His ventilator settings are unchanged, remains on 28% FiO2. ABG showed a pO2 of 100 pCO2 of 35 pH of 7.55. Sodium is 152 today. Renal profile continues to improve, BUN today is 55 and creatinine is 1.6. WBC count is 4.9 hemoglobin is 8.9. Platelets are down to 84,000, but improved compared to platelets in the last few days but in the 60s and 70,000. Chest x-ray showed mild bibasilar atelectasis, and small tiny effusions. Seen by cardiology today for his cardiomyopathy and LV dysfunction, ejection fraction was noted to be 20-25%. recommended adding Coreg. Reevaluated today on 11/30/2017, remains on mechanical ventilation, off propofol now for the last 2 days, today he is showing some neurological improvement, mental status is improving, patient is opening eyes, he seems to be very weak, but follows simple instructions. He was even placed on a trial of pressure support and CPAP, noted to have good volumes, respiratory rate is in the low 20s with tidal volume of over 500. Patient is weaning of all, he is probably extubated, however my only concern is his profound weakness, and the patient will not be able to clear secretions easily at this point. Would like him to demonstrate a bit of more strength and more awakening before I would go ahead and extubated the patient. All his family members at bedside, and they were updated on his condition. His labs, x-rays, vent settings, ABG were all reviewed. And seems to be improving since admission. Including his renal profile. Still being followed by cardiology regarding his LV dysfunction. And that is a separate issue.chest x-ray continues to show minimal bibasilar atelectasis. And small tiny effusions. Objective - Vital Signs Vital signs: Vital Signs Temp 98.1 F 11/30/17 12:00 Pulse 59 L 11/30/17 13:00 Resp 20 11/30/17 13:00 BP 82/53 11/28/17 05:00 Pulse Ox 100 11/30/17 13:00 Intake & Output 11/29/17 11/30/17 11/30/17 18:59 06:59 18:59 Intake Total 3186.5 3455.543 1540.03 Output Total 1295 1235 810 Balance 1891.5 2220.543 730.03 Weight 81.4 kg Intake: IV 1360.5 1676 952.0 0.9 pressure bags 78 66 42 DAPTOmycin 500 mg In 50 Sodium Chloride 0.9% 50 ml @ 100 mls/hr IVPB Q24H [facility] Rx#:[id number] Dextrose 5% in Water 1, 700 1100 700 000 ml @ 100 mls/hr IV . Q10H [facility] Rx#:[id number] Piperacillin-Tazobactam 3 62.5 50 50.0 .375 gm In Dextrose/Water 1 50ml.bag @ 12.5 mls/hr IVPB Q8HR [facility] Rx#: [id number] Potassium Chloride 20 meq 200 200 In Water For Injection 1 100ml.bag @ 50 mls/hr IVPB Q2H [facility] Rx#: [id number] Sodium Chloride 0.9% 1, 120 110 60 000 ml @ 10 mls/hr IV . Q24H [facility] Rx#:[id number] metroNIDAZOLE-NS PMX 500 200 100 100 mg In Saline 1 100ml.bag @ 100 mls/hr IVPB Q8HR [facility] Rx#:[id number] Intake, IV Titration 24.543 3.03 Amount Insulin Regular 100 unit 24.543 3.03 In Sodium Chloride 0.9% 100 ml @ Per Protocol IV .Q0M [facility] Rx#:[id number] Tube Feeding 1026 855 285 Other 800 900 300 Output: Urine 1295 1235 810 Other: Voiding Method Indwelling Catheter Indwelling Catheter Indwelling Catheter ABP, PAP, CO, CI - Last Documented Arterial Blood Pressure 121/62 - Exam Physical Exam: 57-year-old, off propofol, off sedation, more awake, more arousable today, follows simple instructions. Head: relatively unremarkable, endotracheal tube and orogastric tube are intact. HEENT:[ [No neck masses.] [No thyromegaly.] [No JVD.] No icterus. PERRLA, EOMI , Chest: [fairly good breath sound bilaterally no rhonchi no wheezes. Only diminished at the bases. Cardiac Exam: [Normal S1 and S2, no S3 gallop, no murmur..] Abdomen: [Soft, nontender, no megaly, no rebound, no guarding, normal bowel sounds.] Extremities: [Cellulitis and erythema noted in the left lower extremity area, improving, the area of redness is regressing,left foot is wrapped with sterile dressing. Still has left foot drop noted . Neurological Exam: awake, generally weak, follows simple instructions. Lymphatics: No lymphadenopathy Psychiatric arousable, follows simple instructions, cannot fully assess mental status.however he seems to comprehend well. - Labs CBC & Chem 7: 11/30/17 04:35 11/30/17 04:35 Labs: Abnormal Lab Results - Last 24 Hours (Table) 11/29/17 11/29/17 11/29/17 Range/Units 14:05 16:50 19:53 RBC (4.30-5.90) m/uL Hgb (13.0-17.5) gm/dL Hct (39.0-53.0) % Plt Count (150-450) k/uL ABG pH (7.35-7.45) ABG HCO3 (21-25) mmol/L ABG Total CO2 (19-24) mmol/L Sodium 150 H (137-145) mmol/L Potassium 3.4 L (3.5-5.1) mmol/L Chloride 116 H (98-107) mmol/L Carbon Dioxide (22-30) mmol/L BUN (9-20) mg/dL Glucose (74-99) mg/dL POC Glucose (mg/dL) 263 H 257 H (75-99) mg/dL Calcium (8.4-10.2) mg/dL Total Bilirubin (0.2-1.3) mg/dL AST (17-59) U/L ALT (21-72) U/L Alkaline Phosphatase (38-126) U/L Total Protein (6.3-8.2) g/dL Albumin (3.5-5.0) g/dL 11/29/17 11/29/17 11/29/17 Range/Units 20:25 21:46 22:54 RBC (4.30-5.90) m/uL Hgb (13.0-17.5) gm/dL Hct (39.0-53.0) % Plt Count (150-450) k/uL ABG pH (7.35-7.45) ABG HCO3 (21-25) mmol/L ABG Total CO2 (19-24) mmol/L Sodium 149 H (137-145) mmol/L Potassium 3.3 L (3.5-5.1) mmol/L Chloride 114 H (98-107) mmol/L Carbon Dioxide 31 H (22-30) mmol/L BUN (9-20) mg/dL Glucose (74-99) mg/dL POC Glucose (mg/dL) 293 H 279 H (75-99) mg/dL Calcium (8.4-10.2) mg/dL Total Bilirubin (0.2-1.3) mg/dL AST (17-59) U/L ALT (21-72) U/L Alkaline Phosphatase (38-126) U/L Total Protein (6.3-8.2) g/dL Albumin (3.5-5.0) g/dL 11/30/17 11/30/17 11/30/17 Range/Units 00:03 00:32 01:18 RBC (4.30-5.90) m/uL Hgb (13.0-17.5) gm/dL Hct (39.0-53.0) % Plt Count (150-450) k/uL ABG pH (7.35-7.45) ABG HCO3 (21-25) mmol/L ABG Total CO2 (19-24) mmol/L Sodium (137-145) mmol/L Potassium (3.5-5.1) mmol/L Chloride (98-107) mmol/L Carbon Dioxide (22-30) mmol/L BUN (9-20) mg/dL Glucose (74-99) mg/dL POC Glucose (mg/dL) 247 H 224 H 190 H (75-99) mg/dL Calcium (8.4-10.2) mg/dL Total Bilirubin (0.2-1.3) mg/dL AST (17-59) U/L ALT (21-72) U/L Alkaline Phosphatase (38-126) U/L Total Protein (6.3-8.2) g/dL Albumin (3.5-5.0) g/dL 11/30/17 11/30/17 11/30/17 Range/Units 01:25 02:06 03:00 RBC (4.30-5.90) m/uL Hgb (13.0-17.5) gm/dL Hct (39.0-53.0) % Plt Count (150-450) k/uL ABG pH (7.35-7.45) ABG HCO3 (21-25) mmol/L ABG Total CO2 (19-24) mmol/L Sodium (137-145) mmol/L Potassium 3.3 L (3.5-5.1) mmol/L Chloride (98-107) mmol/L Carbon Dioxide (22-30) mmol/L BUN (9-20) mg/dL Glucose (74-99) mg/dL POC Glucose (mg/dL) 167 H 167 H (75-99) mg/dL Calcium (8.4-10.2) mg/dL Total Bilirubin (0.2-1.3) mg/dL AST (17-59) U/L ALT (21-72) U/L Alkaline Phosphatase (38-126) U/L Total Protein (6.3-8.2) g/dL Albumin (3.5-5.0) g/dL 11/30/17 11/30/17 11/30/17 Range/Units 04:03 04:35 04:35 RBC 2.97 L (4.30-5.90) m/uL Hgb 8.8 L (13.0-17.5) gm/dL Hct 28.1 L (39.0-53.0) % Plt Count 95 L (150-450) k/uL ABG pH (7.35-7.45) ABG HCO3 (21-25) mmol/L ABG Total CO2 (19-24) mmol/L Sodium 148 H (137-145) mmol/L Potassium (3.5-5.1) mmol/L Chloride 113 H (98-107) mmol/L Carbon Dioxide (22-30) mmol/L BUN 53 H (9-20) mg/dL Glucose 149 H (74-99) mg/dL POC Glucose (mg/dL) 157 H (75-99) mg/dL Calcium 7.9 L (8.4-10.2) mg/dL Total Bilirubin 2.0 H (0.2-1.3) mg/dL AST 72 H (17-59) U/L ALT 135 H (21-72) U/L Alkaline Phosphatase 334 H (38-126) U/L Total Protein 4.0 L (6.3-8.2) g/dL Albumin 1.9 L (3.5-5.0) g/dL 11/30/17 11/30/17 11/30/17 Range/Units 05:21 06:01 07:03 RBC (4.30-5.90) m/uL Hgb (13.0-17.5) gm/dL Hct (39.0-53.0) % Plt Count (150-450) k/uL ABG pH (7.35-7.45) ABG HCO3 (21-25) mmol/L ABG Total CO2 (19-24) mmol/L Sodium (137-145) mmol/L Potassium (3.5-5.1) mmol/L Chloride (98-107) mmol/L Carbon Dioxide (22-30) mmol/L BUN (9-20) mg/dL Glucose (74-99) mg/dL POC Glucose (mg/dL) 131 H 140 H 173 H (75-99) mg/dL Calcium (8.4-10.2) mg/dL Total Bilirubin (0.2-1.3) mg/dL AST (17-59) U/L ALT (21-72) U/L Alkaline Phosphatase (38-126) U/L Total Protein (6.3-8.2) g/dL Albumin (3.5-5.0) g/dL 11/30/17 11/30/17 11/30/17 Range/Units 07:39 08:16 09:10 RBC (4.30-5.90) m/uL Hgb (13.0-17.5) gm/dL Hct (39.0-53.0) % Plt Count (150-450) k/uL ABG pH 7.54 H (7.35-7.45) ABG HCO3 31 H (21-25) mmol/L ABG Total CO2 32 H (19-24) mmol/L Sodium (137-145) mmol/L Potassium (3.5-5.1) mmol/L Chloride (98-107) mmol/L Carbon Dioxide (22-30) mmol/L BUN (9-20) mg/dL Glucose (74-99) mg/dL POC Glucose (mg/dL) 183 H 180 H (75-99) mg/dL Calcium (8.4-10.2) mg/dL Total Bilirubin (0.2-1.3) mg/dL AST (17-59) U/L ALT (21-72) U/L Alkaline Phosphatase (38-126) U/L Total Protein (6.3-8.2) g/dL Albumin (3.5-5.0) g/dL 11/30/17 11/30/17 Range/Units 10:07 11:59 RBC (4.30-5.90) m/uL Hgb (13.0-17.5) gm/dL Hct (39.0-53.0) % Plt Count (150-450) k/uL ABG pH (7.35-7.45) ABG HCO3 (21-25) mmol/L ABG Total CO2 (19-24) mmol/L Sodium (137-145) mmol/L Potassium (3.5-5.1) mmol/L Chloride (98-107) mmol/L Carbon Dioxide (22-30) mmol/L BUN (9-20) mg/dL Glucose (74-99) mg/dL POC Glucose (mg/dL) 191 H 151 H (75-99) mg/dL Calcium (8.4-10.2) mg/dL Total Bilirubin (0.2-1.3) mg/dL AST (17-59) U/L ALT (21-72) U/L Alkaline Phosphatase (38-126) U/L Total Protein (6.3-8.2) g/dL Albumin (3.5-5.0) g/dL Microbiology - Last 24 Hours (Table) 11/29/17 17:57 Gram Stain - Preliminary Foot - Left Wound Culture - Preliminary 11/29/17 18:28 Anaerobic Culture - Preliminary Foot - Left 11/24/17 13:00 Blood Culture - Preliminary Blood No Growth after 120 hours Assessment and Plan Assessment: Impression: Acute hypoxic respiratory failure secondary to septic shock, secondary to acute cellulitis of the left lower extremity. History of stage IV melanoma, on clinical trials. Acute kidney injury secondary to ATN and septic shock almost back to normal with creatinine of 1.06 today. Recent C. difficile colitis. Not documented on this admission.remains on Flagyl. Acute hypernatremia secondary to free water deficit, change IV fluid to D5W, continue free water flushes via nasogastric tube.improved today on 11/30 after changing the main IV fluid and continued water via nasogastric tube. Nonischemic cardiomyopathy as noted on his echocardiogram. Being addressed by cardiology. Metabolic encephalopathy improving today, but the patient seems to have significant weakness and possibly polyneuropathy. Continue antibiotics, hemodynamic support, nutritional support, GI and DVT prophylaxis, patient is even tolerating pressure support and CPAP trial well. However considering his profound weakness and most likely inability to clear his airways or cough. May delay extubation today until the patient is a bit more stronger. Family was updated on his condition, and will continue to follow in the ICU. If the patient demonstrates significant improvement later today, may even x-ray the patient later today. In the meantime he is still on pressure support of 10and CPAP.patient remains critically ill, critical care time is 34 minutes. Time with Patient: Greater than 30
--- NOTE | 2017-11-30 14:19 | P.PN ---
Subjective Progress Note Date: 11/30/17 Principal diagnosis: leg pain Patient is a 57-year-old male with a past medical history of stage IV melanoma who recently finished a clinical trial of atezolizumab and cobimetirnib (taken off for colitis), Parkinson's disease, and enlarged prostate who presented with complaints of diarrhea and severe left leg pain. In the ER the patient was found to have acute kidney injury, severe sepsis with an elevated lactic at 8.6 and hypotension. He was given 3 L of normal saline and remained hypotensive and therefore started on levo. He was started on empiric IV antibiotics with Unasyn and vancomycin. He was admitted to the ICU for further monitoring and critical care was consulted. Lower extremity venous Doppler was negative for DVT and tibial fibula x-rays were suggestive of medial malleolus avulsion fracture. Overnight on 11/24 the patient required mechanical ventilation. He underwent a CT of the left lower extremity which showed extensive soft tissue edema of the subcutaneous adipose layer with confluent edema in the superficial fascia. It also showed deeper fascial edema on the upper leg. There was concern for possible compartment syndrome and vascular surgery and orthopedic surgery were consulted. They were unable to determine if patient truly had compartment syndrome. They recommended transfer to tertiary care center however family would not want surgery for the patient with his stage IV melanoma and therefore did not want transfer to tertiary care. He was seen by infectious disease and his antibiotics were broadened to daptomycin and Zosyn. There is concern for C. diff colitis was started on Flagyl as well. His stools formed and therefore C. diff testing was not preformed. However his Flagyl was continued with his history of C. diff and need for broad- spectrum antibiotics. His pressors were able to be weanerd down and he was off levo on the morning of 11/27. Vasopressin discontinued on the morning on 11/28. White blood cell count had improved. Sedation was held on the morning of 11/28 and patient did not have improvement in mentation by the morning of 11/29. He was awake and following commands on the morning of 11/30 and is undergoing a spontaneous breathing trial. He also developed hyperglycemia overnight on 11/29 requiring insulin drip to be initiated. Patient seen and examined. Off sedation. Following commands by nodding having closing eyes. Still significantly weak and having difficulty moving her extremities. Currently undergoing spontaneous breathing trial. Objective - Vital Signs Vital signs: Vital Signs Temp 98.1 F 11/30/17 12:00 Pulse 59 L 11/30/17 13:00 Resp 20 11/30/17 13:00 BP 82/53 11/28/17 05:00 Pulse Ox 100 11/30/17 13:00 Intake & Output 11/29/17 11/30/17 11/30/17 18:59 06:59 18:59 Intake Total 3186.5 3455.543 1597.03 Output Total 1295 1235 810 Balance 1891.5 2220.543 787.03 Weight 81.4 kg Intake: IV 1360.5 1676 952.0 0.9 pressure bags 78 66 42 DAPTOmycin 500 mg In 50 Sodium Chloride 0.9% 50 ml @ 100 mls/hr IVPB Q24H [facility] Rx#:[id number] Dextrose 5% in Water 1, 700 1100 700 000 ml @ 100 mls/hr IV . Q10H [facility] Rx#:[id number] Piperacillin-Tazobactam 3 62.5 50 50.0 .375 gm In Dextrose/Water 1 50ml.bag @ 12.5 mls/hr IVPB Q8HR [facility] Rx#: [id number] Potassium Chloride 20 meq 200 200 In Water For Injection 1 100ml.bag @ 50 mls/hr IVPB Q2H [facility] Rx#: [id number] Sodium Chloride 0.9% 1, 120 110 60 000 ml @ 10 mls/hr IV . Q24H [facility] Rx#:[id number] metroNIDAZOLE-NS PMX 500 200 100 100 mg In Saline 1 100ml.bag @ 100 mls/hr IVPB Q8HR [facility] Rx#:[id number] Intake, IV Titration 24.543 3.03 Amount Insulin Regular 100 unit 24.543 3.03 In Sodium Chloride 0.9% 100 ml @ Per Protocol IV .Q0M [facility] Rx#:[id number] Tube Feeding 1026 855 342 Other 800 900 300 Output: Urine 1295 1235 810 Other: Voiding Method Indwelling Catheter Indwelling Catheter Indwelling Catheter ABP, PAP, CO, CI - Last Documented Arterial Blood Pressure 121/62 - Exam General: Ill-appearing, no distress, appears older than stated age Derm: warm, dry, left lower extremity with dressing in place. edema resolved, erythema and warmth improving Head: atraumatic, normocephalic, symmetric Eyes: no lid lag, anicteric sclera, PERRL Mouth: no lip lesion, mucus membranes moist Neck: Trachea midline, neck supple Cardiovascular: S1S2 reg, no murmur, positive posterior tibial pulse bilateral, Lungs: Course breath sounds bilaterally, no rhonchi, no rales , no accessory muscle use, on ventilator Abdominal: soft, nontender to palpation, no guarding, no appreciable organomegaly Ext: no gross muscle atrophy, diffuse anasarca, no contractures Neuro: Moving bilateral lower extremities independently, unable to show thumbs up, following commands appropriately, positive cough, positive gag Psych: Nodding yes/on on vent, still slightly lethargic, not anxious - Labs CBC & Chem 7: 11/30/17 04:35 11/30/17 04:35 Labs: Abnormal Lab Results - Last 24 Hours (Table) 11/29/17 11/29/17 11/29/17 Range/Units 14:05 16:50 19:53 RBC (4.30-5.90) m/uL Hgb (13.0-17.5) gm/dL Hct (39.0-53.0) % Plt Count (150-450) k/uL ABG pH (7.35-7.45) ABG HCO3 (21-25) mmol/L ABG Total CO2 (19-24) mmol/L Sodium 150 H (137-145) mmol/L Potassium 3.4 L (3.5-5.1) mmol/L Chloride 116 H (98-107) mmol/L Carbon Dioxide (22-30) mmol/L BUN (9-20) mg/dL Glucose (74-99) mg/dL POC Glucose (mg/dL) 263 H 257 H (75-99) mg/dL Calcium (8.4-10.2) mg/dL Total Bilirubin (0.2-1.3) mg/dL AST (17-59) U/L ALT (21-72) U/L Alkaline Phosphatase (38-126) U/L Total Protein (6.3-8.2) g/dL Albumin (3.5-5.0) g/dL 11/29/17 11/29/17 11/29/17 Range/Units 20:25 21:46 22:54 RBC (4.30-5.90) m/uL Hgb (13.0-17.5) gm/dL Hct (39.0-53.0) % Plt Count (150-450) k/uL ABG pH (7.35-7.45) ABG HCO3 (21-25) mmol/L ABG Total CO2 (19-24) mmol/L Sodium 149 H (137-145) mmol/L Potassium 3.3 L (3.5-5.1) mmol/L Chloride 114 H (98-107) mmol/L Carbon Dioxide 31 H (22-30) mmol/L BUN (9-20) mg/dL Glucose (74-99) mg/dL POC Glucose (mg/dL) 293 H 279 H (75-99) mg/dL Calcium (8.4-10.2) mg/dL Total Bilirubin (0.2-1.3) mg/dL AST (17-59) U/L ALT (21-72) U/L Alkaline Phosphatase (38-126) U/L Total Protein (6.3-8.2) g/dL Albumin (3.5-5.0) g/dL 11/30/17 11/30/17 11/30/17 Range/Units 00:03 00:32 01:18 RBC (4.30-5.90) m/uL Hgb (13.0-17.5) gm/dL Hct (39.0-53.0) % Plt Count (150-450) k/uL ABG pH (7.35-7.45) ABG HCO3 (21-25) mmol/L ABG Total CO2 (19-24) mmol/L Sodium (137-145) mmol/L Potassium (3.5-5.1) mmol/L Chloride (98-107) mmol/L Carbon Dioxide (22-30) mmol/L BUN (9-20) mg/dL Glucose (74-99) mg/dL POC Glucose (mg/dL) 247 H 224 H 190 H (75-99) mg/dL Calcium (8.4-10.2) mg/dL Total Bilirubin (0.2-1.3) mg/dL AST (17-59) U/L ALT (21-72) U/L Alkaline Phosphatase (38-126) U/L Total Protein (6.3-8.2) g/dL Albumin (3.5-5.0) g/dL 11/30/17 11/30/17 11/30/17 Range/Units 01:25 02:06 03:00 RBC (4.30-5.90) m/uL Hgb (13.0-17.5) gm/dL Hct (39.0-53.0) % Plt Count (150-450) k/uL ABG pH (7.35-7.45) ABG HCO3 (21-25) mmol/L ABG Total CO2 (19-24) mmol/L Sodium (137-145) mmol/L Potassium 3.3 L (3.5-5.1) mmol/L Chloride (98-107) mmol/L Carbon Dioxide (22-30) mmol/L BUN (9-20) mg/dL Glucose (74-99) mg/dL POC Glucose (mg/dL) 167 H 167 H (75-99) mg/dL Calcium (8.4-10.2) mg/dL Total Bilirubin (0.2-1.3) mg/dL AST (17-59) U/L ALT (21-72) U/L Alkaline Phosphatase (38-126) U/L Total Protein (6.3-8.2) g/dL Albumin (3.5-5.0) g/dL 11/30/17 11/30/17 11/30/17 Range/Units 04:03 04:35 04:35 RBC 2.97 L (4.30-5.90) m/uL Hgb 8.8 L (13.0-17.5) gm/dL Hct 28.1 L (39.0-53.0) % Plt Count 95 L (150-450) k/uL ABG pH (7.35-7.45) ABG HCO3 (21-25) mmol/L ABG Total CO2 (19-24) mmol/L Sodium 148 H (137-145) mmol/L Potassium (3.5-5.1) mmol/L Chloride 113 H (98-107) mmol/L Carbon Dioxide (22-30) mmol/L BUN 53 H (9-20) mg/dL Glucose 149 H (74-99) mg/dL POC Glucose (mg/dL) 157 H (75-99) mg/dL Calcium 7.9 L (8.4-10.2) mg/dL Total Bilirubin 2.0 H (0.2-1.3) mg/dL AST 72 H (17-59) U/L ALT 135 H (21-72) U/L Alkaline Phosphatase 334 H (38-126) U/L Total Protein 4.0 L (6.3-8.2) g/dL Albumin 1.9 L (3.5-5.0) g/dL 11/30/17 11/30/17 11/30/17 Range/Units 05:21 06:01 07:03 RBC (4.30-5.90) m/uL Hgb (13.0-17.5) gm/dL Hct (39.0-53.0) % Plt Count (150-450) k/uL ABG pH (7.35-7.45) ABG HCO3 (21-25) mmol/L ABG Total CO2 (19-24) mmol/L Sodium (137-145) mmol/L Potassium (3.5-5.1) mmol/L Chloride (98-107) mmol/L Carbon Dioxide (22-30) mmol/L BUN (9-20) mg/dL Glucose (74-99) mg/dL POC Glucose (mg/dL) 131 H 140 H 173 H (75-99) mg/dL Calcium (8.4-10.2) mg/dL Total Bilirubin (0.2-1.3) mg/dL AST (17-59) U/L ALT (21-72) U/L Alkaline Phosphatase (38-126) U/L Total Protein (6.3-8.2) g/dL Albumin (3.5-5.0) g/dL 11/30/17 11/30/17 11/30/17 Range/Units 07:39 08:16 09:10 RBC (4.30-5.90) m/uL Hgb (13.0-17.5) gm/dL Hct (39.0-53.0) % Plt Count (150-450) k/uL ABG pH 7.54 H (7.35-7.45) ABG HCO3 31 H (21-25) mmol/L ABG Total CO2 32 H (19-24) mmol/L Sodium (137-145) mmol/L Potassium (3.5-5.1) mmol/L Chloride (98-107) mmol/L Carbon Dioxide (22-30) mmol/L BUN (9-20) mg/dL Glucose (74-99) mg/dL POC Glucose (mg/dL) 183 H 180 H (75-99) mg/dL Calcium (8.4-10.2) mg/dL Total Bilirubin (0.2-1.3) mg/dL AST (17-59) U/L ALT (21-72) U/L Alkaline Phosphatase (38-126) U/L Total Protein (6.3-8.2) g/dL Albumin (3.5-5.0) g/dL 11/30/17 11/30/17 Range/Units 10:07 11:59 RBC (4.30-5.90) m/uL Hgb (13.0-17.5) gm/dL Hct (39.0-53.0) % Plt Count (150-450) k/uL ABG pH (7.35-7.45) ABG HCO3 (21-25) mmol/L ABG Total CO2 (19-24) mmol/L Sodium (137-145) mmol/L Potassium (3.5-5.1) mmol/L Chloride (98-107) mmol/L Carbon Dioxide (22-30) mmol/L BUN (9-20) mg/dL Glucose (74-99) mg/dL POC Glucose (mg/dL) 191 H 151 H (75-99) mg/dL Calcium (8.4-10.2) mg/dL Total Bilirubin (0.2-1.3) mg/dL AST (17-59) U/L ALT (21-72) U/L Alkaline Phosphatase (38-126) U/L Total Protein (6.3-8.2) g/dL Albumin (3.5-5.0) g/dL Microbiology - Last 24 Hours (Table) 11/29/17 17:57 Gram Stain - Preliminary Foot - Left Wound Culture - Preliminary 11/29/17 18:28 Anaerobic Culture - Preliminary Foot - Left 11/24/17 13:00 Blood Culture - Preliminary Blood No Growth after 120 hours Assessment and Plan Assessment: Left lower extremity cellulitis with septic shock (resolved), compartment syndrome ruled out. -Continue with daptomycin and Zosyn as recommended by infectious disease, flagyl with history of c. diff -Continue with wrappings -Orthopedic surgery and vascular surgery recommendations appreciated - wean stress dose steroids Hyperglycemia - start levemir 20 units, and SSI, turn off insulin gtt Systolic cardiomyopathy, EF 20-25% - coreg and lisinopril - Tele - cardio recs Metabolic encephalopathy, improving - monitor off sedation for improvement Hypernatremia - free water in tube feeds goal at 300 cc q 4 hours Hypokalemia - replace and recheck Acute hypoxic respiratory failure likely secondary to sepsis -Management as per pulmonary/critical care GNB PNA - await identification - Zosyn should cover - ID recs Anemia, stable -Repeat CBC in a.m. Thrombocytopenia, likely reactive secondary to sepsis, improving -resume lovenox Transaminitis -suspect at baseline with probable mass on liver ultrasound -Hepatitis profile negative Severe protein calorie malnutrition -Albumin 2.7 - tube feedings at goal -Oral supplementation once patient is extubated Diarrhea, resolved Hyperkalemia, resolved Hyperchloremic metabolic acidosis, resolved Acute kidney injury secondary to dehydration and ATN, resolved DVT prophylaxis: SCDs Discussed with: Significant other, nursing Anticipated discharge: 4-6 days ? place: Undetermined at this point in time A total of 35 minutes was spent on the care of this complex patient more than 50 % of the time was spent in counseling and care coordination.
[2017-11-30] MEDS: ENOXAPARIN 40 MG/0.4 ML SYRINGE SQ SCH (15:37)
[2017-11-30 18:08] LABS: Glucose,Whole Blood 128 mg/dL (75-99)
[2017-11-30] MEDS: CARVEDILOL 3.125 MG TAB PO SCH (18:40)
[2017-11-30] MEDS: DAPTOmycin 500 MG in SODIUM CHLORIDE 0.9% 50 ML IVPB SCH (21:28)
--- NOTE | 2017-12-01 00:03 | PN ---
PROGRESS NOTE DATE OF SERVICE: 11/30/2017. REASON FOR FOLLOWUP: Left lower extremity cellulitis with gram-negative pneumonia. INTERVAL HISTORY: The patient is currently afebrile. He is hemodynamically stable. He has been given sedation holidays and has been responding appropriately per the nursing staff. No significant purulent secretions to the ET and no diarrhea. The left leg swelling and redness continues to improve. EXAMINATION: Blood pressure is 107/55 with a pulse of 80, temperature 98. He is 100% on General description is a middle-aged male lying in bed in no distress. Respiratory system unlabored breathing. Clear to auscultation anteriorly. Heart S1, S2. Regular rate and rhythm. Abdomen soft, no tenderness. Legs currently dressed up. No obvious drainage on the dressing. LABS: Hemoglobin is 8.8 with a white count of 5.5, BUN of 53, creatinine 1.06. DIAGNOSTIC IMPRESSION AND PLAN: 1. Patient with left lower extremity cellulitis with sepsis, concern of possible being treated medically. Continue with daptomycin. 2. The patient gram-negative pneumonia with ID still pending. He is currently covered with Zosyn that will be continued and continue supportive care. MMODL / IJN: [id number] /
[2017-12-01] MEDS: HYDROCORTISONE SUCCINATE 100 MG/2 ML VIAL IV SCH ×3 (00:27→17:20)
[2017-12-01] MEDS: INSULIN ASPART 100 UNIT/ML 1 ML 10 ML VIAL SQ SCH ×6 (00:27→20:19)
[2017-12-01 00:28] LABS: Glucose,Whole Blood 197 mg/dL (75-99)
[2017-12-01 05:27] LABS: ABG Base Excess 6.7 mmol/L; ABG HCO3 29 mmol/L (21-25); ABG Oxygen Saturation 97.2 % (94-97); ABG PCO2 34 mmHg (35-45); ABG PH 7.54 (7.35-7.45); ABG PO2 81 mmHg (83-108); ABG TCO2 30 mmol/L (19-24)
[2017-12-01 05:57] LABS: HCT 28.1 % (39.0-53.0); Hypochromasia Slight; MCH 30.3 pg (25.0-35.0); MCV 94.8 fL (80.0-100.0); Mean Platelet Volume 8.7; Platelet Count 142 k/uL (150-450); RBC 2.96 m/uL (4.30-5.90); RDW 14.5 % (11.5-15.5); WBC 5.7 k/uL (3.8-10.6)
[2017-12-01 06:08] LABS: ALT 117 U/L (21-72); AST 49 U/L (17-59); Albumin 1.8 g/dL (3.5-5.0); Alkaline Phosphatase 320 U/L (38-126); Anion Gap 5 mmol/L; Blood Urea Nitrogen 46 mg/dL (9-20); Calcium 7.7 mg/dL (8.4-10.2); Carbon Dioxide 28 mmol/L (22-30); Chloride 111 mmol/L (98-107); Glucose 254 mg/dL (74-99); Magnesium 2.2 mg/dL (1.6-2.3); Phosphorus 3.2 mg/dL (2.5-4.5); Sodium 144 mmol/L (137-145); Total Bilirubin 1.7 mg/dL (0.2-1.3); Total Protein 3.8 g/dL (6.3-8.2)
[2017-12-01 06:18] LABS: Glucose,Whole Blood 268 mg/dL (75-99)
--- NOTE | 2017-12-01 08:09 | XR ---
EXAMINATION TYPE: XR chest 1V portable DATE OF EXAM: 12/01/2017 COMPARISON: 11/30/2017 HISTORY: Tube placed TECHNIQUE: Single frontal view of the chest is obtained. FINDINGS: ET and NG tube are stable. Right-sided central line unchanged. Bilateral consolidation and pleural effusion noted. Mild central venous congestion not excluded. No pneumothorax. Arthropathy of the shoulders. Heart size stable. IMPRESSION: 1. Stable bilateral consolidation and pleural effusion.
[2017-12-01 08:21] LABS: Glucose,Whole Blood 266 mg/dL (75-99)
--- NOTE | 2017-12-01 09:28 | P.PN ---
Subjective Progress Note Date: 12/01/17 Principal diagnosis: Sepsis, cellulitis, acute kidney injury Progress note dated 12/01/2017 This is a 57-year-old male who was admitted on November 24 and intubated on November 25. The patient came in with respiratory failure, sepsis, cellulitis , acute kidney injury, and stage IV melanoma. The patient was intubated and remains on volume assist control mode on the . Currently, the patient's on the assist control mode rate of 20, tidal volume 450, FiO2 20%, and PEEP of 5. Arterial blood gases show a PaO2 of 81 a PaCO2 of 44 and a pH 7.54. The patient is receiving dextrose at 100 mL an hour and vital AF at 57 with a goal of 57 mL an hour. Sputum Gram stain is negative. Currently, the patient is not receiving any sedation. We'll place him on pressure support of 5 and CPAP of 5 and after 30 minutes, we'll get a full set a weaning parameters including atenolol I am, minute volume, respiratory rate, negative inspiratory force, rapid shallow breathing index, and cuff leak test. He may or may not get an arterial blood gas. At that point, we'll make a decision about possible extubation. He slowed open his eyes and his mental status is somewhat poor as that may be a negative against extubation. The patient is a DO NOT RESUSCITATE. Objective - Vital Signs Vital signs: Vital Signs Temp 99.3 F 12/01/17 05:00 Pulse 72 12/01/17 08:00 Resp 22 12/01/17 08:00 BP 82/53 11/28/17 05:00 Pulse Ox 98 12/01/17 08:00 Intake & Output 11/30/17 12/01/17 12/01/17 18:59 06:59 18:59 Intake Total 2416.03 3201.0 643 Output Total 1230 1175 285 Balance 1186.03 2026.0 358 Weight 85.5 kg Intake: IV 1657.0 1560.0 229 0.9 pressure bags 72 45 9 DAPTOmycin 500 mg In 50 Sodium Chloride 0.9% 50 ml @ 100 mls/hr IVPB Q24H [facility] Rx#:[id number] Dextrose 5% in Water 1, 1200 1200 200 000 ml @ 100 mls/hr IV . Q10H [facility] Rx#:[id number] Piperacillin-Tazobactam 3 75.0 75.0 .375 gm In Dextrose/Water 1 50ml.bag @ 12.5 mls/hr IVPB Q8HR [facility] Rx#: [id number] Sodium Chloride 0.9% 1, 110 90 20 000 ml @ 10 mls/hr IV . Q24H [facility] Rx#:[id number] metroNIDAZOLE-NS PMX 500 200 100 mg In Saline 1 100ml.bag @ 100 mls/hr IVPB Q8HR [facility] Rx#:[id number] Intake, IV Titration 3.03 Amount Insulin Regular 100 unit 3.03 In Sodium Chloride 0.9% 100 ml @ Per Protocol IV .Q0M [facility] Rx#:[id number] Tube Feeding 456 741 114 Other 300 900 300 Output: Urine 1230 1175 285 Other: Voiding Method Indwelling Catheter Indwelling Catheter # Bowel Movements 1 1 1 ABP, PAP, CO, CI - Last Documented Arterial Blood Pressure 103/31 - Exam No acute distress, with an orally placed. NG tube and endotracheal tube. HEENT examination is grossly unremarkable. Mucous membranes are moist. Neck supple. Full range of motion. No adenopathy thyromegaly or neck vein distention. Cardiovascular examination reveals regular rhythm rate. S1-S2 normal. No S3 or S4. No discernible murmur noted. Heart sounds are distant. Lungs reveal bilateral coarse rhonchi. Breath sounds equal bilaterally. No wheezes or crackles. Abdomen soft bowel sounds are heard. No masses or tenderness. Extremities are intact. No cyanosis clubbing or edema. Skin is without rash or lesion. Neurologic examination is difficult to assess. The patient appears to be sleepy but does have a good handgrip and slowly open his eyes. - Labs CBC & Chem 7: 12/01/17 05:25 12/01/17 05:25 Labs: Abnormal Lab Results - Last 24 Hours (Table) 11/30/17 11/30/17 11/30/17 Range/Units 10:07 11:59 17:56 RBC (4.30-5.90) m/uL Hgb (13.0-17.5) gm/dL Hct (39.0-53.0) % Plt Count (150-450) k/uL ABG pH (7.35-7.45) ABG pCO2 (35-45) mmHg ABG pO2 (83-108) mmHg ABG HCO3 (21-25) mmol/L ABG Total CO2 (19-24) mmol/L ABG O2 Saturation (94-97) % Potassium (3.5-5.1) mmol/L Chloride (98-107) mmol/L BUN (9-20) mg/dL Glucose (74-99) mg/dL POC Glucose (mg/dL) 191 H 151 H 128 H (75-99) mg/dL Calcium (8.4-10.2) mg/dL Total Bilirubin (0.2-1.3) mg/dL ALT (21-72) U/L Alkaline Phosphatase (38-126) U/L Total Protein (6.3-8.2) g/dL Albumin (3.5-5.0) g/dL 12/01/17 12/01/17 12/01/17 Range/Units 00:22 05:21 05:25 RBC 2.96 L (4.30-5.90) m/uL Hgb 9.0 L (13.0-17.5) gm/dL Hct 28.1 L (39.0-53.0) % Plt Count 142 L (150-450) k/uL ABG pH 7.54 H (7.35-7.45) ABG pCO2 34 L (35-45) mmHg ABG pO2 81 L (83-108) mmHg ABG HCO3 29 H (21-25) mmol/L ABG Total CO2 30 H (19-24) mmol/L ABG O2 Saturation 97.2 H (94-97) % Potassium (3.5-5.1) mmol/L Chloride (98-107) mmol/L BUN (9-20) mg/dL Glucose (74-99) mg/dL POC Glucose (mg/dL) 197 H (75-99) mg/dL Calcium (8.4-10.2) mg/dL Total Bilirubin (0.2-1.3) mg/dL ALT (21-72) U/L Alkaline Phosphatase (38-126) U/L Total Protein (6.3-8.2) g/dL Albumin (3.5-5.0) g/dL 12/01/17 12/01/17 12/01/17 Range/Units 05:25 06:16 08:18 RBC (4.30-5.90) m/uL Hgb (13.0-17.5) gm/dL Hct (39.0-53.0) % Plt Count (150-450) k/uL ABG pH (7.35-7.45) ABG pCO2 (35-45) mmHg ABG pO2 (83-108) mmHg ABG HCO3 (21-25) mmol/L ABG Total CO2 (19-24) mmol/L ABG O2 Saturation (94-97) % Potassium 3.0 L (3.5-5.1) mmol/L Chloride 111 H (98-107) mmol/L BUN 46 H (9-20) mg/dL Glucose 254 H (74-99) mg/dL POC Glucose (mg/dL) 268 H 266 H (75-99) mg/dL Calcium 7.7 L (8.4-10.2) mg/dL Total Bilirubin 1.7 H (0.2-1.3) mg/dL ALT 117 H (21-72) U/L Alkaline Phosphatase 320 H (38-126) U/L Total Protein 3.8 L (6.3-8.2) g/dL Albumin 1.8 L (3.5-5.0) g/dL Microbiology - Last 24 Hours (Table) 11/29/17 17:57 Gram Stain - Preliminary Foot - Left Wound Culture - Preliminary 11/24/17 13:00 Blood Culture - Final Blood No Growth after 144 hours Assessment and Plan Assessment: Assessment Acute hypoxemic respiratory failure secondary to septic shock with cellulitis of the left lower extremity Routine ventilator management Stage IV melanoma Acute kidney injury secondary to ATN and septic shock Recent Clostridium difficile colitis Hypernatremia Nonischemic cardiomyopathy Metabolic encephalopathy Plan: Plan dated 12/01/2017 The patient's chest x-ray stable with bilateral lower lobe infiltrates or atelectasis and pleural effusions. The patient will be giving a spontaneous breathing trial today with PSV of 5 and CPAP of 5. Sputum is showing gram- negative bacilli. White count 5.7 hemoglobin 9 hematocrit 28.1 and platelet count 142,000. Arterial blood gases do demonstrate a metabolic alkalosis likely secondary to hypokalemia. Sodium is 144 potassium 3 chloride 111 CO2 28 ng are 46 and 0.95. Albumin is 1.8. AST was 117 alkaline phosphatase was 320 AST was 49 and bilirubin was 1.7. Medications are reviewed. Additional recommendations and suggestions are forthcoming. Again after 30 minutes we will go ahead and get a full set a weaning parameters and a cuff leak. Pending that, additional recommendations will be made. Medications are reviewed. Actually, his weaning parameters are reasonable. His rapid shallow breathing index is only 46. He passes cuff leak test. We will attempt a trial of extubation. Critical care time 34 minutes Time with Patient: Greater than 30
[2017-12-01] MEDS: metroNIDAZOLE-NS PMX 500 MG in SALINE 1 100ML.BAG IVPB SCH ×2 (09:52→17:24)
[2017-12-01] MEDS: PIPERACILLIN-TAZOBACTAM 3.375 GM in DEXTROSE/WATER 1 50ML.BAG IVPB SCH ×2 (09:52→16:00)
[2017-12-01] MEDS: NEOMYCIN-BACITRACIN-POLY OINT 14 GM TUBE TOPICAL SCH (09:53)
[2017-12-01] MEDS: ENOXAPARIN 40 MG/0.4 ML SYRINGE SQ SCH (09:53)
[2017-12-01] MEDS: CHLORHEXIDINE GLUCONATE 15 ML CUP MUCOUS MEM SCH (09:53)
[2017-12-01] MEDS: PANTOPRAZOLE 40 MG/10 ML VIAL IV SCH (09:53)
[2017-12-01] MEDS: INSULIN DETEMIR 100 UNIT/ML 10 ML VIAL SQ SCH (09:53)
[2017-12-01 09:57] LABS: Glucose,Whole Blood 223 mg/dL (75-99)
[2017-12-01] MEDS ORDERED: POTASSIUM BICARBONATE/CIT AC 20 MEQ TABLET.EFF NG-TUBE SCH (10:00)
[2017-12-01] MEDS: POTASSIUM CHLORIDE 40 MEQ in SODIUM CHLORIDE 0.9% 250 ML IVPB SCH ×2 (10:17→14:45)
[2017-12-01] MEDS: CARVEDILOL 3.125 MG TAB PO SCH ×2 (10:20→17:34)
[2017-12-01] MEDS: IPRATROPIUM-ALBUTEROL 3 ML NEB INHALATION SCH ×3 (10:54→20:04)
[2017-12-01] MEDS ORDERED: IPRATROPIUM-ALBUTEROL 3 ML NEB INHALATION SCH (12:00)
[2017-12-01 12:20] LABS: Glucose,Whole Blood 185 mg/dL (75-99)
[2017-12-01] MEDS: DEXTROSE 5% IN WATER 1,000 ML IV SCH (12:43)
[2017-12-01 17:33] LABS: Glucose,Whole Blood 94 mg/dL (75-99)
[2017-12-01 20:19] LABS: Glucose,Whole Blood 84 mg/dL (75-99)
[2017-12-01] MEDS: LISINOPRIL 2.5 MG TAB PO SCH (20:19)
[2017-12-01] MEDS: DAPTOmycin 500 MG in SODIUM CHLORIDE 0.9% 50 ML IVPB SCH (20:20)
[2017-12-01 23:53] LABS: Glucose,Whole Blood 116 mg/dL (75-99)
[2017-12-02] MEDS: DEXTROSE 5% IN WATER 1,000 ML IV SCH ×3 (00:03→18:18)
[2017-12-02] MEDS: PIPERACILLIN-TAZOBACTAM 3.375 GM in DEXTROSE/WATER 1 50ML.BAG IVPB SCH ×3 (00:04→16:20)
[2017-12-02] MEDS: metroNIDAZOLE-NS PMX 500 MG in SALINE 1 100ML.BAG IVPB SCH ×3 (00:04→16:20)
[2017-12-02] MEDS: INSULIN ASPART 100 UNIT/ML 1 ML 10 ML VIAL SQ SCH ×7 (00:04→21:40)
[2017-12-02] MEDS: HYDROCORTISONE SUCCINATE 100 MG/2 ML VIAL IV SCH ×3 (00:05→16:22)
--- NOTE | 2017-12-02 01:42 | PN ---
PROGRESS NOTE DATE OF SERVICE: 12/01/2017 REASON FOR FOLLOWUP: 1. Left lower extremity cellulitis. 2. Gram-negative pneumonia. INTERVAL HISTORY: The patient is afebrile. The patient was extubated this morning. He has been breathing comfortably post extubation; slightly lethargic, though. No nausea or vomiting. Has some occasional cough; not bringing up any sputum. No abdominal pain. No pain in the left leg area. PHYSICAL EXAMINATION: Blood pressure 110/51 with a pulse of 53, temperature 98. He is 100% on 2 L nasal cannula. General description is a middle-aged male lying in bed in no distress. RESPIRATORY SYSTEM: Unlabored breathing. Clear to auscultation anteriorly. HEART: S1, S2. Regular rate and rhythm. ABDOMEN: Soft. No tenderness. LABS: Hemoglobin is 9 with a white count of 5.7. BUN of 46, creatinine 0.95. Sputum with a gram-negative, ID not known, but sensitive to Zosyn. DIAGNOSTIC IMPRESSION AND PLAN: 1. Patient admitted to hospital with sepsis and septic shock. Source is left lower extremity cellulitis. Concern about possible myositis/fasciitis that has been treated medically, as the patient's family refuses admission of the patient to tertiary care. Patient is currently on daptomycin. That will be continued. 2. Patient with gram-negative pneumonia, currently covered with Zosyn. That will be continued. Transition to oral once his oral intake is improved. Continue with supportive care. MMODL / IJN: [id number] /
[2017-12-02 04:21] LABS: Glucose,Whole Blood 148 mg/dL (75-99)
[2017-12-02 05:07] LABS: HCT 29.7 % (39.0-53.0); HGB 9.2 gm/dL (13.0-17.5); Hypochromasia Slight; MCH 29.5 pg (25.0-35.0); MCV 95.1 fL (80.0-100.0); Mean Platelet Volume 8.4; Platelet Count 174 k/uL (150-450); RBC 3.12 m/uL (4.30-5.90); RDW 14.5 % (11.5-15.5); WBC 5.8 k/uL (3.8-10.6)
[2017-12-02 05:33] LABS: ALT 92 U/L (21-72); AST 33 U/L (17-59); Albumin 1.8 g/dL (3.5-5.0); Alkaline Phosphatase 296 U/L (38-126); Anion Gap 3 mmol/L; Blood Urea Nitrogen 36 mg/dL (9-20); Calcium 7.6 mg/dL (8.4-10.2); Carbon Dioxide 28 mmol/L (22-30); Chloride 113 mmol/L (98-107); Glucose 147 mg/dL (74-99); Magnesium 2.2 mg/dL (1.6-2.3); Phosphorus 3.5 mg/dL (2.5-4.5); Potassium 3.2 mmol/L (3.5-5.1); Sodium 144 mmol/L (137-145); Total Bilirubin 1.2 mg/dL (0.2-1.3); Total Protein 3.8 g/dL (6.3-8.2)
[2017-12-02] MEDS: POTASSIUM CHLORIDE ER 20 MEQ TAB.ER PO SCH ×5 (08:08→18:17)
[2017-12-02] MEDS: PANTOPRAZOLE 40 MG/10 ML VIAL IV SCH (08:11)
[2017-12-02] MEDS: LISINOPRIL 2.5 MG TAB PO SCH (08:14)
[2017-12-02] MEDS: ENOXAPARIN 40 MG/0.4 ML SYRINGE SQ SCH (08:14)
[2017-12-02] MEDS: CARVEDILOL 3.125 MG TAB PO SCH ×2 (08:27→18:17)
[2017-12-02 08:39] LABS: Glucose,Whole Blood 204 mg/dL (75-99)
--- NOTE | 2017-12-02 08:42 | P.PN ---
Subjective Progress Note Date: 12/02/17 Principal diagnosis: Sepsis, cellulitis, acute kidney injury Progress note dated 12/01/2017 This is a 57-year-old male who was admitted on November 24 and intubated on November 25. The patient came in with respiratory failure, sepsis, cellulitis , acute kidney injury, and stage IV melanoma. The patient was intubated and remains on volume assist control mode on the . Currently, the patient's on the assist control mode rate of 20, tidal volume 450, FiO2 20%, and PEEP of 5. Arterial blood gases show a PaO2 of 81 a PaCO2 of 44 and a pH 7.54. The patient is receiving dextrose at 100 mL an hour and vital AF at 57 with a goal of 57 mL an hour. Sputum Gram stain is negative. Currently, the patient is not receiving any sedation. We'll place him on pressure support of 5 and CPAP of 5 and after 30 minutes, we'll get a full set a weaning parameters including atenolol I am, minute volume, respiratory rate, negative inspiratory force, rapid shallow breathing index, and cuff leak test. He may or may not get an arterial blood gas. At that point, we'll make a decision about possible extubation. He slowed open his eyes and his mental status is somewhat poor as that may be a negative against extubation. The patient is a DO NOT RESUSCITATE. On 12/02/2017 patient seen again in follow-up in intensive care unit. He was extubated yesterday, this morning he is doing well, tolerating extubation well, pulse ox on 2 L per nasal cannula is 100%, patient is afebrile, hemodynamically stable. He is awake, alert, responding appropriately, denies any distress, he states he does get dyspneic with exertion, such as repositioning. Has a weak cough, has severe generalized weakness. We will provide her incentive spirometer, and encourage patient to deep breathe and cough. No new chest x- ray today. Microbiology showed sputum culture positive for gram-negative rods, patient is covered with Zosyn. Left leg cellulitis, with possible myositis/ fasciitis is being treated medically per family's request, patient is on daptomycin. Transfer to a tertiary hospital was suggested to the family, but they opted to remain in this hospital, and continue medical treatment. Patient is taking in soft diet, tolerating it well. His labs reviewed, WBC is 5.8, hemoglobin is 9.2, sodium is 144, potassium 3.2, chloride is 113, BUN is 36, creatinine 0.97. Potassium is being replaced per protocol, CO2 is 28. Patient was negative for C. diff this admission. He is having ongoing diarrhea, had 3 bowel movements today. Sodium today is 144, his maintenance IV fluids his D5W at a rate of 100 ML per hour. Objective - Vital Signs Vital signs: Vital Signs Temp 97.6 F 12/02/17 04:00 Pulse 63 12/02/17 07:00 Resp 21 12/02/17 07:00 BP 82/53 11/28/17 05:00 Pulse Ox 100 12/02/17 07:00 Intake & Output 12/01/17 12/02/17 12/02/17 18:59 06:59 18:59 Intake Total 2406 1946.5 116 Output Total 1510 1255 125 Balance 896 691.5 -9 Weight 85.5 kg 84.3 kg Intake: IV 1685 1526.5 116 0.9 pressure bags 75 69 6 DAPTOmycin 500 mg In 50 Sodium Chloride 0.9% 50 ml @ 100 mls/hr IVPB Q24H [facility] Rx#:[id number] Dextrose 5% in Water 1, 1300 1200 100 000 ml @ 100 mls/hr IV . Q10H [facility] Rx#:[id number] Piperacillin-Tazobactam 3 150 37.5 .375 gm In Dextrose/Water 1 50ml.bag @ 12.5 mls/hr IVPB Q8HR [facility] Rx#: [id number] Sodium Chloride 0.9% 1, 60 70 10 000 ml @ 10 mls/hr IV . Q24H [facility] Rx#:[id number] metroNIDAZOLE-NS PMX 500 100 100 mg In Saline 1 100ml.bag @ 100 mls/hr IVPB Q8HR [facility] Rx#:[id number] Intake, IV Titration 250 Amount Potassium Chloride 40 meq 250 In Sodium Chloride 0.9% 250 ml @ 62.5 mls/hr IVPB Q4H [facility] Rx#:[id number] Oral 420 Tube Feeding 171 Other 300 Output: Urine 1510 1255 125 Other: Voiding Method Indwelling Catheter Indwelling Catheter # Bowel Movements 1 1 ABP, PAP, CO, CI - Last Documented Arterial Blood Pressure 135/69 - Exam GENERAL EXAM: Alert, pleasant, generally weak 57-year-old white male, comfortable in no apparent distress. HEAD: Normocephalic/atraumatic. EYES: Normal reaction of pupils, equal size. Conjunctiva pink, sclera white. NOSE: Clear with pink turbinates. THROAT: No erythema or exudates. NECK: No masses, no JVD, no thyroid enlargement, no adenopathy. CHEST: No chest wall deformity. Symmetrical expansion. LUNGS: Equal air entry with bibasilar crackles, and diminished at the bases CVS: Regular rate and rhythm, normal S1 and S2, no gallops, no murmurs, no rubs ABDOMEN: Soft, nontender. No hepatosplenomegaly, normal bowel sounds, no guarding or rigidity. EXTREMITIES: No clubbing, no cyanosis, 2+ pulses and upper and lower extremities. Patient has upper and lower extremity edema. Bilateral lower extremities are Yvan wrapped, left lower leg has cellulitis rash, covered with a dressing, mid boot is on left leg. MUSCULOSKELETAL: Muscle strength and tone normal. SPINE: No scoliosis or deformity SKIN: No rashes CENTRAL NERVOUS SYSTEM: Alert and oriented to self and place. Patient has severe generalized weakness, his speech is slow, but appropriate - Labs CBC & Chem 7: 12/02/17 04:20 12/02/17 04:20 Labs: Abnormal Lab Results - Last 24 Hours (Table) 12/01/17 12/01/17 12/01/17 Range/Units 09:56 12:17 23:51 RBC (4.30-5.90) m/uL Hgb (13.0-17.5) gm/dL Hct (39.0-53.0) % Potassium (3.5-5.1) mmol/L Chloride (98-107) mmol/L BUN (9-20) mg/dL Glucose (74-99) mg/dL POC Glucose (mg/dL) 223 H 185 H 116 H (75-99) mg/dL Calcium (8.4-10.2) mg/dL ALT (21-72) U/L Alkaline Phosphatase (38-126) U/L Total Protein (6.3-8.2) g/dL Albumin (3.5-5.0) g/dL 12/02/17 12/02/17 12/02/17 Range/Units 04:19 04:20 04:20 RBC 3.12 L (4.30-5.90) m/uL Hgb 9.2 L (13.0-17.5) gm/dL Hct 29.7 L (39.0-53.0) % Potassium 3.2 L (3.5-5.1) mmol/L Chloride 113 H (98-107) mmol/L BUN 36 H (9-20) mg/dL Glucose 147 H (74-99) mg/dL POC Glucose (mg/dL) 148 H (75-99) mg/dL Calcium 7.6 L (8.4-10.2) mg/dL ALT 92 H (21-72) U/L Alkaline Phosphatase 296 H (38-126) U/L Total Protein 3.8 L (6.3-8.2) g/dL Albumin 1.8 L (3.5-5.0) g/dL Microbiology - Last 24 Hours (Table) 11/29/17 18:28 Anaerobic Culture - Preliminary Foot - Left 11/29/17 17:57 Gram Stain - Final Foot - Left Wound Culture - Final 11/25/17 01:56 Gram Stain - Preliminary Sputum Sputum Culture - Preliminary Gram Neg Jake Non-Bulker Assessment and Plan Plan: Assessment: Acute hypoxic respiratory failure secondary to septic shock, secondary to acute cellulitis of the left lower extremity. History of stage IV melanoma, on clinical trials. Acute kidney injury secondary to ATN and septic shock almost back to normal with creatinine of 1.06 today. Recent C. difficile colitis. Not documented on this admission.remains on Flagyl. Acute hypernatremia secondary to free water deficit, resolved Nonischemic cardiomyopathy as noted on his echocardiogram. Being addressed by cardiology. Metabolic encephalopathy improving today, but the patient seems to have significant weakness and possibly polyneuropathy. Plan: Encourage deep breathing and coughing, provided incentive spirometry. Aspiration precautions, patient has extremely weak cough, needs supervision and assistance with meals. Hemodynamic stable, renal profile has improved, patient is nonoliguric. No new chest x-rays today, GI and DVT prophylaxis, consult physical therapy and mobilization. Antibiotic's per ID service. No acute issues overnight. Still for transfer out of the intensive care unit today to general medical floor I performed a history & physical examination of the patient and discussed their management with my nurse practitioner, Yancy Gold. I reviewed the nurse practitioner's note and agree with the documented findings and plan of care. Lung sounds are positive for diminished, with bibasilar crackles. The findings and the impression was discussed with the patient. I attest to the documentation by the nurse practitioner. Time with Patient: Greater than 30
[2017-12-02] MEDS: IPRATROPIUM-ALBUTEROL 3 ML NEB INHALATION SCH ×4 (08:44→19:57)
--- NOTE | 2017-12-02 08:48 | PN ---
PROGRESS NOTE DATE OF SERVICE: 12/01/2017 PRESENT COMPLAINT: Tired. INTERVAL HISTORY: This patient in the ICU presented with severe cellulitis in left lower extremity and also pneumonia, is on broad-spectrum antibiotics. Patient was in acute renal failure, now creatinine has recovered. The patient was extubated earlier today, on 2 L nasal cannula. No following commands. Patient is on a clear liquid diet. Patient pretty much has been in bed. Telemetry shows sinus rhythm. Patient has a diaper rash for which he is being treated. Patient's sister did obtain power of insurance defense attorney, but now patient is able to actually follow commands. REVIEW OF SYSTEMS: Done for constitutional, cardiovascular, GI, pulmonary, dermatological; relevant findings as above. CURRENT MEDICATIONS: Reviewed that include DuoNeb, Coreg, IV daptomycin, IV fluids, Lovenox, IV Solu-Cortef, Levemir, Zestril, IV Flagyl, triple antibiotic topical, IV Zosyn. PHYSICAL EXAMINATION: Afebrile, pulse 53, respiration 23, blood pressure 125/65, pulse ox 100% on 4 L. GENERAL APPEARANCE: Lying in bed, tired appearing. EYES: Pupils equal, conjunctivae are normal. HEENT: External appearance of nose and ears normal. Oral cavity dry. NECK: JVD unable to assess. Mass not palpable. RESPIRATORY: Effort increased. LUNGS: Decreased breath sounds, some crackles. CARDIOVASCULAR: First and second sounds normal, some edema. ABDOMEN: Soft, nontender, Liver and spleen not palpable. LYMPHATIC: No lymph node enlargement in neck axillae. PSYCHIATRY: Answering simple questions. EXTREMITIES: Dressing over the left leg. INVESTIGATIONS: White count 5.7, hemoglobin 9. Blood gases show a pH of 7.54, potassium of 3, BUN 46, creatinine 0.95, albumin of 1.8. Chest x-ray, bilateral consolidation. ASSESSMENT: 1. Bilateral pneumonia, suspect gram-negative organism, probably causing sepsis present on admission. 2. Left lower extremity cellulitis causing sepsis, present on admission. 3. Acute renal failure likely acute tubular necrosis, now recovered. 4. Hypokalemia. 5. Hyperchloremia. 6. Hyperbilirubinemia. 7. Hypoalbuminemia, possibly acute phase reactant. 8. Acute hypoxic respiratory failure secondary to pneumonia. 9. Normocytic anemia, cause unknown. 10.Stage IV lymphoma. PLAN: Continue with DuoNeb, IV daptomycin, IV Flagyl, IV Zosyn. Prognosis guarded. No family currently present. Antibiotics to be coordinated by Dr. Aburto. Care was discussed with the nurse. MMODL / IJN: [id number] /
[2017-12-02] MEDS: INSULIN DETEMIR 100 UNIT/ML 10 ML VIAL SQ SCH (08:56)
[2017-12-02] MEDS: AMPICILLIN-SULBACTAM 3 GM in SODIUM CHLORIDE 0.9% 100 ML IVPB SCH (13:56)
[2017-12-02] MEDS: NEOMYCIN-BACITRACIN-POLY OINT 14 GM TUBE TOPICAL SCH (16:21)
[2017-12-02 16:36] LABS: Glucose,Whole Blood 196 mg/dL (75-99)
--- NOTE | 2017-12-02 19:02 | PN ---
PROGRESS NOTE DATE OF SERVICE: 12/02/2017 PRESENTING COMPLAINT: Tired. INTERVAL HISTORY: This patient, who was initially in the ICU, presented with severe cellulitis of left lower extremity and pneumonia. He also was in acute renal failure. Creatinine since has recovered. The patient was on the ventilator, now moved out of the ICU to the medical floor. Tolerating a soft diet. Tired. Answering questions. REVIEW OF SYSTEMS: Done for constitutional, cardiovascular, GI, pulmonary; relevant findings as above. CURRENT MEDICATIONS: Reviewed. They include: 1. DuoNeb. 2. Coreg. 3. IV daptomycin. 4. IV fluids. 5. Levemir. 6. Zestril. 7. IV Flagyl. 8. IV Zosyn. PHYSICAL EXAMINATION: Temperature 96.9, pulse 61, respiration 15, blood pressure 115/61, pulse ox 98% on 2 L. GENERAL APPEARANCE: Lying in bed, awake, tired-appearing. EYES: Pupils equal. Conjunctivae normal. HEENT: External appearance of nose and ears normal. Oral cavity normal. NECK: JVD unable to assess. Mass not palpable. RESPIRATORY: Effort increased. LUNGS: Decreased breath sounds. CARDIOVASCULAR: First and second sounds normal. Edema present. ABDOMEN: Soft, non-tender. Liver and spleen not palpable. PSYCHIATRY: Awake. Answering simple questions. EXTREMITIES: Dressing over the legs. INVESTIGATIONS: White count 5.8, hemoglobin 9.2, potassium 3.2, BUN 36, creatinine 0.97. ASSESSMENT: 1. Bilateral pneumonia; suspect gram-negative organism probably causing sepsis, present on admission, with improvement. 2. Left lower extremity cellulitis causing sepsis, present on admission. 3. Acute renal failure, likely acute tubular necrosis, now resolved. 4. Hypokalemia. 5. Hyperchloremia. 6. Hyperbilirubinemia. 7. Hypoalbuminemia, probably an acute phase reactant. 8. Acute hypoxic respiratory failure secondary to pneumonia, improving. 9. Normocytic anemia, cause unknown. 10.Stage IV lymphoma. PLAN: Prognosis is guarded. Continue current medication and treatment plan, antibiotics per Dr. Aburto. Will follow. MMODL / IJN: [id number] /
[2017-12-02 20:48] LABS: Glucose,Whole Blood 259 mg/dL (75-99)
[2017-12-02] MEDS: DAPTOmycin 500 MG in SODIUM CHLORIDE 0.9% 50 ML IVPB SCH (21:41)
--- NOTE | 2017-12-02 23:23 | PN ---
PROGRESS NOTE DATE OF SERVICE: 12/02/2017 REASON FOR FOLLOWUP: 1. Left leg cellulitis. 2. Gram-negative pneumonia. INTERVAL HISTORY: The patient is afebrile. He has been breathing comfortably. Denies having any chest pain or shortness of breath. Occasional cough. No abdominal pain and no diarrhea. PHYSICAL EXAMINATION: Blood pressure 105/62 with a pulse of 64, temperature 97. He is 94% on room air. General description is a middle-aged male lying in bed in no distress. RESPIRATORY SYSTEM: Unlabored breathing. Clear to auscultation anteriorly. HEART: S1, S2. Regular rate and rhythm. ABDOMEN: Soft. No tenderness. Left leg is currently dressed up. No obvious drainage on the dressing. LABS: Hemoglobin is 9.2, white count 5.8. BUN of 36, creatinine 0.97. DIAGNOSTIC IMPRESSION AND PLAN: Patient admitted to hospital with sepsis, source left lower extremity cellulitis, currently covered with daptomycin with gram-negative pneumonia. Patient has shown clinical improvement and the patient improve hopefully finish therapy with oral antibiotic on discharge. Continue with supportive care. MMODL / IJN: [id number] /
[2017-12-03 00:17] LABS: Glucose,Whole Blood 217 mg/dL (75-99)
[2017-12-03] MEDS: metroNIDAZOLE-NS PMX 500 MG in SALINE 1 100ML.BAG IVPB SCH ×3 (00:33→15:55)
[2017-12-03] MEDS: HYDROCORTISONE SUCCINATE 100 MG/2 ML VIAL IV SCH ×3 (00:33→15:56)
[2017-12-03] MEDS: PIPERACILLIN-TAZOBACTAM 3.375 GM in DEXTROSE/WATER 1 50ML.BAG IVPB SCH ×3 (00:33→16:02)
[2017-12-03] MEDS: INSULIN ASPART 100 UNIT/ML 1 ML 10 ML VIAL SQ SCH ×5 (00:33→21:24)
[2017-12-03 04:19] LABS: Glucose,Whole Blood 162 mg/dL (75-99)
[2017-12-03 07:42] LABS: Glucose,Whole Blood 132 mg/dL (75-99)
[2017-12-03] MEDS: CARVEDILOL 3.125 MG TAB PO SCH ×2 (07:43→17:38)
[2017-12-03] MEDS: PANTOPRAZOLE 40 MG/10 ML VIAL IV SCH (07:43)
[2017-12-03] MEDS: ENOXAPARIN 40 MG/0.4 ML SYRINGE SQ SCH (07:44)
[2017-12-03] MEDS: LISINOPRIL 2.5 MG TAB PO SCH (07:45)
[2017-12-03] MEDS: NEOMYCIN-BACITRACIN-POLY OINT 14 GM TUBE TOPICAL SCH (07:45)
[2017-12-03] MEDS: IPRATROPIUM-ALBUTEROL 3 ML NEB INHALATION SCH ×4 (09:07→19:40)
[2017-12-03 09:31] LABS: Anion Gap 3 mmol/L; Blood Urea Nitrogen 27 mg/dL (9-20); Calcium 7.7 mg/dL (8.4-10.2); Carbon Dioxide 30 mmol/L (22-30); Chloride 112 mmol/L (98-107); Glucose 119 mg/dL (74-99); Potassium 3.4 mmol/L (3.5-5.1); Sodium 145 mmol/L (137-145)
[2017-12-03] MEDS ORDERED: FUROSEMIDE 10 MG/ML 4 ML VIAL IV STA (10:13)
[2017-12-03] MEDS ORDERED: Potassium Replacement Protocol 1 EACH MISC MISCELLANE PRN (10:14)
[2017-12-03] MEDS: INSULIN DETEMIR 100 UNIT/ML 10 ML VIAL SQ SCH (10:36)
[2017-12-03] MEDS: ARTIFICIAL TEARS-HYPROMELLOSE DROPS 15 ML BTL BOTH EYES PRN ×2 (10:37→20:40)
[2017-12-03] MEDS: POTASSIUM CHLORIDE ER 20 MEQ TAB.ER PO SCH ×2 (11:30→12:22)
--- NOTE | 2017-12-03 11:40 | P.PN ---
Subjective Progress Note Date: 12/03/17 Principal diagnosis: Sepsis, cellulitis, acute kidney injury Progress note dated 12/01/2017 This is a 57-year-old male who was admitted on November 24 and intubated on November 25. The patient came in with respiratory failure, sepsis, cellulitis , acute kidney injury, and stage IV melanoma. The patient was intubated and remains on volume assist control mode on the . Currently, the patient's on the assist control mode rate of 20, tidal volume 450, FiO2 20%, and PEEP of 5. Arterial blood gases show a PaO2 of 81 a PaCO2 of 44 and a pH 7.54. The patient is receiving dextrose at 100 mL an hour and vital AF at 57 with a goal of 57 mL an hour. Sputum Gram stain is negative. Currently, the patient is not receiving any sedation. We'll place him on pressure support of 5 and CPAP of 5 and after 30 minutes, we'll get a full set a weaning parameters including atenolol I am, minute volume, respiratory rate, negative inspiratory force, rapid shallow breathing index, and cuff leak test. He may or may not get an arterial blood gas. At that point, we'll make a decision about possible extubation. He slowed open his eyes and his mental status is somewhat poor as that may be a negative against extubation. The patient is a DO NOT RESUSCITATE. On 12/02/2017 patient seen again in follow-up in intensive care unit. He was extubated yesterday, this morning he is doing well, tolerating extubation well, pulse ox on 2 L per nasal cannula is 100%, patient is afebrile, hemodynamically stable. He is awake, alert, responding appropriately, denies any distress, he states he does get dyspneic with exertion, such as repositioning. Has a weak cough, has severe generalized weakness. We will provide her incentive spirometer, and encourage patient to deep breathe and cough. No new chest x- ray today. Microbiology showed sputum culture positive for gram-negative rods, patient is covered with Zosyn. Left leg cellulitis, with possible myositis/ fasciitis is being treated medically per family's request, patient is on daptomycin. Transfer to a tertiary hospital was suggested to the family, but they opted to remain in this hospital, and continue medical treatment. Patient is taking in soft diet, tolerating it well. His labs reviewed, WBC is 5.8, hemoglobin is 9.2, sodium is 144, potassium 3.2, chloride is 113, BUN is 36, creatinine 0.97. Potassium is being replaced per protocol, CO2 is 28. Patient was negative for C. diff this admission. He is having ongoing diarrhea, had 3 bowel movements today. Sodium today is 144, his maintenance IV fluids his D5W at a rate of 100 ML per hour. On patient seen in follow-up on medical surgical floor. He is resting in bed, in no acute distress, there is to be a bit stronger, his voice is little louder. There is still significant generalized edema, and patient is unable to raise his arms or legs, he is barely able to make a fist, he is only able to wiggle his toes. Denies any distress, denies any chest pain or shortness of breath, he is currently on room air, his pulse ox is 99%. He is afebrile. Her, diminished at the bases. 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 ID service is following, wound cultures were negative, urine and blood cultures were negative. Patient has generalized anasarca, we will order a dose of IV Lasix. Objective - Vital Signs Vital signs: Vital Signs Temp 97.5 F L 12/03/17 07:00 Pulse 57 L 12/03/17 07:00 Resp 18 12/03/17 07:00 BP 135/70 12/03/17 07:00 Pulse Ox 99 12/03/17 07:00 Intake & Output 12/02/17 12/03/17 12/03/17 18:59 06:59 18:59 Intake Total 2084 600 Output Total 1125 1550 Balance 959 -1550 600 Weight 84.3 kg 85 kg 85 kg Intake: IV 1484 0.9 pressure bags 24 Dextrose 5% in Water 1, 1300 000 ml @ 100 mls/hr IV . Q10H [facility] Rx#:[id number] Piperacillin-Tazobactam 3 50 .375 gm In Dextrose/Water 1 50ml.bag @ 12.5 mls/hr IVPB Q8HR [facility] Rx#: [id number] Sodium Chloride 0.9% 1, 10 000 ml @ 10 mls/hr IV . Q24H [facility] Rx#:[id number] metroNIDAZOLE-NS PMX 500 100 mg In Saline 1 100ml.bag @ 100 mls/hr IVPB Q8HR [facility] Rx#:[id number] Oral 600 600 Output: Urine 1125 1550 Other: Voiding Method Indwelling Catheter Indwelling Catheter Indwelling Catheter # Bowel Movements 1 ABP, PAP, CO, CI - Last Documented Arterial Blood Pressure 135/67 - Exam GENERAL EXAM: Alert, pleasant, generally weak 57-year-old white male, comfortable in no apparent distress. HEAD: Normocephalic/atraumatic. EYES: Normal reaction of pupils, equal size. Conjunctiva pink, sclera white. NOSE: Clear with pink turbinates. THROAT: No erythema or exudates. NECK: No masses, no JVD, no thyroid enlargement, no adenopathy. CHEST: No chest wall deformity. Symmetrical expansion. LUNGS: Equal air entry with bibasilar crackles, and diminished at the bases CVS: Regular rate and rhythm, normal S1 and S2, no gallops, no murmurs, no rubs ABDOMEN: Soft, nontender. No hepatosplenomegaly, normal bowel sounds, no guarding or rigidity. EXTREMITIES: No clubbing, no cyanosis, 2+ pulses and upper and lower extremities. Patient has upper and lower extremity edema. Bilateral lower extremities are Yvan wrapped, left lower leg has cellulitis rash, covered with a dressing, mid boot is on left leg. MUSCULOSKELETAL: Muscle strength and tone normal. SPINE: No scoliosis or deformity SKIN: No rashes CENTRAL NERVOUS SYSTEM: Alert and oriented to self and place. Patient has severe generalized weakness, his speech is slow, but appropriate - Labs CBC & Chem 7: 12/02/17 04:20 12/03/17 08:31 Labs: Abnormal Lab Results - Last 24 Hours (Table) 12/02/17 12/02/17 12/03/17 Range/Units 16:23 20:46 00:15 Potassium (3.5-5.1) mmol/L Chloride (98-107) mmol/L BUN (9-20) mg/dL Glucose (74-99) mg/dL POC Glucose (mg/dL) 196 H 259 H 217 H (75-99) mg/dL Calcium (8.4-10.2) mg/dL 12/03/17 12/03/17 12/03/17 Range/Units 04:16 07:38 08:31 Potassium 3.4 L (3.5-5.1) mmol/L Chloride 112 H (98-107) mmol/L BUN 27 H (9-20) mg/dL Glucose 119 H (74-99) mg/dL POC Glucose (mg/dL) 162 H 132 H (75-99) mg/dL Calcium 7.7 L (8.4-10.2) mg/dL Assessment and Plan Plan: Assessment: Acute hypoxic respiratory failure secondary to septic shock, secondary to acute cellulitis of the left lower extremity. History of stage IV melanoma, on clinical trials. Acute kidney injury secondary to ATN and septic shock almost back to normal with creatinine of 1.06 today. Recent C. difficile colitis. Not documented on this admission.remains on Flagyl. Acute hypernatremia secondary to free water deficit, resolved Nonischemic cardiomyopathy as noted on his echocardiogram. Being addressed by cardiology. Metabolic encephalopathy improving today, but the patient seems to have significant weakness and possibly polyneuropathy. Plan: Continue current medical treatment, continue aspiration precautions, provided incentive spirometer. Encourage deep breathing and coughing. Patient has significant generalized anasarca, we will give a dose of IV Lasix. Continue nebulized bronchodilators. GI and DVT prophylaxis. I performed a history & physical examination of the patient and discussed their management with my nurse practitioner, Yancy Gold. I reviewed the nurse practitioner's note and agree with the documented findings and plan of care. Lung sounds are positive for diminished, with bibasilar crackles. The findings and the impression was discussed with the patient. I attest to the documentation by the nurse practitioner. Time with Patient: Less than 30
[2017-12-03 12:08] LABS: Glucose,Whole Blood 166 mg/dL (75-99)
--- NOTE | 2017-12-03 13:24 | P.PN ---
Subjective Mr. Spence is seen and examined sitting up in bed with spouse at the bedside. He was extubated and transferred to the medical floor. He denies chest pain, shortness of breath, dizziness or palpitations. Blood pressure tolerating coreg and lisinopril that has been added, 135/70 heart rate 57. Telemetry tracings indicate sinus mechanism with no acute arrhythmia. Laboratory data reviewed, potassium 3.4, sodium 145, creatinine 0.95. Objective - Vital Signs Vital signs: Vital Signs Temp 97.5 F L 12/03/17 07:00 Pulse 57 L 12/03/17 07:00 Resp 18 12/03/17 07:00 BP 135/70 12/03/17 07:00 Pulse Ox 99 12/03/17 07:00 Intake & Output 12/02/17 12/03/17 12/03/17 18:59 06:59 18:59 Intake Total 2084 600 Output Total 1125 1550 Balance 959 -1550 600 Weight 84.3 kg 85 kg 85 kg Intake: IV 1484 0.9 pressure bags 24 Dextrose 5% in Water 1, 1300 000 ml @ 100 mls/hr IV . Q10H [facility] Rx#:[id number] Piperacillin-Tazobactam 3 50 .375 gm In Dextrose/Water 1 50ml.bag @ 12.5 mls/hr IVPB Q8HR [facility] Rx#: [id number] Sodium Chloride 0.9% 1, 10 000 ml @ 10 mls/hr IV . Q24H [facility] Rx#:[id number] metroNIDAZOLE-NS PMX 500 100 mg In Saline 1 100ml.bag @ 100 mls/hr IVPB Q8HR [facility] Rx#:[id number] Oral 600 600 Output: Urine 1125 1550 Other: Voiding Method Indwelling Catheter Indwelling Catheter Indwelling Catheter # Bowel Movements 1 ABP, PAP, CO, CI - Last Documented Arterial Blood Pressure 135/67 - Exam GENERAL: Well-appearing, well-nourished and in no acute distress. NECK: Supple without JVD or thyromegaly. LUNGS: Breath sounds clear to auscultation bilaterally. Respiration equal and unlabored. No wheezes, rales or rhonchi. HEART: Regular rate and rhythm without murmurs, rubs or gallops. S1 and S2 heard. EXTREMITIES: Diffuse edema to hands and lower extremities. Yvan wraps in place bilaterally. - Labs CBC & Chem 7: 12/02/17 04:20 12/03/17 08:31 Labs: Abnormal Lab Results - Last 24 Hours (Table) 12/02/17 12/02/17 12/03/17 Range/Units 16:23 20:46 00:15 Potassium (3.5-5.1) mmol/L Chloride (98-107) mmol/L BUN (9-20) mg/dL Glucose (74-99) mg/dL POC Glucose (mg/dL) 196 H 259 H 217 H (75-99) mg/dL Calcium (8.4-10.2) mg/dL 12/03/17 12/03/17 12/03/17 Range/Units 04:16 07:38 08:31 Potassium 3.4 L (3.5-5.1) mmol/L Chloride 112 H (98-107) mmol/L BUN 27 H (9-20) mg/dL Glucose 119 H (74-99) mg/dL POC Glucose (mg/dL) 162 H 132 H (75-99) mg/dL Calcium 7.7 L (8.4-10.2) mg/dL 12/03/17 Range/Units 12:04 Potassium (3.5-5.1) mmol/L Chloride (98-107) mmol/L BUN (9-20) mg/dL Glucose (74-99) mg/dL POC Glucose (mg/dL) 166 H (75-99) mg/dL Calcium (8.4-10.2) mg/dL Assessment and Plan Assessment: ASSESSMENT Nonischemic cardiomyopathy, EF 20-25% Acute respiratory failure Cellulitis of left lower extremity Septic shock Acute kidney injury, improved since admission. Creatinine down to 0.95 from peak of 2.84 Hypokalemia, on replacement per protocol C. diff Stage IV melanoma, on clinical trials Mitral regurgitation Pulmonary hypertension, RVSP 36.93 mmHg PLAN Tolerating lisinopril and coreg at current doses. Continue current medical regimen. Consider small dose of PO lasix daily. Follow up with Dr. Young at discharge. Nurse Practitioner note has been reviewed, I agree with a documented findings and plan of care. Patient was seen and examined.
--- NOTE | 2017-12-03 15:27 | PN ---
PROGRESS NOTE DATE OF SERVICE: 12/03/2017 REASON FOR FOLLOWUP: 1. Left leg cellulitis. 2. Gram-negative pneumonia. INTERVAL HISTORY: The patient is currently afebrile. He is breathing comfortably. Denies having any chest pain or shortness of breath, no cough, no abdominal pain, no diarrhea. Denies pain to the left foot, leg area. He did have a blister on the left foot that has opened up, but no purulent drainage. PHYSICAL EXAMINATION: Blood pressure 110/59 with a pulse of 64 temperature 97.8. He is 94% on room air. General description is a middle-aged male, lying in bed in no distress. RESPIRATORY SYSTEM: Unlabored breathing, clear to auscultation anteriorly. HEART: S1, S2. Regular rate and rhythm. ABDOMEN: Soft, no tenderness. The left leg is currently dressed up, no obvious drainage on the dressing. LABS: BUN of 27, creatinine 0.95. DIAGNOSTIC IMPRESSION AND PLAN: Patient admitted to the hospital with sepsis with left leg cellulitis with gram- negative pneumonia. Patient currently covered with daptomycin and Zosyn. He did have a blister left foot has opened up, but no purulent drainage. PLAN: At this time is to keep the patient on his antibiotic finishing therapy with oral antibiotics. On discharge, continue supportive care. MMODL / IJN: [id number] /
[2017-12-03] MEDS: ACETAMINOPHEN TAB 325 MG TAB PO PRN (15:56)
--- NOTE | 2017-12-03 16:53 | P.CONS ---
History of Present Illness - Chief Complaint Medical debility - History of Present Illness I had the opportunity to see patient for inpatient rehab consultation with regard to medical debility. He was admitted to [facility] November 24 left leg pain, swelling, diarrhea, diagnosis of sepsis and cellulitis. Known stage IV melanoma with metastatic sits. Seen by Dr. Salinas who notes acute hypoxic respiratory failure and acute kidney injury. Seen by orthopedics who recommends tertiary care facility. Seen by Dr. Young who notes nonischemic cardiomyopathy. Tib-fib x-ray suspicious for medial malleolus fracture. Lower extremity Doppler negative for DVT. Lower extremity CT significant for multiple edema. Abdominal ultrasound shows right kidney without hydronephrosis. Chest x-ray demonstrates stable bilateral consolidation and effusion. PT reports total assistance for bed mobility and unable to assess standing or transfers. OT reports unable to assess any basic self-care tasks. Previous functional history as elicited patient: 57-year-old right-handed white male who is lives in 2 floor home alone. On disability related to cancer. Describes independent with own cooking, laundry, driving, sitdown shower and gait with [address] Jacinto is regular doctor. Doesn't smoke or drink. Family history mother with lupus. Review of Systems Review of systems: ENT: Denies sneezes or discharge. Eyes: Denies discharge or photophobia. Cardiac: Denies chest pain or palpitation. Pulmonary: Denies cough or shortness of breath. Gastrointestinal: Denies nausea, emesis, constipation, diarrhea. Genitourinary: Denies discharge or frequency. Musculoskeletal: Denies muscle or bone aches. Neurologic: Severe generalized weakness unable to lift any limb. Endocrine: Denies shakes or sweats. Oncology: Denies cancers. Dermatologic: Denies rash, itching, pruritus. ALLERGY/immunology: Denies sneezes, rashes. Past Medical History Past Medical History: Cancer, Prostate Disorder Additional Past Medical History / Comment(s): PARKINSON'S. 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, C-Diff History of Any Multi-Drug Resistant Organisms: C-DIFF Year Discovered:: unknown MDRO Source:: stool Past Surgical History: Tonsillectomy Additional Past Surgical History / Comment(s): rt axillary biopsy - POSITIVE FOR CANCER, LIP BX, RT SHOULDER MOLE BX , dental extraction Past Anesthesia/Blood Transfusion Reactions: No Reported Reaction Past Psychological History: No Psychological Hx Reported Smoking Status: Never smoker Past Alcohol Use History: None Reported Past Drug Use History: None Reported - Past Family History Mother Family Medical History: Cancer Additional Family Medical History / Comment(s): breast cancer also had moles removed - not sure if positive or not for cancer Father Family Medical History: Congestive Heart Failure (CHF) Additional Family Medical History / Comment(s): Parkinsons Medications and Allergies Home Medications Medication Instructions Recorded Confirmed Type Carbidopa-Levodopa 25-100 mg 1 tab PO TID 10/19/17 11/24/17 History [Sinemet 25-100] Pantoprazole [Protonix] 40 mg PO DAILY 11/24/17 11/24/17 History Pramipexole Di-HCl [Mirapex] 1.5 mg PO TID 11/24/17 11/24/17 History Vancomycin HCl 125 mg PO Q6H 11/24/17 11/24/17 History predniSONE 50 mg PO BID 11/24/17 11/24/17 History Allergies Allergy/AdvReac Type Severity Reaction Status Date / Time Sulfa (Sulfonamide Allergy Rash/Hives Verified 11/24/17 16:49 Antibiotics) Physical Exam Vitals: Vital Signs Temp Pulse Pulse Resp BP Pulse Ox 12/03/17 16:20 73 16 12/03/17 15:00 97.7 F 73 16 100/57 94 L 12/03/17 14:25 97.8 F 64 15 110/59 94 L 12/03/17 13:19 62 12/03/17 07:00 97.5 F L 57 L 18 135/70 99 12/02/17 22:42 97.0 F L 64 17 105/62 94 L 12/02/17 20:16 60 12/02/17 20:01 60 Intake and Output 12/03/17 12/03/17 12/03/17 06:59 14:59 22:59 Intake Total 1350 Output Total 800 1400 600 Balance -800 -50 -600 Intake: IV 150 Piperacillin-Tazobactam 3 50 .375 gm In Dextrose/Water 1 50ml.bag @ 12.5 mls/hr IVPB Q8HR [facility] Rx#: [id number] metroNIDAZOLE-NS PMX 500 100 mg In Saline 1 100ml.bag @ 100 mls/hr IVPB Q8HR [facility] Rx#:[id number] Oral 1200 Output: Urine 800 1400 600 Other: Voiding Method Indwelling Catheter Indwelling Catheter Indwelling Catheter # Bowel Movements 1 1 Weight 85 kg 85 kg 85 kg Skin: Good color, texture, turgor. General: Medium build and comfortable appearance. Head: Normocephalic, atraumatic. Eyes: Symmetric. Pupils equal round. Ears: Symmetric. Hearing within normal limits. Mouth: Clear. Neck: Supple. Carotid without bruit. Cardiac: Regular rate and rhythm. Lungs: Clear anteriorly and posteriorly. Abdomen: Soft active nontender. Extremities: Normal tone. Neurological: Mental status: Alert, cooperative, pleasant. Cranial nerves: Symmetric facial tone and trapezius. Motor: No voluntary movement any limb. Sensation: Intact throughout. DTRs: Symmetric and equal throughout. Mobility: Total assistance for bed mobility. Results CBC & Chem 7: 12/02/17 04:20 12/03/17 08:31 Labs: Abnormal Lab Results - Last 24 Hours (Table) 12/02/17 12/03/17 12/03/17 Range/Units 20:46 00:15 04:16 Potassium (3.5-5.1) mmol/L Chloride (98-107) mmol/L BUN (9-20) mg/dL Glucose (74-99) mg/dL POC Glucose (mg/dL) 259 H 217 H 162 H (75-99) mg/dL Calcium (8.4-10.2) mg/dL 12/03/17 12/03/17 12/03/17 Range/Units 07:38 08:31 12:04 Potassium 3.4 L (3.5-5.1) mmol/L Chloride 112 H (98-107) mmol/L BUN 27 H (9-20) mg/dL Glucose 119 H (74-99) mg/dL POC Glucose (mg/dL) 132 H 166 H (75-99) mg/dL Calcium 7.7 L (8.4-10.2) mg/dL Assessment and Plan (1) Cellulitis of left lower extremity Current Visit: Yes Status: Acute Code(s): L03.116 - CELLULITIS OF LEFT LOWER LIMB SNOMED Code(s): 554881388 (2) Septic shock Current Visit: Yes Status: Acute Code(s): A41.9 - SEPSIS, UNSPECIFIED ORGANISM; R65.21 - SEVERE SEPSIS WITH SEPTIC SHOCK SNOMED Code(s): 66959309 Plan: Impression: 1. Medical debility. 2. Lower extremity cephalitis. 3. Septic shock. 4. Nonischemic artery biopsy. 5. Acute hypoxic respiratory failure. 6. Acute kidney injury. Comments and plan: At this time PT are ongoing but really there performing therapy on the patient rather than with the patient. At this time, patient has very poor rehab prognosis.
[2017-12-03 17:45] LABS: Glucose,Whole Blood 167 mg/dL (75-99)
[2017-12-03] MEDS: DAPTOmycin 500 MG in SODIUM CHLORIDE 0.9% 50 ML IVPB SCH (20:40)
[2017-12-03 21:20] LABS: Glucose,Whole Blood 214 mg/dL (75-99)
[2017-12-03] MEDS: CARBIDOPA-LEVODOPA 25-100 MG 1 EACH TAB PO SCH (21:24)
--- NOTE | 2017-12-03 23:50 | PN ---
PROGRESS NOTE DATE OF SERVICE: 12/03/2017 PRESENTING COMPLAINT: Tired. INTERVAL HISTORY: Patient initially was in the ICU, moved out of the same. Presented with severe cellulitis of left lower extremity and pneumonia. Also was in acute renal failure, which has resolved. The patient is status post being on the ventilator. Tolerating his diet well. Does talk slowly. REVIEW OF SYSTEMS: Done for constitutional, cardiovascular, GI, pulmonary; relevant findings as above. CURRENT MEDICATIONS: Reviewed. They include: 1. DuoNeb. 2. Sinemet. Home dose was resumed. 3. Coreg. 4. IV daptomycin. 5. IV Solu-Cortef. 6. IV Flagyl. 7. IV Zosyn. PHYSICAL EXAMINATION: Temperature 97.7, pulse 73, respiration 16, blood pressure 100/57, pulse ox 94% on room air. GENERAL APPEARANCE: Sitting up, tired-appearing. EYES: Pupils equal. Conjunctivae normal. HEENT: External appearance of nose and ears normal. Oral cavity normal. NECK: JVD unable to assess. Mass not palpable. RESPIRATORY: Effort normal. LUNGS: Diminished breath sounds. CARDIOVASCULAR: First and second sounds normal. Edema present. ABDOMEN: Soft, nontender. Liver and spleen not palpable. NEUROLOGICAL: Weakness in all the limbs. Speech is slow. EXTREMITIES: Dressing on the lower extremities. INVESTIGATIONS: Potassium 3.4, BUN 27, creatinine 0.95. ASSESSMENT: 1. Bilateral pneumonia; suspect gram-negative organism causing sepsis, present on admission, with improvement. 2. Left lower extremity cellulitis causing sepsis, present on admission. 3. Acute renal failure, likely acute tubular necrosis, now resolved. 4. Hypokalemia. 5. Hyperchloremia. 6. Hyperbilirubinemia. 7. Hypoalbuminemia, probably an acute phase reactant. 8. Acute hypoxic respiratory failure secondary to pneumonia, improving. 9. Normocytic anemia; cause unknown. 10.Stage IV lymphoma. 11.Parkinson disease. PLAN: Continue current medication and treatment plan. Antibiotics Dr. Aburto. Probably give 24 hours for the Parkinson medications to kick in. Right now patient needs full assist. Prognosis guarded. Will follow. MMODL / IJN: [id number] /
[2017-12-04] MEDS: metroNIDAZOLE-NS PMX 500 MG in SALINE 1 100ML.BAG IVPB SCH ×2 (00:06→08:20)
[2017-12-04] MEDS: PIPERACILLIN-TAZOBACTAM 3.375 GM in DEXTROSE/WATER 1 50ML.BAG IVPB SCH ×4 (00:06→23:15)
[2017-12-04] MEDS: HYDROCORTISONE SUCCINATE 100 MG/2 ML VIAL IV SCH ×4 (00:07→23:15)
[2017-12-04] MEDS ORDERED: POTASSIUM CHLORIDE 20 MEQ in WATER FOR INJECTION 1 100ML.BAG IVPB STA (07:06)
[2017-12-04 07:19] LABS: Glucose,Whole Blood 100 mg/dL (75-99)
[2017-12-04] MEDS: INSULIN ASPART 100 UNIT/ML 1 ML 10 ML VIAL SQ SCH ×4 (07:35→21:20)
[2017-12-04] MEDS: IPRATROPIUM-ALBUTEROL 3 ML NEB INHALATION SCH ×4 (08:08→20:29)
[2017-12-04] MEDS: CARBIDOPA-LEVODOPA 25-100 MG 1 EACH TAB PO SCH ×3 (08:19→21:20)
[2017-12-04] MEDS: LISINOPRIL 2.5 MG TAB PO SCH (08:19)
[2017-12-04] MEDS: ENOXAPARIN 40 MG/0.4 ML SYRINGE SQ SCH (08:20)
[2017-12-04] MEDS: PANTOPRAZOLE 40 MG/10 ML VIAL IV SCH (08:20)
[2017-12-04] MEDS: ARTIFICIAL TEARS-HYPROMELLOSE DROPS 15 ML BTL BOTH EYES PRN (08:20)
[2017-12-04] MEDS: CARVEDILOL 3.125 MG TAB PO SCH ×2 (08:21→17:16)
[2017-12-04 08:59] LABS: Anion Gap 0 mmol/L; Blood Urea Nitrogen 26 mg/dL (9-20); Calcium 7.7 mg/dL (8.4-10.2); Carbon Dioxide 33 mmol/L (22-30); Chloride 110 mmol/L (98-107); Glucose 100 mg/dL (74-99); Potassium 3.6 mmol/L (3.5-5.1); Sodium 143 mmol/L (137-145)
[2017-12-04] MEDS ORDERED: POTASSIUM CHLORIDE 10 MEQ in WATER FOR INJECTION 1 100ML.BAG IVPB STA (09:54)
[2017-12-04] MEDS: INSULIN DETEMIR 100 UNIT/ML 10 ML VIAL SQ SCH (10:43)
--- NOTE | 2017-12-04 10:55 | P.PN ---
Subjective Progress Note Date: 12/04/17 Principal diagnosis: Sepsis, cellulitis, acute kidney injury Progress note dated 12/01/2017 This is a 57-year-old male who was admitted on November 24 and intubated on November 25. The patient came in with respiratory failure, sepsis, cellulitis , acute kidney injury, and stage IV melanoma. The patient was intubated and remains on volume assist control mode on the . Currently, the patient's on the assist control mode rate of 20, tidal volume 450, FiO2 20%, and PEEP of 5. Arterial blood gases show a PaO2 of 81 a PaCO2 of 44 and a pH 7.54. The patient is receiving dextrose at 100 mL an hour and vital AF at 57 with a goal of 57 mL an hour. Sputum Gram stain is negative. Currently, the patient is not receiving any sedation. We'll place him on pressure support of 5 and CPAP of 5 and after 30 minutes, we'll get a full set a weaning parameters including atenolol I am, minute volume, respiratory rate, negative inspiratory force, rapid shallow breathing index, and cuff leak test. He may or may not get an arterial blood gas. At that point, we'll make a decision about possible extubation. He slowed open his eyes and his mental status is somewhat poor as that may be a negative against extubation. The patient is a DO NOT RESUSCITATE. On 12/02/2017 patient seen again in follow-up in intensive care unit. He was extubated yesterday, this morning he is doing well, tolerating extubation well, pulse ox on 2 L per nasal cannula is 100%, patient is afebrile, hemodynamically stable. He is awake, alert, responding appropriately, denies any distress, he states he does get dyspneic with exertion, such as repositioning. Has a weak cough, has severe generalized weakness. We will provide her incentive spirometer, and encourage patient to deep breathe and cough. No new chest x- ray today. Microbiology showed sputum culture positive for gram-negative rods, patient is covered with Zosyn. Left leg cellulitis, with possible myositis/ fasciitis is being treated medically per family's request, patient is on daptomycin. Transfer to a tertiary hospital was suggested to the family, but they opted to remain in this hospital, and continue medical treatment. Patient is taking in soft diet, tolerating it well. His labs reviewed, WBC is 5.8, hemoglobin is 9.2, sodium is 144, potassium 3.2, chloride is 113, BUN is 36, creatinine 0.97. Potassium is being replaced per protocol, CO2 is 28. Patient was negative for C. diff this admission. He is having ongoing diarrhea, had 3 bowel movements today. Sodium today is 144, his maintenance IV fluids his D5W at a rate of 100 ML per hour. On patient seen in follow-up on medical surgical floor. He is resting in bed, in no acute distress, there is to be a bit stronger, his voice is little louder. There is still significant generalized edema, and patient is unable to raise his arms or legs, he is barely able to make a fist, he is only able to wiggle his toes. Denies any distress, denies any chest pain or shortness of breath, he is currently on room air, his pulse ox is 99%. He is afebrile. Her, diminished at the bases. 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 ID service is following, wound cultures were negative, urine and blood cultures were negative. Patient has generalized anasarca, we will order a dose of IV Lasix. On 12/04/2017 patient seen in follow-up on medical surgical floor. In no acute distress, he is resting in bed, his significant other is at the bedside, no shortness of breath, currently on room air, his pulse ox is 96%, lung sounds are clear, diminished at the bases. History we gave patient a dose of IV Lasix , and patient has produced over 5500 mL of urine output, in the swelling in his upper and lower extremities has improved. Patient remains on daptomycin, and Zosyn. No ongoing fevers, no chills, still has severe generalized weakness, physical therapy has evaluated the patient, most likely patient will require rehab placement after discharge. Awake and alert, oriented 3. He would like to resume managing his own affairs, and his significant other is going to the Court today in regards to the guardianship affairs. Objective - Vital Signs Vital signs: Vital Signs Temp 96.9 F L 12/04/17 07:00 Pulse 64 12/04/17 08:12 Resp 18 12/04/17 07:00 BP 104/57 12/04/17 07:00 Pulse Ox 96 12/04/17 07:00 Intake & Output 12/03/17 12/04/17 12/04/17 18:59 06:59 18:59 Intake Total 1950 100 400 Output Total 3925 1650 Balance -1974 400 Weight 85 kg 86 kg 86 kg Intake: IV 150 Piperacillin-Tazobactam 3 50 .375 gm In Dextrose/Water 1 50ml.bag @ 12.5 mls/hr IVPB Q8HR [facility] Rx#: [id number] metroNIDAZOLE-NS PMX 500 100 mg In Saline 1 100ml.bag @ 100 mls/hr IVPB Q8HR [facility] Rx#:[id number] Oral 1800 100 400 Output: Urine 3925 1650 Other: Voiding Method Indwelling Catheter Indwelling Catheter Indwelling Catheter # Bowel Movements 1 ABP, PAP, CO, CI - Last Documented Arterial Blood Pressure 135/67 - Exam GENERAL EXAM: Alert, pleasant, generally weak 57-year-old white male, comfortable in no apparent distress. HEAD: Normocephalic/atraumatic. EYES: Normal reaction of pupils, equal size. Conjunctiva pink, sclera white. NOSE: Clear with pink turbinates. THROAT: No erythema or exudates. NECK: No masses, no JVD, no thyroid enlargement, no adenopathy. CHEST: No chest wall deformity. Symmetrical expansion. LUNGS: Equal air entry with diminished at the bases CVS: Regular rate and rhythm, normal S1 and S2, no gallops, no murmurs, no rubs ABDOMEN: Soft, nontender. No hepatosplenomegaly, normal bowel sounds, no guarding or rigidity. EXTREMITIES: No clubbing, no cyanosis, 2+ pulses and upper and lower extremities. Patient has upper and lower extremity edema. Bilateral lower extremities are Yvan wrapped, left lower leg has cellulitis rash, covered with a dressing, mid boot is on left leg. MUSCULOSKELETAL: Muscle strength and tone normal. SPINE: No scoliosis or deformity SKIN: No rashes CENTRAL NERVOUS SYSTEM: Alert and oriented to self and place. Patient has severe generalized weakness, his speech is slow, but appropriate - Labs CBC & Chem 7: 12/02/17 04:20 12/04/17 07:39 Labs: Abnormal Lab Results - Last 24 Hours (Table) 12/03/17 12/03/1718 Range/Units 12:04 17:23 20:56 Chloride (98-107) mmol/L Carbon Dioxide (22-30) mmol/L BUN (9-20) mg/dL Glucose (74-99) mg/dL POC Glucose (mg/dL) 166 H 167 H 214 H (75-99) mg/dL Calcium (8.4-10.2) mg/dL 12/04/17 12/04/17 Range/Units 07:18 07:39 Chloride 110 H (98-107) mmol/L Carbon Dioxide 33 H (22-30) mmol/L BUN 26 H (9-20) mg/dL Glucose 100 H (74-99) mg/dL POC Glucose (mg/dL) 100 H (75-99) mg/dL Calcium 7.7 L (8.4-10.2) mg/dL Microbiology - Last 24 Hours (Table) 11/29/17 18:28 Anaerobic Culture - Final Foot - Left Assessment and Plan Plan: Assessment: Acute hypoxic respiratory failure secondary to septic shock, secondary to acute cellulitis of the left lower extremity. History of stage IV melanoma, on clinical trials. Acute kidney injury secondary to ATN and septic shock almost back to normal with creatinine of 1.06 today. Recent C. difficile colitis. Not documented on this admission.remains on Flagyl. Acute hypernatremia secondary to free water deficit, resolved Nonischemic cardiomyopathy as noted on his echocardiogram. Being addressed by cardiology. Metabolic encephalopathy improving today, but the patient seems to have significant weakness and possibly polyneuropathy. Plan: Continue current medical treatment, continue encouraging deep breathing and coughing, maintain aspiration precautions, and nebulized bronchodilators, no acute issues overnight. I performed a history & physical examination of the patient and discussed their management with my nurse practitioner, Yancy Gold. I reviewed the nurse practitioner's note and agree with the documented findings and plan of care. Lung sounds are positive for diminished. The findings and the impression was discussed with the patient. I attest to the documentation by the nurse practitioner. Time with Patient: Less than 30
[2017-12-04 12:44] LABS: Glucose,Whole Blood 201 mg/dL (75-99)
[2017-12-04] MEDS: metroNIDAZOLE 500 MG TAB PO SCH ×2 (15:21→21:20)
[2017-12-04 17:02] LABS: Glucose,Whole Blood 243 mg/dL (75-99)
[2017-12-04 20:40] LABS: Glucose,Whole Blood 238 mg/dL (75-99)
[2017-12-04] MEDS: DAPTOmycin 500 MG in SODIUM CHLORIDE 0.9% 50 ML IVPB SCH (22:14)
--- NOTE | 2017-12-04 22:20 | PN ---
PROGRESS NOTE DATE OF SERVICE: 12/04/2017 REASON FOR FOLLOWUP: 1. Left lower extremity cellulitis. 2. Gram-negative pneumonia. INTERVAL HISTORY: The patient is afebrile. He seems to be more awake, alert. He is breathing comfortably. Minimal cough. No chest pain. No abdominal pain or any worsening pain in the left leg area. PHYSICAL EXAMINATION: Blood pressure 95/52 with a pulse of 83, temperature of 98.6. He is 96% on room air. General description is a middle-aged male lying in bed in no distress. RESPIRATORY SYSTEM: Unlabored breathing. Clear to auscultation anteriorly. HEART: S1, S2. Regular rate and rhythm. ABDOMEN: Soft. No tenderness. The left leg redness has improved. Did have blister that has opened on the dorsum of his left foot, but no evidence of any cellulitis. DIAGNOSTIC IMPRESSION AND PLAN: Patient with acute left lower extremity cellulitis with concern about possible myositis with sepsis in a patient who also has evidence of a gram-negative pneumonia. Patient is currently on daptomycin and Zosyn with a plan to finish therapy with oral antibiotics. Local care to continue to the left foot blister with an ABD followed by an Yvan wrap to keep the swelling down. Continue with supportive care. MMODL / IJN: [id number] /
[2017-12-05] MEDS: ACETAMINOPHEN TAB 325 MG TAB PO PRN (04:05)
[2017-12-05] MEDS: IPRATROPIUM-ALBUTEROL 3 ML NEB INHALATION SCH ×4 (07:19→20:24)
[2017-12-05 07:37] LABS: Glucose,Whole Blood 149 mg/dL (75-99)
[2017-12-05] MEDS: PIPERACILLIN-TAZOBACTAM 3.375 GM in DEXTROSE/WATER 1 50ML.BAG IVPB SCH ×2 (08:15→15:48)
[2017-12-05] MEDS: INSULIN DETEMIR 100 UNIT/ML 10 ML VIAL SQ SCH (08:15)
[2017-12-05] MEDS: INSULIN ASPART 100 UNIT/ML 1 ML 10 ML VIAL SQ SCH ×4 (08:15→21:15)
[2017-12-05] MEDS: metroNIDAZOLE 500 MG TAB PO SCH ×3 (08:16→21:15)
[2017-12-05] MEDS: ENOXAPARIN 40 MG/0.4 ML SYRINGE SQ SCH (08:16)
[2017-12-05] MEDS: CARVEDILOL 3.125 MG TAB PO SCH ×2 (08:16→15:49)
[2017-12-05] MEDS: LISINOPRIL 2.5 MG TAB PO SCH (08:16)
[2017-12-05] MEDS: CARBIDOPA-LEVODOPA 25-100 MG 1 EACH TAB PO SCH ×3 (08:16→21:15)
[2017-12-05] MEDS: HYDROCORTISONE SUCCINATE 100 MG/2 ML VIAL IV SCH ×2 (08:16→15:48)
[2017-12-05] MEDS: PANTOPRAZOLE 40 MG/10 ML VIAL IV SCH (08:17)
--- NOTE | 2017-12-05 12:09 | P.PN ---
Subjective Progress Note Date: 12/05/17 Principal diagnosis: Sepsis, cellulitis, acute kidney injury Progress note dated 12/01/2017 This is a 57-year-old male who was admitted on November 24 and intubated on November 25. The patient came in with respiratory failure, sepsis, cellulitis , acute kidney injury, and stage IV melanoma. The patient was intubated and remains on volume assist control mode on the . Currently, the patient's on the assist control mode rate of 20, tidal volume 450, FiO2 20%, and PEEP of 5. Arterial blood gases show a PaO2 of 81 a PaCO2 of 44 and a pH 7.54. The patient is receiving dextrose at 100 mL an hour and vital AF at 57 with a goal of 57 mL an hour. Sputum Gram stain is negative. Currently, the patient is not receiving any sedation. We'll place him on pressure support of 5 and CPAP of 5 and after 30 minutes, we'll get a full set a weaning parameters including atenolol I am, minute volume, respiratory rate, negative inspiratory force, rapid shallow breathing index, and cuff leak test. He may or may not get an arterial blood gas. At that point, we'll make a decision about possible extubation. He slowed open his eyes and his mental status is somewhat poor as that may be a negative against extubation. The patient is a DO NOT RESUSCITATE. On 12/02/2017 patient seen again in follow-up in intensive care unit. He was extubated yesterday, this morning he is doing well, tolerating extubation well, pulse ox on 2 L per nasal cannula is 100%, patient is afebrile, hemodynamically stable. He is awake, alert, responding appropriately, denies any distress, he states he does get dyspneic with exertion, such as repositioning. Has a weak cough, has severe generalized weakness. We will provide her incentive spirometer, and encourage patient to deep breathe and cough. No new chest x- ray today. Microbiology showed sputum culture positive for gram-negative rods, patient is covered with Zosyn. Left leg cellulitis, with possible myositis/ fasciitis is being treated medically per family's request, patient is on daptomycin. Transfer to a tertiary hospital was suggested to the family, but they opted to remain in this hospital, and continue medical treatment. Patient is taking in soft diet, tolerating it well. His labs reviewed, WBC is 5.8, hemoglobin is 9.2, sodium is 144, potassium 3.2, chloride is 113, BUN is 36, creatinine 0.97. Potassium is being replaced per protocol, CO2 is 28. Patient was negative for C. diff this admission. He is having ongoing diarrhea, had 3 bowel movements today. Sodium today is 144, his maintenance IV fluids his D5W at a rate of 100 ML per hour. On patient seen in follow-up on medical surgical floor. He is resting in bed, in no acute distress, there is to be a bit stronger, his voice is little louder. There is still significant generalized edema, and patient is unable to raise his arms or legs, he is barely able to make a fist, he is only able to wiggle his toes. Denies any distress, denies any chest pain or shortness of breath, he is currently on room air, his pulse ox is 99%. He is afebrile. Her, diminished at the bases. 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 ID service is following, wound cultures were negative, urine and blood cultures were negative. Patient has generalized anasarca, we will order a dose of IV Lasix. On 12/04/2017 patient seen in follow-up on medical surgical floor. In no acute distress, he is resting in bed, his significant other is at the bedside, no shortness of breath, currently on room air, his pulse ox is 96%, lung sounds are clear, diminished at the bases. History we gave patient a dose of IV Lasix , and patient has produced over 5500 mL of urine output, in the swelling in his upper and lower extremities has improved. Patient remains on daptomycin, and Zosyn. No ongoing fevers, no chills, still has severe generalized weakness, physical therapy has evaluated the patient, most likely patient will require rehab placement after discharge. Awake and alert, oriented 3. He would like to resume managing his own affairs, and his significant other is going to the Court today in regards to the guardianship affairs. On 12/05/2017 patient seen in follow-up on medical surgical floor. He is working with physical therapy, he is getting a bit stronger, able to lift his arms up, turn his head, and hold is more upright at times. Has severe generalized weakness. Remains on room air, 6 is 95%, he is afebrile, hemodynamically stable. He is alert and oriented 3. No pulmonary complaints, no shortness of breath or chest pain, no new labs or chest x-rays. She remains on the same antibiotics in the form of daptomycin and Zosyn, Flagyl was added. No ongoing fever or chills. He is tolerating oral diet. Objective - Vital Signs Vital signs: Vital Signs Temp 98.1 F 12/05/17 07:00 Pulse 88 12/05/17 11:46 Resp 18 12/05/17 07:00 BP 121/72 12/05/17 07:00 Pulse Ox 95 12/05/17 07:00 Intake & Output 12/04/17 12/05/17 12/05/17 18:59 06:59 18:59 Intake Total 1707 1100 Output Total 1600 700 Balance 107 400 Weight 86 kg 86 kg Intake: Oral 1650 1100 Tube Feeding 57 Output: Urine 1600 700 Other: Voiding Method Indwelling Catheter Indwelling Catheter Indwelling Catheter # Bowel Movements 1 ABP, PAP, CO, CI - Last Documented Arterial Blood Pressure 135/67 - Exam GENERAL EXAM: Alert, pleasant, generally weak 57-year-old white male, comfortable in no apparent distress. HEAD: Normocephalic/atraumatic. EYES: Normal reaction of pupils, equal size. Conjunctiva pink, sclera white. NOSE: Clear with pink turbinates. THROAT: No erythema or exudates. NECK: No masses, no JVD, no thyroid enlargement, no adenopathy. CHEST: No chest wall deformity. Symmetrical expansion. LUNGS: Equal air entry with diminished at the bases CVS: Regular rate and rhythm, normal S1 and S2, no gallops, no murmurs, no rubs ABDOMEN: Soft, nontender. No hepatosplenomegaly, normal bowel sounds, no guarding or rigidity. EXTREMITIES: No clubbing, no cyanosis, 2+ pulses and upper and lower extremities. Patient has upper and lower extremity edema. Bilateral lower extremities are Yvan wrapped, left lower leg has cellulitis rash, covered with a dressing, mid boot is on left leg. MUSCULOSKELETAL: Muscle strength and tone normal. SPINE: No scoliosis or deformity SKIN: No rashes CENTRAL NERVOUS SYSTEM: Alert and oriented to self and place. Patient has severe generalized weakness, his speech is slow, but appropriate - Labs CBC & Chem 7: 12/02/17 04:20 12/04/17 07:39 Labs: Abnormal Lab Results - Last 24 Hours (Table) 12/04/17 12/04/17 12/04/17 Range/Units 12:32 17:00 20:25 POC Glucose (mg/dL) 201 H 243 H 238 H (75-99) mg/dL 12/05/17 Range/Units 07:16 POC Glucose (mg/dL) 149 H (75-99) mg/dL Assessment and Plan Plan: Assessment: Acute hypoxic respiratory failure secondary to septic shock, secondary to acute cellulitis of the left lower extremity. History of stage IV melanoma, on clinical trials. Acute kidney injury secondary to ATN and septic shock almost back to normal with creatinine of 1.06 today. Recent C. difficile colitis. Not documented on this admission.remains on Flagyl. Acute hypernatremia secondary to free water deficit, resolved Nonischemic cardiomyopathy as noted on his echocardiogram. Being addressed by cardiology. Metabolic encephalopathy improving today, but the patient seems to have significant weakness and possibly polyneuropathy. Plan: Continue current antibiotic coverage, continue encouraging deep breathing and coughing, physical therapy. No acute pulmonary issues, no acute events overnight. He was dynamically stable, on room air. Lung sounds are clear. Afebrile. From pulmonary/critical care standpoint we will sign off, and follow patient on as-needed basis. I performed a history & physical examination of the patient and discussed their management with my nurse practitioner, Yancy Gold. I reviewed the nurse practitioner's note and agree with the documented findings and plan of care. Lung sounds are positive for diminished. The findings and the impression was discussed with the patient. I attest to the documentation by the nurse practitioner. Time with Patient: Less than 30
[2017-12-05 12:46] LABS: Glucose,Whole Blood 246 mg/dL (75-99)
[2017-12-05 17:13] LABS: Glucose,Whole Blood 213 mg/dL (75-99)
--- NOTE | 2017-12-05 17:51 | PN ---
PROGRESS NOTE DATE OF SERVICE: 12/05/2017. REASON FOR FOLLOWUP: 1. Left leg cellulitis with blister on his left foot. 2. Gram-negative pneumonia. INTERVAL HISTORY: The patient is afebrile. He is breathing comfortably. Denies having any chest pain. No shortness of breath. Occasional cough. No abdominal pain with no worsening pain to the left leg area. PHYSICAL EXAMINATION: Blood pressure 97/55 with a pulse of 81, temperature of 99.2. He is 96% on room air. General description is a middle-aged male lying in bed in no distress. RESPIRATORY SYSTEM: Unlabored breathing. Clear to auscultation anteriorly. HEART: S1, S2. Regular rate and rhythm. ABDOMEN: Soft, no tenderness. Left leg swelling and redness have improved. However, the blister on the left foot on the dorsal aspect showing some slough tissue and some swelling and minimal erythema. LABS: No new labs have been obtained today. DIAGNOSTIC IMPRESSION AND PLAN: 1. Patient with left leg cellulitis that has shown clinical improvement, now with a blister on the dorsum of his left foot with some slough tissue. Discussed with the Vascular Surgeon to see if the patient will benefit from a surgical debridement of the same. Continue Yvan wrap to keep some of the swelling down. The patient to continue daptomycin at this point. 2. The patient gram-negative pneumonia currently covered with Zosyn. That will be continued for now switching to oral antibiotics on discharge. Continue supportive care. MMODL / IJN: [id number] /
[2017-12-05 21:10] LABS: Glucose,Whole Blood 226 mg/dL (75-99)
[2017-12-05] MEDS: DAPTOmycin 500 MG in SODIUM CHLORIDE 0.9% 50 ML IVPB SCH (21:14)
--- NOTE | 2017-12-05 22:33 | PN ---
PROGRESS NOTE DATE OF SERVICE: 12/04/2017. PRESENTING COMPLAINT: Tired. INTERVAL HISTORY: This patient was seen by me yesterday. The patient was admitted to the ICU with severe cellulitis of the left lower extremity and pneumonia, also in acute renal failure that has resolved. The patient continues to communicate better. The patient's antiparkinson medications were resumed. PT and OT consulted. The patient is status post being on the ventilator. Eating better. Limbs are still weak. Wound on the lower extremity. REVIEW OF SYSTEMS: Done for constitutional, cardiovascular, GI, pulmonary; relevant findings as above. CURRENT MEDICATIONS: Reviewed. EXAMINATION: Temp 98.6, pulse 83, respirations 18, blood pressure 95/52, pulse ox 96 percent on room air. GENERAL APPEARANCE: Lying in bed, awake, tired. EYES: Pupils equal. Conjunctivae normal. HEENT: External nose and ears normal. Oral cavity normal. NECK: JVD unable to assess. Mass not palpable. Respiratory effort normal. LUNGS: Diminished breath sounds. CARDIOVASCULAR: 1st and 2nd heart sounds. No edema present. ABDOMEN: Soft, nontender. Liver and spleen not palpable. NEUROLOGIC: Still has weakness in all the limbs. EXTREMITIES: Wounds on both lower extremities and blood on the left foot. INVESTIGATIONS: Potassium 3.6, BUN 26, creatinine 1.0. ASSESSMENT: 1. Bilateral pneumonia, suspect gram-negative organism causing sepsis, present on admission, with significant improvement. 2. Left lower extremity cellulitis causing sepsis, present on admission. 3. Acute renal failure, likely acute tubular necrosis, now resolved. 4. Hypokalemia. 5. Hyperchloremia. 6. Hyperbilirubinemia. 7. Hypoalbuminemia, probably an acute phase reactant. 8. Acute hypoxic respiratory failure secondary to pneumonia, much improved. 9. Normocytic anemia, cause unknown. 10.Stage IV lymphoma. 11.Parkinson disease. 12.Medical debility, probably worsening of Parkinson disease and from underlying sepsis. PLAN: The patient had be started on his Sinemet. Family informed me that the patient also takes, it looks like Mirapex at home. Will clarify the same and resume the same. MMODL / IJN: [id number] /
--- NOTE | 2017-12-05 22:36 | PN ---
PROGRESS NOTE DATE OF SERVICE: 12/05/2017. PRESENT COMPLAINT: Tired. INTERVAL HISTORY: Patient initially was in the ICU. Presented with severe cellulitis of the left lower extremity, pneumonia, acute renal failure. The patient is status post being on the ventilator. The patient was also on started on his Parkinson's medications. The patient continues to feel better. Speech is clearing up. Moving his limbs slightly better. REVIEW OF SYSTEMS: Done for constitutional, cardiovascular, GI, pulmonary, neuromuscular; relevant findings above. CURRENT MEDICATIONS: Reviewed, include Sinemet, IV daptomycin, IV Solu-Cortef, Flagyl, IV Zosyn. PHYSICAL EXAMINATION: Temperature 99.2, pulse 81, respiratory rate 18, blood pressure 97/55, pulse ox 96 percent on room air. GENERAL: Lying in bed, awake. EYE: Pupils equal. Conjunctivae normal. HEENT: External nose and ears normal. Oral cavity normal. NECK: JVD not raised. Mass not palpable. Respiratory effort normal. LUNGS: Diminished breath sounds. CARDIOVASCULAR: 1st and 2nd sounds. No edema present. ABDOMEN: Soft, nontender. Liver and spleen not palpable. NEUROLOGICAL: Still weakness in all 4 limbs. The patient's power is 1 to 2/5, especially in the upper extremities. Wound on the left foot and dressings on both lower extremities. INVESTIGATIONS: Potassium 3.6, BUN 26, creatinine 1.0. ASSESSMENT: 1. Bilateral pneumonia, suspect gram-negative organism causing sepsis, present on admission, much improvement. 2. Left lower extremity cellulitis causing sepsis, present on admission. 3. Acute renal failure, likely acute tubular necrosis, now resolved. 4. Hypokalemia. 5. Hyperchloremia. 6. Hyperbilirubinemia. 7. Hypoalbuminemia, acute phase reactant. 8. Acute hypoxic respiratory failure secondary to pneumonia, much improved. 9. Normocytic anemia, cause unknown. 10.Stage IV lymphoma. The patient has been on trial medications. 11.Parkinson disease with worsening because of acute presentation. 12.Medical debility. PLAN: Continue with antibiotics as per Dr. Aburto. We will get a neurological opinion for the Parkinson's. The patient has already been put back on his Sinemet and Mirapex. PT/OT on the case. The patient is able to communicate normally even though speech is slow, felt to be from Parkinson's. Repeat labs and chest x-ray in the morning. MMODL / IJN: [id number] /
[2017-12-05] MEDS: PRAMIPEXOLE 0.5 MG TAB PO SCH (22:48)
[2017-12-06] MEDS: PIPERACILLIN-TAZOBACTAM 3.375 GM in DEXTROSE/WATER 1 50ML.BAG IVPB SCH ×3 (00:57→16:30)
[2017-12-06] MEDS: HYDROCORTISONE SUCCINATE 100 MG/2 ML VIAL IV SCH ×3 (00:57→16:30)
[2017-12-06 07:31] LABS: Glucose,Whole Blood 222 mg/dL (75-99)
[2017-12-06] MEDS: IPRATROPIUM-ALBUTEROL 3 ML NEB INHALATION SCH ×4 (07:47→20:28)
[2017-12-06 07:58] LABS: Basophils % (A) 0 %; Eosinophils % (A) 0 %; HCT 30.7 % (39.0-53.0); HGB 9.4 gm/dL (13.0-17.5); Lymphocytes # (A) 0.6 k/uL (1.0-4.8); Lymphocytes % (A) 9 %; MCH 29.1 pg (25.0-35.0); MCHC 30.6 g/dL (31.0-37.0); MCV 94.9 fL (80.0-100.0); Mean Platelet Volume 7.5; Monocytes # (A) 0.2 k/uL (0-1.0); Monocytes % (A) 3 %; Neutrophils # (A) 5.6 k/uL (1.3-7.7); Neutrophils % (A) 86 %; Platelet Count 317 k/uL (150-450); RBC 3.24 m/uL (4.30-5.90); WBC 6.4 k/uL (3.8-10.6)
[2017-12-06 08:12] LABS: ALT 41 U/L (21-72); AST 25 U/L (17-59); Albumin 1.8 g/dL (3.5-5.0); Alkaline Phosphatase 244 U/L (38-126); Anion Gap 2 mmol/L; Blood Urea Nitrogen 26 mg/dL (9-20); Calcium 7.5 mg/dL (8.4-10.2); Carbon Dioxide 30 mmol/L (22-30); Chloride 104 mmol/L (98-107); Glucose 191 mg/dL (74-99); Potassium 3.4 mmol/L (3.5-5.1); Sodium 136 mmol/L (137-145); Total Bilirubin 0.7 mg/dL (0.2-1.3); Total Protein 3.8 g/dL (6.3-8.2)
[2017-12-06] MEDS: CARBIDOPA-LEVODOPA 25-100 MG 1 EACH TAB PO SCH ×3 (08:39→22:16)
[2017-12-06] MEDS: ENOXAPARIN 40 MG/0.4 ML SYRINGE SQ SCH (08:40)
[2017-12-06] MEDS: metroNIDAZOLE 500 MG TAB PO SCH ×3 (08:40→22:16)
[2017-12-06] MEDS: PANTOPRAZOLE 40 MG TABLET PO SCH (08:40)
[2017-12-06] MEDS: INSULIN ASPART 100 UNIT/ML 1 ML 10 ML VIAL SQ SCH ×4 (08:40→22:16)
[2017-12-06] MEDS: LISINOPRIL 2.5 MG TAB PO SCH (08:40)
[2017-12-06] MEDS: CARVEDILOL 3.125 MG TAB PO SCH ×2 (08:40→16:30)
[2017-12-06] MEDS: PRAMIPEXOLE 0.5 MG TAB PO SCH ×3 (08:40→22:16)
[2017-12-06] MEDS: INSULIN DETEMIR 100 UNIT/ML 10 ML VIAL SQ SCH (08:42)
--- NOTE | 2017-12-06 09:41 | XR ---
EXAMINATION TYPE: XR chest 1V portable DATE OF EXAM: 12/06/2017 HISTORY: Tube placement. REFERENCE: Previous study dated 12/01/2017. FINDINGS: The patient has been extubated. The NG tube is been removed. A right subclavian catheter re trace in place. Its tip is in the superior vena cava. The heart is mildly enlarged. There is worsening left basilar airspace disease. There is some minimal atelectasis at the right lung base. I could not exclude small effusions. IMPRESSION: 1. LEFT BASILAR AIRSPACE DISEASE AND TO A LESSER EXTENT RIGHT BASILAR AIRSPACE DISEASE. 2. I COULD NOT EXCLUDE SMALL, BILATERAL EFFUSIONS.
[2017-12-06 11:47] LABS: Glucose,Whole Blood 237 mg/dL (75-99)
--- NOTE | 2017-12-06 15:59 | P.CNNES ---
History of Present Illness Consult date: 12/06/17 Requesting physician: Mau Wooten Reason for Consult: Parkinsons Chief complaint: Tremor-Medication Management History of Present Illness: Neurology is consulting on a 57-year-old male with significant medical history including ICU stay, bilateral pneumonia, left lower extremity cellulitis causing sepsis, acute renal failure, hypokalemia, hyperchloremia, hyperbilirubinemia, hypoalbuminemia, acute hypoxic respiratory failure secondary to pneumonia, normocytic anemia, stage IV lymphoma, Parkinsons disease and medical debility. Neurology is consulting for assistance with Parkinsons management specifically medication management. Patient was without his Parkinsons medication for approximately 2 weeks while inpatient in the ICU. Patient was previously taking Sinemet 25/100 mg and Mirapex 1.5 mg by mouth 3 times a day. Patient was restarted on Sinemet on 12/03/17 at 2200 hrs. and Mirapex on 12/05/17 at 2200 hrs. Neurology is being requested to evaluate the patient for possible medication adjustment for both tremor control as well as muscle stiffness. On contact, the patient was alert and oriented 3, resting in bed in no acute distress. Family/friend in the room 1. Review of Systems systems not noted are negative Past Medical History Past Medical History: Cancer, Prostate Disorder Additional Past Medical History / Comment(s): PARKINSON'S. 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, C-Diff History of Any Multi-Drug Resistant Organisms: C-DIFF Date of last positivie culture/infection: unknown MDRO Source:: stool Past Surgical History: Tonsillectomy Additional Past Surgical History / Comment(s): rt axillary biopsy - POSITIVE FOR CANCER, LIP BX, RT SHOULDER MOLE BX , dental extraction Past Anesthesia/Blood Transfusion Reactions: No Reported Reaction Past Psychological History: No Psychological Hx Reported Smoking Status: Never smoker Past Alcohol Use History: None Reported Past Drug Use History: None Reported - Past Family History Mother Family Medical History: Cancer Additional Family Medical History / Comment(s): breast cancer also had moles removed - not sure if positive or not for cancer Father Family Medical History: Congestive Heart Failure (CHF) Additional Family Medical History / Comment(s): Parkinsons Medications and Allergies Home Medications Medication Instructions Recorded Confirmed Type Carbidopa-Levodopa 25-100 mg 1 tab PO TID 10/19/17 11/24/17 History [Sinemet 25-100] Pantoprazole [Protonix] 40 mg PO DAILY 11/24/17 11/24/17 History Pramipexole Di-HCl [Mirapex] 1.5 mg PO TID 11/24/17 11/24/17 History Vancomycin HCl 125 mg PO Q6H 11/24/17 11/24/17 History predniSONE 50 mg PO BID 11/24/17 11/24/17 History Allergies Allergy/AdvReac Type Severity Reaction Status Date / Time Sulfa (Sulfonamide Allergy Rash/Hives Verified 11/24/17 16:49 Antibiotics) Physical Examination - Vital Signs Vital Signs: Vital Signs Temp Pulse Pulse Resp BP BP Pulse Ox 12/06/17 15:22 16 12/06/17 14:38 97.6 F 81 16 94/59 94 L 12/06/17 11:40 78 12/06/17 11:25 74 12/06/17 08:00 16 12/06/17 07:56 88 12/06/17 07:48 80 12/06/17 07:15 98.7 F 78 16 113/65 94 L 12/05/17 23:00 98.3 F 85 18 95/51 95 12/05/17 20:35 84 12/05/17 20:24 84 12/05/17 17:04 80 12/05/17 16:50 80 Intake and Output 12/06/17 12/06/17 12/06/17 06:59 14:59 22:59 Output Total 900 900 Balance -900 -900 Output: Urine 900 900 Other: Voiding Method Indwelling Catheter Indwelling Catheter # Bowel Movements 1 Weight 85 kg General appearance: Alert & oriented x3, no apparent distress. Head: Atraumatic, normocephalic, normal inspection Eyes: Well appearance, PERRLA, EOMI. Absent scleral icterus, conjunctival injection, nystagmus, periorbital swelling. Ear, nose and throat: Normal exam, mucous membranes moist Neck: Normal inspection, absent tenderness, lymphadenopathy. Respiratory: No increased work of breathing Cardiovascular: Regular rate, rhythm GI/abdominal: No guarding Extremities: Bilateral lower extremities extremely stiff, bilateral upper extremities laterally stiff right greater than left Neurological: cranial nerves II through XII intact no lateralizing weakness no seizure activity noted on physical exam strength in upper extremities 12 out of 5 Strength in lower extremities 2 out of 5 Bilateral lower extremities bandaged bilaterally Woundleft lower extremity Psychological: Mood and Affect appropriate for setting Results - Laboratory Findings CBC and BMP: 12/06/17 07:28 12/06/17 07:28 Abnormal Lab Findings: Abnormal Labs 11/24/17 11/24/17 11/24/17 13:00 13:00 13:00 WBC RBC 3.36 L Hgb 10.4 L Hct 32.9 L MCHC Plt Count 93 L Neutrophils # Neutrophils # (Manual) Lymphocytes # Lymphocytes # (Manual) Metamyelocytes # (Man) 0.77 H Myelocytes # (Manual) 0.48 H PT INR ABG pH ABG pCO2 ABG pO2 ABG HCO3 ABG Total CO2 ABG O2 Saturation Sodium Potassium 3.1 L Chloride 120 H Carbon Dioxide 13 L BUN 29 H Creatinine 2.12 H Glucose 66 L POC Glucose (mg/dL) Hemoglobin A1c Plasma Lactic Acid Yang 8.6 H* Calcium 4.8 L* Ionized Calcium Michael Phosphorus Magnesium Total Bilirubin AST ALT Alkaline Phosphatase 35 L Creatine Kinase Total Protein 2.8 L Albumin 1.4 L Urine Protein Urine Glucose (UA) Urine Blood Ur Leukocyte Esterase Urine RBC Urine WBC Urine Mucus Urine Yeast (Budding) 11/24/17 11/24/17 11/24/17 13:00 14:43 19:03 WBC RBC Hgb Hct MCHC Plt Count Neutrophils # Neutrophils # (Manual) Lymphocytes # Lymphocytes # (Manual) Metamyelocytes # (Man) Myelocytes # (Manual) PT 13.5 H INR 1.4 H ABG pH ABG pCO2 ABG pO2 ABG HCO3 ABG Total CO2 ABG O2 Saturation Sodium Potassium Chloride Carbon Dioxide BUN Creatinine Glucose POC Glucose (mg/dL) Hemoglobin A1c Plasma Lactic Acid Yang 3.6 H* Calcium Ionized Calcium Michael 3.5 L* Phosphorus Magnesium Total Bilirubin AST ALT Alkaline Phosphatase Creatine Kinase Total Protein Albumin Urine Protein Urine Glucose (UA) Urine Blood Ur Leukocyte Esterase Urine RBC Urine WBC Urine Mucus Urine Yeast (Budding) 11/24/17 11/24/17 11/24/17 19:11 21:37 23:45 WBC 12.8 H RBC Hgb Hct MCHC Plt Count 114 L Neutrophils # Neutrophils # (Manual) 10.70 H Lymphocytes # Lymphocytes # (Manual) Metamyelocytes # (Man) 0.51 H Myelocytes # (Manual) PT INR ABG pH ABG pCO2 32 L ABG pO2 173 H ABG HCO3 19 L ABG Total CO2 ABG O2 Saturation 97.9 H Sodium Potassium Chloride Carbon Dioxide BUN Creatinine Glucose POC Glucose (mg/dL) Hemoglobin A1c Plasma Lactic Acid Yang Calcium Ionized Calcium Michael Phosphorus Magnesium Total Bilirubin AST ALT Alkaline Phosphatase Creatine Kinase Total Protein Albumin Urine Protein 1+ H Urine Glucose (UA) 3+ H Urine Blood Large H Ur Leukocyte Esterase Trace H Urine RBC 16 H Urine WBC 10 H Urine Mucus Occasional H Urine Yeast (Budding) Rare H 11/24/17 11/24/17 11/25/17 23:45 23:45 03:03 WBC RBC Hgb Hct MCHC Plt Count Neutrophils # Neutrophils # (Manual) Lymphocytes # Lymphocytes # (Manual) Metamyelocytes # (Man) Myelocytes # (Manual) PT INR ABG pH 7.31 L ABG pCO2 34 L ABG pO2 >400 H ABG HCO3 17 L ABG Total CO2 18 L ABG O2 Saturation 98.3 H Sodium Potassium 5.2 H Chloride Carbon Dioxide 21 L BUN 49 H Creatinine 2.84 H Glucose 105 H POC Glucose (mg/dL) Hemoglobin A1c Plasma Lactic Acid Yang 5.6 H* Calcium 7.8 L Ionized Calcium Michael Phosphorus Magnesium Total Bilirubin 1.6 H AST 123 H ALT 152 H Alkaline Phosphatase Creatine Kinase Total Protein 5.0 L Albumin 2.7 L Urine Protein Urine Glucose (UA) Urine Blood Ur Leukocyte Esterase Urine RBC Urine WBC Urine Mucus Urine Yeast (Budding) 11/25/17 11/25/17 11/25/17 04:01 04:01 04:01 WBC 15.8 H RBC Hgb Hct MCHC 30.5 L Plt Count 124 L Neutrophils # Neutrophils # (Manual) 14.60 H Lymphocytes # Lymphocytes # (Manual) 0.47 L Metamyelocytes # (Man) 0.32 H Myelocytes # (Manual) 0.16 H PT INR ABG pH ABG pCO2 ABG pO2 ABG HCO3 ABG Total CO2 ABG O2 Saturation Sodium Potassium 5.3 H Chloride 109 H Carbon Dioxide 20 L BUN 47 H Creatinine 2.63 H Glucose 132 H POC Glucose (mg/dL) Hemoglobin A1c Plasma Lactic Acid Yang 4.5 H* Calcium 7.2 L Ionized Calcium Michael Phosphorus 8.6 H Magnesium Total Bilirubin 1.8 H AST 120 H ALT 149 H Alkaline Phosphatase Creatine Kinase Total Protein 4.7 L Albumin 2.6 L Urine Protein Urine Glucose (UA) Urine Blood Ur Leukocyte Esterase Urine RBC Urine WBC Urine Mucus Urine Yeast (Budding) 11/25/17 11/25/17 11/25/17 06:48 07:42 08:24 WBC RBC Hgb Hct MCHC Plt Count Neutrophils # Neutrophils # (Manual) Lymphocytes # Lymphocytes # (Manual) Metamyelocytes # (Man) Myelocytes # (Manual) PT INR ABG pH ABG pCO2 32 L ABG pO2 169 H ABG HCO3 18 L ABG Total CO2 ABG O2 Saturation 97.5 H Sodium Potassium Chloride Carbon Dioxide BUN Creatinine Glucose POC Glucose (mg/dL) 136 H 169 H Hemoglobin A1c Plasma Lactic Acid Yang Calcium Ionized Calcium Michael Phosphorus Magnesium Total Bilirubin AST ALT Alkaline Phosphatase Creatine Kinase Total Protein Albumin Urine Protein Urine Glucose (UA) Urine Blood Ur Leukocyte Esterase Urine RBC Urine WBC Urine Mucus Urine Yeast (Budding) 11/25/17 11/25/17 11/25/17 11:50 14:16 16:34 WBC RBC Hgb Hct MCHC Plt Count Neutrophils # Neutrophils # (Manual) Lymphocytes # Lymphocytes # (Manual) Metamyelocytes # (Man) Myelocytes # (Manual) PT INR ABG pH ABG pCO2 ABG pO2 ABG HCO3 ABG Total CO2 ABG O2 Saturation Sodium Potassium Chloride Carbon Dioxide BUN Creatinine Glucose POC Glucose (mg/dL) 133 H 148 H Hemoglobin A1c Plasma Lactic Acid Yang Calcium Ionized Calcium Michael Phosphorus Magnesium Total Bilirubin AST ALT Alkaline Phosphatase Creatine Kinase 1213 H* Total Protein Albumin Urine Protein Urine Glucose (UA) Urine Blood Ur Leukocyte Esterase Urine RBC Urine WBC Urine Mucus Urine Yeast (Budding) 11/25/17 11/25/17 11/26/17 17:55 19:59 00:00 WBC RBC Hgb Hct MCHC Plt Count Neutrophils # Neutrophils # (Manual) Lymphocytes # Lymphocytes # (Manual) Metamyelocytes # (Man) Myelocytes # (Manual) PT INR ABG pH ABG pCO2 ABG pO2 ABG HCO3 ABG Total CO2 ABG O2 Saturation Sodium Potassium Chloride Carbon Dioxide BUN Creatinine Glucose POC Glucose (mg/dL) 148 H 180 H 172 H Hemoglobin A1c Plasma Lactic Acid Yang Calcium Ionized Calcium Michael Phosphorus Magnesium Total Bilirubin AST ALT Alkaline Phosphatase Creatine Kinase Total Protein Albumin Urine Protein Urine Glucose (UA) Urine Blood Ur Leukocyte Esterase Urine RBC Urine WBC Urine Mucus Urine Yeast (Budding) 11/26/17 11/26/17 11/26/17 02:44 05:00 05:00 WBC RBC 3.46 L Hgb 10.4 L D Hct 33.4 L MCHC Plt Count 77 L Neutrophils # 8.5 H Neutrophils # (Manual) Lymphocytes # 0.3 L Lymphocytes # (Manual) Metamyelocytes # (Man) Myelocytes # (Manual) PT INR ABG pH ABG pCO2 ABG pO2 ABG HCO3 ABG Total CO2 ABG O2 Saturation Sodium Potassium Chloride 116 H Carbon Dioxide 21 L BUN 43 H Creatinine 1.66 H Glucose 182 H POC Glucose (mg/dL) 202 H Hemoglobin A1c Plasma Lactic Acid Yang Calcium 7.4 L Ionized Calcium Michael Phosphorus 5.5 H Magnesium Total Bilirubin AST 61 H ALT 106 H Alkaline Phosphatase Creatine Kinase Total Protein 3.8 L Albumin 1.9 L Urine Protein Urine Glucose (UA) Urine Blood Ur Leukocyte Esterase Urine RBC Urine WBC Urine Mucus Urine Yeast (Budding) 11/26/17 11/26/17 11/26/17 05:58 07:37 09:56 WBC RBC Hgb Hct MCHC Plt Count Neutrophils # Neutrophils # (Manual) Lymphocytes # Lymphocytes # (Manual) Metamyelocytes # (Man) Myelocytes # (Manual) PT INR ABG pH ABG pCO2 ABG pO2 190 H ABG HCO3 20 L ABG Total CO2 ABG O2 Saturation 98.2 H Sodium Potassium Chloride Carbon Dioxide BUN Creatinine Glucose POC Glucose (mg/dL) 174 H 163 H Hemoglobin A1c Plasma Lactic Acid Yang Calcium Ionized Calcium Michael Phosphorus Magnesium Total Bilirubin AST ALT Alkaline Phosphatase Creatine Kinase Total Protein Albumin Urine Protein Urine Glucose (UA) Urine Blood Ur Leukocyte Esterase Urine RBC Urine WBC Urine Mucus Urine Yeast (Budding) 11/26/17 11/26/17 11/26/17 12:09 16:04 20:34 WBC RBC Hgb Hct MCHC Plt Count Neutrophils # Neutrophils # (Manual) Lymphocytes # Lymphocytes # (Manual) Metamyelocytes # (Man) Myelocytes # (Manual) PT INR ABG pH ABG pCO2 ABG pO2 ABG HCO3 ABG Total CO2 ABG O2 Saturation Sodium Potassium Chloride Carbon Dioxide BUN Creatinine Glucose POC Glucose (mg/dL) 203 H 208 H 227 H Hemoglobin A1c Plasma Lactic Acid Yang Calcium Ionized Calcium Michael Phosphorus Magnesium Total Bilirubin AST ALT Alkaline Phosphatase Creatine Kinase Total Protein Albumin Urine Protein Urine Glucose (UA) Urine Blood Ur Leukocyte Esterase Urine RBC Urine WBC Urine Mucus Urine Yeast (Budding) 11/26/17 11/27/17 11/27/17 23:53 04:16 04:30 WBC RBC 3.35 L Hgb 10.0 L Hct 31.9 L MCHC Plt Count 68 L Neutrophils # Neutrophils # (Manual) Lymphocytes # 0.4 L Lymphocytes # (Manual) Metamyelocytes # (Man) Myelocytes # (Manual) PT INR ABG pH ABG pCO2 ABG pO2 ABG HCO3 ABG Total CO2 ABG O2 Saturation Sodium Potassium Chloride Carbon Dioxide BUN Creatinine Glucose POC Glucose (mg/dL) 168 H 158 H Hemoglobin A1c Plasma Lactic Acid Yang Calcium Ionized Calcium Michael Phosphorus Magnesium Total Bilirubin AST ALT Alkaline Phosphatase Creatine Kinase Total Protein Albumin Urine Protein Urine Glucose (UA) Urine Blood Ur Leukocyte Esterase Urine RBC Urine WBC Urine Mucus Urine Yeast (Budding) 11/27/17 11/27/17 11/27/17 04:30 04:30 07:31 WBC RBC Hgb Hct MCHC Plt Count Neutrophils # Neutrophils # (Manual) Lymphocytes # Lymphocytes # (Manual) Metamyelocytes # (Man) Myelocytes # (Manual) PT INR ABG pH ABG pCO2 34 L ABG pO2 168 H ABG HCO3 ABG Total CO2 ABG O2 Saturation 98.0 H Sodium 146 H Potassium 3.4 L Chloride 120 H Carbon Dioxide 20 L BUN 49 H Creatinine 1.54 H Glucose 158 H POC Glucose (mg/dL) Hemoglobin A1c 7.4 H Plasma Lactic Acid Yang Calcium 7.7 L Ionized Calcium Michael Phosphorus Magnesium 2.5 H Total Bilirubin 1.9 H AST 98 H ALT 132 H Alkaline Phosphatase 168 H Creatine Kinase 176 H Total Protein 4.0 L Albumin 1.9 L Urine Protein Urine Glucose (UA) Urine Blood Ur Leukocyte Esterase Urine RBC Urine WBC Urine Mucus Urine Yeast (Budding) 11/27/17 11/27/17 11/27/17 09:58 09:59 13:06 WBC RBC Hgb Hct MCHC Plt Count Neutrophils # Neutrophils # (Manual) Lymphocytes # Lymphocytes # (Manual) Metamyelocytes # (Man) Myelocytes # (Manual) PT INR ABG pH ABG pCO2 ABG pO2 ABG HCO3 ABG Total CO2 ABG O2 Saturation Sodium Potassium Chloride Carbon Dioxide BUN Creatinine Glucose POC Glucose (mg/dL) 233 H 227 H 212 H Hemoglobin A1c Plasma Lactic Acid Yang Calcium Ionized Calcium Michael Phosphorus Magnesium Total Bilirubin AST ALT Alkaline Phosphatase Creatine Kinase Total Protein Albumin Urine Protein Urine Glucose (UA) Urine Blood Ur Leukocyte Esterase Urine RBC Urine WBC Urine Mucus Urine Yeast (Budding) 0911/27/17 11/27/17 17:20 17:25 19:57 WBC RBC Hgb Hct MCHC Plt Count Neutrophils # Neutrophils # (Manual) Lymphocytes # Lymphocytes # (Manual) Metamyelocytes # (Man) Myelocytes # (Manual) PT INR ABG pH ABG pCO2 ABG pO2 ABG HCO3 ABG Total CO2 ABG O2 Saturation Sodium Potassium 2.9 L Chloride Carbon Dioxide BUN Creatinine Glucose POC Glucose (mg/dL) 189 H 197 H Hemoglobin A1c Plasma Lactic Acid Yang Calcium Ionized Calcium Michael Phosphorus Magnesium Total Bilirubin AST ALT Alkaline Phosphatase Creatine Kinase Total Protein Albumin Urine Protein Urine Glucose (UA) Urine Blood Ur Leukocyte Esterase Urine RBC Urine WBC Urine Mucus Urine Yeast (Budding) 11/28/17 11/28/17 11/28/17 00:04 01:40 04:17 WBC RBC Hgb Hct MCHC Plt Count Neutrophils # Neutrophils # (Manual) Lymphocytes # Lymphocytes # (Manual) Metamyelocytes # (Man) Myelocytes # (Manual) PT INR ABG pH ABG pCO2 ABG pO2 ABG HCO3 ABG Total CO2 ABG O2 Saturation Sodium Potassium 3.0 L Chloride Carbon Dioxide BUN Creatinine Glucose POC Glucose (mg/dL) 193 H 233 H Hemoglobin A1c Plasma Lactic Acid Yang Calcium Ionized Calcium Michael Phosphorus Magnesium Total Bilirubin AST ALT Alkaline Phosphatase Creatine Kinase Total Protein Albumin Urine Protein Urine Glucose (UA) Urine Blood Ur Leukocyte Esterase Urine RBC Urine WBC Urine Mucus Urine Yeast (Budding) 11/28/17 11/28/17 11/28/17 04:30 04:30 07:14 WBC RBC 3.08 L Hgb 9.1 L Hct 28.8 L MCHC Plt Count 62 L Neutrophils # Neutrophils # (Manual) Lymphocytes # 0.3 L Lymphocytes # (Manual) Metamyelocytes # (Man) Myelocytes # (Manual) PT INR ABG pH 7.53 H ABG pCO2 34 L ABG pO2 113 H ABG HCO3 28 H ABG Total CO2 29 H ABG O2 Saturation 97.3 H Sodium 149 H Potassium 3.4 L Chloride 118 H Carbon Dioxide BUN 58 H Creatinine 1.40 H Glucose 191 H POC Glucose (mg/dL) Hemoglobin A1c Plasma Lactic Acid Yang Calcium 8.1 L Ionized Calcium Michael Phosphorus Magnesium Total Bilirubin 2.2 H AST 84 H ALT 132 H Alkaline Phosphatase 246 H Creatine Kinase Total Protein 3.9 L Albumin 1.9 L Urine Protein Urine Glucose (UA) Urine Blood Ur Leukocyte Esterase Urine RBC Urine WBC Urine Mucus Urine Yeast (Budding) 11/28/17 11/28/17 11/28/17 07:55 12:02 12:53 WBC RBC Hgb Hct MCHC Plt Count Neutrophils # Neutrophils # (Manual) Lymphocytes # Lymphocytes # (Manual) Metamyelocytes # (Man) Myelocytes # (Manual) PT INR ABG pH ABG pCO2 ABG pO2 ABG HCO3 ABG Total CO2 ABG O2 Saturation Sodium Potassium Chloride Carbon Dioxide BUN Creatinine Glucose POC Glucose (mg/dL) 164 H 186 H 167 H Hemoglobin A1c Plasma Lactic Acid Yang Calcium Ionized Calcium Michael Phosphorus Magnesium Total Bilirubin AST ALT Alkaline Phosphatase Creatine Kinase Total Protein Albumin Urine Protein Urine Glucose (UA) Urine Blood Ur Leukocyte Esterase Urine RBC Urine WBC Urine Mucus Urine Yeast (Budding) 11/28/17 11/28/17 11/28/17 16:47 18:11 20:31 WBC RBC Hgb Hct MCHC Plt Count Neutrophils # Neutrophils # (Manual) Lymphocytes # Lymphocytes # (Manual) Metamyelocytes # (Man) Myelocytes # (Manual) PT INR ABG pH ABG pCO2 ABG pO2 ABG HCO3 ABG Total CO2 ABG O2 Saturation Sodium Potassium Chloride Carbon Dioxide BUN Creatinine Glucose POC Glucose (mg/dL) 152 H 184 H 229 H Hemoglobin A1c Plasma Lactic Acid Yang Calcium Ionized Calcium Michael Phosphorus Magnesium Total Bilirubin AST ALT Alkaline Phosphatase Creatine Kinase Total Protein Albumin Urine Protein Urine Glucose (UA) Urine Blood Ur Leukocyte Esterase Urine RBC Urine WBC Urine Mucus Urine Yeast (Budding) 11/29/17 11/29/17 11/29/17 00:00 04:50 04:50 WBC RBC 2.91 L Hgb 8.9 L Hct 27.9 L MCHC Plt Count 84 L Neutrophils # Neutrophils # (Manual) Lymphocytes # Lymphocytes # (Manual) Metamyelocytes # (Man) Myelocytes # (Manual) PT INR ABG pH ABG pCO2 ABG pO2 ABG HCO3 ABG Total CO2 ABG O2 Saturation Sodium 152 H Potassium 3.4 L Chloride 116 H Carbon Dioxide BUN 55 H Creatinine 1.26 H Glucose 196 H POC Glucose (mg/dL) 189 H Hemoglobin A1c Plasma Lactic Acid Yang Calcium 8.0 L Ionized Calcium Michael Phosphorus 2.4 L Magnesium Total Bilirubin 2.7 H AST 94 H ALT 142 H Alkaline Phosphatase 315 H Creatine Kinase Total Protein 4.0 L Albumin 1.9 L Urine Protein Urine Glucose (UA) Urine Blood Ur Leukocyte Esterase Urine RBC Urine WBC Urine Mucus Urine Yeast (Budding) 11/29/17 11/29/17 11/29/17 05:15 05:57 07:33 WBC RBC Hgb Hct MCHC Plt Count Neutrophils # Neutrophils # (Manual) Lymphocytes # Lymphocytes # (Manual) Metamyelocytes # (Man) Myelocytes # (Manual) PT 13.1 H INR 1.4 H ABG pH 7.55 H ABG pCO2 ABG pO2 ABG HCO3 31 H ABG Total CO2 32 H ABG O2 Saturation 98.5 H Sodium Potassium Chloride Carbon Dioxide BUN Creatinine Glucose POC Glucose (mg/dL) 211 H Hemoglobin A1c Plasma Lactic Acid Yang Calcium Ionized Calcium Michael Phosphorus Magnesium Total Bilirubin AST ALT Alkaline Phosphatase Creatine Kinase Total Protein Albumin Urine Protein Urine Glucose (UA) Urine Blood Ur Leukocyte Esterase Urine RBC Urine WBC Urine Mucus Urine Yeast (Budding) 11/29/17 11/29/17 11/29/17 09:33 10:15 11:44 WBC RBC Hgb Hct MCHC Plt Count Neutrophils # Neutrophils # (Manual) Lymphocytes # Lymphocytes # (Manual) Metamyelocytes # (Man) Myelocytes # (Manual) PT INR ABG pH ABG pCO2 ABG pO2 ABG HCO3 ABG Total CO2 ABG O2 Saturation Sodium 152 H Potassium 3.1 L Chloride 117 H Carbon Dioxide BUN Creatinine Glucose POC Glucose (mg/dL) 204 H 169 H Hemoglobin A1c Plasma Lactic Acid Yang Calcium Ionized Calcium Michael Phosphorus Magnesium Total Bilirubin AST ALT Alkaline Phosphatase Creatine Kinase Total Protein Albumin Urine Protein Urine Glucose (UA) Urine Blood Ur Leukocyte Esterase Urine RBC Urine WBC Urine Mucus Urine Yeast (Budding) 11/29/17 11/29/17 11/29/17 14:05 16:50 19:53 WBC RBC Hgb Hct MCHC Plt Count Neutrophils # Neutrophils # (Manual) Lymphocytes # Lymphocytes # (Manual) Metamyelocytes # (Man) Myelocytes # (Manual) PT INR ABG pH ABG pCO2 ABG pO2 ABG HCO3 ABG Total CO2 ABG O2 Saturation Sodium 150 H Potassium 3.4 L Chloride 116 H Carbon Dioxide BUN Creatinine Glucose POC Glucose (mg/dL) 263 H 257 H Hemoglobin A1c Plasma Lactic Acid Yang Calcium Ionized Calcium Michael Phosphorus Magnesium Total Bilirubin AST ALT Alkaline Phosphatase Creatine Kinase Total Protein Albumin Urine Protein Urine Glucose (UA) Urine Blood Ur Leukocyte Esterase Urine RBC Urine WBC Urine Mucus Urine Yeast (Budding) 11/29/17 11/29/17 11/29/17 20:25 21:46 22:54 WBC RBC Hgb Hct MCHC Plt Count Neutrophils # Neutrophils # (Manual) Lymphocytes # Lymphocytes # (Manual) Metamyelocytes # (Man) Myelocytes # (Manual) PT INR ABG pH ABG pCO2 ABG pO2 ABG HCO3 ABG Total CO2 ABG O2 Saturation Sodium 149 H Potassium 3.3 L Chloride 114 H Carbon Dioxide 31 H BUN Creatinine Glucose POC Glucose (mg/dL) 293 H 279 H Hemoglobin A1c Plasma Lactic Acid Yang Calcium Ionized Calcium Michael Phosphorus Magnesium Total Bilirubin AST ALT Alkaline Phosphatase Creatine Kinase Total Protein Albumin Urine Protein Urine Glucose (UA) Urine Blood Ur Leukocyte Esterase Urine RBC Urine WBC Urine Mucus Urine Yeast (Budding) 11/30/17 11/30/17 11/30/17 00:03 00:32 01:18 WBC RBC Hgb Hct MCHC Plt Count Neutrophils # Neutrophils # (Manual) Lymphocytes # Lymphocytes # (Manual) Metamyelocytes # (Man) Myelocytes # (Manual) PT INR ABG pH ABG pCO2 ABG pO2 ABG HCO3 ABG Total CO2 ABG O2 Saturation Sodium Potassium Chloride Carbon Dioxide BUN Creatinine Glucose POC Glucose (mg/dL) 247 H 224 H 190 H Hemoglobin A1c Plasma Lactic Acid Yang Calcium Ionized Calcium Michael Phosphorus Magnesium Total Bilirubin AST ALT Alkaline Phosphatase Creatine Kinase Total Protein Albumin Urine Protein Urine Glucose (UA) Urine Blood Ur Leukocyte Esterase Urine RBC Urine WBC Urine Mucus Urine Yeast (Budding) 11/30/17 11/30/17 11/30/17 01:25 02:06 03:00 WBC RBC Hgb Hct MCHC Plt Count Neutrophils # Neutrophils # (Manual) Lymphocytes # Lymphocytes # (Manual) Metamyelocytes # (Man) Myelocytes # (Manual) PT INR ABG pH ABG pCO2 ABG pO2 ABG HCO3 ABG Total CO2 ABG O2 Saturation Sodium Potassium 3.3 L Chloride Carbon Dioxide BUN Creatinine Glucose POC Glucose (mg/dL) 167 H 167 H Hemoglobin A1c Plasma Lactic Acid Yang Calcium Ionized Calcium Michael Phosphorus Magnesium Total Bilirubin AST ALT Alkaline Phosphatase Creatine Kinase Total Protein Albumin Urine Protein Urine Glucose (UA) Urine Blood Ur Leukocyte Esterase Urine RBC Urine WBC Urine Mucus Urine Yeast (Budding) 11/30/17 11/30/17 11/30/17 04:03 04:35 04:35 WBC RBC 2.97 L Hgb 8.8 L Hct 28.1 L MCHC Plt Count 95 L Neutrophils # Neutrophils # (Manual) Lymphocytes # Lymphocytes # (Manual) Metamyelocytes # (Man) Myelocytes # (Manual) PT INR ABG pH ABG pCO2 ABG pO2 ABG HCO3 ABG Total CO2 ABG O2 Saturation Sodium 148 H Potassium Chloride 113 H Carbon Dioxide BUN 53 H Creatinine Glucose 149 H POC Glucose (mg/dL) 157 H Hemoglobin A1c Plasma Lactic Acid Yang Calcium 7.9 L Ionized Calcium Michael Phosphorus Magnesium Total Bilirubin 2.0 H AST 72 H ALT 135 H Alkaline Phosphatase 334 H Creatine Kinase Total Protein 4.0 L Albumin 1.9 L Urine Protein Urine Glucose (UA) Urine Blood Ur Leukocyte Esterase Urine RBC Urine WBC Urine Mucus Urine Yeast (Budding) 11/30/17 11/30/17 11/30/17 05:21 06:01 07:03 WBC RBC Hgb Hct MCHC Plt Count Neutrophils # Neutrophils # (Manual) Lymphocytes # Lymphocytes # (Manual) Metamyelocytes # (Man) Myelocytes # (Manual) PT INR ABG pH ABG pCO2 ABG pO2 ABG HCO3 ABG Total CO2 ABG O2 Saturation Sodium Potassium Chloride Carbon Dioxide BUN Creatinine Glucose POC Glucose (mg/dL) 131 H 140 H 173 H Hemoglobin A1c Plasma Lactic Acid Yang Calcium Ionized Calcium Michael Phosphorus Magnesium Total Bilirubin AST ALT Alkaline Phosphatase Creatine Kinase Total Protein Albumin Urine Protein Urine Glucose (UA) Urine Blood Ur Leukocyte Esterase Urine RBC Urine WBC Urine Mucus Urine Yeast (Budding) 11/30/17 11/30/17 11/30/17 07:39 08:16 09:10 WBC RBC Hgb Hct MCHC Plt Count Neutrophils # Neutrophils # (Manual) Lymphocytes # Lymphocytes # (Manual) Metamyelocytes # (Man) Myelocytes # (Manual) PT INR ABG pH 7.54 H ABG pCO2 ABG pO2 ABG HCO3 31 H ABG Total CO2 32 H ABG O2 Saturation Sodium Potassium Chloride Carbon Dioxide BUN Creatinine Glucose POC Glucose (mg/dL) 183 H 180 H Hemoglobin A1c Plasma Lactic Acid Yang Calcium Ionized Calcium Michael Phosphorus Magnesium Total Bilirubin AST ALT Alkaline Phosphatase Creatine Kinase Total Protein Albumin Urine Protein Urine Glucose (UA) Urine Blood Ur Leukocyte Esterase Urine RBC Urine WBC Urine Mucus Urine Yeast (Budding) 11/30/17 11/30/17 11/30/17 10:07 11:59 17:56 WBC RBC Hgb Hct MCHC Plt Count Neutrophils # Neutrophils # (Manual) Lymphocytes # Lymphocytes # (Manual) Metamyelocytes # (Man) Myelocytes # (Manual) PT INR ABG pH ABG pCO2 ABG pO2 ABG HCO3 ABG Total CO2 ABG O2 Saturation Sodium Potassium Chloride Carbon Dioxide BUN Creatinine Glucose POC Glucose (mg/dL) 191 H 151 H 128 H Hemoglobin A1c Plasma Lactic Acid Yagn Calcium Ionized Calcium Michael Phosphorus Magnesium Total Bilirubin AST ALT Alkaline Phosphatase Creatine Kinase Total Protein Albumin Urine Protein Urine Glucose (UA) Urine Blood Ur Leukocyte Esterase Urine RBC Urine WBC Urine Mucus Urine Yeast (Budding) 12/01/17 12/01/17 12/01/17 00:22 05:21 05:25 WBC RBC 2.96 L Hgb 9.0 L Hct 28.1 L MCHC Plt Count 142 L Neutrophils # Neutrophils # (Manual) Lymphocytes # Lymphocytes # (Manual) Metamyelocytes # (Man) Myelocytes # (Manual) PT INR ABG pH 7.54 H ABG pCO2 34 L ABG pO2 81 L ABG HCO3 29 H ABG Total CO2 30 H ABG O2 Saturation 97.2 H Sodium Potassium Chloride Carbon Dioxide BUN Creatinine Glucose POC Glucose (mg/dL) 197 H Hemoglobin A1c Plasma Lactic Acid Yang Calcium Ionized Calcium Michael Phosphorus Magnesium Total Bilirubin AST ALT Alkaline Phosphatase Creatine Kinase Total Protein Albumin Urine Protein Urine Glucose (UA) Urine Blood Ur Leukocyte Esterase Urine RBC Urine WBC Urine Mucus Urine Yeast (Budding) 12/01/17 12/01/17 12/01/17 05:25 06:16 08:18 WBC RBC Hgb Hct MCHC Plt Count Neutrophils # Neutrophils # (Manual) Lymphocytes # Lymphocytes # (Manual) Metamyelocytes # (Man) Myelocytes # (Manual) PT INR ABG pH ABG pCO2 ABG pO2 ABG HCO3 ABG Total CO2 ABG O2 Saturation Sodium Potassium 3.0 L Chloride 111 H Carbon Dioxide BUN 46 H Creatinine Glucose 254 H POC Glucose (mg/dL) 268 H 266 H Hemoglobin A1c Plasma Lactic Acid Yang Calcium 7.7 L Ionized Calcium Michael Phosphorus Magnesium Total Bilirubin 1.7 H AST ALT 117 H Alkaline Phosphatase 320 H Creatine Kinase Total Protein 3.8 L Albumin 1.8 L Urine Protein Urine Glucose (UA) Urine Blood Ur Leukocyte Esterase Urine RBC Urine WBC Urine Mucus Urine Yeast (Budding) 12/01/17 12/01/17 12/01/17 09:56 12:17 23:51 WBC RBC Hgb Hct MCHC Plt Count Neutrophils # Neutrophils # (Manual) Lymphocytes # Lymphocytes # (Manual) Metamyelocytes # (Man) Myelocytes # (Manual) PT INR ABG pH ABG pCO2 ABG pO2 ABG HCO3 ABG Total CO2 ABG O2 Saturation Sodium Potassium Chloride Carbon Dioxide BUN Creatinine Glucose POC Glucose (mg/dL) 223 H 185 H 116 H Hemoglobin A1c Plasma Lactic Acid Yang Calcium Ionized Calcium Michael Phosphorus Magnesium Total Bilirubin AST ALT Alkaline Phosphatase Creatine Kinase Total Protein Albumin Urine Protein Urine Glucose (UA) Urine Blood Ur Leukocyte Esterase Urine RBC Urine WBC Urine Mucus Urine Yeast (Budding) 12/02/17 12/02/17 12/02/17 04:19 04:20 04:20 WBC RBC 3.12 L Hgb 9.2 L Hct 29.7 L MCHC Plt Count Neutrophils # Neutrophils # (Manual) Lymphocytes # Lymphocytes # (Manual) Metamyelocytes # (Man) Myelocytes # (Manual) PT INR ABG pH ABG pCO2 ABG pO2 ABG HCO3 ABG Total CO2 ABG O2 Saturation Sodium Potassium 3.2 L Chloride 113 H Carbon Dioxide BUN 36 H Creatinine Glucose 147 H POC Glucose (mg/dL) 148 H Hemoglobin A1c Plasma Lactic Acid Yang Calcium 7.6 L Ionized Calcium Michael Phosphorus Magnesium Total Bilirubin AST ALT 92 H Alkaline Phosphatase 296 H Creatine Kinase Total Protein 3.8 L Albumin 1.8 L Urine Protein Urine Glucose (UA) Urine Blood Ur Leukocyte Esterase Urine RBC Urine WBC Urine Mucus Urine Yeast (Budding) 12/02/17 12/02/17 12/02/17 08:26 10:14 16:23 WBC RBC Hgb Hct MCHC Plt Count Neutrophils # Neutrophils # (Manual) Lymphocytes # Lymphocytes # (Manual) Metamyelocytes # (Man) Myelocytes # (Manual) PT INR ABG pH ABG pCO2 ABG pO2 ABG HCO3 ABG Total CO2 ABG O2 Saturation Sodium Potassium 3.3 L Chloride Carbon Dioxide BUN Creatinine Glucose POC Glucose (mg/dL) 204 H 196 H Hemoglobin A1c Plasma Lactic Acid Yang Calcium Ionized Calcium Michael Phosphorus Magnesium Total Bilirubin AST ALT Alkaline Phosphatase Creatine Kinase Total Protein Albumin Urine Protein Urine Glucose (UA) Urine Blood Ur Leukocyte Esterase Urine RBC Urine WBC Urine Mucus Urine Yeast (Budding) 12/02/17 12/03/17 12/03/17 20:46 00:15 04:16 WBC RBC Hgb Hct MCHC Plt Count Neutrophils # Neutrophils # (Manual) Lymphocytes # Lymphocytes # (Manual) Metamyelocytes # (Man) Myelocytes # (Manual) PT INR ABG pH ABG pCO2 ABG pO2 ABG HCO3 ABG Total CO2 ABG O2 Saturation Sodium Potassium Chloride Carbon Dioxide BUN Creatinine Glucose POC Glucose (mg/dL) 259 H 217 H 162 H Hemoglobin A1c Plasma Lactic Acid Yang Calcium Ionized Calcium Michael Phosphorus Magnesium Total Bilirubin AST ALT Alkaline Phosphatase Creatine Kinase Total Protein Albumin Urine Protein Urine Glucose (UA) Urine Blood Ur Leukocyte Esterase Urine RBC Urine WBC Urine Mucus Urine Yeast (Budding) 12/03/17 12/03/17 12/03/17 07:38 08:31 12:04 WBC RBC Hgb Hct MCHC Plt Count Neutrophils # Neutrophils # (Manual) Lymphocytes # Lymphocytes # (Manual) Metamyelocytes # (Man) Myelocytes # (Manual) PT INR ABG pH ABG pCO2 ABG pO2 ABG HCO3 ABG Total CO2 ABG O2 Saturation Sodium Potassium 3.4 L Chloride 112 H Carbon Dioxide BUN 27 H Creatinine Glucose 119 H POC Glucose (mg/dL) 132 H 166 H Hemoglobin A1c Plasma Lactic Acid Yang Calcium 7.7 L Ionized Calcium Michael Phosphorus Magnesium Total Bilirubin AST ALT Alkaline Phosphatase Creatine Kinase Total Protein Albumin Urine Protein Urine Glucose (UA) Urine Blood Ur Leukocyte Esterase Urine RBC Urine WBC Urine Mucus Urine Yeast (Budding) 12/03/17 12/03/17 12/04/17 17:23 20:56 07:18 WBC RBC Hgb Hct MCHC Plt Count Neutrophils # Neutrophils # (Manual) Lymphocytes # Lymphocytes # (Manual) Metamyelocytes # (Man) Myelocytes # (Manual) PT INR ABG pH ABG pCO2 ABG pO2 ABG HCO3 ABG Total CO2 ABG O2 Saturation Sodium Potassium Chloride Carbon Dioxide BUN Creatinine Glucose POC Glucose (mg/dL) 167 H 214 H 100 H Hemoglobin A1c Plasma Lactic Acid Yang Calcium Ionized Calcium Michael Phosphorus Magnesium Total Bilirubin AST ALT Alkaline Phosphatase Creatine Kinase Total Protein Albumin Urine Protein Urine Glucose (UA) Urine Blood Ur Leukocyte Esterase Urine RBC Urine WBC Urine Mucus Urine Yeast (Budding) 12/04/17 12/04/17 12/04/17 07:39 12:32 17:00 WBC RBC Hgb Hct MCHC Plt Count Neutrophils # Neutrophils # (Manual) Lymphocytes # Lymphocytes # (Manual) Metamyelocytes # (Man) Myelocytes # (Manual) PT INR ABG pH ABG pCO2 ABG pO2 ABG HCO3 ABG Total CO2 ABG O2 Saturation Sodium Potassium Chloride 110 H Carbon Dioxide 33 H BUN 26 H Creatinine Glucose 100 H POC Glucose (mg/dL) 201 H 243 H Hemoglobin A1c Plasma Lactic Acid Yang Calcium 7.7 L Ionized Calcium Michael Phosphorus Magnesium Total Bilirubin AST ALT Alkaline Phosphatase Creatine Kinase Total Protein Albumin Urine Protein Urine Glucose (UA) Urine Blood Ur Leukocyte Esterase Urine RBC Urine WBC Urine Mucus Urine Yeast (Budding) 12/04/17 12/05/17 12/05/17 20:25 07:16 12:26 WBC RBC Hgb Hct MCHC Plt Count Neutrophils # Neutrophils # (Manual) Lymphocytes # Lymphocytes # (Manual) Metamyelocytes # (Man) Myelocytes # (Manual) PT INR ABG pH ABG pCO2 ABG pO2 ABG HCO3 ABG Total CO2 ABG O2 Saturation Sodium Potassium Chloride Carbon Dioxide BUN Creatinine Glucose POC Glucose (mg/dL) 238 H 149 H 246 H Hemoglobin A1c Plasma Lactic Acid Yang Calcium Ionized Calcium Michael Phosphorus Magnesium Total Bilirubin AST ALT Alkaline Phosphatase Creatine Kinase Total Protein Albumin Urine Protein Urine Glucose (UA) Urine Blood Ur Leukocyte Esterase Urine RBC Urine WBC Urine Mucus Urine Yeast (Budding) 12/05/17 12/05/17 12/06/17 17:07 20:55 07:13 WBC RBC Hgb Hct MCHC Plt Count Neutrophils # Neutrophils # (Manual) Lymphocytes # Lymphocytes # (Manual) Metamyelocytes # (Man) Myelocytes # (Manual) PT INR ABG pH ABG pCO2 ABG pO2 ABG HCO3 ABG Total CO2 ABG O2 Saturation Sodium Potassium Chloride Carbon Dioxide BUN Creatinine Glucose POC Glucose (mg/dL) 213 H 226 H 222 H Hemoglobin A1c Plasma Lactic Acid Yang Calcium Ionized Calcium Michael Phosphorus Magnesium Total Bilirubin AST ALT Alkaline Phosphatase Creatine Kinase Total Protein Albumin Urine Protein Urine Glucose (UA) Urine Blood Ur Leukocyte Esterase Urine RBC Urine WBC Urine Mucus Urine Yeast (Budding) 12/06/17 12/06/17 12/06/17 07:28 07:28 11:39 WBC RBC 3.24 L Hgb 9.4 L Hct 30.7 L MCHC 30.6 L Plt Count Neutrophils # Neutrophils # (Manual) Lymphocytes # 0.6 L Lymphocytes # (Manual) Metamyelocytes # (Man) Myelocytes # (Manual) PT INR ABG pH ABG pCO2 ABG pO2 ABG HCO3 ABG Total CO2 ABG O2 Saturation Sodium 136 L Potassium 3.4 L Chloride Carbon Dioxide BUN 26 H Creatinine Glucose 191 H POC Glucose (mg/dL) 237 H Hemoglobin A1c Plasma Lactic Acid Yang Calcium 7.5 L Ionized Calcium Michael Phosphorus Magnesium Total Bilirubin AST ALT Alkaline Phosphatase 244 H Creatine Kinase Total Protein 3.8 L Albumin 1.8 L Urine Protein Urine Glucose (UA) Urine Blood Ur Leukocyte Esterase Urine RBC Urine WBC Urine Mucus Urine Yeast (Budding) Assessment and Plan (1) Parkinsons Current Visit: Yes Status: Acute Code(s): G20 - PARKINSON'S DISEASE SNOMED Code(s): 66542854 (2) Generalized muscle weakness Current Visit: Yes Status: Acute Code(s): M62.81 - MUSCLE WEAKNESS ( GENERALIZED) SNOMED Code(s): 22891797 (3) History of muscle stiffness Current Visit: Yes Status: Acute Code(s): Z87.39 - PERSONAL HISTORY OF DISEASES OF THE MS SYS AND CONN TISS SNOMED Code(s): 426801140 Plan: patient does have significant history of Parkinson's disease. Patient does have significant history of stay in the ICU with significant debility due to multiple concurrent medical comorbidities. As a result, patient was off his medication for Parkinson's for an extended period of time. Patient has been placed back on medication and does appear to be adjusting to re-administration of medication. Tremor does appear to be relatively well controlled. Family states that his lower extremity restless leg was significantly worse before patient's medication was reimplemented. Provider did not see much if any lower extremity restless leg. Given the patient's good response so far to medication reimplementation, we recommend continued surveillance and monitoring with no medication changes at this time. Status: Neurology recommends medication continuation is implemented, reassess in the next 24-48 hours Neurology will continue to follow and provide updates as needed or warranted. I have discussed the plan of care with the physician prior to implementation and he agrees with the plan as implemented.
[2017-12-06 17:09] LABS: Glucose,Whole Blood 188 mg/dL (75-99)
[2017-12-06 21:01] LABS: Glucose,Whole Blood 215 mg/dL (75-99)
[2017-12-06] MEDS: COLLAGENASE 250 UNIT/GM OINTMENT 30 GM TUBE TOPICAL SCH (22:15)
[2017-12-06] MEDS: DAPTOmycin 500 MG in SODIUM CHLORIDE 0.9% 50 ML IVPB SCH (22:15)
[2017-12-07] MEDS: HYDROCORTISONE SUCCINATE 100 MG/2 ML VIAL IV SCH ×4 (00:54→23:06)
[2017-12-07] MEDS: PIPERACILLIN-TAZOBACTAM 3.375 GM in DEXTROSE/WATER 1 50ML.BAG IVPB SCH ×3 (00:54→16:17)
--- NOTE | 2017-12-07 05:07 | PN ---
PROGRESS NOTE DATE OF SERVICE: 12/06/2017. REASON FOR FOLLOWUP: 1. Left leg cellulitis with left foot wound. 2. Pneumonia. INTERVAL HISTORY: The patient is afebrile. He seems to be breathing comfortably. Denies significant chest pain. Occasional cough. No abdominal pain. No diarrhea and no worsening pain to the left leg and foot area. PHYSICAL EXAMINATION: Blood pressure is 94/59 with a pulse of 81, temperature 97.6. General description is a middle-aged male lying in bed in no distress. Respiratory system unlabored breathing. Clear to auscultation anteriorly. Heart S1, S2. Regular rate and rhythm. Abdomen soft. No tenderness. Left foot currently dressed up. No obvious drainage on the dressing. LABS: Hemoglobin 11.4, white count of 6.4, BUN of 26, creatinine 0.90. DIAGNOSTIC IMPRESSION AND PLAN: 1. Patient with left leg cellulitis with left foot blister formation. Local care has been discussed with vascular surgeon recommending Santyl cream daily and no surgical debridement. 2. The patient with possible gram negative pneumonia. X-ray this morning shows bibasilar airspace disease. Currently on Zosyn that will be transitioned to oral antibiotic on discharge. Continue supportive care. MMODL / IJN: [id number] /
--- NOTE | 2017-12-07 05:19 | PN ---
PROGRESS NOTE DATE OF SERVICE: December 06, 2017. PRESENTING COMPLAINT: . INTERVAL HISTORY: The patient was initially in the ICU then presented with severe cellulitis of the left lower extremity, pneumonia, acute renal failure. The patient also being treated for melanoma out of [facility] and also on antiparkinson medications. Some movement of the arms. Speech is still slow. Tolerating his diet. On antibiotics. REVIEW OF SYSTEMS: Done for constitutional, cardiovascular, GI, pulmonary, neuromuscular, relevant findings as above. CURRENT MEDICATIONS: Reviewed that include Sinemet, IV daptomycin, IV Solu-Cortef, Flagyl, IV Zosyn. EXAMINATION: VITAL SIGNS: Afebrile, pulse 81, respirations 16, blood pressure 94/59, pulse ox 94 percent on room air. GENERAL APPEARANCE: Lying in bed, tired appearing. EYES: Pupils are equal. Conjunctivae pale. HEENT: External appearance of nose and ears normal. Oral cavity normal. NECK: JVD not raised. Mass not palpable. RESPIRATORY: Effort increased. LUNGS: Diminished breath sounds. CARDIOVASCULAR: 1st and 2nd sounds normal. Edema is present. ABDOMEN: Soft, nontender. Liver and spleen not palpable. NEUROLOGICAL: Weakness in all the 4 limbs. Power in the upper extremity and lower extremities, is 2/5 in the right arm, 1/5 in the left arm. DERMATOLOGICAL: Wound on the left foot and dressings. INVESTIGATIONS: White count 6.5, hemoglobin 9.4, potassium 3.4, BUN 26, creatinine 0.90. Accu-Cheks are noted. Chest x-ray films personally reviewed by me. She has some basilar infiltrates. ASSESSMENT: 1. Bilateral pneumonia suspect gram-negative organism causing sepsis present on admission. 2. Left lower extremity cellulitis causing sepsis, present on admission. 3. Acute renal failure, likely acute acute tubular necrosis now resolved. 4. Hypokalemia, hypochloremia. 5. Hyperbilirubinemia. 6. Hypoalbuminemia as an acute phase reactant. 7. Acute hypoxic respiratory failure secondary to pneumonia, much improved. 8. Normocytic anemia, probably from underlying lymphoma. 9. Stage IV lymphoma, being followed through [facility]. 10.Parkinson disease with acute worsening because of sepsis. 11.Medical debility. PLAN: Care was discussed with the daughter at the bedside. Continue current medication and treatment plan. The patient is already on Sinemet and Mirapex. Awaiting input from Oncology. PT/OT is already on the case. Follow. MMODL / IJN: [id number] /
[2017-12-07 07:29] LABS: Glucose,Whole Blood 222 mg/dL (75-99)
[2017-12-07] MEDS: IPRATROPIUM-ALBUTEROL 3 ML NEB INHALATION SCH ×4 (07:57→19:56)
[2017-12-07] MEDS: PANTOPRAZOLE 40 MG TABLET PO SCH (09:13)
[2017-12-07] MEDS: LISINOPRIL 2.5 MG TAB PO SCH (09:13)
[2017-12-07] MEDS: metroNIDAZOLE 500 MG TAB PO SCH ×2 (09:13→16:17)
[2017-12-07] MEDS: CARVEDILOL 3.125 MG TAB PO SCH ×2 (09:13→16:17)
[2017-12-07] MEDS: PRAMIPEXOLE 0.5 MG TAB PO SCH ×3 (09:13→21:29)
[2017-12-07] MEDS: ENOXAPARIN 40 MG/0.4 ML SYRINGE SQ SCH (09:13)
[2017-12-07] MEDS: CARBIDOPA-LEVODOPA 25-100 MG 1 EACH TAB PO SCH ×3 (09:13→21:29)
[2017-12-07] MEDS: INSULIN ASPART 100 UNIT/ML 1 ML 10 ML VIAL SQ SCH ×4 (09:14→21:28)
[2017-12-07] MEDS: INSULIN DETEMIR 100 UNIT/ML 10 ML VIAL SQ SCH (09:17)
[2017-12-07 11:43] LABS: Glucose,Whole Blood 226 mg/dL (75-99)
--- NOTE | 2017-12-07 16:53 | P.CONS ---
History of Present Illness - Reason for Consult Consult date: 12/05/17 metastatic melanoma - History of Present Illness the patient is a 57-year-old gentleman, was diagnosed with malignant melanoma in 2016. The patient is quite weak and unable to provide a coherent history. The history was obtained from his , as well as from his oncologist at the [facility], [place]. based on the history available, it appears that the primary lesion was on his right shoulder. This was treated with resection. The patient subsequently developed metastatic disease with involvement of axillary lymph nodes and skin nodules. He also developed involvement of his lungs, and liver. He has had various lines of treatment, including Ipilumumab, and Opdivo. He unfortunately progressed through those, and was most recently on a clinical trial under the care of Dr. Florez at the [facility]. According to his , he did have stable disease on the trial, but was having progressive side effects, especially muscle weakness, due to which she was taken off treatment a couple weeks ago. According to my discussion with Dr. 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 The patient has had somewhat chronic bilateral lower axillary swelling. He came into the hospital because of extensive cellulitis affecting the left lower extremity, which lead to sepsis. The patient was initially quite critical, but has improved with aggressive treatment including antibiotics, IV fluids, and stress dose steroids. He remains quite weak at this time. Consult was placed for further evaluation and recommendations Review of Systems Constitutional: Reports fatigue, Reports fever, Reports weakness Eyes: denies blurred vision, denies pain Ears: deny: decreased hearing, ear discharge, earache, tinnitus Ears, nose, mouth and throat: Reports voice changes, Denies headache, Denies sore throat Cardiovascular: Reports decreased exercise tolerance Respiratory: Reports dyspnea Gastrointestinal: Reports diarrhea Genitourinary: Reports as per HPI Musculoskeletal: Reports as per HPI, Reports muscle weakness Integumentary: Reports as per HPI, Reports color changes, Reports sores Neurological: Reports weakness Psychiatric: Reports depression Endocrine: Reports as per HPI (high-dose steroid therapy for autoimmune colitis , with adrenal insufficiency due to sepsis), Reports high blood sugars Hematologic/Lymphatic: Reports as per HPI, Reports lymphedema (both lower extremities) Past Medical History Past Medical History: Cancer, Prostate Disorder Additional Past Medical History / Comment(s): PARKINSON'S. 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, C-Diff History of Any Multi-Drug Resistant Organisms: C-DIFF Year Discovered:: unknown MDRO Source:: stool Past Surgical History: Tonsillectomy Additional Past Surgical History / Comment(s): rt axillary biopsy - POSITIVE FOR CANCER, LIP BX, RT SHOULDER MOLE BX , dental extraction Past Anesthesia/Blood Transfusion Reactions: No Reported Reaction Past Psychological History: No Psychological Hx Reported Smoking Status: Never smoker Past Alcohol Use History: None Reported Past Drug Use History: None Reported - Past Family History Mother Family Medical History: Cancer Additional Family Medical History / Comment(s): breast cancer also had moles removed - not sure if positive or not for cancer Father Family Medical History: Congestive Heart Failure (CHF) Additional Family Medical History / Comment(s): Parkinsons Medications and Allergies Home Medications Medication Instructions Recorded Confirmed Type Carbidopa-Levodopa 25-100 mg 1 tab PO TID 10/19/17 11/24/17 History [Sinemet 25-100] Pantoprazole [Protonix] 40 mg PO DAILY 11/24/17 11/24/17 History Pramipexole Di-HCl [Mirapex] 1.5 mg PO TID 11/24/17 11/24/17 History Vancomycin HCl 125 mg PO Q6H 11/24/17 11/24/17 History predniSONE 50 mg PO BID 11/24/17 11/24/17 History Allergies Allergy/AdvReac Type Severity Reaction Status Date / Time Sulfa (Sulfonamide Allergy Rash/Hives Verified 11/24/17 16:49 Antibiotics) Physical Exam Vitals: Vital Signs Temp Pulse Pulse Resp BP BP Pulse Ox 12/05/17 17:04 80 12/05/17 16:50 80 12/05/17 15:00 99.2 F 81 18 97/55 96 12/05/17 11:46 88 12/05/17 11:33 84 12/05/17 07:30 84 12/05/17 07:20 80 12/05/17 07:00 98.1 F 72 18 121/72 95 12/04/17 23:00 99.0 F 88 20 105/54 94 L 12/04/17 20:38 83 12/04/17 20:29 81 Intake and Output 12/05/17 12/05/17 12/05/17 06:59 14:59 22:59 Intake Total 600 480 Output Total 700 825 Balance -100 -345 Intake: Oral 600 480 Output: Urine 700 825 Other: Voiding Method Indwelling Catheter Indwelling Catheter # Bowel Movements 1 Weight 86 kg - Constitutional General appearance: no acute distress - EENT Eyes: EOMI, PERRLA ENT: hearing grossly normal, normal oropharynx - Neck Thyroid: negative: normal size - Respiratory Respiratory: bilateral: CTA - Cardiovascular Rhythm: regular Heart sounds: normal: S1, S2 - Gastrointestinal General gastrointestinal: normal bowel sounds, soft - Integumentary Integumentary: cellulitis (LLE. ) - Neurologic generalized weakness Neurologic: CNII-XII intact - Musculoskeletal RLE bandaged Musculoskeletal: generalized weakness, strength equal bilaterally - Psychiatric Psychiatric: A&O x's 3 Results CBC & Chem 7: 12/06/17 07:28 12/06/17 07:28 Labs: Abnormal Lab Results - Last 24 Hours (Table) 12/04/17 12/05/17 12/05/17 Range/Units 20:25 07:16 12:26 POC Glucose (mg/dL) 238 H 149 H 246 H (75-99) mg/dL 12/05/17 Range/Units 17:07 POC Glucose (mg/dL) 213 H (75-99) mg/dL Comments: report of CT LE and ECHO reviewed Chest x-ray: report reviewed Venous US: report reviewed Assessment and Plan (1) Metastatic melanoma Narrative/Plan: history regarding melanoma as described in the HPI. History was mostly obtained from the patient's , and also by discussion with Dr. Florez. He has progressed through standard therapies, and was on a clinical trial recently. He apparently did have stability of disease, but was taken off due to intolerance. According to his , he has had recent staging CT scans, within the last month which showed stable disease. Patient will resume follow-up with the [facility] on discharge Current Visit: Yes Status: Acute Code(s): C79.9 - SECONDARY MALIGNANT NEOPLASM OF UNSPECIFIED SITE SNOMED Code(s): 262846096 (2) Colitis Narrative/Plan: the patient had developed severe autoimmune colitis, due to his melanoma treatment. He had been on heavy doses of steroids to which she had not responded well, leading to the use of Remicade. This issue was discussed in detail with Dr. Florez. The patient's diarrhea is improved. At this time it was recommended that he be closely followed. If diarrhea recurs, then steroids are recommended if he starts having 6 bowel movements or more per day. the patient is already on hydrocortisone, though it is for adrenal insufficiency. If frequency increases closer to 9-10 per day, then Remicade will need to be resumed Current Visit: Yes Status: Acute Code(s): K52.9 - NONINFECTIVE GASTROENTERITIS AND COLITIS, UNSPECIFIED SNOMED Code(s): 29878535 (3) Cellulitis of left lower extremity Narrative/Plan: the patient had developed septic shock secondary to the same. He has improved with aggressive supportive care, including ventilator support, and antibiotics. Continue treatment for the admitting service, ID and other consultants Current Visit: Yes Status: Acute Code(s): L03.116 - CELLULITIS OF LEFT LOWER LIMB SNOMED Code(s): 717692567
[2017-12-07 17:03] LABS: Glucose,Whole Blood 263 mg/dL (75-99)
--- NOTE | 2017-12-07 17:26 | PN ---
PROGRESS NOTE DATE OF SERVICE: 12/07/2017 PRESENT COMPLAINT: Tired. INTERVAL HISTORY: The patient initially was in the ICU presented with severe cellulitis of the left lower extremity,pain, pneumonia, acute renal failure is also being treated for melanoma, being followed out of [facility] and also has got worsening of Parkinson disease. Some movement of the right arm is actually improving. Speech is somewhat better. Tolerating his diet. The patient's significant other at the bedside. The patient also has got 2 wounds on the lower extremity. REVIEW OF SYSTEMS: Done for constitutional, cardiovascular, GI, pulmonary, neuromuscular, relevant findings as above. CURRENT MEDICATIONS: Reviewed that include IV daptomycin and p.o. Flagyl, IV Zosyn. PHYSICAL EXAMINATION: VITAL SIGNS: Temperature 98.3, pulse 88, respiration 18, blood pressure 108/64, pulse ox 96 percent on room air. GENERAL APPEARANCE: Lying in bed awake, tired. EYES: Pupils equal. Conjunctivae pale. HEENT: External appearance of nose and ears normal. Oral cavity normal. NECK JVD not raised. Mass not palpable. RESPIRATORY: Effort increased. LUNGS: Decreased breath sounds. CARDIOVASCULAR: 1st and 2nd sounds normal. No edema present. ABDOMEN: Soft, nontender. Liver and spleen not palpable. NEUROLOGICAL: Power in the right upper extremity is 2/5, left arm is 1/5. DERMATOLOGICAL: Wound on the left foot in a dressing. INVESTIGATIONS: No blood work from today. ASSESSMENT: 1. Bilateral pneumonia suspect gram-negative organism causing sepsis present on admission with significant clinical improvement. 2. Left lower extremity cellulitis causing sepsis, present on admission. Much improved. 3. Acute renal failure likely acute tubular necrosis, now resolved. 4. Hypokalemia, hypochloremia hyperbilirubinemia. 5. Hypoalbuminemia as an acute phase reactant. 6. Acute hypoxic respiratory failure secondary to pneumonia, now resolved. 7. Normocytic anemia, probably from underlying lymphoma. 8. Stage IV lymphoma, being followed through [facility]. Oncology was consulted. 9. Parkinson disease. Acute worsening because of sepsis. 10.Medical debility. PLAN: Care was discussed with significant other at the bedside. PT/OT is already on the case. The patient's pulse ox is done well. No fever, no white count. We will discontinue the IV Zosyn to p.o. Augmentin. Repeat labs in the morning. We will also add inspiratory spirometry to be done. MAUROL / IJN: [id number] /
[2017-12-07] MEDS: CEPHALEXIN 500 MG CAP PO SCH ×2 (17:59→21:29)
[2017-12-07 20:38] LABS: Glucose,Whole Blood 239 mg/dL (75-99)
[2017-12-07] MEDS ORDERED: AMOXIC-POT CLAV 875-125MG 1 EACH TAB PO SCH (21:00)
[2017-12-07] MEDS: COLLAGENASE 250 UNIT/GM OINTMENT 30 GM TUBE TOPICAL SCH (21:29)
[2017-12-07] MEDS: CIPROFLOXACIN HCL 500 MG TAB PO SCH (21:29)
--- NOTE | 2017-12-07 21:38 | PN ---
PROGRESS NOTE DATE OF SERVICE: 12/07/2017. REASON FOR FOLLOWUP: 1. Left leg cellulitis. 2. Pneumonia. 3. Left foot wound. INTERVAL HISTORY: The patient is currently afebrile. He is breathing comfortably. Denies having any chest pain, shortness of breath, cough. No abdominal pain. the left leg and foot area. PHYSICAL EXAMINATION: Blood pressure 108/64 with a pulse of 80, temperature 98.3. He is 96% on room air. General description is a middle-aged male lying in bed in no distress. Respiratory system: Unlabored breathing. Clear to auscultation anteriorly. Heart S1, S2. Regular rate and rhythm. Abdomen soft, no tenderness. Left foot did have a slough tissue surrounding redness improved. LABS: Hemoglobin is 9.4, white count 6.4 with a BUN of 26, creatinine 0.90. DIAGNOSTIC IMPRESSION AND PLAN: 1. Patient with gram-negative pneumonia adequately treated. Zosyn discontinued. We will give a short course of oral Ceftin. 2. Patient with left leg cellulitis adequately treated with the left foot wound. Local wound care with Santyl and short course of oral Keflex. Plan of care discussed with the attending physician. Continue supportive care. MMODL / IJN: [id number] /
--- NOTE | 2017-12-08 06:09 | P.PN ---
Subjective Progress Note Date: 12/08/17 Principal diagnosis: Tremor/Parkinson's ALLERGIES following on a 57-year-old male with significant medical history including ICU stay, bilateral pneumonia, left lower cavity cellulitis causing sepsis, acute renal failure, hypokalemia, hyperchloremia, hyperbilirubinemia, hypoalbuminemia, acute hypoxic respiratory failure secondary to pneumonia, normocytic anemia, stage IV lymphoma, Parkinson's disease and medical debility. Neurology is consulting for assistance with Parkinson's management specifically medication management. Patient was without his Parkinson's medication for approximately 2 weeks while inpatient in ICU. She was placed back on Sinemet 25/100 mg and Mirapex 1.5 mg by mouth 3 times a day. Sinemet was restarted on 12/03/17 and Mirapex on 12/05/17. Neurology with her initially was being requested to evaluate the patient for possible medication adjustment for both tremor control as well as muscle stiffness. Patient does appear to have good muscle control at this time and no tremor was observed. On contact this morning, patient was alert and oriented 3, resting in bed in no acute distress. No family or visitors were in the room. Objective - Vital Signs Vital signs: Vital Signs Temp 98.5 F 12/08/17 00:40 Pulse 77 12/08/17 00:40 Resp 20 12/08/17 00:40 BP 122/74 12/08/17 00:40 Pulse Ox 93 L 12/08/17 00:40 Intake & Output 12/07/17 12/07/17 12/08/17 06:59 18:59 06:59 Intake Total 1680 300 Output Total 9251 351 2554 Balance -1150 730 -1300 Weight 87.5 kg 90 kg Intake: Oral 1680 300 Output: Urine 9463 243 7070 3-way Urethral 600 Other: Voiding Method Indwelling Catheter Indwelling Catheter Indwelling Catheter # Bowel Movements 1 1 ABP, PAP, CO, CI - Last Documented Arterial Blood Pressure 135/67 - Exam Gen. appearance: Alert, in no apparent distress Head: Atraumatic normocephalic, normal inspection Ear nose and throat: Normal exam, mucous membranes moist Neck: Normal inspection. Absent tenderness, lymphadenopathy Respiratory: No increased work of breathing. Cardiovascular: Regular rate, normal rhythm, normal heart sounds. Absent systolic murmur, diastolic murmur, rubs, gallops, clicks GIabdominal: no guarding Extremities: Bilateral lower extremities stiff, bilateral upper extremities bilaterally, stiff right greater than left Rheological: No lateralizing weakness: Bilateral upper and lower extremity generalized weakness, tremor managed with medication upper and lower extremities No seizure activity noted on physical exam Strength in upper extremities: 12 out of 5 Strength in lower extremities 2 out of 5 Bilateral lower extremities bandage bilaterally Woundsleft lower extremity Psychological: Mood and affect appropriate setting - Labs CBC & Chem 7: 12/06/17 07:28 12/06/17 07:28 Labs: Abnormal Lab Results - Last 24 Hours (Table) 12/07/17 12/07/17 12/07/17 Range/Units 07:15 11:29 17:01 POC Glucose (mg/dL) 222 H 226 H 263 H (75-99) mg/dL 12/07/17 Range/Units 20:29 POC Glucose (mg/dL) 239 H (75-99) mg/dL Assessment and Plan (1) Parkinsons Current Visit: Yes Status: Acute Code(s): G20 - PARKINSON'S DISEASE SNOMED Code(s): 60820978 (2) Generalized muscle weakness Current Visit: Yes Status: Acute Code(s): M62.81 - MUSCLE WEAKNESS ( GENERALIZED) SNOMED Code(s): 15833257 (3) History of muscle stiffness Current Visit: Yes Status: Acute Code(s): Z87.39 - PERSONAL HISTORY OF DISEASES OF THE MS SYS AND CONN TISS SNOMED Code(s): 417654799 Plan: patient does have significant history of Parkinson's disease. Patient does have significant history of stay in the ICU with significant debility due to multiple concurrent medical comorbidities. As a result, patient was off his medication for Parkinson's for an extended period of time. Patient has been placed back on medication and does appear to be adjusting to re-administration of medication. Tremor does appear to be well controlled. Medication does appear to be adequate and appropriate at this time. Patient will need aggressive physical therapy and occupational therapy ongoing and is implemented. At this time recommendation is to maintain medication regimen as implemented and readjust as physical therapy/occupational therapy are implemented and ongoing. It is with reasonable medical certainty that the patient will need medication adjustment in the future. Patient may also benefit from possible deep brain stimulator device in the outpatient setting if the patient meets implant criteria given his cancer status. This may provide better quality of life, decreased medication and improvement in ambulation ability over time. Status: Neurology recommends medication continuation is implemented, reassess is physical and occupational therapy progress. Neurology will follow on an as-needed basis. Feel free to contact our office if further consultation or recommendations are needed in the future. I have discussed the plan of care with the physician prior to implementation and he agrees with the plan as implemented.
[2017-12-08 07:14] LABS: Glucose,Whole Blood 167 mg/dL (75-99)
[2017-12-08] MEDS: IPRATROPIUM-ALBUTEROL 3 ML NEB INHALATION SCH ×4 (08:21→19:13)
[2017-12-08] MEDS: CEPHALEXIN 500 MG CAP PO SCH ×4 (08:31→20:49)
[2017-12-08] MEDS: HYDROCORTISONE SUCCINATE 100 MG/2 ML VIAL IV SCH (08:32)
[2017-12-08] MEDS: LISINOPRIL 2.5 MG TAB PO SCH (08:33)
[2017-12-08] MEDS: INSULIN DETEMIR 100 UNIT/ML 10 ML VIAL SQ SCH (08:33)
[2017-12-08] MEDS: CARBIDOPA-LEVODOPA 25-100 MG 1 EACH TAB PO SCH ×3 (08:33→20:50)
[2017-12-08] MEDS: ENOXAPARIN 40 MG/0.4 ML SYRINGE SQ SCH (08:33)
[2017-12-08] MEDS: CARVEDILOL 3.125 MG TAB PO SCH ×2 (08:33→16:51)
[2017-12-08] MEDS: CIPROFLOXACIN HCL 500 MG TAB PO SCH ×2 (08:33→20:50)
[2017-12-08] MEDS: PANTOPRAZOLE 40 MG TABLET PO SCH (08:33)
[2017-12-08] MEDS: PRAMIPEXOLE 0.5 MG TAB PO SCH ×3 (08:34→20:49)
[2017-12-08] MEDS: INSULIN ASPART 100 UNIT/ML 1 ML 10 ML VIAL SQ SCH ×4 (08:34→20:59)
[2017-12-08 10:52] LABS: Basophils % (A) 1 %; Eosinophils % (A) 0 %; HCT 32.3 % (39.0-53.0); HGB 10.1 gm/dL (13.0-17.5); Lymphocytes # (A) 0.9 k/uL (1.0-4.8); Lymphocytes % (A) 13 %; MCH 29.4 pg (25.0-35.0); MCHC 31.3 g/dL (31.0-37.0); MCV 93.7 fL (80.0-100.0); Monocytes # (A) 0.2 k/uL (0-1.0); Monocytes % (A) 4 %; Neutrophils # (A) 5.3 k/uL (1.3-7.7); Neutrophils % (A) 81 %; Platelet Count 316 k/uL (150-450); RBC 3.45 m/uL (4.30-5.90); RDW 15.1 % (11.5-15.5); WBC 6.5 k/uL (3.8-10.6)
[2017-12-08 10:56] LABS: Anion Gap 4 mmol/L; Blood Urea Nitrogen 25 mg/dL (9-20); Calcium 7.7 mg/dL (8.4-10.2); Carbon Dioxide 29 mmol/L (22-30); Chloride 103 mmol/L (98-107); Glucose 176 mg/dL (74-99); Potassium 3.1 mmol/L (3.5-5.1); Sodium 136 mmol/L (137-145)
[2017-12-08 12:42] LABS: Glucose,Whole Blood 173 mg/dL (75-99)
--- NOTE | 2017-12-08 13:04 | PN ---
PROGRESS NOTE DATE OF SERVICE: 12/08/2017 REASON FOR FOLLOWUP: 1. Pneumonia. 2. Left leg cellulitis. 3. Left foot wound. INTERVAL HISTORY: The patient is currently afebrile. He is breathing comfortably. Denies having any chest pain, shortness of breath. Occasional cough. No abdominal pain or any pain to the left leg area. PHYSICAL EXAMINATION: Blood pressure 142/72 with a pulse of 77, temperature 97.9, he is 96% on room air. General description is a middle aged male, up in the chair in no distress. RESPIRATORY SYSTEM: Unlabored breathing, clear to auscultation anteriorly. HEART: S1, S2. Regular rate and rhythm. ABDOMEN: Soft, no tenderness. Left foot wound consistent with no drainage on the dressing. LABS: Hemoglobin is 10.1, white count of 6.5, BUN of 25, creatinine 0.71. DIAGNOSTIC IMPRESSION AND PLAN: 1. Patient with gram-negative pneumonia, has been adequately treated. 2. Left leg cellulitis has shown clinical improvement, currently on oral Keflex. 3. Left foot wound. Recommend local wound care with Santyl followed by moist dressing. Continue supportive care. MMODL / IJN: [id number] /
[2017-12-08 13:21] VITALS: BMI 31.1
--- NOTE | 2017-12-08 16:00 | P.PN ---
Subjective Progress Note Date: 12/08/17 Principal diagnosis: Malignant Melanoma Patient states he feels the diarrhea is still severe. Objective - Vital Signs Vital signs: Vital Signs Temp 98.1 F 12/08/17 13:56 Pulse 70 12/08/17 15:23 Resp 16 12/08/17 13:56 BP 111/63 12/08/17 13:56 Pulse Ox 93 L 12/08/17 13:56 Intake & Output 12/07/17 12/08/17 12/08/17 18:59 06:59 18:59 Intake Total 1680 300 Output Total 950 1600 960 Balance 730 -1300 -960 Weight 90 kg 90 kg Intake: Oral 1680 300 Output: Urine 950 1600 960 3-way Urethral 600 Other: Voiding Method Indwelling Catheter Indwelling Catheter Indwelling Catheter # Bowel Movements 1 1 1 ABP, PAP, CO, CI - Last Documented Arterial Blood Pressure 135/67 - Exam Constitutional General appearance: no acute distress - EENT Eyes: EOMI, PERRLA ENT: hearing grossly normal, normal oropharynx - Neck Thyroid: negative: normal size - Respiratory Respiratory: bilateral: CTA - Cardiovascular Rhythm: regular Heart sounds: normal: S1, S2 - Gastrointestinal General gastrointestinal: normal bowel sounds, soft - Integumentary Integumentary: cellulitis (LLE. ) - Neurologic generalized weakness Neurologic: CNII-XII intact - Musculoskeletal RLE bandaged Musculoskeletal: generalized weakness, - Labs CBC & Chem 7: 12/08/17 09:55 12/08/17 09:55 Labs: Abnormal Lab Results - Last 24 Hours (Table) 12/07/17 12/07/17 12/08/17 Range/Units 17:01 20:29 07:04 RBC (4.30-5.90) m/uL Hgb (13.0-17.5) gm/dL Hct (39.0-53.0) % Lymphocytes # (1.0-4.8) k/uL Sodium (137-145) mmol/L Potassium (3.5-5.1) mmol/L BUN (9-20) mg/dL Glucose (74-99) mg/dL POC Glucose (mg/dL) 263 H 239 H 167 H (75-99) mg/dL Calcium (8.4-10.2) mg/dL 12/08/17 12/08/17 12/08/17 Range/Units 09:55 09:55 12:26 RBC 3.45 L (4.30-5.90) m/uL Hgb 10.1 L (13.0-17.5) gm/dL Hct 32.3 L (39.0-53.0) % Lymphocytes # 0.9 L (1.0-4.8) k/uL Sodium 136 L (137-145) mmol/L Potassium 3.1 L (3.5-5.1) mmol/L BUN 25 H (9-20) mg/dL Glucose 176 H (74-99) mg/dL POC Glucose (mg/dL) 173 H (75-99) mg/dL Calcium 7.7 L (8.4-10.2) mg/dL Microbiology - Last 24 Hours (Table) 11/25/17 01:56 Gram Stain - Final Sputum Sputum Culture - Final Gram Neg Jake Non-Health Therapist Assessment and Plan Plan: Assessment and Plan (1) Metastatic melanoma Narrative/Plan: History regarding melanoma as described in the HPI. Current Visit: Yes Status: Acute Code(s): C79.9 - SECONDARY MALIGNANT NEOPLASM OF UNSPECIFIED SITE SNOMED Code(s): 767432558 (2) Colitis Narrative/Plan: Severe autoimmune colitis, due to his melanoma treatment. - He had been on heavy doses of steroids to which she had not responded well , leading to the use of Remicade. This issue was discussed in detail with Dr. Florez. The patient's diarrhea is improved. - Diarrhea has not greatly improved and patient feels it may have worsened over the weekend - We will stop Solu-cortef and Trial Prednisone 60mg po Daily per Dr. Herbert. Current Visit: Yes Status: Acute Code(s): K52.9 - NONINFECTIVE GASTROENTERITIS AND COLITIS, UNSPECIFIED SNOMED Code(s): 41786064 (3) Cellulitis of left lower extremity Narrative/Plan: Continue treatment for the admitting service, ID and other consultants Current Visit: Yes Status: Acute Code(s): L03.116 - CELLULITIS OF LEFT LOWER LIMB SNOMED Code(s): 680748048
[2017-12-08] MEDS: predniSONE 20 MG TAB PO SCH (16:49)
[2017-12-08 17:01] LABS: Glucose,Whole Blood 207 mg/dL (75-99)
[2017-12-08 21:18] LABS: Glucose,Whole Blood 257 mg/dL (75-99)
--- NOTE | 2017-12-08 21:34 | PN ---
PROGRESS NOTE DATE OF SERVICE: 12/08/2017. PRESENTING COMPLAINT: Tired. INTERVAL HISTORY: This patient presented with severe cellulitis of the left lower extremity, pneumonia, acute renal failure that corrected, also has got stage IV melanoma, being followed out of [facility] and also worsening of Parkinson disease. The patient tolerating a diet had a bowel movement. He had some diarrhea he says. The patient also has got hematological colitis for which he has been on prednisone. The patient gets physical therapy. Still weak in his limbs. Switched to oral antibiotics last night. REVIEW OF SYSTEMS: Done for constitutional, cardiovascular, GI, pulmonary, neuromuscular, relevant findings as above. CURRENT MEDICATIONS: Reviewed that include Keflex and Cipro. Augmentin was discontinued. PHYSICAL EXAMINATION: VITAL SIGNS: Temperature 98.1, pulse 72, respirations 18, blood pressure 101/63, pulse ox 93 percent on room air. GENERAL APPEARANCE: Lying in bed, awake. EYES: Pupils equal. Conjunctivae pale. HEENT: External appearance of nose and ears normal. Oral cavity normal. NECK JVD not raised. Mass not palpable. Respiratory effort normal. LUNGS decreased breath sounds. CARDIOVASCULAR: 1st and 2nd sounds normal. Some edema is present. ABDOMEN: Soft, nontender. Liver and spleen not palpable. NEUROLOGICAL: Power in the right upper extremity 2/5. Left arm is 1/5. DERMATOLOGICAL: Wound on the left foot in a dressing. INVESTIGATIONS: White count 6.5, hemoglobin 10.1, potassium 3.1, BUN 25, creatinine 0.71. ASSESSMENT: 1. Bilateral pneumonia suspect gram-negative organism causing sepsis present on admission with clinical improvement. 2. Left lower extremity cellulitis causing sepsis, present on admission, much improved. 3. Acute renal failure likely acute tubular necrosis, resolved. 4. Hypokalemia, hypochloremia. 5. Hyperbilirubinemia. 6. Hypoalbuminemia as an acute phase reactant. 7. Acute hypoxic respiratory failure secondary to pneumonia, now resolved. 8. Normocytic anemia, probably from underlying lymphoma. 9. Stage IV lymphoma, being followed through [facility]. 10.Idiopathic Parkinson disease with acute worsening because of sepsis, slow to respond. 11.Medical debility. 12.Severe autoimmune colitis. PLAN: Continue current medication and treatment plan. IV hydrocortisone was discontinued. Patient is put back on prednisone. I spoke to the patient and significant other at the bedside. Looking at the patient go to the [facility] in the next couple of days. Local wound care dressing is to be continued with Santyl as discussed with Dr. Aburto yesterday. MMJESSIEL / VIRAJN: [id number] /
[2017-12-09] MEDS: COLLAGENASE 250 UNIT/GM OINTMENT 30 GM TUBE TOPICAL SCH ×2 (05:47→22:20)
[2017-12-09] MEDS: IPRATROPIUM-ALBUTEROL 3 ML NEB INHALATION SCH ×4 (07:31→19:41)
[2017-12-09 07:36] LABS: Glucose,Whole Blood 235 mg/dL (75-99)
[2017-12-09] MEDS: INSULIN ASPART 100 UNIT/ML 1 ML 10 ML VIAL SQ SCH ×4 (07:52→22:17)
[2017-12-09] MEDS: CARVEDILOL 3.125 MG TAB PO SCH ×2 (07:52→17:14)
[2017-12-09] MEDS: CIPROFLOXACIN HCL 500 MG TAB PO SCH ×2 (07:53→22:17)
[2017-12-09] MEDS: CARBIDOPA-LEVODOPA 25-100 MG 1 EACH TAB PO SCH ×3 (07:53→22:19)
[2017-12-09] MEDS: PANTOPRAZOLE 40 MG TABLET PO SCH (07:53)
[2017-12-09] MEDS: CEPHALEXIN 500 MG CAP PO SCH ×4 (07:54→22:19)
[2017-12-09] MEDS: predniSONE 20 MG TAB PO SCH (07:54)
[2017-12-09] MEDS: ENOXAPARIN 40 MG/0.4 ML SYRINGE SQ SCH (07:54)
[2017-12-09] MEDS: PRAMIPEXOLE 0.5 MG TAB PO SCH ×3 (07:54→22:19)
[2017-12-09] MEDS: LISINOPRIL 2.5 MG TAB PO SCH (07:54)
[2017-12-09] MEDS: INSULIN DETEMIR 100 UNIT/ML 10 ML VIAL SQ SCH (09:34)
[2017-12-09 09:39] LABS: Anion Gap 4 mmol/L; Blood Urea Nitrogen 22 mg/dL (9-20); Calcium 7.7 mg/dL (8.4-10.2); Carbon Dioxide 28 mmol/L (22-30); Chloride 102 mmol/L (98-107); Glucose 242 mg/dL (74-99); Potassium 4.1 mmol/L (3.5-5.1); Sodium 134 mmol/L (137-145)
[2017-12-09 12:27] LABS: Glucose,Whole Blood 259 mg/dL (75-99)
--- NOTE | 2017-12-09 16:27 | PN ---
PROGRESS NOTE DATE OF SERVICE: 12/09/2017 PRESENTING COMPLAINT: Tired. INTERVAL HISTORY: This patient presented with severe cellulitis of the left lower extremity, pneumonia, acute renal failure. The patient is also being treated for stage IV melanoma, exacerbation of Parkinson disease. Patient continues to tolerate a diet. Still very weak in his limbs. He also has immunologic colitis, for which he is on prednisone. Speech is more formed. REVIEW OF SYSTEMS: Done for constitutional, cardiovascular, GI, pulmonary, neuromuscular; relevant findings as above. CURRENT MEDICATIONS: Reviewed. They include Keflex and Cipro. PHYSICAL EXAMINATION: Temperature 98.1, pulse 75, respiration 18, blood pressure 134/81, pulse ox 95% on room air. GENERAL APPEARANCE: Lying in bed. Awake. EYES: Pupils equal. Conjunctivae pale. HEENT: External appearance of nose and ears normal. Oral cavity normal. NECK: JVD not raised. Mass not palpable. RESPIRATORY: Effort normal. LUNGS: Decreased breath sounds. CARDIOVASCULAR: First and second sounds normal. Edema is present. ABDOMEN: Soft, non-tender. Liver and spleen not palpable. NEUROLOGICAL: Power in the right upper extremity is 2/5, left arm 1/5. Weakness in the lower extremities still persists. DERMATOLOGICAL: Wound on the left foot. INVESTIGATIONS: Potassium 4.1, BUN 22, creatinine 0.68. ASSESSMENT: 1. Bilateral pneumonia. Suspect gram-negative organism causing sepsis, present on admission, now corrected. 2. Left lower extremity cellulitis causing sepsis, present on admission, much improved. 3. Acute renal failure, likely acute tubular necrosis, resolved. 4. Hypokalemia. 5. Hyperchloremia, improved. 6. Hyperbilirubinemia. 7. Hypoalbuminemia as an acute phase reactant. 8. Acute hypoxic respiratory failure secondary to pneumonia, now resolved. 9. Normocytic anemia, probably from underlying lymphoma. 10.Stage IV lymphoma, being followed through [facility]. 11.Idiopathic Parkinson disease with acute worsening because of sepsis. Still weak in his limbs. 12.Medical debility. 13.Severe autoimmune colitis, for which patient is on prednisone. PLAN: Continue current medication and treatment plan. Looking at patient probably going to the [facility] tomorrow. I did convey this to , the psych social worker. Prognosis is guarded. The patient at this point is able to comprehend and understand his medical condition and is capable of taking his own decisions. MMODL / IJN: [id number] /
[2017-12-09 16:49] LABS: Glucose,Whole Blood 306 mg/dL (75-99)
--- NOTE | 2017-12-09 19:13 | P.PN ---
Subjective Progress Note Date: 12/09/17 Principal diagnosis: Malignant Melanoma Patient is unable to explain if diarrhea worsened, at bedside and feels it is same, nursing claims only one loose stool overnight which would be improvement on PO prednisone Objective - Vital Signs Vital signs: Vital Signs Temp 98.1 F 12/09/17 06:39 Pulse 74 12/09/17 15:57 Resp 20 12/09/17 14:23 BP 139/78 12/09/17 14:23 Pulse Ox 96 12/09/17 14:23 Intake & Output 12/09/17 12/09/17 12/10/17 06:59 18:59 06:59 Intake Total 240 Output Total 1750 1000 Balance -1750 -760 Weight 90 kg Intake: Oral 240 Output: Urine 1750 1000 Other: Voiding Method Indwelling Catheter Indwelling Catheter # Bowel Movements 1 ABP, PAP, CO, CI - Last Documented Arterial Blood Pressure 135/67 - Exam Constitutional General appearance: no acute distress - EENT Eyes: EOMI, PERRLA ENT: hearing grossly normal, normal oropharynx - Neck Thyroid: negative: normal size - Respiratory Respiratory: bilateral: CTA - Cardiovascular Rhythm: regular Heart sounds: normal: S1, S2 - Gastrointestinal General gastrointestinal: normal bowel sounds, soft - Integumentary Integumentary: cellulitis (LLE. ) - Neurologic generalized weakness Neurologic: CNII-XII intact - Musculoskeletal RLE bandaged Musculoskeletal: generalized weakness, - Labs CBC & Chem 7: 12/08/17 09:55 12/09/17 08:39 Labs: Abnormal Lab Results - Last 24 Hours (Table) 12/08/17 12/09/17 12/09/17 Range/Units 20:53 07:23 08:39 Sodium 134 L (137-145) mmol/L BUN 22 H (9-20) mg/dL Glucose 242 H (74-99) mg/dL POC Glucose (mg/dL) 257 H 235 H (75-99) mg/dL Calcium 7.7 L (8.4-10.2) mg/dL 12/09/17 12/09/17 Range/Units 12:22 16:47 Sodium (137-145) mmol/L BUN (9-20) mg/dL Glucose (74-99) mg/dL POC Glucose (mg/dL) 259 H 306 H (75-99) mg/dL Calcium (8.4-10.2) mg/dL Assessment and Plan Plan: Assessment and Plan (1) Metastatic melanoma Narrative/Plan: History regarding melanoma as described in the HPI. Current Visit: Yes Status: Acute Code(s): C79.9 - SECONDARY MALIGNANT NEOPLASM OF UNSPECIFIED SITE SNOMED Code(s): 796126497 (2) Colitis Narrative/Plan: Severe autoimmune colitis, due to his melanoma treatment. - He had been on heavy doses of steroids to which she had not responded well , leading to the use of Remicade. This issue was discussed in detail with Dr. Florez. The patient's diarrhea is improved. - Diarrhea has not greatly improved and patient feels it may have worsened over the weekend - Solu-cortef was stopped and Trial Prednisone 60mg po Daily per Dr. Herbert initiated on 12/08/17. - Will continue on PO Prednisone at discharge and patient will follow-up with Dr. Kothari after discharge from [facility] Current Visit: Yes Status: Acute Code(s): K52.9 - NONINFECTIVE GASTROENTERITIS AND COLITIS, UNSPECIFIED SNOMED Code(s): 72756739 (3) Cellulitis of left lower extremity Narrative/Plan: Continue treatment for the admitting service, ID and other consultants Current Visit: Yes Status: Acute Code(s): L03.116 - CELLULITIS OF LEFT LOWER LIMB SNOMED Code(s): 007665697 Physician Attest: I have completed the full history and physical of this patient and agree with above dictation by Tatiana Sánchez NP. Dictated as a scribe
[2017-12-09 20:53] LABS: Glucose,Whole Blood 329 mg/dL (75-99)
--- NOTE | 2017-12-09 22:35 | PN ---
PROGRESS NOTE DATE OF SERVICE: 12/09/2017 REASON FOR FOLLOWUP: 1. Gram-negative pneumonia, adequately treated. 2. Left leg cellulitis. INTERVAL HISTORY: The patient is currently afebrile. He is breathing comfortably. He denies having any chest pain, shortness of breath or cough. No abdominal pain or any pain to the left foot area. PHYSICAL EXAMINATION: Blood pressure is 139/78 with a pulse of 83, temperature 98. He is 96% on room air. General description is a middle-aged male lying in bed in no distress. RESPIRATORY SYSTEM: Unlabored breathing. Clear to auscultation anteriorly. HEART: S1, S2. Regular rate and rhythm. ABDOMEN: Soft. Left foot wound is currently dressed up with no significant drainage on the dressing. LABS: BUN of 22, creatinine 0.68. DIAGNOSTIC IMPRESSION AND PLAN: Patient with left foot wound. To continue local wound care with Santyl followed by moist dressing. For the cellulitis, continue with a short course of oral Cipro and Keflex. Continue with supportive care. MMODL / IJN: [id number] /
[2017-12-10 07:29] LABS: Glucose,Whole Blood 179 mg/dL (75-99)
[2017-12-10] MEDS: INSULIN ASPART 100 UNIT/ML 1 ML 10 ML VIAL SQ SCH ×2 (08:18→13:00)
[2017-12-10] MEDS: PANTOPRAZOLE 40 MG TABLET PO SCH (08:19)
[2017-12-10] MEDS: CARBIDOPA-LEVODOPA 25-100 MG 1 EACH TAB PO SCH (08:19)
[2017-12-10] MEDS: ENOXAPARIN 40 MG/0.4 ML SYRINGE SQ SCH (08:19)
[2017-12-10] MEDS: PRAMIPEXOLE 0.5 MG TAB PO SCH (08:20)
[2017-12-10] MEDS: CARVEDILOL 3.125 MG TAB PO SCH (08:20)
[2017-12-10] MEDS: predniSONE 20 MG TAB PO SCH (08:20)
[2017-12-10] MEDS: CEPHALEXIN 500 MG CAP PO SCH ×2 (08:20→13:01)
[2017-12-10] MEDS: LISINOPRIL 2.5 MG TAB PO SCH (08:20)
[2017-12-10] MEDS: CIPROFLOXACIN HCL 500 MG TAB PO SCH (08:20)
[2017-12-10] MEDS: IPRATROPIUM-ALBUTEROL 3 ML NEB INHALATION SCH ×3 (10:00→15:42)
[2017-12-10] MEDS: INSULIN DETEMIR 100 UNIT/ML 10 ML VIAL SQ SCH (10:22)
[2017-12-10 11:33] LABS: Glucose,Whole Blood 265 mg/dL (75-99)
[2017-12-10 11:36] LABS: Anion Gap 4 mmol/L; Blood Urea Nitrogen 24 mg/dL (9-20); Calcium 7.8 mg/dL (8.4-10.2); Carbon Dioxide 30 mmol/L (22-30); Chloride 99 mmol/L (98-107); Glucose 243 mg/dL (74-99); Potassium 4.1 mmol/L (3.5-5.1); Sodium 133 mmol/L (137-145)
--- NOTE | 2017-12-10 13:54 | PN ---
PROGRESS NOTE DATE OF SERVICE: 12/10/2017 REASON FOR FOLLOWUP: Left foot wound and cellulitis. INTERVAL HISTORY: The patient is currently afebrile. He is breathing comfortably. Denies having any chest pain, shortness of breath or cough. No abdominal pain or any pain to the left foot or leg wound area. PHYSICAL EXAMINATION: Blood pressure 131/80 with a pulse of 67, temperature 98, he is 93% on room air. General description is a middle-aged male lying in bed in no distress. RESPIRATORY SYSTEM: Unlabored breathing, clear to auscultation anteriorly. HEART: S1, S2. Regular rate and rhythm. ABDOMEN: Soft, no tenderness. Left leg with swelling. The left foot wound is currently dressed by the nursing staff, no worsening reported. LABS: His creatinine is normal. No CBC was done today. DIAGNOSTIC IMPRESSION AND PLAN: 1. Patient with a complex pneumonia, adequately treated. 2. Patient with left leg cellulitis along with the left foot wound. To continue local wound care with Santyl and a short course oral Cipro and Keflex. Continue supportive care. MMODL / IJN: [id number] /
--- NOTE | 2017-12-10 15:15 | DS ---
DISCHARGE SUMMARY DATE OF ADMISSION: 11/24/2017 DATE OF DISCHARGE: 12/10/2017 FINAL DIAGNOSES: 1. Bilateral pneumonia suspect gram-negative organism causing sepsis present on admission. 2. Left lower extremity wound and cellulitis causing sepsis, present on admission. 3. Acute renal failure likely acute tubular necrosis, resolved. 4. Hypokalemia, corrected. 5. Hyperchloremia, improved. 6. Hyperbilirubinemia. 7. Hypoalbuminemia as an acute phase reactant. 8. Acute hypoxic respiratory failure secondary to pneumonia, resolved. 9. Normocytic anemia probably from underlying lymphoma. 10.Stage IV lymphoma. The patient is being followed at [facility] through Dr. Hill. 11.Idiopathic Parkinson disease with worsening because of sepsis. 12.Medical debility. 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 CONSULTATION: 1. Dr. Aburto from infectious Disease. 2. Dr. Herbert from Oncology. 3. Dr. Schmidt from Neurology. 4. Dr. Hensley from Pulmonary. 5. Dr. Young from Cardiology. HOSPITAL COURSE: This is a patient who has got stage IV lymphoma, being followed by Dr. Hill out of [facility]. Also being followed by a neurologist out of [facility] for his Parkinson disease. The patient presented with neck left leg pain, swelling and diarrhea. The patient found to have left lower leg wound, local wound care was done. Antibiotics were coordinated by Dr. Aburto. The patient also found to have pneumonia and sepsis for which he was treated. Also went into acute renal failure. Creatinine did go up to 2.84, now back down to 0.69. The patient has got Parkinson disease, still weak in all the 4 limbs. Back on home medications. The patient is also on high dose of steroids for his autoimmune colitis. PHYSICAL EXAMINATION: Temperature 98, pulse 67, respiration 17, blood pressure 133/80. Pulse ox 93% on room air. On exam, lungs fair entry. Weakness in all the 4 limbs. The patient's speech is slow, but the patient is able to understand well and communicate well. LABS: Potassium 4.1, BUN 24, creatinine 0.69. White count 6.5, hemoglobin 10.1. DISCHARGE MEDICATIONS: 1. Sinemet 25/100 one tablet p.o. t.i.d. 2. Protonix 40 mg p.o. daily. 3. Mirapex 1.5 mg p.o. t.i.d. 4. Tylenol 650 mg q.6h p.r.n. 5. Artificial Tears 2 drops both eyes q.i.d. p.r.n. 6. Coreg 3.125 mg p.o. b.i.d. 7. Keflex 500 mg p.o. q.i.d. 56 capsules. 8. Cipro 500 mg p.o. b.i.d. 28 capsules. 9. Santyl topical at 9:00 pm. 10.Lovenox 40 mg subcu daily until patient is not out of bed. 11.NovoLog per sliding scale. 12.Levemir 20 units subcu daily. 13.DuoNeb discontinued. 14.Zestril 2.5 mg p.o. daily. 15.Prednisone 50 mg p.o. daily. FOLLOWUP: Follow up with Dr. Young in 2 weeks, Dr. Jacinto after DC from the [facility], Dr. Hill out of [facility], Dr. Schmidt in [address] Jacinto. MMODL / IJN: [id number] /
[2017-12-10 15:52] VITALS: BP 108/69; RESP 16; TEMP 97.6
[2017-12-10 16:28] VITALS: PULSE 80
--- NOTE | 2017-12-10 16:42 | P.PN ---
Subjective Progress Note Date: 12/10/17 Principal diagnosis: Malignant Melanoma 2 bowel movements documented over night. Objective - Vital Signs Vital signs: Vital Signs Temp 97.6 F 12/10/17 15:00 Pulse 80 12/10/17 15:52 Resp 16 12/10/17 15:00 BP 108/69 12/10/17 15:00 Pulse Ox 94 L 12/10/17 15:00 Intake & Output 12/09/17 12/10/17 12/10/17 18:59 06:59 18:59 Intake Total 240 1080 Output Total 1000 1550 2300 Balance -760 -1550 -1220 Weight 90 kg Intake: Oral 240 1080 Output: Urine 1000 1550 2300 Other: Voiding Method Indwelling Catheter Indwelling Catheter Indwelling Catheter # Bowel Movements 1 ABP, PAP, CO, CI - Last Documented Arterial Blood Pressure 135/67 - Exam Constitutional General appearance: no acute distress - EENT Eyes: EOMI, PERRLA ENT: hearing grossly normal, normal oropharynx - Neck Thyroid: negative: normal size - Respiratory Respiratory: bilateral: CTA - Cardiovascular Rhythm: regular Heart sounds: normal: S1, S2 - Gastrointestinal General gastrointestinal: normal bowel sounds, soft - Integumentary Integumentary: cellulitis (LLE. ) - Neurologic generalized weakness Neurologic: CNII-XII intact - Musculoskeletal RLE bandaged Musculoskeletal: generalized weakness, - Labs CBC & Chem 7: 12/08/17 09:55 12/10/17 10:50 Labs: Abnormal Lab Results - Last 24 Hours (Table) 12/09/17 12/09/17 12/10/17 Range/Units 16:47 20:51 07:15 Sodium (137-145) mmol/L BUN (9-20) mg/dL Glucose (74-99) mg/dL POC Glucose (mg/dL) 306 H 329 H 179 H (75-99) mg/dL Calcium (8.4-10.2) mg/dL 12/10/17 12/10/17 Range/Units 10:50 11:31 Sodium 133 L (137-145) mmol/L BUN 24 H (9-20) mg/dL Glucose 243 H (74-99) mg/dL POC Glucose (mg/dL) 265 H (75-99) mg/dL Calcium 7.8 L (8.4-10.2) mg/dL Assessment and Plan Plan: Assessment and Plan (1) Metastatic melanoma Narrative/Plan: History regarding melanoma as described in the HPI. Current Visit: Yes Status: Acute Code(s): C79.9 - SECONDARY MALIGNANT NEOPLASM OF UNSPECIFIED SITE SNOMED Code(s): 414342475 (2) Colitis Narrative/Plan: Severe autoimmune colitis, due to his melanoma treatment. - He had been on heavy doses of steroids to which she had not responded well , leading to the use of Remicade. This issue was discussed in detail with Dr. Florez. The patient's diarrhea is improved. - Diarrhea has not greatly improved and patient feels it may have worsened over the weekend - Solu-cortef was stopped and Trial Prednisone 60mg po Daily per Dr. Herbert initiated on 12/08/17. - Will continue on PO Prednisone at discharge and patient will follow-up with Dr. Kothari after discharge from [facility] - As long as patient continues to have less then 4 or 5 loos stools in 24 hour period continue this regimen at [facility] Current Visit: Yes Status: Acute Code(s): K52.9 - NONINFECTIVE GASTROENTERITIS AND COLITIS, UNSPECIFIED SNOMED Code(s): 00324360 (3) Cellulitis of left lower extremity Narrative/Plan: Continue treatment for the admitting service, ID and other consultants Current Visit: Yes Status: Acute Code(s): L03.116 - CELLULITIS OF LEFT LOWER LIMB SNOMED Code(s): 206085558 Physician Attest: I have completed the full history and physical of this patient and agree with above dictation by Tatiana Sánchez NP. Dictated as a scribe
== END 2017-12-10 16:20 | DRG 870 ==
LOC: EC 12:27 → EEVIPCON 19:30 → 6ICU 19:30 → 4MS4W 12-02 12:22
PROVIDERS: ADMIT Family Medicine; ATTEND Hospitalist
PROC: 02HV33Z Insertion of Infusion Device into Superior Vena Cava, Percutaneous Approach (ICD-10-PCS; 2017-11-24)
PROC: 5A09357 Assistance with Respiratory Ventilation, Less than 24 Consecutive Hours, Continuous Positive Airway Pressure (ICD-10-PCS; 2017-11-24)
PROC: 5A1955Z Respiratory Ventilation, Greater than 96 Consecutive Hours (ICD-10-PCS; principal; 2017-11-25)
PROC: 0BH17EZ Insertion of Endotracheal Airway into Trachea, Via Natural or Artificial Opening (ICD-10-PCS; 2017-11-25)
PROC: 04HY32Z Insertion of Monitoring Device into Lower Artery, Percutaneous Approach (ICD-10-PCS; 2017-11-25)
PROC: 4A133B1 Monitoring of Arterial Pressure, Peripheral, Percutaneous Approach (ICD-10-PCS; 2017-11-25)
PROC: 4A133J1 Monitoring of Arterial Pulse, Peripheral, Percutaneous Approach (ICD-10-PCS; 2017-11-25)
PROC: 0DH67UZ Insertion of Feeding Device into Stomach, Via Natural or Artificial Opening (ICD-10-PCS; 2017-11-25)
PROC: 3E0G76Z Introduction of Nutritional Substance into Upper GI, Via Natural or Artificial Opening (ICD-10-PCS; 2017-11-25)
DX: A41.9 Sepsis, unspecified organism (principal); R65.21 Severe sepsis with septic shock; J96.01 Acute respiratory failure with hypoxia; N17.0 Acute kidney failure with tubular necrosis; J96.02 Acute respiratory failure with hypercapnia; K72.00 Acute and subacute hepatic failure without coma; E43 Unspecified severe protein-calorie malnutrition; G93.41 Metabolic encephalopathy; J15.6 Pneumonia due to other Gram-negative bacteria; C77.3 Secondary and unspecified malignant neoplasm of axilla and upper limb lymph nodes; C78.02 Secondary malignant neoplasm of left lung; C78.01 Secondary malignant neoplasm of right lung; C78.7 Secondary malignant neoplasm of liver and intrahepatic bile duct; C79.2 Secondary malignant neoplasm of skin; L03.116 Cellulitis of left lower limb; E27.40 Unspecified adrenocortical insufficiency; E87.2 Acidosis; I42.9 Cardiomyopathy, unspecified; J98.11 Atelectasis; E87.0 Hyperosmolality and hypernatremia; T79.A0XA Compartment syndrome, unspecified, initial encounter; Z66 Do not resuscitate; G20 Parkinson's disease; E87.8 Other disorders of electrolyte and fluid balance, not elsewhere classified; D69.59 Other secondary thrombocytopenia; I27.20 Pulmonary hypertension, unspecified; E87.5 Hyperkalemia; G62.9 Polyneuropathy, unspecified; M60.9 Myositis, unspecified; K52.89 Other specified noninfective gastroenteritis and colitis; E86.0 Dehydration; R73.9 Hyperglycemia, unspecified; S82.52XA Displaced fracture of medial malleolus of left tibia, initial encounter for closed fracture; I34.0 Nonrheumatic mitral (valve) insufficiency; S90.822A Blister (nonthermal), left foot, initial encounter; N40.0 Benign prostatic hyperplasia without lower urinary tract symptoms; L22 Diaper dermatitis; D64.9 Anemia, unspecified; E87.6 Hypokalemia; Z00.6 Encounter for examination for normal comparison and control in clinical research program; Z85.820 Personal history of malignant melanoma of skin; Z79.899 Other long term (current) drug therapy; Z92.21 Personal history of antineoplastic chemotherapy; Z86.19 Personal history of other infectious and parasitic diseases; Z88.2 Allergy status to sulfonamides; Z80.3 Family history of malignant neoplasm of breast; Z82.49 Family history of ischemic heart disease and other diseases of the circulatory system; Z82.0 Family history of epilepsy and other diseases of the nervous system
CPT/HCPCS: 36415; 36556; 36600; 51701; 71045; 71046; 76705; 80048; 80051; 80053; 80074; 81001; 82330; 82550; 82805; 83036; 83605; 83735; 83880; 84100; 84132; 85025; 85027; 85610; 85730; 87040; 87070; 87075; 87077; 87086; 87186; 87205; 87324; 93005; 93306; 94002; 94003; 94640; 94660; 96361; 96365; 96366; 96367; 96368; 96375; 99291

== ENCOUNTER 2018-02-23 19:58 | Emergency (ER) | payer OTHER ==
--- NOTE | 2018-02-23 21:28 | ED ---
Extremity Problem HPI - General Chief complaint: Extremity Problem,Nontraumatic Stated complaint: Right foot infection Time Seen by Provider: 02/23/18 21:01 Source: patient Mode of arrival: wheelchair Limitations: no limitations - History of Present Illness Initial comments: This patient's 57-year-old man who presents to be evaluated for right foot pain. The patient notes that he has had about 3 days which she has noticed that the toes of his right foot have been cold and he states that they were darker looking than the rest of the foot. This included some of the forefoot area. He states that he also had noted some pain and swelling in the calf muscle. The patient states that he had told the senior care staff today and they felt he should be evaluated here. Patient is denying any systemic symptoms , including no fever or chills. No chest pain, palpitations, cough or dyspnea. He did have cellulitis of the left foot, but states that at that time his left foot was red and swollen as well as hot. He did have a debridement there lower month ago and has had a wound VAC applied to the left lower extremity for little over a month. MD Complaint: extremity pain, cold extremity Onset/Timin -: days(s) Location: right, lower extremity, toe History of Same: No Quality: aching Consistency: constant Improves with: nothing Worsens with: nothing - Related Data Home Medications Medication Instructions Recorded Confirmed Carbidopa-Levodopa 25-100 mg 1 tab PO TID 10/19/17 02/23/18 [Sinemet 25-100 mg] Pantoprazole [Protonix] 40 mg PO DAILY 11/24/17 02/23/18 Pramipexole Di-HCl [Mirapex] 1.5 mg PO TID 11/24/17 02/23/18 Ferrous Sulfate [Feosol] 325 mg PO DAILY 01/13/18 02/23/18 INSULIN LISPRO (humaLOG) [humaLOG] See Protocol SQ ACHS 01/13/18 02/23/18 Insulin Glargine,Hum.rec.anlog 20 unit SQ HS 01/13/18 02/23/18 [Basaglar Kwikpen U-100] Lactulose 10 gm PO BID 01/13/18 02/23/18 Acetaminophen Tab [Tylenol] 650 mg PO Q6HR PRN 02/23/18 02/23/18 Collagenase [Santyl] 1 applic TOPICAL DAILY PRN 02/23/18 02/23/18 Collagenase [Santyl] 1 applic TOPICAL TUTHSA 02/23/18 02/23/18 Ipratropium-Albuterol Nebulize 3 ml INHALATION RT-TID 02/23/18 02/23/18 [Duoneb 0.5 mg-3 mg/3 ml Soln] Pramox-Calamine 1-8% Lotion 1 applic TOPICAL TID PRN 02/23/18 02/23/18 [Caladryl] diphenhydrAMINE [Benadryl] 25 mg PO Q8H PRN 02/23/18 02/23/18 Previous Rx's Medication Instructions Recorded Artificial Tears-Hypromellose 2 drops BOTH EYES QID PRN bottle 12/10/17 [Artificial Tear Drops] Enoxaparin [Lovenox] 40 mg SQ DAILY syringe 12/10/17 Furosemide [Lasix] 40 mg PO DAILY tab 01/21/18 Cephalexin [Keflex] 500 mg PO Q6HR #28 cap 02/24/18 Allergies Allergy/AdvReac Type Severity Reaction Status Date / Time Sulfa (Sulfonamide Allergy Rash/Hives Verified 02/23/18 21:00 Antibiotics) Review of Systems ROS Statement: Those systems with pertinent positive or pertinent negative responses have been documented in the HPI. ROS Other: All systems not noted in ROS Statement are negative. Constitutional: Denies: fever, chills, weakness Respiratory: Denies: cough, dyspnea Cardiovascular: Reports: edema (Right leg). Denies: chest pain, palpitations Gastrointestinal: Denies: abdominal pain, nausea, vomiting Genitourinary: Denies: dysuria Musculoskeletal: Reports: as per HPI, myalgia (Right calf). Denies: back pain Skin: Reports: change in color. Denies: rash, lesions Neurological: Denies: headache, weakness, numbness Past Medical History Past Medical History: Cancer, Prostate Disorder Additional Past Medical History / Comment(s): Parkinsons,. Enlarged lymph nodes , "skin mole-melanoma"- on rt shoulder, Perp patient he has stage 4 melanoma throughout his body including his lungs, [id number] 2018 History of Any Multi-Drug Resistant Organisms: ESBL, VRE Date of last positivie culture/infection: 01/13/18, 01/14/18 VRE MDRO Source:: ,ESBL URINE ,VRE FOOT Past Surgical History: Tonsillectomy Additional Past Surgical History / Comment(s): Rt axillary biopsy - Positive for cancer, Rt shoulder mole bx ,Dental extraction: wisdom teeth removed, left foot infection Past Anesthesia/Blood Transfusion Reactions: No Reported Reaction Past Psychological History: No Psychological Hx Reported Smoking Status: Never smoker Past Alcohol Use History: None Reported Past Drug Use History: None Reported - Past Family History Mother Family Medical History: Cancer Additional Family Medical History / Comment(s): Breast cancer also had moles removed - not sure if positive or not for cancer Father Family Medical History: Congestive Heart Failure (CHF) Additional Family Medical History / Comment(s): Parkinsons General Exam Limitations: no limitations General appearance: alert, in no apparent distress Head exam: Present: atraumatic, normocephalic Eye exam: Present: normal appearance. Absent: scleral icterus, conjunctival injection ENT exam: Present: normal oropharynx Respiratory exam: Present: normal lung sounds bilaterally. Absent: respiratory distress, wheezes, rales, rhonchi, stridor Cardiovascular Exam: Present: regular rate, normal rhythm, normal heart sounds. Absent: systolic murmur, diastolic murmur, rubs, gallop GI/Abdominal exam: Present: soft. Absent: distended, tenderness, guarding, rebound, rigid, mass Extremities exam: Present: full ROM, calf tenderness (Right). Absent: tenderness, joint swelling Back exam: Present: normal inspection, other (I'm not able to palpate strong dorsalis pedis pulse on the right foot.). Absent: CVA tenderness (R), CVA tenderness (L) Neurological exam: Present: alert Skin exam: Present: warm, dry, intact. Absent: rash Course Vital Signs 02/23/18 02/23/18 02/23/18 19:59 22:04 23:56 Temperature 96.8 F L 98.0 F 97.7 F Pulse Rate 102 H 98 97 Respiratory 16 17 18 Rate Blood Pressure 121/75 110/74 104/69 O2 Sat by Pulse 97 100 96 Oximetry 02/24/18 00:55 Temperature 97.9 F Pulse Rate 98 Respiratory 18 Rate Blood Pressure 112/66 O2 Sat by Pulse 95 Oximetry Medical Decision Making - Lab Data Result diagrams: 02/23/18 21:43 02/23/18 21:43 Lab Results 02/23/18 02/23/18 02/23/18 Range/Units 21:43 21:43 21:43 WBC 5.0 (3.8-10.6) k/uL RBC 3.61 L (4.30-5.90) m/uL Hgb 10.8 L (13.0-17.5) gm/dL Hct 32.9 L (39.0-53.0) % MCV 91.1 (80.0-100.0) fL MCH 30.0 (25.0-35.0) pg MCHC 32.9 (31.0-37.0) g/dL RDW 16.3 H (11.5-15.5) % Plt Count 233 (150-450) k/uL Neutrophils % 67 % Lymphocytes % 18 % Monocytes % 9 % Eosinophils % 3 % Basophils % 1 % Neutrophils # 3.4 (1.3-7.7) k/uL Lymphocytes # 0.9 L (1.0-4.8) k/uL Monocytes # 0.4 (0-1.0) k/uL Eosinophils # 0.1 (0-0.7) k/uL Basophils # 0.0 (0-0.2) k/uL Anisocytosis Slight PT 10.0 (9.0-12.0) sec INR 0.9 (<1.2) APTT 22.5 (22.0-30.0) sec D-Dimer 0.66 H (<0.60) mg/L FEU Sodium 136 L (137-145) mmol/L Potassium 4.4 (3.5-5.1) mmol/L Chloride 98 (98-107) mmol/L Carbon Dioxide 29 (22-30) mmol/L Anion Gap 9 mmol/L BUN 33 H (9-20) mg/dL Creatinine 0.84 (0.66-1.25) mg/dL Est GFR (CKD-EPI)AfAm >90 (>60 ml/min/1.73 sqM) Est GFR (CKD-EPI)NonAf >90 (>60 ml/min/1.73 sqM) Glucose 129 H (74-99) mg/dL Calcium 9.8 (8.4-10.2) mg/dL Total Bilirubin 0.3 (0.2-1.3) mg/dL AST 18 (17-59) U/L ALT 27 (21-72) U/L Alkaline Phosphatase 80 (38-126) U/L C-Reactive Protein 7.8 (<10.0) mg/L Total Protein 7.2 (6.3-8.2) g/dL Albumin 4.1 (3.5-5.0) g/dL Disposition Clinical Impression: Leg pain, right Disposition: HOME SELF-CARE Condition: Good Instructions: Leg Pain (ED) Additional Instructions: As we discussed, if the symptoms have not completely resolved within the next 4- 5 days a repeat duplex Doppler study of the right leg is recommended. Prescriptions: Cephalexin [Keflex] 500 mg PO Q6HR #28 cap Is patient prescribed a controlled substance at d/c from ED?: No Referrals: Sadiq Jacinto MD [Primary Care Provider] - 1-2 days
[2018-02-23 22:06] LABS: Anisocytosis Slight; Basophils % (A) 1 %; Eosinophils # (A) 0.1 k/uL (0-0.7); Eosinophils % (A) 3 %; HCT 32.9 % (39.0-53.0); HGB 10.8 gm/dL (13.0-17.5); Lymphocytes # (A) 0.9 k/uL (1.0-4.8); Lymphocytes % (A) 18 %; MCHC 32.9 g/dL (31.0-37.0); MCV 91.1 fL (80.0-100.0); Mean Platelet Volume 6.2; Monocytes # (A) 0.4 k/uL (0-1.0); Monocytes % (A) 9 %; Neutrophils # (A) 3.4 k/uL (1.3-7.7); Neutrophils % (A) 67 %; Platelet Count 233 k/uL (150-450); RBC 3.61 m/uL (4.30-5.90); RDW 16.3 % (11.5-15.5)
[2018-02-23 22:22] LABS: ALT 27 U/L (21-72); AST 18 U/L (17-59); Albumin 4.1 g/dL (3.5-5.0); Alkaline Phosphatase 80 U/L (38-126); Anion Gap 9 mmol/L; Blood Urea Nitrogen 33 mg/dL (9-20); C Reactive Protein 7.8 mg/L (<10.0); Calcium 9.8 mg/dL (8.4-10.2); Carbon Dioxide 29 mmol/L (22-30); Chloride 98 mmol/L (98-107); Glucose 129 mg/dL (74-99); Potassium 4.4 mmol/L (3.5-5.1); Sodium 136 mmol/L (137-145); Total Bilirubin 0.3 mg/dL (0.2-1.3); Total Protein 7.2 g/dL (6.3-8.2)
[2018-02-23 22:23] LABS: INR 0.9 (<1.2); Partial Thromboplastin Time 22.5 sec (22.0-30.0)
--- NOTE | 2018-02-23 22:25 | US ---
EXAMINATION TYPE: US venous doppler duplex LE RT DATE OF EXAM: 02/23/2018 10:06 PM COMPARISON: NONE CLINICAL HISTORY: Pain. Right leg pain SIDE PERFORMED: Right TECHNIQUE: The lower extremity deep venous system is examined utilizing real time linear array sonog remigio with graded compression, doppler sonography and color-flow sonography. VESSELS IMAGED: External Iliac Vein (EIV) Common Femoral Vein Deep Femoral Vein Greater Saphenous Vein * Femoral Vein Popliteal Vein Small Saphenous Vein * Proximal Calf Veins (* superficial vessels) Right Leg: Negative for DVT No evidence of DVT right leg. IMPRESSION: Grayscale, color doppler, spectral doppler imaging performed of the deep veins of the lo wer extremities. There is normal flow, compressibility, vascular waveforms. Normal right leg duplex venous sonogram.
[2018-02-23] MEDS ORDERED: SODIUM CHLORIDE 0.9% 1,000 ML IV ONE (22:39)
[2018-02-23] MEDS ORDERED: RX INFO: IV CONTRAST WAS GIVEN 1 EACH MISC MISCELLANE PRN (22:40)
[2018-02-23 23:22] LABS: D-Dimer 0.66 mg/L FEU (<0.60)
[2018-02-23 23:57] VITALS: RESP 18
--- NOTE | 2018-02-24 00:16 | CT ---
EXAMINATION TYPE: CT angio lower extremity RT DATE OF EXAM: 02/23/2018 11:53 PM COMPARISON: None HISTORY: Right foot cold to the touch CT DLP: 1841.1 mGycm Automated exposure control for dose reduction was used. TECHNIQUE: Performed with IV Contrast, patient injected with 100 mL of Isovue 370. . Multiple axial sections were obtained from the level of the top of the kidneys to the bottom of the r ight foot with intravenous contrast. There are 3-D post processed images. FINDINGS: Abdominal aorta has normal size and contour. There is no evidence of stenosis. There is patency of th e celiac artery and superior mesenteric artery. There is bilateral patency of the renal arteries. The re is patency of the common internal and external iliac arteries. There is wide patency of the right femoral artery. There is patency of the profunda femoris artery. There is arterial flow in the poplit eal artery which has normal size. There is patency of the tibial artery and the tibial artery trifurc ation. There is arterial flow in the anterior and posterior tibial artery at the ankle. There is linda rial flow in the right foot at the distal metatarsals. I see no evidence of stenosis. There is no lyndsay dence of soft tissue mass. I see no bony destructive process. There is retained fecal material in the rectum rectum measures almost 8 cm. There is Muñiz catheter in the urinary bladder. Bladder is empty . There is subcutaneous edema noted around the right lower leg laterally more than medially. IMPRESSION: THE EXAM SHOWS NORMAL ANGIOGRAPHIC IMAGES FROM THE ABDOMINAL AORTA TO THE BOTTOM OF THE RIGHT FOOT. N O EVIDENCE OF STENOSIS. RECTAL FECAL IMPACTION. SUBCUTANEOUS EDEMA NOTED AROUND THE LOWER LEG LATERALLY.
[2018-02-24 00:57] VITALS: BP 112/66; PULSE 98; TEMP 97.9
== END 2018-02-24 01:34 | disposition home or self-care (01) ==
LOC: EC 19:58
DX: M79.604 Pain in right leg (principal); M79.89 Other specified soft tissue disorders; G20 Parkinson's disease; Z79.4 Long term (current) use of insulin; Z79.51 Long term (current) use of inhaled steroids; Z79.899 Other long term (current) drug therapy; Z85.820 Personal history of malignant melanoma of skin; Z88.2 Allergy status to sulfonamides
CPT/HCPCS: 36415; 85379; 80053; 85025; 85610; 85730; 86140; 93971; 73706; 99284; Q9967

== ENCOUNTER 2018-04-01 09:07 | Inpatient (IN) | payer OTHER ==
[2018-04-01] MEDS ORDERED: IBUPROFEN 600 MG TAB PO STA (09:26)
[2018-04-01] MEDS: SODIUM CHLORIDE 0.9% 500 ML 500 ML IV SCH ×2 (09:40→09:43)
--- NOTE | 2018-04-01 09:51 | ED ---
General Adult HPI - General Chief complaint: Fever Stated complaint: Fever, Poss Sepsis Time Seen by Provider: 04/01/18 09:10 Source: patient, RN notes reviewed Mode of arrival: EMS Limitations: no limitations - History of Present Illness Initial comments: This is a 57-year-old male who presents emergency Department for altered mental status. Patient has a past medical history of a wound on the left foot and is in no care home for this. Staff tried to talk to the patient's morning he was not responding. Patient states she remembers them asking questions but he states he was having a difficult time spotting. Patient does arrive with 103 fever. Patient states he has no headache no numbness or weakness. Patient denies any lightheadedness per patient denies chest pain difficult breathing shortness of breath. Patient denies abdominal pain patient denies any nausea vomiting diarrhea. She has not been on antibiotics recently for the wound but he does have a wound VAC on his foot. Patient is alert and oriented 4 currently - Related Data Home Medications Medication Instructions Recorded Confirmed Pantoprazole [Protonix] 40 mg PO DAILY@0911/24/17 04/01/18 Pramipexole Di-HCl [Mirapex] 1.5 mg PO TID@0900,1300,2100 11/24/17 04/01/18 Ferrous Sulfate [Feosol] 325 mg PO DAILY@89901/13/18 04/01/18 Insulin Glargine,Hum.rec.anlog 20 unit SQ HS 01/13/18 04/01/18 [Basaglar Kwikpen U-100] Lactulose 20 gm PO Q12H 01/13/18 04/01/18 Ipratropium-Albuterol Nebulize 3 ml INHALATION RT-TID 02/23/18 04/01/18 [Duoneb 0.5 mg-3 mg/3 ml Soln] diphenhydrAMINE [Benadryl] 25 mg PO Q8H PRN 02/23/18 04/01/18 Aspirin EC [Ecotrin Low Dose] 81 mg PO DAILY@89904/01/18 04/01/18 Carbidopa-Levodopa 25-250 mg 1 tab PO TID@0900,1300,2100 04/01/18 04/01/18 [Sinemet 25-250] Primidone [Mysoline] 50 mg PO DAILY@0900 04/01/18 04/01/18 Tamsulosin [Flomax] 0.4 mg PO HS@2100 04/01/18 04/01/18 Previous Rx's Medication Instructions Recorded Artificial Tears-Hypromellose 2 drops BOTH EYES QID PRN bottle 12/10/17 [Artificial Tear Drops] Allergies Allergy/AdvReac Type Severity Reaction Status Date / Time Sulfa (Sulfonamide Allergy Rash/Hives Verified 04/01/18 09:27 Antibiotics) Review of Systems ROS Statement: Those systems with pertinent positive or pertinent negative responses have been documented in the HPI. ROS Other: All systems not noted in ROS Statement are negative. Past Medical History Past Medical History: Cancer, Diabetes Mellitus, Prostate Disorder Additional Past Medical History / Comment(s): Parkinsons,. Enlarged lymph nodes , "skin mole-melanoma"- on rt shoulder, Perp patient he has stage 4 melanoma throughout his body including his lungs, [id number] 2018 History of Any Multi-Drug Resistant Organisms: ESBL, VRE Date of last positivie culture/infection: 01/13/18, 01/14/18 VRE MDRO Source:: ,ESBL URINE ,VRE FOOT Past Surgical History: Tonsillectomy Additional Past Surgical History / Comment(s): Rt axillary biopsy - Positive for cancer, Rt shoulder mole bx ,Dental extraction: wisdom teeth removed, left foot infection Past Anesthesia/Blood Transfusion Reactions: No Reported Reaction Past Psychological History: No Psychological Hx Reported Smoking Status: Never smoker Past Alcohol Use History: None Reported Past Drug Use History: None Reported - Past Family History Mother Family Medical History: Cancer Additional Family Medical History / Comment(s): Breast cancer also had moles removed - not sure if positive or not for cancer Father Family Medical History: Congestive Heart Failure (CHF) Additional Family Medical History / Comment(s): Parkinsons General Exam - General Exam Comments Initial Comments: GENERAL: Patient is well-developed and well-nourished. Patient is nontoxic and well- hydrated and is in mild distress. ENT: Neck is soft and supple. No significant lymphadenopathy is noted. Oropharynx is clear. Moist mucous membranes. Neck has full range of motion without eliciting any pain. EYES: The sclera were anicteric and conjunctiva were pink and moist. Extraocular movements were intact and pupils were equal round and reactive to light. Eyelids were unremarkable. PULMONARY: Unlabored respirations. Good breath sounds bilaterally. No audible rales rhonchi or wheezing was noted. CARDIOVASCULAR: Patient is tachycardic at 130 beats a minute. ABDOMEN: Soft and nontender with normal bowel sounds. No palpable organomegaly was noted. There is no palpable pulsatile mass. SKIN: Skin is clear with no lesions or rashes and otherwise unremarkable. NEUROLOGIC: Patient is alert and oriented x3. Cranial nerves II through XII are grossly intact. Motor and sensory are also intact. Normal speech, volume and content. Symmetrical smile. MUSCULOSKELETAL: Normal extremities with adequate strength and full range of motion. No lower extremity swelling or edema. No calf tenderness. Patient has a wound VAC in the left foot. The area around it is not erythematous. LYMPHATICS: No significant lymphadenopathy is noted PSYCHIATRIC: Normal psychiatric evaluation. Limitations: no limitations Course Vital Signs 04/01/18 04/01/18 04/01/18 09:14 09:30 10:00 Temperature 103.0 F H Pulse Rate 133 H 126 H 124 H Respiratory 19 29 H 23 Rate Blood Pressure 121/68 121/68 111/65 O2 Sat by Pulse 95 96 80 L Oximetry 04/01/18 04/01/18 04/01/18 10:30 11:22 11:49 Temperature 101.0 F H 98.4 F Pulse Rate 110 H 98 Respiratory 33 H 15 Rate Blood Pressure 105/55 88/53 O2 Sat by Pulse Oximetry 04/01/18 04/01/18 12:30 13:05 Temperature Pulse Rate 85 Respiratory 18 Rate Blood Pressure 90/54 O2 Sat by Pulse 93 L Oximetry Medical Decision Making - Medical Decision Making EKG shows sinus tachycardia at 129 bpm UT interval is 170 QRS is 88 QT interval 08/09/1969 QTC is 407. EKG shows no ST segment elevation or depression or T wave abnormalities are noted. Chest x-ray shows a possible left lower lobe pneumonia. Patient has a urinary tract infection was start the patient on antibiotics immediately. I spoke because she agreed to admit the patient admitted the patient I wrote admitting orders. I continued antibiotics on the floor. - Lab Data Result diagrams: 04/01/18 09:25 04/01/18 09:25 Lab Results 04/01/18 04/01/18 04/01/18 Range/Units 09:25 09:25 09:25 WBC 11.0 H (3.8-10.6) k/uL RBC 3.95 L (4.30-5.90) m/uL Hgb 11.2 L (13.0-17.5) gm/dL Hct 34.7 L (39.0-53.0) % MCV 87.7 (80.0-100.0) fL MCH 28.5 (25.0-35.0) pg MCHC 32.4 (31.0-37.0) g/dL RDW 15.6 H (11.5-15.5) % Plt Count 227 (150-450) k/uL Neutrophils % 91 % Lymphocytes % 4 % Monocytes % 4 % Eosinophils % 0 % Basophils % 0 % Neutrophils # 10.0 H (1.3-7.7) k/uL Lymphocytes # 0.4 L (1.0-4.8) k/uL Monocytes # 0.5 (0-1.0) k/uL Eosinophils # 0.0 (0-0.7) k/uL Basophils # 0.0 (0-0.2) k/uL PT (9.0-12.0) sec INR (<1.2) APTT (22.0-30.0) sec Sodium 138 (137-145) mmol/L Potassium 4.6 (3.5-5.1) mmol/L Chloride 102 (98-107) mmol/L Carbon Dioxide 26 (22-30) mmol/L Anion Gap 10 mmol/L BUN 31 H (9-20) mg/dL Creatinine 1.15 (0.66-1.25) mg/dL Est GFR (CKD-EPI)AfAm 81 (>60 ml/min/1.73 sqM) Est GFR (CKD-EPI)NonAf 70 (>60 ml/min/1.73 sqM) Glucose 138 H (74-99) mg/dL Plasma Lactic Acid Yang 1.0 (0.7-2.0) mmol/L Calcium 9.8 (8.4-10.2) mg/dL Total Bilirubin 0.8 (0.2-1.3) mg/dL AST 21 (17-59) U/L ALT 28 (21-72) U/L Alkaline Phosphatase 94 (38-126) U/L Troponin I (0.000-0.034) ng/mL Total Protein 7.2 (6.3-8.2) g/dL Albumin 4.1 (3.5-5.0) g/dL Urine Color Urine Appearance (Clear) Urine pH (5.0-8.0) Ur Specific Check (1.001-1.035) Urine Protein (Negative) Urine Glucose (UA) (Negative) Urine Ketones (Negative) Urine Blood (Negative) Urine Nitrite (Negative) Urine Bilirubin (Negative) Urine Urobilinogen (<2.0) mg/dL Ur Leukocyte Esterase (Negative) Urine RBC (0-5) /hpf Urine WBC (0-5) /hpf Urine WBC Clumps (None) /hpf Urine Mucus (None) /hpf Influenza Type A RNA (Not Detectd) Influenza Type B (PCR) (Not Detectd) 04/01/18 04/01/18 04/01/18 Range/Units 09:25 09:45 11:14 WBC (3.8-10.6) k/uL RBC (4.30-5.90) m/uL Hgb (13.0-17.5) gm/dL Hct (39.0-53.0) % MCV (80.0-100.0) fL MCH (25.0-35.0) pg MCHC (31.0-37.0) g/dL RDW (11.5-15.5) % Plt Count (150-450) k/uL Neutrophils % % Lymphocytes % % Monocytes % % Eosinophils % % Basophils % % Neutrophils # (1.3-7.7) k/uL Lymphocytes # (1.0-4.8) k/uL Monocytes # (0-1.0) k/uL Eosinophils # (0-0.7) k/uL Basophils # (0-0.2) k/uL PT 11.5 (9.0-12.0) sec INR 1.1 (<1.2) APTT 24.3 (22.0-30.0) sec Sodium (137-145) mmol/L Potassium (3.5-5.1) mmol/L Chloride (98-107) mmol/L Carbon Dioxide (22-30) mmol/L Anion Gap mmol/L BUN (9-20) mg/dL Creatinine (0.66-1.25) mg/dL Est GFR (CKD-EPI)AfAm (>60 ml/min/1.73 sqM) Est GFR (CKD-EPI)NonAf (>60 ml/min/1.73 sqM) Glucose (74-99) mg/dL Plasma Lactic Acid Yang (0.7-2.0) mmol/L Calcium (8.4-10.2) mg/dL Total Bilirubin (0.2-1.3) mg/dL AST (17-59) U/L ALT (21-72) U/L Alkaline Phosphatase (38-126) U/L Troponin I <0.012 (0.000-0.034) ng/mL Total Protein (6.3-8.2) g/dL Albumin (3.5-5.0) g/dL Urine Color Urine Appearance (Clear) Urine pH (5.0-8.0) Ur Specific Check (1.001-1.035) Urine Protein (Negative) Urine Glucose (UA) (Negative) Urine Ketones (Negative) Urine Blood (Negative) Urine Nitrite (Negative) Urine Bilirubin (Negative) Urine Urobilinogen (<2.0) mg/dL Ur Leukocyte Esterase (Negative) Urine RBC (0-5) /hpf Urine WBC (0-5) /hpf Urine WBC Clumps (None) /hpf Urine Mucus (None) /hpf Influenza Type A RNA Not Detected (Not Detectd) Influenza Type B (PCR) Not Detected (Not Detectd) 04/01/18 Range/Units 12:00 WBC (3.8-10.6) k/uL RBC (4.30-5.90) m/uL Hgb (13.0-17.5) gm/dL Hct (39.0-53.0) % MCV (80.0-100.0) fL MCH (25.0-35.0) pg MCHC (31.0-37.0) g/dL RDW (11.5-15.5) % Plt Count (150-450) k/uL Neutrophils % % Lymphocytes % % Monocytes % % Eosinophils % % Basophils % % Neutrophils # (1.3-7.7) k/uL Lymphocytes # (1.0-4.8) k/uL Monocytes # (0-1.0) k/uL Eosinophils # (0-0.7) k/uL Basophils # (0-0.2) k/uL PT (9.0-12.0) sec INR (<1.2) APTT (22.0-30.0) sec Sodium (137-145) mmol/L Potassium (3.5-5.1) mmol/L Chloride (98-107) mmol/L Carbon Dioxide (22-30) mmol/L Anion Gap mmol/L BUN (9-20) mg/dL Creatinine (0.66-1.25) mg/dL Est GFR (CKD-EPI)AfAm (>60 ml/min/1.73 sqM) Est GFR (CKD-EPI)NonAf (>60 ml/min/1.73 sqM) Glucose (74-99) mg/dL Plasma Lactic Acid Yang (0.7-2.0) mmol/L Calcium (8.4-10.2) mg/dL Total Bilirubin (0.2-1.3) mg/dL AST (17-59) U/L ALT (21-72) U/L Alkaline Phosphatase (38-126) U/L Troponin I (0.000-0.034) ng/mL Total Protein (6.3-8.2) g/dL Albumin (3.5-5.0) g/dL Urine Color Yellow Urine Appearance Cloudy (Clear) Urine pH 6.5 (5.0-8.0) Ur Specific Check 1.014 (1.001-1.035) Urine Protein 1+ H (Negative) Urine Glucose (UA) Negative (Negative) Urine Ketones Negative (Negative) Urine Blood Small H (Negative) Urine Nitrite Positive (Negative) Urine Bilirubin Negative (Negative) Urine Urobilinogen <2.0 (<2.0) mg/dL Ur Leukocyte Esterase Large H (Negative) Urine RBC 4 (0-5) /hpf Urine WBC >182 H (0-5) /hpf Urine WBC Clumps Moderate H (None) /hpf Urine Mucus Rare H (None) /hpf Influenza Type A RNA (Not Detectd) Influenza Type B (PCR) (Not Detectd) Critical Care Time Critical Care Time: Yes Total Critical Care Time: 35 Disposition Clinical Impression: Sepsis, Urinary tract infection, Pneumonia Disposition: ADMITTED IP TO THIS HOSP Referrals: Sadiq Jacinto MD [Primary Care Provider] - 1-2 days Time of Disposition: 13:07
[2018-04-01 10:12] LABS: Albumin 4.1 g/dL (3.5-5.0); Calcium 9.8 mg/dL (8.4-10.2); Potassium 4.6 mmol/L (3.5-5.1); Total Bilirubin 0.8 mg/dL (0.2-1.3); Total Protein 7.2 g/dL (6.3-8.2)
[2018-04-01 10:16] LABS: Basophils % (A) 0 %; Eosinophils % (A) 0 %; HCT 34.7 % (39.0-53.0); HGB 11.2 gm/dL (13.0-17.5); Lymphocytes # (A) 0.4 k/uL (1.0-4.8); Lymphocytes % (A) 4 %; MCH 28.5 pg (25.0-35.0); MCHC 32.4 g/dL (31.0-37.0); MCV 87.7 fL (80.0-100.0); Mean Platelet Volume 6.5; Monocytes # (A) 0.5 k/uL (0-1.0); Monocytes % (A) 4 %; Neutrophils % (A) 91 %; Platelet Count 227 k/uL (150-450); RBC 3.95 m/uL (4.30-5.90); RDW 15.6 % (11.5-15.5)
--- NOTE | 2018-04-01 11:03 | XR ---
EXAMINATION TYPE: XR chest 2V DATE OF EXAM: 04/01/2018 COMPARISON: 01/19/2018 HISTORY: 57-year-old male with fever TECHNIQUE: AP and lateral views FINDINGS: Heart mildly enlarged. Mild interstitial prominence. There is some focal patchy posterior basilar opa [place] on the lateral view without significant pleural effusion. IMPRESSION: Mild cardiomegaly. Some mild patchy left lower lung densities and posterior basilar opacities on the lateral view. Findings could represent atelectasis or developing infiltrate.
[2018-04-01] MEDS ORDERED: PIPERACILLIN-TAZOBACTAM 3.375 GM in SODIUM CHLORIDE 0.9% 100 ML IVPB STA (11:30)
[2018-04-01 12:02] LABS: INR 1.1 (<1.2); Partial Thromboplastin Time 24.3 sec (22.0-30.0); Prothrombin Time 11.5 sec (9.0-12.0)
[2018-04-01] MEDS ORDERED: SODIUM CHLORIDE 0.9% 1,000 ML IV ONE (12:03)
[2018-04-01 12:37] LABS: Appearance,Urine Cloudy (Clear); Bilirubin,Urine Negative (Negative); Blood,Urine Small (Negative); Color,Urine Yellow; Glucose,Urine (UA) Negative (Negative); Ketones,Urine Negative (Negative); Leukocyte Esterase,Urine Large (Negative); Mucus,Urine Rare /hpf; Nitrite,Urine Positive (Negative); PH, Urine 6.5 (5.0-8.0); Protein,Urine 1+ (Negative); RBC,Urine 4 /hpf (0-5); Specific Gravity,Urine 1.014 (1.001-1.035); Urobilinogen,Urine <2.0 mg/dL (<2.0); WBC,Urine >182 /hpf (0-5)
[2018-04-01] MEDS ORDERED: PNEUMONIA PROTOCOL UTILIZED 1 EACH MISC PO PRN (13:08)
[2018-04-01] MEDS ORDERED: LEVOFLOXACIN 750MG-D5W PMX 750 MG in DEXTROSE/WATER 1 150ML.BAG IVPB STA (13:08)
[2018-04-01] MEDS ORDERED: SODIUM CHLORIDE 0.9% 500 ML 500 ML IV ONE (13:20)
[2018-04-01] MEDS: LACTATED RINGERS 1,000 ML IV SCH ×3 (17:53→21:59)
[2018-04-01] MEDS: ACETAMINOPHEN TAB 325 MG TAB PO PRN (17:54)
[2018-04-01] MEDS: PIPERACILLIN-TAZOBACTAM 3.375 GM in SODIUM CHLORIDE 0.9% 100 ML IVPB SCH (19:18)
[2018-04-01] MEDS ORDERED: diphenhydrAMINE 25 MG CAP PO PRN (20:47)
[2018-04-01] MEDS ORDERED: ARTIFICIAL TEARS-HYPROMELLOSE DROPS 15 ML BTL BOTH EYES PRN (20:47)
[2018-04-01 21:27] LABS: Glucose,Whole Blood 181 mg/dL (75-99)
[2018-04-01] MEDS: LACTULOSE 20 GM/30 ML CUP PO SCH (21:56)
[2018-04-01] MEDS: INSULIN ASPART 100 UNIT/ML 1 ML 10 ML VIAL SQ SCH (21:57)
[2018-04-01] MEDS: TAMSULOSIN 0.4 MG CAP.ER.24H PO SCH (21:58)
[2018-04-01] MEDS: INSULIN DETEMIR 100 UNIT/ML 10 ML VIAL SQ SCH (21:58)
[2018-04-01 22:32] LABS: Glucose,Whole Blood 153 mg/dL (75-99)
[2018-04-02] MEDS: CARBIDOPA-LEVODOPA 25-250 MG 1 EACH TAB PO SCH ×4 (01:27→20:46)
[2018-04-02] MEDS: PRAMIPEXOLE 0.5 MG TAB PO SCH ×4 (01:28→20:48)
[2018-04-02] MEDS: ACETAMINOPHEN TAB 325 MG TAB PO PRN ×2 (02:43→21:04)
[2018-04-02 02:51] LABS: HCT 33.5 % (39.0-53.0); HGB 10.6 gm/dL (13.0-17.5); Hypochromasia Slight; MCH 28.9 pg (25.0-35.0); MCHC 31.8 g/dL (31.0-37.0); MCV 90.9 fL (80.0-100.0); Platelet Count 199 k/uL (150-450); RBC 3.68 m/uL (4.30-5.90); RDW 15.3 % (11.5-15.5); WBC 11.8 k/uL (3.8-10.6)
[2018-04-02 03:04] LABS: Glucose,Whole Blood 124 mg/dL (75-99)
--- NOTE | 2018-04-02 03:07 | XR ---
EXAMINATION TYPE: XR chest 1V portable DATE OF EXAM: 04/02/2018 COMPARISON: Yesterday HISTORY: Tachypnea TECHNIQUE: Single frontal view of the chest is obtained. FINDINGS: There is pulmonary interstitial edema. There are chest leads. There is poor inspiration. H eart size is normal. IMPRESSION: There is mild pulmonary interstitial edema slightly worse than yesterday. No definite he art failure. Normal heart.
[2018-04-02 03:11] LABS: Calcium 9.2 mg/dL (8.4-10.2); Magnesium 1.9 mg/dL (1.6-2.3); Phosphorus 3.5 mg/dL (2.5-4.5); Potassium 4.4 mmol/L (3.5-5.1)
[2018-04-02] MEDS ORDERED: SODIUM CHLORIDE 0.9% 1,000 ML IV ONE (03:22)
[2018-04-02 04:30] LABS: Hemoglobin A1C 5.6 % (4.0-6.0)
[2018-04-02] MEDS: PIPERACILLIN-TAZOBACTAM 3.375 GM in SODIUM CHLORIDE 0.9% 100 ML IVPB SCH ×3 (05:38→20:46)
[2018-04-02] MEDS: LACTATED RINGERS 1,000 ML IV SCH ×2 (06:28→11:17)
[2018-04-02] MEDS ORDERED: INSULIN ASPART 100 UNIT/ML 1 ML 10 ML VIAL SQ SCH (07:30)
[2018-04-02] MEDS: IPRATROPIUM-ALBUTEROL 3 ML NEB INHALATION SCH ×3 (07:38→19:48)
--- NOTE | 2018-04-02 08:00 | CONS ---
CONSULTATION DATE OF SERVICE: 04/01/2018 REASON FOR CONSULTATION: 1. UTI and sepsis. 2. Left foot wound. HISTORY OF PRESENT ILLNESS: The patient is a 57-year-old male, well known to my service. The patient did have a left foot wound infection with an abscess with multiple bacteria before the patient has completed his antibiotic therapy. Current local wound care has been a wound VAC and he follows at [facility]. Patient also has a problem with urinary retention for the patient did have a Muñiz catheter that apparently has been discontinued about a week ago. Patient has now been brought to the ER at [facility] this morning with chief complaints of mental status changes. Patient lives at the [facility] on the [place] and so the staff tried to wake the patient this morning. He was not responding and the patient failed to answer any question, he was found to have fever of 103 degrees Fahrenheit. Patient denies having any headache. No URI symptoms. No chest pain or shortness of breath. Very minimal cough. No abdominal pain. No diarrhea. He denies having difficulty with urination; however, he was noticed to have a postvoid residual of 700 mL. Patient was evaluated by the ER physician. On arrival to the ER, the patient did have a fever of 103 degrees Fahrenheit. The patient was tachycardic, positive UA, influenza serology was negative. White count elevated at 11,000. Patient did have a chest x-ray with some patchiness in the left lower lung with concern for possible pneumonia, UTI. He was started on Zosyn in the hospital. Infectious Disease was consulted for further recommendation of antibiotic therapy. REVIEW OF SYSTEMS: Positive points have been mentioned in the HPI. Rest of the 14 systems has been negative. PAST MEDICAL HISTORY: Blood concern, history of prostate disorder with urine retention, melanoma metastatic, myositis, \gram-negative pneumonia, left foot wound infection. PAST SURGICAL HISTORY: Tonsillectomy, right axilla biopsy and left foot wound debridement. SOCIAL HISTORY: No history of smoking, drinking or drug use. long term resident. FAMILY HISTORY: Mother with history of breast cancer. Father with history of congestive heart failure and Parkinson's disease. ALLERGIES: SULFA. MEDICATIONS: The patient is currently on Tylenol, DuoNeb, aspirin, Sinemet, Benadryl, iron sulfate, NovoLog, Levemir, lactated Ringer, lactulose, levofloxacin, Zosyn, Flomax. PHYSICAL EXAMINATION: Blood pressure is 85/57, pulse of 92, temperature 97.9, he is 97% on 2 L nasal cannula. General description is a middle-aged male, lying in bed in no distress. No tachypnea or accessory muscle for respiration use. HEENT EXAMINATION: Shows slight pallor. No scleral icterus. Oral mucosa is dry. No pharyngeal erythema or thrush. NECK: Trachea central, no thyromegaly. LUNGS: Unlabored breathing, clear to auscultation anteriorly. No wheeze or crackle. HEART: S1, S2. Regular rate and rhythm. ABDOMEN: Soft, no tenderness. No guarding or rigidity. EXTREMITIES: No edema of the feet. Examination of the left foot wound base, clean with no slough tissue, no surrounding redness or any foul-smelling drainage. NEUROLOGICAL: Patient is awake, alert, oriented x3, mood and affect normal. LABS: Hemoglobin 11.1, white count 11,000, BUN of 31, creatinine is 1.15. UA has been positive with large leukocyte esterases, but 182 WBC. Influenza serology has been negative. DIAGNOSTIC IMPRESSION AND PLAN: Patient admitted to the hospital with sepsis and the patient did have fever of 103 Fahrenheit. Patient is hypotensive, requiring multiple fluid boluses and elevated white count. Source is likely urinary tract infection. In this patient who did have a urinary retention with a Muñiz catheter, discontinued about a week ago, noticed to have a urinary of almost 700 on the floor today with a significantly positive UA. Chest x-ray did show possible history of pneumonia; however, the patient has significant respiratory symptoms. Pneumonia not excluded. The patient left foot wound currently looks clean with no evidence of any infection or cellulitis. PLAN: 1. Zosyn 3.3 q.8 hours, broad coverage for hospital stay. 2. Urinary tract infection. 3. Muñiz catheter inserted for urinary retention. 4. Otherwise wound VAC to the left foot wound, . 5. Will follow up on clinical condition and culture to further adjust medication if needed. Thank you for this consultation. Will follow this patient along with you. MMODL / IJN: [id number] /
[2018-04-02 08:21] LABS: Glucose,Whole Blood 125 mg/dL (75-99)
[2018-04-02] MEDS: LACTULOSE 20 GM/30 ML CUP PO SCH ×2 (08:39→20:47)
[2018-04-02] MEDS: PRIMIDONE 50 MG TAB PO SCH (08:40)
[2018-04-02] MEDS: ASPIRIN 81 MG PO SCH (08:40)
[2018-04-02] MEDS: PANTOPRAZOLE 40 MG TABLET PO SCH (08:40)
[2018-04-02] MEDS: FERROUS SULFATE 325 MG TAB PO SCH (08:40)
[2018-04-02] MEDS: INSULIN ASPART 100 UNIT/ML 1 ML 10 ML VIAL SQ SCH ×4 (09:05→20:46)
[2018-04-02] MEDS: SODIUM CHLORIDE 0.9% 1,000 ML IV SCH ×2 (10:00→20:45)
--- NOTE | 2018-04-02 10:44 | P.CNPUL ---
History of Present Illness Consult date: 04/02/18 Requesting physician: Mau Wooten Reason for consult: other Chief complaint: Septic shock History of present illness: This is a 57-year-old white male patient of Dr. Jacinto, who has been at the [facility] since November 2017 after a prolonged hospitalization for septic shock related to her extremity cellulitis, has a past medical history of Parkinson's disease, diabetes mellitus type 2, benign prostatic hypertrophy, history of C. diff colitis, VRE urinary tract infection, urinary retention with a chronic indwelling catheter that was recently removed. Patient has been on rehabilitation and wound care to his chronic wound on his left foot, which is being followed by Dr. Aburto. There is a wound VAC in place on the left foot. Patient is being followed by Dr. Du for urinary retention , he has had a TURP procedure in June 2017 and the biopsies were negative for malignancy. He has had a chronic urinary catheter in place since November, and it was removed by Dr. Collazo is a week ago. Yesterday she was noted to be more lethargic, febrile with a T-max of 10 2F, hypotensive, tachycardic with a rate of 150 BPM, he was transferred to the emergency department for evaluation. His labs showed a white count of 11.0, hemoglobin of 11.2, electrolytes were within normal limits, BUN was 31 and creatinine was 1.15. Urinalysis showed white blood cell count of greater than 182, large amount of leuks. Urine culture was sent, and is pending at this time, influenza was not detected, troponins were negative 1, LFTs were within normal limits, plasma lactic acid was 0.9, however patient was hypotensive with a blood pressure of 77/47, tachycardic, and febrile with a temp of 103F. Patient was fluid resuscitated, he received a total of 3 L of IV fluids, and his maintenance IV fluid is 0.9 normal saline at a rate of 100 ML per hour, his antibiotic coverage includes Zosyn and Levaquin, ID service is following. He was transferred to the intensive care unit last night related to hypotension. Chest x-ray today shows interstitial edema. Patient seen this morning in the intensive care unit, he remains febrile through the night with a T-max of 103F, he is currently awake and alert, his mentation is clear, he is on 2 L per nasal cannula his pulse ox is 97%, his blood pressure is 121/87, he is less tachycardic, he is in sinus mechanism with a rate of 96. Microbiology results are pending at this time. Patient is producing urine, and is nonoliguric. Review of Systems All systems: negative Constitutional: Reports lethargy, Reports weakness, Denies chills, Denies fever Eyes: denies blurred vision, denies pain Ears, nose, mouth and throat: Denies headache, Denies sore throat Cardiovascular: Denies chest pain, Denies shortness of breath Respiratory: Denies cough Gastrointestinal: Denies abdominal pain, Denies diarrhea, Denies nausea, Denies vomiting Musculoskeletal: Denies myalgias Musculoskeletal: left: foot pain (Left foot wound VAC is in place) Integumentary: Reports sores, Denies pruritus, Denies rash Neurological: Reports balance difficulties, Reports change in mentation, Reports gait dysfunction, Denies numbness, Denies weakness Psychiatric: Denies anxiety, Denies depression Endocrine: Denies fatigue, Denies weight change Past Medical History Past Medical History: Cancer, Diabetes Mellitus, GERD/Reflux, Pneumonia, Prostate Disorder Additional Past Medical History / Comment(s): Melanoma stage IV with metastasis , enlarge lymph nodes, IDDM type II (d/t steroid use), parkinson's disease, weakness, colitis, pneumonias, pneumonia with sepsis/shock, acute respiratory failure, chronic L foot wound with current wound vac, past L lower leg cellulitis, normocytic anemia, BPH with surgery, UTIs, recent IDC which was removed one week ago, incontinent of urine at times, gallbladder disease, History of Any Multi-Drug Resistant Organisms: ESBL, VRE Date of last positivie culture/infection: 01/13/18, 01/14/18 VRE MDRO Source:: ,ESBL URINE ,VRE FOOT Past Surgical History: Tonsillectomy Additional Past Surgical History / Comment(s): Rt axillary biopsy - ositive for cancer, Rt shoulder mole bx and back skin biopsy ,Dental extraction : wisdom teeth removed, TURP, colonoscopy with bening polyp Past Anesthesia/Blood Transfusion Reactions: No Reported Reaction Past Psychological History: No Psychological Hx Reported Additional Psychological History / Comment(s): Pt resides at [facility]. He is mostly in a wheelchair but occasionally walks with walker. He has Smoking Status: Never smoker Past Alcohol Use History: None Reported Past Drug Use History: None Reported - Past Family History Mother Family Medical History: Cancer Additional Family Medical History / Comment(s): Breast cancer also had moles removed - not sure if positive or not for cancer Father Family Medical History: Congestive Heart Failure (CHF) Additional Family Medical History / Comment(s): Parkinsons Medications and Allergies Home Medications Medication Instructions Recorded Confirmed Type Pantoprazole [Protonix] 40 mg PO DAILY@0900 11/24/17 04/01/18 History Pramipexole Di-HCl [Mirapex] 1.5 mg PO TID@0900,1300,209911/24/17 04/01/18 History Artificial Tears-Hypromellose 2 drops BOTH EYES QID PRN bottle 12/10/17 Rx [Artificial Tear Drops] Ferrous Sulfate [Feosol] 325 mg PO DAILY@0900 01/13/18 04/01/18 History Insulin Glargine,Hum.rec.anlog 20 unit SQ HS 01/13/18 04/01/18 History [Basaglar Kwikpen U-100] Lactulose 20 gm PO Q12H 01/13/18 04/01/18 History Ipratropium-Albuterol Nebulize 3 ml INHALATION RT-TID 02/23/18 04/01/18 History [Duoneb 0.5 mg-3 mg/3 ml Soln] diphenhydrAMINE [Benadryl] 25 mg PO Q8H PRN 02/23/18 04/01/18 History Aspirin EC [Ecotrin Low Dose] 81 mg PO DAILY@89904/01/18 04/01/18 History Carbidopa-Levodopa 25-250 mg 1 tab PO TID@0900,1300,209904/01/18 04/01/18 History [Sinemet 25-250] Primidone [Mysoline] 50 mg PO DAILY@89904/01/18 04/01/18 History Tamsulosin [Flomax] 0.4 mg PO HS@209904/01/18 04/01/18 History Allergies Allergy/AdvReac Type Severity Reaction Status Date / Time Sulfa (Sulfonamide Allergy Rash/Hives Verified 04/01/18 09:27 Antibiotics) Physical Exam Vitals: Vital Signs Temp Pulse Pulse Pulse Pulse Resp BP 04/02/18 09:00 96 21 121/87 04/02/18 08:00 97.8 F 83 18 100/67 04/02/18 07:00 89 21 104/64 04/02/18 06:00 100.3 F H 98 23 106/60 04/02/18 05:30 105 H 18 107/69 04/02/18 05:00 102.3 F H 117 H 29 H 120/79 04/02/18 04:30 125 H 24 117/64 04/02/18 04:00 134 H 92 18 129/69 04/02/18 03:30 146 H 21 152/86 04/02/18 03:00 151 H 32 H 129/87 04/02/18 02:30 103 F H 142 H 30 H 161/93 04/02/18 02:00 98.8 F 125 H 27 H 161/116 04/02/18 01:30 102 H 21 95/63 04/02/18 01:00 87 21 92/59 04/02/18 00:30 90 21 92/54 04/02/18 00:07 88 21 91/55 04/02/18 00:00 90 92 26 H 84/60 04/01/18 23:30 89 23 84/53 04/01/18 23:00 90 21 86/58 04/01/18 22:41 88 24 04/01/18 22:06 97.9 F 92 18 04/01/18 21:47 04/01/18 21:41 04/01/18 21:30 04/01/18 21:22 04/01/18 21:15 98.4 F 91 18 04/01/18 20:54 93 18 04/01/18 20:39 96 18 04/01/18 20:24 101 H 18 04/01/18 20:15 98.1 F 102 H 18 04/01/18 20:00 98.8 F 91 18 04/01/18 19:29 98.1 F 04/01/18 16:00 98.5 F 115 H 105 H 24 04/01/18 15:30 113/73 04/01/18 15:10 96 16 104/66 04/01/18 15:00 93 31 H 89/77 04/01/18 14:30 90 32 H 04/01/18 14:00 87 41 H 91/57 04/01/18 13:54 83 16 91/57 04/01/18 13:38 98 F 86 20 88/58 04/01/18 13:30 86 22 86/54 04/01/18 13:05 04/01/18 13:00 87 20 90/54 04/01/18 12:30 92 21 83/52 04/01/18 12:00 0 L 88/53 04/01/18 11:49 98.4 F 98 15 88/53 04/01/18 11:30 100 77/47 04/01/18 11:22 101.0 F H 04/01/18 11:00 109 H 89/48 04/01/18 10:30 110 H 33 H 105/55 BP Pulse Ox 04/02/18 09:00 97 04/02/18 08:00 98 04/02/18 07:00 96 04/02/18 06:00 95 04/02/18 05:30 96 04/02/18 05:00 97 04/02/18 04:30 97 04/02/18 04:00 97 04/02/18 03:30 97 04/02/18 03:00 98 04/02/18 02:30 96 04/02/18 02:00 97 04/02/18 01:30 98 04/02/18 01:00 98 04/02/18 00:30 97 04/02/18 00:07 97 04/02/18 00:00 97 04/01/18 23:30 96 04/01/18 23:00 98 04/01/18 22:41 98 04/01/18 22:06 85/57 97 04/01/18 21:47 77/52 04/01/18 21:41 77/51 04/01/18 21:30 80/53 04/01/18 21:22 81/53 04/01/18 21:15 85/51 97 04/01/18 20:54 81/51 97 04/01/18 20:39 84/51 98 04/01/18 20:24 87/54 97 04/01/18 20:15 74/50 97 04/01/18 20:00 75/43 86 L 04/01/18 19:29 04/01/18 16:00 123/71 96 04/01/18 15:30 04/01/18 15:10 95 04/01/18 15:00 95 04/01/18 14:30 96 04/01/18 14:00 88 L 04/01/18 13:54 95 04/01/18 13:38 94 L 04/01/18 13:30 93 L 04/01/18 13:05 93 L 04/01/18 13:00 04/01/18 12:30 04/01/18 12:00 94 L 04/01/18 11:49 04/01/18 11:30 92 L 04/01/18 11:22 04/01/18 11:00 92 L 04/01/18 10:30 Intake and Output 04/01/18 04/02/18 04/02/18 22:59 06:59 14:59 Intake Total 2725 300 Output Total 1200 520 190 Balance -1200 2205 110 Intake: IV 2725 300 0.9 Normal Saline 100 300 Lactated Ringers 1,000 ml 625 @ 125 mls/hr IV .Q8H [facility] Rx#:[id number] Sodium Chloride 0.9% 1, 2000 000 ml @ 999 mls/hr IV . Q1H1M ONE Rx#:[id number] Output: Urine 1200 520 190 3-way Urethral 350 Other: Voiding Method Indwelling Catheter Indwelling Catheter GENERAL EXAM: Alert, pleasant, 57-year-old white male, seen in the intensive care unit, currently on 2 L per nasal cannula, he is on a cooling blanket, has been febrile through the night, and he has washcloths placed on his forehead, and ice packs on his body, comfortable in no apparent distress. Speech is slow , but patient is responding appropriately, alert and oriented 3. he has generalized weakness HEAD: Normocephalic/atraumatic. EYES: Normal reaction of pupils, equal size. Conjunctiva pink, sclera white. NOSE: Clear with pink turbinates. THROAT: No erythema or exudates. NECK: No masses, no JVD, no thyroid enlargement, no adenopathy. CHEST: No chest wall deformity. Symmetrical expansion. LUNGS: Equal air entry with no crackles, wheeze, rhonchi or dullness. CVS: Regular rate and rhythm, normal S1 and S2, no gallops, no murmurs, no rubs ABDOMEN: Soft, nontender. No hepatosplenomegaly, normal bowel sounds, no guarding or rigidity. EXTREMITIES: No clubbing, mild BLE and hand edema, no cyanosis, 2+ pulses and upper and lower extremities. Left foot chronic with the wound VAC in place MUSCULOSKELETAL: Muscle strength and tone normal. SPINE: No scoliosis or deformity SKIN: No rashes CENTRAL NERVOUS SYSTEM: Alert and oriented -3. No focal deficits, tone is normal in all 4 extremities. PSYCHIATRIC: Alert and oriented -3. Appropriate affect. Intact judgment and insight. Results - Laboratory Findings CBC and BMP: 04/02/18 02:35 04/02/18 02:35 PT/INR, D-dimer PT 11.5 sec (9.0-12.0) 04/01/18 11:14 INR 1.1 (<1.2) 04/01/18 11:14 D-Dimer 1.71 mg/L FEU (<0.60) H 04/02/18 02:35 Abnormal lab findings: Abnormal Labs 04/01/18 04/01/18 04/01/18 09:25 09:25 12:00 WBC 11.0 H RBC 3.95 L Hgb 11.2 L Hct 34.7 L RDW 15.6 H Neutrophils # 10.0 H Lymphocytes # 0.4 L D-Dimer BUN 31 H Glucose 138 H POC Glucose (mg/dL) Urine Protein 1+ H Urine Blood Small H Ur Leukocyte Esterase Large H Urine WBC >182 H Urine WBC Clumps Moderate H Urine Mucus Rare H 04/01/18 04/01/18 04/02/18 21:25 22:20 02:35 WBC 11.8 H RBC 3.68 L Hgb 10.6 L Hct 33.5 L RDW Neutrophils # Lymphocytes # D-Dimer BUN Glucose POC Glucose (mg/dL) 181 H 153 H Urine Protein Urine Blood Ur Leukocyte Esterase Urine WBC Urine WBC Clumps Urine Mucus 04/02/18 04/02/18 04/02/18 02:35 02:35 02:53 WBC RBC Hgb Hct RDW Neutrophils # Lymphocytes # D-Dimer 1.71 H BUN 26 H Glucose 128 H POC Glucose (mg/dL) 124 H Urine Protein Urine Blood Ur Leukocyte Esterase Urine WBC Urine WBC Clumps Urine Mucus 04/02/18 08:08 WBC RBC Hgb Hct RDW Neutrophils # Lymphocytes # D-Dimer BUN Glucose POC Glucose (mg/dL) 125 H Urine Protein Urine Blood Ur Leukocyte Esterase Urine WBC Urine WBC Clumps Urine Mucus - Diagnostic Findings Chest x-ray: report reviewed, image reviewed Additional studies: EKG reviewed Assessment and Plan Plan: Assessment: #1. Acute septic shock, likely related to urinary tract infection, however the possibilities may also include the chronic left foot wound #2. Fever, lethargy, weakness, hypotension, tachycardia related to the above #3. Chronic indwelling urinary catheter for urinary retention, removed a week ago #4. Parkinson's disease #5. Recent hospitalization in November for septic shock related to left lower extremity cellulitis #6. General medical debility, and patient has been recovering at the [facility] since November 2017 #7. Stage IV melanoma, patient was treated at [facility] with immunotherapy, patient did not tolerate the treatment well, in clinical trials, but currently on hold in view of recurrent hospitalization for septic events #8. Diabetes mellitus type 2 #9. Previous vancomycin-resistant enterococcus urinary tract infection #10. Benign prostatic hypertrophy, status post TURP with benign biopsy #11. Lifetime nonsmoker #12. Resident of extended care facility Plan: Continue current antibiotic coverage, ID service is on the case, will adjust antibiotics accordingly, cultures are pending. Patient did not require vasopressor support, crit currently hemodynamically stable, less tachycardic, heart rate is controlled today, no difficulty breathing, today's chest x-ray has been reviewed with Dr. Salinas, shows mild interstitial edema, but clinically patient denies any shortness of breath, we will hold off on the diuretics. Monitor urine output, hemodynamics, fever pattern. She will remain in the intensive care unit today, GI and DVT prophylaxis. I performed a history & physical examination of the patient and discussed their management with my nurse practitioner, Yancy Gold. I reviewed the nurse practitioner's note and agree with the documented findings and plan of care. Lung sounds are positive for clear breath sounds. The findings and the impression was discussed with the patient. I attest to the documentation by the nurse practitioner. Time with Patient: Greater than 30
[2018-04-02] MEDS: ENOXAPARIN 40 MG/0.4 ML SYRINGE SQ SCH (11:18)
[2018-04-02 11:34] LABS: Glucose,Whole Blood 136 mg/dL (75-99)
[2018-04-02] MEDS ORDERED: FUROSEMIDE 10 MG/ML 2 ML VIAL IV STA (13:21)
[2018-04-02 17:29] LABS: Glucose,Whole Blood 163 mg/dL (75-99)
[2018-04-02] MEDS: LEVOFLOXACIN 750MG-D5W PMX 750 MG in DEXTROSE/WATER 1 150ML.BAG IVPB SCH (17:43)
--- NOTE | 2018-04-02 19:15 | P.HPIM ---
History of Present Illness H&P Date: 04/02/18 Chief Complaint: Fever and chills History of presenting complaint: This is a 57-year-old patient currently a resident of the [facility]. Patient chronic stable medical conditions include normocytic anemia, left foot wound for which she's been on a wound VAC, stage IV lymphoma that he follows up at [facility], chronic medical debility, autoimmune colitis, idiopathic Parkinson disease. Patient presented with spiking fevers up to 103. Patient is on already infected appearing urine. Started on IV antibiotics. When patient arrived to the floor. Patient kept dropping his blood pressure. I gave several fluid boluses. As a result because of low blood pressure patient was then transferred to the ICU. For closer hemodynamic monitoring. Patient not he had been on IV antibiotics. Patient did not require any pressures. 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 Saw this patient earlier today in the ICU. Was feeling better. Did tolerate some diet. No tired and rundown. Source of infection is felt to be the urine. Review of systems: GEN.: Febrile EYES: None HEENT: None NECK: None RESPIRATORY: None CARDIOVASCULAR: None GASTROINTESTINAL: None GENITOURINARY: Catheter MUSCULOSKELETAL: None LYMPHATICS: None HEMATOLOGICAL: None PSYCHIATRY: None NEUROLOGICAL: Weakness in the limbs Physical examination: VITAL SIGNS: 103, 142, 30, 160/93, 96% initially than the blood pressure dropped GENERAL: Average built, laying in bed, tired appearing. EYES: Pupils equal. Conjunctiva normal. HEENT: External appearance of nose and ears normal, oral cavity grossly dry. NECK: JVD not raised; masses not palpable. HEART: First and second heart sounds are normal; no edema. LUNGS: Respiratory rate normal; clear to auscultation. ABDOMEN: Soft, nontender, liver spleen not palpable, no masses palpable. LYMPHATICS: No lymph nodes palpable in the axilla and neck. PSYCH: [Alert and oriented x3; mood and affect anxious l. NEUROLOGICAL: [Cranial nerves grossly intact; no facial asymmetry, weakness in the lower extremity. 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 Otherwise wheelchair Plan: Initially the patient was admitted to the medical floor. Then moved to the ICU. Given fluid boluses. Started on IV antibiotics including IV Levaquin and IV Zosyn. Which she finally responded. Feeling better. Gr[employer] and ID was consulted. Home medications renewed. Care was discussed with the patient earlier today. Questions answered. Cultures are pending. Prognosis guarded Past Medical History Past Medical History: Cancer, Diabetes Mellitus, GERD/Reflux, Pneumonia, Prostate Disorder Additional Past Medical History / Comment(s): Melanoma stage IV with metastasis , enlarge lymph nodes, IDDM type II (d/t steroid use), parkinson's disease, weakness, colitis, pneumonias, pneumonia with sepsis/shock, acute respiratory failure, chronic L foot wound with current wound vac, past L lower leg cellulitis, normocytic anemia, BPH with surgery, UTIs, recent IDC which was removed one week ago, incontinent of urine at times, gallbladder disease, History of Any Multi-Drug Resistant Organisms: ESBL, VRE Date of last positivie culture/infection: 01/13/18, 01/14/18 VRE MDRO Source:: ,ESBL URINE ,VRE FOOT Past Surgical History: Tonsillectomy Additional Past Surgical History / Comment(s): Rt axillary biopsy - ositive for cancer, Rt shoulder mole bx and back skin biopsy ,Dental extraction : wisdom teeth removed, TURP, colonoscopy with bening polyp Past Anesthesia/Blood Transfusion Reactions: No Reported Reaction Past Psychological History: No Psychological Hx Reported Additional Psychological History / Comment(s): Pt resides at [facility]. He is mostly in a wheelchair but occasionally walks with walker. He has Smoking Status: Never smoker Past Alcohol Use History: None Reported Past Drug Use History: None Reported - Past Family History Mother Family Medical History: Cancer Additional Family Medical History / Comment(s): Breast cancer also had moles removed - not sure if positive or not for cancer Father Family Medical History: Congestive Heart Failure (CHF) Additional Family Medical History / Comment(s): Parkinsons Medications and Allergies Home Medications Medication Instructions Recorded Confirmed Type Pantoprazole [Protonix] 40 mg PO DAILY@0900 11/24/17 04/01/18 History Pramipexole Di-HCl [Mirapex] 1.5 mg PO TID@0900,1300,2100 11/24/17 04/01/18 History Artificial Tears-Hypromellose 2 drops BOTH EYES QID PRN bottle 12/10/17 Rx [Artificial Tear Drops] Ferrous Sulfate [Feosol] 325 mg PO DAILY@0900 01/13/18 04/01/18 History Insulin Glargine,Hum.rec.anlog 20 unit SQ HS 01/13/18 04/01/18 History [Basaglar Kwikpen U-100] Lactulose 20 gm PO Q12H 01/13/18 04/01/18 History Ipratropium-Albuterol Nebulize 3 ml INHALATION RT-TID 02/23/18 04/01/18 History [Duoneb 0.5 mg-3 mg/3 ml Soln] diphenhydrAMINE [Benadryl] 25 mg PO Q8H PRN 02/23/18 04/01/18 History Aspirin EC [Ecotrin Low Dose] 81 mg PO DAILY@0900 04/01/18 04/01/18 History Carbidopa-Levodopa 25-250 mg 1 tab PO TID@0900,1300,2100 04/01/18 04/01/18 History [Sinemet 25-250] Primidone [Mysoline] 50 mg PO DAILY@0900 04/01/18 04/01/18 History Tamsulosin [Flomax] 0.4 mg PO HS@2100 04/01/18 04/01/18 History Allergies Allergy/AdvReac Type Severity Reaction Status Date / Time Sulfa (Sulfonamide Allergy Rash/Hives Verified 04/01/18 09:27 Antibiotics) Physical Exam Vitals: Vital Signs Temp Pulse Pulse Pulse Pulse Resp BP 04/02/18 11:00 90 21 96/70 04/02/18 10:00 92 25 H 99/82 04/02/18 09:00 96 21 121/87 04/02/18 08:00 97.8 F 83 18 100/67 04/02/18 07:00 89 21 104/64 04/02/18 06:00 100.3 F H 98 23 106/60 04/02/18 05:30 105 H 18 107/69 04/02/18 05:00 102.3 F H 117 H 29 H 120/79 04/02/18 04:30 125 H 24 117/64 04/02/18 04:00 134 H 92 18 129/69 04/02/18 03:30 146 H 21 152/86 04/02/18 03:00 151 H 32 H 129/87 04/02/18 02:30 103 F H 142 H 30 H 161/93 04/02/18 02:00 98.8 F 125 H 27 H 161/116 04/02/18 01:30 102 H 21 95/63 04/02/18 01:00 87 21 92/59 04/02/18 00:30 90 21 92/54 04/02/18 00:07 88 21 91/55 04/02/18 00:00 90 92 26 H 84/60 04/01/18 23:30 89 23 84/53 04/01/18 23:00 90 21 86/58 04/01/18 22:41 88 24 04/01/18 22:06 97.9 F 92 18 04/01/18 21:47 04/01/18 21:41 04/01/18 21:30 04/01/18 21:22 04/01/18 21:15 98.4 F 91 18 04/01/18 20:54 93 18 04/01/18 20:39 96 18 04/01/18 20:24 101 H 18 04/01/18 20:15 98.1 F 102 H 18 04/01/18 20:00 98.8 F 91 18 04/01/18 19:29 98.1 F 04/01/18 16:00 98.5 F 115 H 105 H 24 04/01/18 15:30 113/73 04/01/18 15:10 96 16 104/66 04/01/18 15:00 93 31 H 89/77 04/01/18 14:30 90 32 H 04/01/18 14:00 87 41 H 91/57 04/01/18 13:54 83 16 91/57 04/01/18 13:38 98 F 86 20 88/58 04/01/18 13:30 86 22 86/54 04/01/18 13:05 04/01/18 13:00 87 20 90/54 04/01/18 12:30 92 21 83/52 BP Pulse Ox 04/02/18 11:00 99 04/02/18 10:00 98 04/02/18 09:00 97 04/02/18 08:00 98 04/02/18 07:00 96 04/02/18 06:00 95 04/02/18 05:30 96 04/02/18 05:00 97 04/02/18 04:30 97 04/02/18 04:00 97 04/02/18 03:30 97 04/02/18 03:00 98 04/02/18 02:30 96 04/02/18 02:00 97 04/02/18 01:30 98 04/02/18 01:00 98 04/02/18 00:30 97 04/02/18 00:07 97 04/02/18 00:00 97 04/01/18 23:30 96 04/01/18 23:00 98 04/01/18 22:41 98 04/01/18 22:06 85/57 97 04/01/18 21:47 77/52 04/01/18 21:41 77/51 04/01/18 21:30 80/53 04/01/18 21:22 81/53 04/01/18 21:15 85/51 97 04/01/18 20:54 81/51 97 04/01/18 20:39 84/51 98 04/01/18 20:24 87/54 97 04/01/18 20:15 74/50 97 04/01/18 20:00 75/43 86 L 04/01/18 19:29 04/01/18 16:00 123/71 96 04/01/18 15:30 04/01/18 15:10 95 04/01/18 15:00 95 04/01/18 14:30 96 04/01/18 14:00 88 L 04/01/18 13:54 95 04/01/18 13:38 94 L 04/01/18 13:30 93 L 04/01/18 13:05 93 L 04/01/18 13:00 04/01/18 12:30 Intake and Output 04/01/18 04/02/18 04/02/18 22:59 06:59 14:59 Intake Total 2725 400 Output Total 1200 520 250 Balance -1200 2205 150 Intake: IV 2725 400 0.9 Normal Saline 100 400 Lactated Ringers 1,000 ml 625 @ 125 mls/hr IV .Q8H [facility] Rx#:[id number] Sodium Chloride 0.9% 1, 2000 000 ml @ 999 mls/hr IV . Q1H1M [facility] Rx#:[id number] Output: Urine 1200 520 250 3-way Urethral 350 Other: Voiding Method Indwelling Catheter Indwelling Catheter Results CBC & Chem 7: 04/02/18 02:35 04/02/18 02:35 Labs: Abnormal Lab Results - Last 24 Hours (Table) 04/01/18 04/01/18 04/01/18 Range/Units 12:00 21:25 22:20 WBC (3.8-10.6) k/uL RBC (4.30-5.90) m/uL Hgb (13.0-17.5) gm/dL Hct (39.0-53.0) % D-Dimer (<0.60) mg/L FEU BUN (9-20) mg/dL Glucose (74-99) mg/dL POC Glucose (mg/dL) 181 H 153 H (75-99) mg/dL Urine Protein 1+ H (Negative) Urine Blood Small H (Negative) Ur Leukocyte Esterase Large H (Negative) Urine WBC >182 H (0-5) /hpf Urine WBC Clumps Moderate H (None) /hpf Urine Mucus Rare H (None) /hpf 04/02/18 04/02/18 04/02/18 Range/Units 02:35 02:35 02:35 WBC 11.8 H (3.8-10.6) k/uL RBC 3.68 L (4.30-5.90) m/uL Hgb 10.6 L (13.0-17.5) gm/dL Hct 33.5 L (39.0-53.0) % D-Dimer 1.71 H (<0.60) mg/L FEU BUN 26 H (9-20) mg/dL Glucose 128 H (74-99) mg/dL POC Glucose (mg/dL) (75-99) mg/dL Urine Protein (Negative) Urine Blood (Negative) Ur Leukocyte Esterase (Negative) Urine WBC (0-5) /hpf Urine WBC Clumps (None) /hpf Urine Mucus (None) /hpf 04/02/18 04/02/18 04/02/18 Range/Units 02:53 08:08 11:23 WBC (3.8-10.6) k/uL RBC (4.30-5.90) m/uL Hgb (13.0-17.5) gm/dL Hct (39.0-53.0) % D-Dimer (<0.60) mg/L FEU BUN (9-20) mg/dL Glucose (74-99) mg/dL POC Glucose (mg/dL) 124 H 125 H 136 H (75-99) mg/dL Urine Protein (Negative) Urine Blood (Negative) Ur Leukocyte Esterase (Negative) Urine WBC (0-5) /hpf Urine WBC Clumps (None) /hpf Urine Mucus (None) /hpf Microbiology - Last 24 Hours (Table) 04/01/18 09:25 Blood Culture - Preliminary Blood No Growth after 24 hours 04/01/18 12:00 Urine Culture - Preliminary Urine,Clean Catch Thrombosis Risk Factor Assmnt - Choose All That Apply Any of the Below Risk Factors Present?: Yes Each Factor Represents 1 point: Age 41-60 years, Medical pt on bed rest, Obesity (BMI >25), Sepsis (< 1month), Serious lung disease incl. pneumonia (< 1month) Other Risk Factors: Yes Each Risk Factor Represents 2 Points: Patient confined to bed, Malignancy Other congenital or acquired thrombophilia - If yes, enter type in comment: No Thrombosis Risk Factor Assessment Total Risk Factor Score: 9 Thrombosis Risk Factor Assessment Level: High Risk
[2018-04-02 20:15] LABS: Glucose,Whole Blood 199 mg/dL (75-99)
[2018-04-02] MEDS: TAMSULOSIN 0.4 MG CAP.ER.24H PO SCH (20:45)
[2018-04-02] MEDS: INSULIN DETEMIR 100 UNIT/ML 10 ML VIAL SQ SCH (21:04)
--- NOTE | 2018-04-02 22:06 | PN ---
PROGRESS NOTE DATE OF SERVICE: 04/02/2018 REASON FOR FOLLOWUP: Sepsis and urinary tract infection. INTERVAL HISTORY: The patient has been transferred out of the ICU the patient did have a persistent fever. The patient denies having any headache or chest pain. He did have a very minimal cough. No nausea, no vomiting, no abdominal pain and no diarrhea. PHYSICAL EXAMINATION: Blood pressure is 106/63 with a pulse of 105, temperature of 101.6. He is 98% on room air. General description is a middle-aged male up in the chair in no distress. HEENT EXAMINATION: Slight pallor. No scleral icterus. Oral mucosa membrane dry. LUNGS: Unlabored breathing with decreased breath sounds at the bases. No wheeze. HEART: S1, S2. Regular rate and rhythm. ABDOMEN: Soft. No tenderness. LABS: Hemoglobin is 10.6, white count 11.8. BUN of 26, creatinine 1.11. Urine currently with gram-negative bacilli. Chest x-ray was repeated today which shows mild pulmonary interstitial edema, slightly worse than yesterday. DIAGNOSTIC IMPRESSION AND PLAN: 1. Patient admitted to hospital with sepsis. Source is likely urinary, as the patient did have evidence of urinary retention with persistent fever that is possibly concerning for a drug-resistant bacteria. Antibiotic was switched over to meropenem 1 gram q.8. Discontinue the Zosyn, adjusting antibiotics further on the basis of the cultures and clinical response. 2. Patient with left foot wound. Local wound care to continue with wound V.A.C., continuous pressure 125 mmHg. Continue with supportive care. MMODL / IJN: [id number] /
[2018-04-03] MEDS: MEROPENEM 1 GM in SODIUM CHLORIDE 0.9% 100 ML IVPB SCH ×3 (00:36→16:21)
[2018-04-03] MEDS: ACETAMINOPHEN TAB 325 MG TAB PO PRN (04:25)
[2018-04-03 05:09] LABS: Basophils % (A) 0 %; Eosinophils # (A) 0.1 k/uL (0-0.7); Eosinophils % (A) 1 %; HCT 30.2 % (39.0-53.0); HGB 9.8 gm/dL (13.0-17.5); Hypochromasia Slight; Lymphocytes # (A) 0.4 k/uL (1.0-4.8); Lymphocytes % (A) 6 %; MCH 29.3 pg (25.0-35.0); MCHC 32.4 g/dL (31.0-37.0); MCV 90.5 fL (80.0-100.0); Mean Platelet Volume 6.7; Monocytes # (A) 0.3 k/uL (0-1.0); Monocytes % (A) 5 %; Neutrophils # (A) 5.7 k/uL (1.3-7.7); Neutrophils % (A) 86 %; Platelet Count 173 k/uL (150-450); RBC 3.33 m/uL (4.30-5.90); RDW 15.6 % (11.5-15.5); WBC 6.6 k/uL (3.8-10.6)
[2018-04-03] MEDS: IPRATROPIUM-ALBUTEROL 3 ML NEB INHALATION SCH ×3 (05:25→20:04)
[2018-04-03 05:40] LABS: ALT 34 U/L (21-72); AST 31 U/L (17-59); Albumin 3.2 g/dL (3.5-5.0); Alkaline Phosphatase 82 U/L (38-126); Anion Gap 9 mmol/L; Blood Urea Nitrogen 19 mg/dL (9-20); Carbon Dioxide 25 mmol/L (22-30); Chloride 107 mmol/L (98-107); Glucose 96 mg/dL (74-99); Magnesium 1.9 mg/dL (1.6-2.3); Phosphorus 2.7 mg/dL (2.5-4.5); Potassium 3.5 mmol/L (3.5-5.1); Sodium 141 mmol/L (137-145); Total Bilirubin 0.4 mg/dL (0.2-1.3); Total Protein 5.9 g/dL (6.3-8.2)
[2018-04-03] MEDS ORDERED: Magnesium Replacement Protocol 1 EACH MISC MISCELLANE PRN (05:51)
[2018-04-03] MEDS ORDERED: Potassium Replacement Protocol 1 EACH MISC MISCELLANE PRN (05:52)
[2018-04-03] MEDS: SODIUM CHLORIDE 0.9% 1,000 ML IV SCH ×3 (06:15→23:06)
[2018-04-03] MEDS: POTASSIUM CHLORIDE ER 20 MEQ TAB.ER PO SCH ×2 (07:12→08:40)
[2018-04-03] MEDS: MAGNESIUM SULFATE-D5W PMX 1 GM in DEXTROSE/WATER 1 100ML.BAG IVPB SCH ×2 (07:12→08:40)
[2018-04-03 07:17] LABS: Glucose,Whole Blood 110 mg/dL (75-99)
[2018-04-03] MEDS: INSULIN ASPART 100 UNIT/ML 1 ML 10 ML VIAL SQ SCH ×4 (07:18→21:00)
[2018-04-03] MEDS: PRAMIPEXOLE 0.5 MG TAB PO SCH ×3 (08:38→21:00)
[2018-04-03] MEDS: ENOXAPARIN 40 MG/0.4 ML SYRINGE SQ SCH (08:38)
[2018-04-03] MEDS: LACTULOSE 20 GM/30 ML CUP PO SCH ×2 (08:38→21:00)
[2018-04-03] MEDS: PANTOPRAZOLE 40 MG TABLET PO SCH (08:38)
[2018-04-03] MEDS: PRIMIDONE 50 MG TAB PO SCH (08:38)
[2018-04-03] MEDS: ASPIRIN 81 MG PO SCH (08:40)
[2018-04-03] MEDS: CARBIDOPA-LEVODOPA 25-250 MG 1 EACH TAB PO SCH ×3 (08:40→20:59)
[2018-04-03] MEDS: FERROUS SULFATE 325 MG TAB PO SCH (08:40)
[2018-04-03] MEDS ORDERED: FUROSEMIDE 10 MG/ML 2 ML VIAL IV STA (10:06)
[2018-04-03 11:58] LABS: Glucose,Whole Blood 148 mg/dL (75-99)
--- NOTE | 2018-04-03 12:51 | P.PN ---
Subjective Progress Note Date: 04/03/18 Principal diagnosis: Acute sepsis secondary to urinary tract infection or left foot wound infection This is a 57-year-old white male patient of Dr. Jacinto, who has been at the [facility] since November 2017 after a prolonged hospitalization for septic shock related to her extremity cellulitis, has a past medical history of Parkinson's disease, diabetes mellitus type 2, benign prostatic hypertrophy, history of C. diff colitis, VRE urinary tract infection, urinary retention with a chronic indwelling catheter that was recently removed. Patient has been on rehabilitation and wound care to his chronic wound on his left foot, which is being followed by Dr. Aburto. There is a wound VAC in place on the left foot. Patient is being followed by Dr. Du for urinary retention , he has had a TURP procedure in June 2017 and the biopsies were negative for malignancy. He has had a chronic urinary catheter in place since November, and it was removed by Dr. Collazo is a week ago. Yesterday she was noted to be more lethargic, febrile with a T-max of 10 2F, hypotensive, tachycardic with a rate of 150 BPM, he was transferred to the emergency department for evaluation. His labs showed a white count of 11.0, hemoglobin of 11.2, electrolytes were within normal limits, BUN was 31 and creatinine was 1.15. Urinalysis showed white blood cell count of greater than 182, large amount of leuks. Urine culture was sent, and is pending at this time, influenza was not detected, troponins were negative 1, LFTs were within normal limits, plasma lactic acid was 0.9, however patient was hypotensive with a blood pressure of 77/47, tachycardic, and febrile with a temp of 103F. Patient was fluid resuscitated, he received a total of 3 L of IV fluids, and his maintenance IV fluid is 0.9 normal saline at a rate of 100 ML per hour, his antibiotic coverage includes Zosyn and Levaquin, ID service is following. He was transferred to the intensive care unit last night related to hypotension. Chest x-ray today shows interstitial edema. Patient seen this morning in the intensive care unit, he remains febrile through the night with a T-max of 103F, he is currently awake and alert, his mentation is clear, he is on 2 L per nasal cannula his pulse ox is 97%, his blood pressure is 121/87, he is less tachycardic, he is in sinus mechanism with a rate of 96. Microbiology results are pending at this time. Patient is producing urine, and is nonoliguric. Patient was reevaluated today on 04/03/2018, patient is feeling much better, he is hemodynamically stable, did not require any pressors, responded well to fluids and antibiotics. Patient is hemodynamically stable, he has good urine output, and he feels much better today compared to how he felt yesterday. Denies any chest pain no cough no wheezing no shortness of breath no nausea no vomiting no abdominal pain. Labs were reviewed he had a relatively normal CBC and normal electrolytes and renal profile, urine culture is positive for gram- negative bacilli, final identification is to follow. Patient is covered empirically with antibiotics. Objective - Vital Signs Vital signs: Vital Signs Temp 98.9 F 04/03/18 08:00 Pulse 87 04/03/18 10:00 Resp 26 H 04/03/18 10:00 BP 109/78 04/03/18 10:00 Pulse Ox 94 L 04/03/18 10:00 Intake & Output 04/02/18 04/03/18 04/03/18 18:59 06:59 18:59 Intake Total 1200 1400 620 Output Total 1485 680 260 Balance -285 720 360 Weight 77.3 kg Intake: IV 1200 1400 500 0.9 Normal Saline 1200 1200 200 Magnesium Sulfate-D5w Pmx 200 1 gm In Dextrose/Water 1 100ml.bag @ 100 mls/hr IVPB Q1H [facility] Rx#: [id number] Meropenem 1 gm In Sodium 100 100 Chloride 0.9% 100 ml @ 200 mls/hr IVPB Q8HR [facility] Rx#:[id number] Piperacillin-Tazobactam 3 100 .375 gm In Sodium Chloride 0.9% 100 ml @ 25 mls/hr IVPB Q8H [facility] Rx#: [id number] Tube Feeding 120 Output: Urine 1485 680 260 Other: Voiding Method Indwelling Catheter Indwelling Catheter Indwelling Catheter # Voids 1 - Exam GENERAL EXAM: Alert, pleasant, 57-year-old white male, seen in the intensive care unit, currently on 2 L per nasal cannula, not in any form of distress. HEAD: Normocephalic/atraumatic. HEENT: PERRLA, EOMI, no icterus, moist mucous membranes, no JVD, no stridor, no carotid bruits. CHEST: No chest wall deformity. Symmetrical expansion. LUNGS: Equal air entry with no crackles, wheeze, rhonchi or dullness. CVS: Regular rate and rhythm, normal S1 and S2, no gallops, no murmurs, no rubs ABDOMEN: Soft, nontender. No hepatosplenomegaly, normal bowel sounds, no guarding or rigidity. EXTREMITIES: No clubbing, mild BLE and hand edema, no cyanosis, 2+ pulses and upper and lower extremities. Left foot chronic with the wound VAC in place MUSCULOSKELETAL: Muscle strength and tone normal. SPINE: No scoliosis or deformity SKIN: No rashes CENTRAL NERVOUS SYSTEM: Alert and oriented -3. No focal deficits, tone is normal in all 4 extremities. PSYCHIATRIC: Alert and oriented -3. Appropriate affect. Intact judgment and insight. - Labs CBC & Chem 7: 04/03/18 04:35 04/03/18 04:35 Labs: Abnormal Lab Results - Last 24 Hours (Table) 04/02/18 04/02/18 04/03/18 Range/Units 17:16 20:04 04:35 RBC 3.33 L (4.30-5.90) m/uL Hgb 9.8 L (13.0-17.5) gm/dL Hct 30.2 L (39.0-53.0) % RDW 15.6 H (11.5-15.5) % Lymphocytes # 0.4 L (1.0-4.8) k/uL POC Glucose (mg/dL) 163 H 199 H (75-99) mg/dL Total Protein (6.3-8.2) g/dL Albumin (3.5-5.0) g/dL 04/03/18 04/03/18 04/03/18 Range/Units 04:35 07:06 11:48 RBC (4.30-5.90) m/uL Hgb (13.0-17.5) gm/dL Hct (39.0-53.0) % RDW (11.5-15.5) % Lymphocytes # (1.0-4.8) k/uL POC Glucose (mg/dL) 110 H 148 H (75-99) mg/dL Total Protein 5.9 L (6.3-8.2) g/dL Albumin 3.2 L (3.5-5.0) g/dL Microbiology - Last 24 Hours (Table) 04/01/18 09:25 Blood Culture - Preliminary Blood No Growth after 48 hours 04/01/18 12:00 Urine Culture - Preliminary Urine,Clean Catch Gram Neg Bacilli 04/01/18 11:14 Blood Culture - Preliminary Blood No Growth after 24 hours Assessment and Plan Assessment: #1. Acute sepsis, patient did not require any pressors, responded well to fluids and antibiotics. likely related to urinary tract infection, however the possibilities may also include the chronic left foot wound #2. Fever, lethargy, weakness, hypotension, tachycardia related to the above improved with fluids and antibiotics. #3. Chronic indwelling urinary catheter for urinary retention, removed a week ago #4. Parkinson's disease #5. Recent hospitalization in November for septic shock related to left lower extremity cellulitis #6. General medical debility, and patient has been recovering at the [facility] since November 2017 #7. Stage IV melanoma, patient was treated at [facility] with immunotherapy, patient did not tolerate the treatment well, in clinical trials, but currently on hold in view of recurrent hospitalization for septic events #8. Diabetes mellitus type 2 #9. Previous vancomycin-resistant enterococcus urinary tract infection #10. Benign prostatic hypertrophy, status post TURP with benign biopsy #11. Lifetime nonsmoker #12. [facility]ident of [facility] Recommendation: Discussed the overall critical picture with the patient and his , I felt at this point that the patient could be transferred out of the ICU to a regular medical floor, he is not requiring any pressors, does not require telemetry, we will continue antibiotics, and these will be adjusted according to the final culture from the urine. Overall the patient demonstrated significant improvement, he remains quite relatively ill, multiple complex issues noted above, could be considered for possible discharge planning sometime in the next 2-3 days. But I will go ahead and make arrangements for be transferred out of the ICU to a medical surgical floor. We will continue to follow. Time with Patient: Less than 30
[2018-04-03 15:57] VITALS: BMI 26.6
[2018-04-03] MEDS: LEVOFLOXACIN 750MG-D5W PMX 750 MG in DEXTROSE/WATER 1 150ML.BAG IVPB SCH (16:22)
[2018-04-03 17:12] LABS: Glucose,Whole Blood 129 mg/dL (75-99)
--- NOTE | 2018-04-03 19:58 | PN ---
PROGRESS NOTE DATE OF SERVICE: 04/03/2018 PRESENTING COMPLAINT: Fever and chills. INTERVAL HISTORY: This patient in the ICU was admitted with septic hypotensive, currently off pressors today. Doing better. No fever. Did tolerate some diet. Lying in bed. Does feel tired. Did stand up with Physical Therapy today. REVIEW OF SYSTEMS: Done for constitutional, cardiovascular, GI, pulmonary; relevant findings as above. CURRENT MEDICATIONS: Reviewed. They include IV Levaquin and IV meropenem. PHYSICAL EXAMINATION: Temperature 101.1 this morning. Pulse currently 105. Blood pressure 132/68, pulse ox 96% on room air. GENERAL APPEARANCE: Lying in bed, awake, tired. EYES: Pupils equal. Conjunctivae normal. NECK: JVD not raised. Mass not palpable. RESPIRATORY: Effort normal. Lungs are clear. CARDIOVASCULAR: First and second sounds normal. No edema. ABDOMEN: Soft, nontender. Liver and spleen not palpable. PSYCHIATRY: Alert and oriented x3. Mood and affect normal. EXTREMITIES: Both legs in a boot. DERMATOLOGICAL: Wound on the left foot. INVESTIGATIONS: White count 6.6, hemoglobin 9.8, potassium 3.5, BUN 9, creatinine 0.98. Accu-Cheks are noted. Micro: Urine cultures growing gram-negative bacilli. ASSESSMENT: 1. Acute severe urinary tract infection with sepsis causing septic shock on admission with clinical response. 2. Diabetes mellitus, type 2. 3. Gastroesophageal reflux disease. 4. Stage IV melanoma, currently not being treated. 5. Parkinson's disease, idiopathic. 6. Chronic left foot wound with a wound V.A.C. 7. Chronic urinary incontinence. 8. Medical debility, at his baseline using a walker, able to walk in the hallway prior to admission. PLAN: Patient overall is doing better, can be moved out of the ICU. Antibiotics will be coordinated based on the culture. Care was discussed with the patient's significant other at the bedside. Will follow. MMODL / IJN: [id number] /
[2018-04-03 20:58] LABS: Glucose,Whole Blood 147 mg/dL (75-99)
[2018-04-03] MEDS: TAMSULOSIN 0.4 MG CAP.ER.24H PO SCH (21:00)
[2018-04-03] MEDS: INSULIN DETEMIR 100 UNIT/ML 10 ML VIAL SQ SCH (21:00)
--- NOTE | 2018-04-03 21:54 | PN ---
PROGRESS NOTE DATE OF SERVICE: 04/03/2018 REASON FOR FOLLOWUP: 1. Pseudomonas urinary tract infection with sepsis. 2. Left foot wound. INTERVAL HISTORY: The patient is currently afebrile. He has been breathing comfortably. The patient denies having any chest pain or shortness of breath. Occasional cough. No abdominal pain and no diarrhea. PHYSICAL EXAMINATION: Blood pressure 132/68 with a pulse of 95, temperature 98. He is 96% on room air. General description is a middle-aged male lying in bed in no distress. RESPIRATORY SYSTEM: Unlabored breathing. Clear to auscultation anteriorly. HEART: S1, S2. Regular rate and rhythm. ABDOMEN: Soft. No tenderness. Left foot wound is currently dressed up with a wound V.A.C. LABS: Hemoglobin is 9.8, white count 6.6, BUN of 19, creatinine 0.98. Urine with multi-drug- resistant Pseudomonas aeruginosa. Blood culture has been negative. DIAGNOSTIC IMPRESSION AND PLAN: 1. Patient admitted to hospital with sepsis. Source is urine. Urine is now showing a [id number] Pseudomonas aeruginosa that is resistant to meropenem. Antibiotic will be switched back to Zosyn 3.375 grams q.8 hours. Discontinue the Levaquin and meropenem. Obtain an ultrasound of the kidneys and the bladder to rule out any obstruction. 2. Left foot wound. Continue local care wound V.A.C. Continue supportive care. MMJESSIEL / VIRAJN: [id number] /
[2018-04-03] MEDS: PIPERACILLIN-TAZOBACTAM 3.375 GM in SODIUM CHLORIDE 0.9% 100 ML IVPB SCH (23:05)
[2018-04-04] MEDS: IPRATROPIUM-ALBUTEROL 3 ML NEB INHALATION SCH ×3 (03:57→21:36)
[2018-04-04 07:48] LABS: Glucose,Whole Blood 110 mg/dL (75-99)
[2018-04-04] MEDS: INSULIN ASPART 100 UNIT/ML 1 ML 10 ML VIAL SQ SCH ×4 (08:07→23:16)
--- NOTE | 2018-04-04 08:19 | US ---
EXAMINATION TYPE: US renals and bladder DATE OF EXAM: 04/04/2018 COMPARISON: CT 10/21/2017 CLINICAL HISTORY: recurrent UTI , Obstruction. EXAM MEASUREMENTS: Right Kidney: 9.9 x 4.1 x 4.2 cm Left Kidney: 11.4 x 5.6 x 4.4 cm Right Kidney: No hydronephrosis or masses seen Left Kidney: No hydronephrosis. Hypoechoic area lower pole measuring 3.0 cm, probable cyst Bladder: Not distended, caicedo catheter within Bilateral Jets seen: No, see above Hypoechoic area in the lower pole of the left kidney is not clearly a simple cyst. IMPRESSION: HYPOECHOIC AREA IN THE LOWER POLE OF THE LEFT KIDNEY IS NOT CLEARLY A SIMPLE CYST. FURTHER INVESTIGAT ION WOULD BE SUGGESTED.
[2018-04-04] MEDS: PIPERACILLIN-TAZOBACTAM 3.375 GM in SODIUM CHLORIDE 0.9% 100 ML IVPB SCH ×3 (09:16→23:35)
[2018-04-04] MEDS: ASPIRIN 81 MG PO SCH (09:29)
[2018-04-04] MEDS: FERROUS SULFATE 325 MG TAB PO SCH (09:29)
[2018-04-04] MEDS: LACTULOSE 20 GM/30 ML CUP PO SCH ×2 (09:29→23:09)
[2018-04-04] MEDS: ENOXAPARIN 40 MG/0.4 ML SYRINGE SQ SCH (09:30)
[2018-04-04] MEDS: SODIUM CHLORIDE 0.9% 1,000 ML IV SCH (09:30)
[2018-04-04] MEDS: PRIMIDONE 50 MG TAB PO SCH (09:30)
[2018-04-04] MEDS: PANTOPRAZOLE 40 MG TABLET PO SCH (09:30)
[2018-04-04] MEDS: PRAMIPEXOLE 0.5 MG TAB PO SCH ×3 (09:33→23:13)
[2018-04-04] MEDS: CARBIDOPA-LEVODOPA 25-250 MG 1 EACH TAB PO SCH ×3 (09:33→23:13)
[2018-04-04] MEDS ORDERED: FUROSEMIDE 10 MG/ML 2 ML VIAL IV ONE (10:27)
[2018-04-04] MEDS ORDERED: FUROSEMIDE 10 MG/ML 2 ML VIAL IV STA (11:24)
[2018-04-04 12:18] LABS: Glucose,Whole Blood 120 mg/dL (75-99)
[2018-04-04] MEDS ORDERED: methylPREDNISolone SOD SUCCI 40 MG/ML 1 ML VIAL IV ONE (12:45)
[2018-04-04 18:47] LABS: Glucose,Whole Blood 157 mg/dL (75-99)
--- NOTE | 2018-04-04 21:11 | PN ---
PROGRESS NOTE DATE OF SERVICE: April 04, 2018. PRESENTING COMPLAINT: Fever and chills. INTERVAL HISTORY: This patient was moved out of the ICU. Presented today with septic hypertensive. The patient is tolerating a diet. The patient has become rather stiff from his Parkinson's. At baseline, he is able to use a walker to walk in the hallway. Aide tells me that the patient is quite a bit of stiff, therapy seeing the patient. REVIEW OF SYSTEMS: Done for constitutional, cardiovascular, GI, pulmonary, neurological and relevant findings as above. CURRENT MEDICATIONS: Reviewed that include IV Zosyn. PHYSICAL EXAMINATION: VITAL SIGNS: Temperature 99, pulse 92, respirations 20, blood pressure 120/75, pulse ox 97% on 2 L. GENERAL APPEARANCE: Lying in bed, awake. EYES: Pupils are equal. Conjunctivae normal. NECK: JVD not raised. Mass not palpable. RESPIRATORY: Effort normal. LUNGS are clear. CARDIOVASCULAR: 1st and 2nd sounds normal. No edema. ABDOMEN: Soft, nontender. Liver and spleen not palpable. PSYCHIATRY: Alert and oriented x3. Mood and affect normal. NEUROLOGICAL: Tremors present. A bit more rigid especially lower extremities. INVESTIGATIONS: Accu-Cheks are noted. ASSESSMENT: 1. Acute severe urinary tract infection from cystitis with sepsis. Urine positive for Pseudomonas causing septic shock on admission with clinical response. 2. Diabetes mellitus type 2. 3. Gastroesophageal reflux disease. 4. Stage IV melanoma, currently not being treated. 5. Parkinson disease idiopathic with worsening. 6. Chronic left foot wound with a wound VAC, not infected. 7. Chronic urine incontinence. 8. Medical debility at baseline, patient is a walker, able to walk in the hallway. Currently much worsened. PLAN: Did speak to the nurse Desmond. See if patient can be up in a chair, increased activity. Did inform her of the patient's baseline. The patient's Parkinson's also flared up and just have to give it more time. Continue with IV Zosyn. Check labs in the morning. The computer system is down. The patient was seen by Pulmonary earlier who did put him on some IV steroids. MMODL / IJN: [id number] /
[2018-04-04 21:19] LABS: Glucose,Whole Blood 251 mg/dL (75-99)
[2018-04-04] MEDS: methylPREDNISolone SOD SUCCI 40 MG/ML 1 ML VIAL IVP SCH ×2 (23:07→23:17)
[2018-04-04] MEDS: TAMSULOSIN 0.4 MG CAP.ER.24H PO SCH (23:09)
[2018-04-04] MEDS: INSULIN DETEMIR 100 UNIT/ML 10 ML VIAL SQ SCH (23:09)
[2018-04-04] MEDS: LACTATED RINGERS 1,000 ML IV SCH (23:41)
[2018-04-05 05:53] LABS: HCT 27.8 % (39.0-53.0); HGB 8.9 gm/dL (13.0-17.5); Hypochromasia Slight; MCH 29.2 pg (25.0-35.0); MCV 91.3 fL (80.0-100.0); Platelet Count 206 k/uL (150-450); RBC 3.04 m/uL (4.30-5.90); RDW 15.5 % (11.5-15.5); WBC 4.1 k/uL (3.8-10.6)
[2018-04-05 07:41] LABS: Glucose,Whole Blood 175 mg/dL (75-99)
--- NOTE | 2018-04-05 07:43 | PN ---
PROGRESS NOTE DATE OF SERVICE: 04/04/2018 REASON FOR FOLLOWUP: Pseudomonas urinary tract infection. INTERVAL HISTORY: The patient is currently afebrile. He is breathing comfortably. Denies significant chest pain, shortness of breath. Occasional cough. No abdominal pain and no diarrhea. PHYSICAL EXAMINATION: Blood pressure 120/75 with a pulse of 92, temperature 99. He is 97% on 2 L nasal cannula. GENERAL DESCRIPTION: A middle-aged male lying in bed in no distress. RESPIRATORY SYSTEM: Unlabored breathing, clear to auscultation anteriorly. HEART: S1, S2. Regular rate and rhythm. ABDOMEN: Soft, no tenderness. LABS: Blood culture has been negative so far. Urine is Pseudomonas aeruginosa. White count normal as of yesterday. IMPRESSION/PLAN: 1. Patient admitted to the hospital with sepsis. Source is urinary tract infection. The patient did have a urine culture positive for Pseudomonas aeruginosa. The patient is being covered with Zosyn. He will need a med line to finish his antibiotic therapy as no other options are available. 2. Left foot wound. Local wound care with wound VAC. Continue supportive care. MMODL / IJN: [id number] /
[2018-04-05] MEDS: INSULIN ASPART 100 UNIT/ML 1 ML 10 ML VIAL SQ SCH ×4 (08:10→21:55)
[2018-04-05] MEDS: PIPERACILLIN-TAZOBACTAM 3.375 GM in SODIUM CHLORIDE 0.9% 100 ML IVPB SCH ×2 (08:10→15:39)
[2018-04-05] MEDS: ENOXAPARIN 40 MG/0.4 ML SYRINGE SQ SCH (08:11)
[2018-04-05] MEDS: methylPREDNISolone SOD SUCCI 40 MG/ML 1 ML VIAL IVP SCH ×2 (08:11→15:39)
[2018-04-05] MEDS: LACTULOSE 20 GM/30 ML CUP PO SCH ×2 (08:11→21:54)
[2018-04-05] MEDS: PRAMIPEXOLE 0.5 MG TAB PO SCH ×3 (08:12→21:54)
[2018-04-05] MEDS: ASPIRIN 81 MG PO SCH (08:12)
[2018-04-05] MEDS: PRIMIDONE 50 MG TAB PO SCH (08:12)
[2018-04-05] MEDS: FERROUS SULFATE 325 MG TAB PO SCH (08:12)
[2018-04-05] MEDS: PANTOPRAZOLE 40 MG TABLET PO SCH (08:12)
[2018-04-05] MEDS: CARBIDOPA-LEVODOPA 25-250 MG 1 EACH TAB PO SCH ×3 (08:12→21:54)
[2018-04-05] MEDS: IPRATROPIUM-ALBUTEROL 3 ML NEB INHALATION SCH ×3 (08:34→19:54)
[2018-04-05 09:41] LABS: ALT 30 U/L (21-72); AST 15 U/L (17-59); Albumin 3.6 g/dL (3.5-5.0); Alkaline Phosphatase 75 U/L (38-126); Anion Gap 7 mmol/L; Blood Urea Nitrogen 20 mg/dL (9-20); Calcium 9.5 mg/dL (8.4-10.2); Carbon Dioxide 28 mmol/L (22-30); Chloride 102 mmol/L (98-107); Glucose 169 mg/dL (74-99); Magnesium 2.3 mg/dL (1.6-2.3); Phosphorus 4.5 mg/dL (2.5-4.5); Sodium 137 mmol/L (137-145); Total Bilirubin 0.4 mg/dL (0.2-1.3); Total Protein 6.6 g/dL (6.3-8.2)
[2018-04-05 09:42] LABS: Basophils % (A) 0 %; Eosinophils % (A) 0 %; HCT 32.4 % (39.0-53.0); HGB 10.2 gm/dL (13.0-17.5); Hypochromasia Slight; Lymphocytes # (A) 0.4 k/uL (1.0-4.8); Lymphocytes % (A) 11 %; MCH 28.6 pg (25.0-35.0); MCHC 31.3 g/dL (31.0-37.0); MCV 91.3 fL (80.0-100.0); Mean Platelet Volume 6.6; Monocytes # (A) 0.1 k/uL (0-1.0); Monocytes % (A) 4 %; Neutrophils % (A) 83 %; Platelet Count 221 k/uL (150-450); RBC 3.55 m/uL (4.30-5.90); RDW 15.4 % (11.5-15.5); WBC 3.6 k/uL (3.8-10.6)
[2018-04-05 11:20] LABS: ALT 28 U/L (21-72); AST 18 U/L (17-59); Albumin 3.1 g/dL (3.5-5.0); Alkaline Phosphatase 75 U/L (38-126); Anion Gap 5 mmol/L; Blood Urea Nitrogen 16 mg/dL (9-20); Calcium 8.9 mg/dL (8.4-10.2); Carbon Dioxide 27 mmol/L (22-30); Chloride 106 mmol/L (98-107); Glucose 112 mg/dL (74-99); Potassium 4.4 mmol/L (3.5-5.1); Sodium 138 mmol/L (137-145); Total Bilirubin 0.4 mg/dL (0.2-1.3); Total Protein 5.8 g/dL (6.3-8.2)
[2018-04-05 12:30] LABS: Glucose,Whole Blood 231 mg/dL (75-99)
[2018-04-05 14:03] LABS: Band Neutrophils % 10 %; Eosinophils # (M) 0.08 k/uL (0-0.7); Lymphocytes # (M) 0.41 k/uL (1.0-4.8); Monocytes # (M) 0.53 k/uL (0-1.0); Neutrophils % (M) 65 %; Nucleated Red Blood Cells 0 /100 WBC (0-0); Total Cells Counted 100
[2018-04-05 14:04] LABS: Anisocytosis (M) Present; Poikilocytosis (M) Present
[2018-04-05] MEDS: LACTATED RINGERS 1,000 ML IV SCH (15:39)
[2018-04-05 17:53] LABS: Glucose,Whole Blood 199 mg/dL (75-99)
[2018-04-05 20:36] LABS: Glucose,Whole Blood 249 mg/dL (75-99)
[2018-04-05] MEDS: INSULIN DETEMIR 100 UNIT/ML 10 ML VIAL SQ SCH (21:54)
[2018-04-05] MEDS: TAMSULOSIN 0.4 MG CAP.ER.24H PO SCH (21:54)
--- NOTE | 2018-04-05 23:28 | PN ---
PROGRESS NOTE DATE OF SERVICE: April 05, 2918. PRESENTING COMPLAINT: Tired. INTERVAL HISTORY: Patient presented septic and hypotensive from a UTI and sepsis. The patient's Parkinson's has therefore worsened. Today, sitting up on a chair. Did get up, took a couple of steps. Otherwise, tolerating a diet. REVIEW OF SYSTEMS: Done for constitutional, cardiovascular, GI, pulmonary and relevant findings as above. CURRENT MEDICATIONS: Include IV Zosyn. EXAMINATION: VITAL SIGNS: Afebrile. Pulse 83. Respiratory rate 16. Blood pressure 120/72, pulse ox 99 percent. GENERAL APPEARANCE: Sitting up in a chair, awake. EYES: Pupils equal. Conjunctivae normal. NECK: JVD not raised. Mass not palpable. RESPIRATORY: Effort normal. LUNGS: Clear. CARDIOVASCULAR: 1st and 2nd sounds normal. No edema. ABDOMEN: Soft, nontender. Liver and spleen not palpable. PSYCHIATRY: Alert and oriented times three. Mood and affect normal. NEUROLOGICAL: Some tremors are present. Increased stiffness of the limbs though better today. INVESTIGATIONS: White count 3.6, hemoglobin 10.2, BUN and creatinine is normal. Accu-Cheks are noted. ASSESSMENT: 1. Acute severe urinary tract infection from cystitis, sepsis, positive for Pseudomonas causing septic shock on presentation. 2. Diabetes mellitus type 2. 3. Gastroesophageal reflux disease. 4. Stage IV melanoma, currently not being treated. 5. Parkinson's, idiopathic with worsening. 6. Chronic left foot wound with a wound VAC, not infected. 7. Chronic urine incontinence. 8. Medical debility at baseline, patient has a walker normally to walk in the hallway. PLAN: Midline will be ordered for tomorrow. Continue with IV Zosyn. The patient probably needs another week to 10 days of IV antibiotics. Will finalize. Will let Dr. Aburto finalize the same. MMODL / IJN: [id number] /
--- NOTE | 2018-04-05 23:46 | PN ---
PROGRESS NOTE DATE OF SERVICE: 04/05/2018. REASON FOR FOLLOWUP: Pseudomonas urinary tract infection. INTERVAL HISTORY: The patient is currently afebrile. He is breathing comfortably. Denies having any chest pain, cough, abdominal pain and no diarrhea. PHYSICAL EXAMINATION: Blood pressure 120/72 with a pulse of 83, temperature 97.4. He is 99% on room air. GENERAL DESCRIPTION: A middle-aged male up in the chair in no distress. RESPIRATORY SYSTEM: Unlabored breathing. Clear to auscultation anteriorly. HEART: S1, S2. Regular rate and rhythm. LABS: Hemoglobin is 10.8, white count 3.6, BUN of 20, creatinine 0.81. DIAGNOSTIC IMPRESSION AND PLAN: 1. Patient with pseudomonas aeruginosa urinary tract infection admitted to the hospital with sepsis. Currently responding to Zosyn. The patient likely will need midline to continue with a short course of IV Zosyn on discharge. 2. Left foot wound. Local wound care to continue with wound VAC. Continue supportive care. MMODL / IJN: [id number] /
[2018-04-06] MEDS: methylPREDNISolone SOD SUCCI 40 MG/ML 1 ML VIAL IVP SCH ×3 (00:44→17:57)
[2018-04-06] MEDS: PIPERACILLIN-TAZOBACTAM 3.375 GM in SODIUM CHLORIDE 0.9% 100 ML IVPB SCH ×3 (00:44→17:57)
[2018-04-06] MEDS: IPRATROPIUM-ALBUTEROL 3 ML NEB INHALATION SCH ×3 (07:15→20:01)
[2018-04-06 07:19] LABS: Glucose,Whole Blood 163 mg/dL (75-99)
[2018-04-06] MEDS: ASPIRIN 81 MG PO SCH (09:32)
[2018-04-06] MEDS: FERROUS SULFATE 325 MG TAB PO SCH (09:32)
[2018-04-06] MEDS: PRIMIDONE 50 MG TAB PO SCH (09:32)
[2018-04-06] MEDS: PANTOPRAZOLE 40 MG TABLET PO SCH (09:32)
[2018-04-06] MEDS: INSULIN ASPART 100 UNIT/ML 1 ML 10 ML VIAL SQ SCH ×4 (09:33→21:52)
[2018-04-06] MEDS: ENOXAPARIN 40 MG/0.4 ML SYRINGE SQ SCH ×2 (09:33→10:12)
[2018-04-06] MEDS: PRAMIPEXOLE 0.5 MG TAB PO SCH ×3 (09:35→21:52)
[2018-04-06] MEDS: LACTULOSE 20 GM/30 ML CUP PO SCH ×2 (09:35→21:52)
[2018-04-06 09:52] LABS: Anion Gap 9 mmol/L; Blood Urea Nitrogen 23 mg/dL (9-20); Calcium 9.4 mg/dL (8.4-10.2); Carbon Dioxide 29 mmol/L (22-30); Chloride 99 mmol/L (98-107); Glucose 162 mg/dL (74-99); Sodium 137 mmol/L (137-145)
[2018-04-06] MEDS: CARBIDOPA-LEVODOPA 25-250 MG 1 EACH TAB PO SCH ×3 (09:55→21:52)
[2018-04-06 12:20] LABS: Glucose,Whole Blood 191 mg/dL (75-99)
--- NOTE | 2018-04-06 12:26 | PN ---
PROGRESS NOTE DATE OF SERVICE: 04/06/2018 REASON FOR FOLLOWUP: Pseudomonas urinary tract infection. INTERVAL HISTORY: The patient is currently afebrile. He is breathing comfortably. Denies having any chest pain. No shortness of breath or cough. No abdominal pain or diarrhea. PHYSICAL EXAMINATION: On examination, blood pressure is 152/95 with a pulse of 84, temperature 97.5. He is 100% on 2 L nasal cannula. General description is a middle aged male up in the chair in no distress. RESPIRATORY SYSTEM: Unlabored breathing, clear to auscultation anteriorly. HEART: S1, S2. Regular rate and rhythm. ABDOMEN: Soft, no tenderness. LABS: BUN of 23, creatinine 0.72. Blood culture has been negative. DIAGNOSTIC IMPRESSION AND PLAN: 1. Patient admitted to the hospital with sepsis. Source is urine with UA currently shows Pseudomonas aeruginosa. The patient did have problem with cefepime in the past, hence, we will recommend to continue the patient on Zosyn 3.375 grams q.6 hours does not extend dose at the retirement for another 5 days with close outpatient followup. 2. Left foot wound. Local care with wound VAC. MMODL / IJN: [id number] /
[2018-04-06] MEDS: LACTATED RINGERS 1,000 ML IV SCH (13:10)
--- NOTE | 2018-04-06 15:08 | DS ---
DISCHARGE SUMMARY DATE OF ADMISSION: April 01, 2018. DATE OF DISCHARGE: April 06, 2018. FINAL DIAGNOSES: 1. Acute severe urinary tract infection from cystitis secondary to Muñiz catheter from Pseudomonas causing septic shock on presentation. 2. Diabetes mellitus type 2. 3. Gastroesophageal reflux disease. 4. Stage IV melanoma, currently not being treated. 5. idiopathic worsening with infection. 6. Chronic left foot wound with a wound VAC, not infected. 7. Chronic urinary incontinence. 8. Medical debility at baseline, patient has a walker, able to walk the hallways. CONSULTATION: Dr. Aburto from Infectious Disease, Dr. Lopez from Critical Care. HOSPITAL COURSE: This patient presented with a septic picture, has a chronic Muñiz catheter growing Pseudomonas with septic shock initially. Doing better. Patient's Parkinson's did worsen with infection. Seeing physical therapy. Currently able to take 1 or 2 steps. Eating better. Care was discussed with the patient and his significant other. PHYSICAL EXAMINATION: VITAL SIGNS: Temperature 97.5, pulse 73, respirations 18, blood pressure 152/95, pulse ox 100 percent on 2 L. LUNGS: Fair entry, some stiffness and tremors present. INVESTIGATIONS: BUN 23, creatinine 0.72. Urine culture did grow Pseudomonas aeruginosa. Blood cultures were negative. DISCHARGE MEDICATIONS: 1. Protonix 40 mg a day. 2. Mirapex 1.5 p.o. t.i.d. 3. Artificial Tears 2 drops both eyes q.i.d. p.r.n. 4. Iron 325 p.o. daily. 5. Insulin Lantus 20 units subcu q.h.s. 6. Lactulose 20 g p.o. q.12h. 7. DuoNeb t.i.d. 8. Benadryl 25 mg q.8h p.r.n. 9. Aspirin 81 mg a day. 10.Sinemet 25/250 1 tab p.o. t.i.d. 11.Mysoline 250 mg p.o. daily. 12.Flomax 0.4 mg q.h.s. 13.IV Zosyn 3.375 g IV piggyback q.8h, 15 doses. DISPOSITION: [facility]. FOLLOWUP: Follow up with Dr. Mcleod at [facility]. The patient has a PICC line in place. PT/OT to continue. Discussion and discharge planning more than [address] Mcleod. AJ / VIRAJN: [id number] /
[2018-04-06 16:46] LABS: Glucose,Whole Blood 279 mg/dL (75-99)
[2018-04-06 21:08] LABS: Glucose,Whole Blood 215 mg/dL (75-99)
[2018-04-06] MEDS: TAMSULOSIN 0.4 MG CAP.ER.24H PO SCH (21:52)
[2018-04-06] MEDS: INSULIN DETEMIR 100 UNIT/ML 10 ML VIAL SQ SCH (21:53)
[2018-04-07] MEDS: methylPREDNISolone SOD SUCCI 40 MG/ML 1 ML VIAL IVP SCH ×3 (00:56→16:43)
[2018-04-07] MEDS: PIPERACILLIN-TAZOBACTAM 3.375 GM in SODIUM CHLORIDE 0.9% 100 ML IVPB SCH ×3 (00:56→16:43)
[2018-04-07 07:12] LABS: Glucose,Whole Blood 167 mg/dL (75-99)
[2018-04-07] MEDS: IPRATROPIUM-ALBUTEROL 3 ML NEB INHALATION SCH ×2 (07:14→11:12)
[2018-04-07 08:16] VITALS: RESP 16
[2018-04-07] MEDS: ASPIRIN 81 MG PO SCH (08:21)
[2018-04-07] MEDS: FERROUS SULFATE 325 MG TAB PO SCH (08:21)
[2018-04-07] MEDS: PRIMIDONE 50 MG TAB PO SCH (08:21)
[2018-04-07] MEDS: LACTULOSE 20 GM/30 ML CUP PO SCH (08:21)
[2018-04-07] MEDS: PANTOPRAZOLE 40 MG TABLET PO SCH (08:21)
[2018-04-07] MEDS: CARBIDOPA-LEVODOPA 25-250 MG 1 EACH TAB PO SCH ×2 (08:22→13:10)
[2018-04-07] MEDS: PRAMIPEXOLE 0.5 MG TAB PO SCH ×2 (08:22→13:12)
[2018-04-07] MEDS: INSULIN ASPART 100 UNIT/ML 1 ML 10 ML VIAL SQ SCH ×2 (08:23→13:10)
[2018-04-07] MEDS: LACTATED RINGERS 1,000 ML IV SCH (08:41)
[2018-04-07 09:05] LABS: Anion Gap 8 mmol/L; Blood Urea Nitrogen 26 mg/dL (9-20); Calcium 9.2 mg/dL (8.4-10.2); Carbon Dioxide 26 mmol/L (22-30); Chloride 101 mmol/L (98-107); Glucose 138 mg/dL (74-99); Potassium 4.8 mmol/L (3.5-5.1); Sodium 135 mmol/L (137-145)
[2018-04-07] MEDS: ENOXAPARIN 40 MG/0.4 ML SYRINGE SQ SCH (10:39)
[2018-04-07 11:50] LABS: Glucose,Whole Blood 159 mg/dL (75-99)
[2018-04-07 15:03] VITALS: BP 105/67; PULSE 86; TEMP 97.4
--- NOTE | 2018-04-07 18:15 | PN ---
PROGRESS NOTE DATE OF SERVICE: 04/07/2018 REASON FOR FOLLOWUP: Pseudomonas aeruginosa pneumonia. INTERVAL HISTORY: The patient is currently afebrile. He is breathing comfortably. The patient denies having any chest pain. No shortness of breath or cough. No abdominal pain or any diarrhea. PHYSICAL EXAMINATION: Blood pressure 105/57, pulse 86, temperature 97.4. He is 95% on room air. General description is a middle-aged male up in the bed in no distress. RESPIRATORY SYSTEM: Unlabored breathing. Clear to auscultation anteriorly. HEART: S1, S2. Regular rate and rhythm. ABDOMEN: Soft. No tenderness. LABS: BUN of 26, creatinine 0.74. DIAGNOSTIC IMPRESSION AND PLAN: 1. Patient with Pseudomonas aeruginosa pneumonia, for which the patient will finish therapy with Zosyn 4.5 q.8 for another 5 days. 2. Left foot wound. Local wound care with wound V.A.C. and followup in the wound care center next week. MMODL / IJN: [id number] /
== END 2018-04-07 17:14 | DRG 698 ==
LOC: EC 09:07 → 3SCARD 13:08 → 2SICU 22:56 → 4MS4W 04-03 22:09
PROVIDERS: ADMIT Hospitalist; ATTEND Hospitalist
DX: T83.511A Infection and inflammatory reaction due to indwelling urethral catheter, initial encounter (principal); R65.21 Severe sepsis with septic shock; J15.1 Pneumonia due to Pseudomonas; A41.52 Sepsis due to Pseudomonas; C85.90 Non-Hodgkin lymphoma, unspecified, unspecified site; C79.9 Secondary malignant neoplasm of unspecified site; C43.9 Malignant melanoma of skin, unspecified; D64.9 Anemia, unspecified; E11.9 Type 2 diabetes mellitus without complications; G20 Parkinson's disease; K21.9 Gastro-esophageal reflux disease without esophagitis; Z16.24 Resistance to multiple antibiotics; Z16.19 Resistance to other specified beta lactam antibiotics; K52.89 Other specified noninfective gastroenteritis and colitis; N30.90 Cystitis, unspecified without hematuria; Y84.6 Urinary catheterization as the cause of abnormal reaction of the patient, or of later complication, without mention of misadventure at the time of the procedure; N40.1 Benign prostatic hyperplasia with lower urinary tract symptoms; Z87.01 Personal history of pneumonia (recurrent); Z86.19 Personal history of other infectious and parasitic diseases; Z80.3 Family history of malignant neoplasm of breast; Z82.0 Family history of epilepsy and other diseases of the nervous system; Z82.49 Family history of ischemic heart disease and other diseases of the circulatory system; Z79.899 Other long term (current) drug therapy; Z79.82 Long term (current) use of aspirin; Z79.4 Long term (current) use of insulin; Z88.2 Allergy status to sulfonamides
CPT/HCPCS: 36410; 36415; 71045; 71046; 76770; 76937; 80048; 80053; 81001; 83036; 83605; 83735; 84100; 84484; 85025; 85027; 85379; 85610; 85730; 87040; 87077; 87086; 87186; 87502; 93005; 94640; 96361; 96365; 96366; 99291

== ENCOUNTER 2018-04-23 16:14 | Inpatient (IN) | payer OTHER ==
[2018-04-23 18:50] LABS: Basophils % (A) 0 %; Eosinophils # (A) 0.2 k/uL (0-0.7); Eosinophils % (A) 5 %; HGB 11.4 gm/dL (13.0-17.5); Lymphocytes # (A) 0.6 k/uL (1.0-4.8); Lymphocytes % (A) 16 %; MCH 28.2 pg (25.0-35.0); MCHC 32.5 g/dL (31.0-37.0); MCV 86.8 fL (80.0-100.0); Monocytes # (A) 0.4 k/uL (0-1.0); Monocytes % (A) 9 %; Neutrophils # (A) 2.8 k/uL (1.3-7.7); Neutrophils % (A) 68 %; Platelet Count 226 k/uL (150-450); RBC 4.04 m/uL (4.30-5.90); RDW 15.5 % (11.5-15.5)
[2018-04-23 18:55] LABS: INR 1.1 (<1.2); Prothrombin Time 11.1 sec (9.0-12.0)
[2018-04-23 19:04] LABS: ALT 22 U/L (21-72); AST 38 U/L (17-59); Albumin 4.1 g/dL (3.5-5.0); Alkaline Phosphatase 78 U/L (38-126); Anion Gap 9 mmol/L; Blood Urea Nitrogen 24 mg/dL (9-20); Calcium 9.7 mg/dL (8.4-10.2); Carbon Dioxide 29 mmol/L (22-30); Chloride 98 mmol/L (98-107); Creatine Kinase 39 U/L (55-170); Glucose 94 mg/dL (74-99); Magnesium 2.1 mg/dL (1.6-2.3); Potassium 5.3 mmol/L (3.5-5.1); Sodium 136 mmol/L (137-145); Total Bilirubin 0.9 mg/dL (0.2-1.3); Total Protein 7.5 g/dL (6.3-8.2)
--- NOTE | 2018-04-23 19:08 | XR ---
EXAMINATION TYPE: XR chest 1V DATE OF EXAM: 04/23/2018 COMPARISON: 04/02/2018 HISTORY: Weakness TECHNIQUE: Single frontal view of the chest is obtained. FINDINGS: There is some mild linear density at the right lung base. Heart size is normal. There are chest leads. Costophrenic angles are clear. Bony thorax is intact. IMPRESSION: Minimal subsegmental atelectasis at the right lung base. No significant change compared to old exam. No heart failure.
[2018-04-23 19:09] LABS: Appearance,Urine Clear (Clear); Color,Urine Yellow; Specific Gravity,Urine 1.015 (1.001-1.035)
[2018-04-23 19:10] LABS: Glucose,Urine (UA) Negative (Negative); Ketones,Urine 1+ (Negative); Protein,Urine 1+ (Negative)
[2018-04-23 19:11] LABS: Bilirubin,Urine Negative (Negative); Blood,Urine Negative (Negative); Leukocyte Esterase,Urine Large (Negative); Nitrite,Urine Negative (Negative)
--- NOTE | 2018-04-23 19:17 | ED ---
General Adult HPI - General Chief complaint: Weakness Stated complaint: Poss Sepsis Time Seen by Provider: 04/23/18 16:59 Source: patient Mode of arrival: EMS Limitations: no limitations - History of Present Illness Initial comments: Dictation was produced using [employer] dictation software. please excuse any grammatical, word or spelling errors. Chief Complaint:-year-old male transferred from [facility] for increased weakness and concern of UTI sepsis. History of Present Illness: Patient is 57-year-old male. [facility] Patient was transferred here via EMS for concerns of sepsis and altered mental status. Patient is accompanied by his states that patient is not as active per usual. Patient has had multiple episodes of sepsis after being does diagnosed with melanoma. Patient has chronic indwelling for catheter and left upper extremity PICC axis. Is currently receiving outpatient IV antibiotics to treat urinary tract infection. Patient has any pain complaints at this time. He is sent here for concerns of septic shock secondary to urinary tract infection. According to penitentiary documentation patient has had normal vitals. reports that he had a urine culture did test positive for a bacteria that was resistant to the antibiotics that he is receiving. Chart patient receives cephalosporin versus urinary tract infection. Patient was not transferred with culture results. The ROS documented in this emergency department record has been reviewed and confirmed by me. Those systems with pertinent positive or negative responses have been documented in the HPI. All other systems are other negative and/or noncontributory. PHYSICAL EXAM: General Impression: Alert and oriented x3, not in acute distress HEENT: Normocephalic atraumatic, extra-ocular movements intact, pupils equal and reactive to light bilaterally, mucous membranes moist. Cardiovascular: Heart regular rate and rhythm, S1&S2 audible, no murmurs, rubs or gallops Chest: Lungs clear to auscultation bilaterally, no rhonchi, no wheeze, no rales Abdomen: Bowel sounds present, abdomen soft, non-tender, non-distended, no organomegaly Musculoskeletal: Pulses present and equal in all extremities, no peripheral edema Motor: no focal deficits noted Neurological: CN II-XII grossly intact, no focal motor or sensory deficits noted Skin: Well-healing wound to the left dorsal foot with good granulation tissue and no surrounding cellulitic changes Psych: Normal affect and mood ED course: 57-year-old male presents with abnormal urine culture results. Vital signs upon arrival are within acceptable limits. There is a urine culture from April 16 that was positive for pseudomonas aeruginosa on our electronic medical record. It appears the patient is on appropriate antibiotics. There is concern that patient has been more weak which may reflect signs of septicemia. Patient also has indwelling PICC line.Laboratory evaluation obtained. CBC, coag panel, metabolic panel is unremarkable. Urinalysis does not suggest urinary tract infection. Blood culture and urine culture sent. He remains hemodynamically stable. Discussed with family that patient is clear for discharge however they did not fill comfortable with that disposition. He requested patient be admitted for concerns of worsening generalized weakness. Patient admitted with infectious disease on consult. Physical therapy and wound management CONSULTATION. At this point there is no clear source of patient's generalized weakness. EKG interpretation: Ventricular rate 96, normal sinus rhythm, SD interval 184, care is 96, QTC 439. No SD prolongation, no QTC prolongation, no ST or T-wave changes noted. Overall, this EKG is unremarkable - Related Data Home Medications Medication Instructions Recorded Confirmed Pantoprazole [Protonix] 40 mg PO DAILY@0900 11/24/17 04/23/18 Pramipexole Di-HCl [Mirapex] 1.5 mg PO TID@0900,1300,209911/24/17 04/23/18 Ferrous Sulfate [Feosol] 325 mg PO DAILY@0900 01/13/18 04/23/18 Insulin Glargine,Hum.rec.anlog 20 unit SQ HS@209901/13/18 04/23/18 [Basaglar Kwikpen U-100] Lactulose 20 gm PO Q12H 01/13/18 04/23/18 Ipratropium-Albuterol Nebulize 3 ml INHALATION RT-TID 02/23/18 04/23/18 [Duoneb 0.5 mg-3 mg/3 ml Soln] diphenhydrAMINE [Benadryl] 25 mg PO Q8H PRN 02/23/18 04/23/18 Aspirin EC [Ecotrin Low Dose] 81 mg PO DAILY@0900 04/01/18 04/23/18 Carbidopa-Levodopa 25-250 mg 1 tab PO TID@0900,1300,2100 04/01/18 04/23/18 [Sinemet 25-250 mg] Primidone [Mysoline] 50 mg PO DAILY@0900 04/01/18 04/23/18 Tamsulosin [Flomax] 0.4 mg PO HS@209904/01/18 04/23/18 Furosemide [Lasix] 40 mg PO DAILY@0600 04/23/18 04/23/18 Lactobacillus Acidophilus 1 tab PO DAILY@0904/23/18 04/23/18 [Acidophilus] Potassium Chloride ER [K-Dur 10] 10 meq PO DAILY@0904/23/18 04/23/18 Sennosides [Senna] 8.6 mg PO DAILY@0900 04/23/18 04/23/18 cefTAZidime [Fortaz] 1 gm IVPB Q12HR@0900,209904/23/18 04/23/18 Previous Rx's Medication Instructions Recorded Artificial Tears-Hypromellose 2 drops BOTH EYES QID PRN bottle 12/10/17 [Artificial Tear Drops] Allergies Allergy/AdvReac Type Severity Reaction Status Date / Time Sulfa (Sulfonamide Allergy Rash/Hives Verified 04/23/18 16:50 Antibiotics) Review of Systems ROS Statement: Those systems with pertinent positive or pertinent negative responses have been documented in the HPI. ROS Other: All systems not noted in ROS Statement are negative. Past Medical History Past Medical History: Cancer, Diabetes Mellitus, GERD/Reflux, Pneumonia, Prostate Disorder Additional Past Medical History / Comment(s): Melanoma stage IV with metastasis , enlarge lymph nodes, IDDM type II (d/t steroid use), parkinson's disease, weakness, colitis, pneumonias, pneumonia with sepsis/shock, acute respiratory failure, chronic L foot wound with current wound vac, past L lower leg cellulitis, normocytic anemia, BPH with surgery, UTIs, recent IDC which was removed one week ago, incontinent of urine at times, gallbladder disease- pt unsure, History of Any Multi-Drug Resistant Organisms: ESBL, Other MDRO, VRE Date of last positivie culture/infection: 01/13/18, 01/14/18 VRE MDRO Source:: ,ESBL URINE ,VRE FOOT Past Surgical History: Tonsillectomy Additional Past Surgical History / Comment(s): Rt axillary biopsy - ositive for cancer, Rt shoulder mole bx and back skin biopsy ,Dental extraction : wisdom teeth removed, TURP, colonoscopy with bening polyp Past Anesthesia/Blood Transfusion Reactions: No Reported Reaction Past Psychological History: No Psychological Hx Reported Smoking Status: Never smoker Past Alcohol Use History: None Reported Past Drug Use History: None Reported - Past Family History Mother Family Medical History: Cancer Additional Family Medical History / Comment(s): Breast cancer also had moles removed - not sure if positive or not for cancer Father Family Medical History: Congestive Heart Failure (CHF) Additional Family Medical History / Comment(s): Parkinsons General Exam Limitations: no limitations Course Vital Signs 04/23/18 04/23/18 04/23/18 16:21 16:30 17:00 Temperature 97.7 F Pulse Rate 98 96 97 Respiratory 18 21 22 Rate Blood Pressure 134/84 135/84 123/82 O2 Sat by Pulse 98 99 97 Oximetry 04/23/18 04/23/18 04/23/18 17:30 18:00 18:30 Temperature Pulse Rate 94 94 96 Respiratory 22 17 21 Rate Blood Pressure 122/79 121/73 104/64 O2 Sat by Pulse 96 98 96 Oximetry 04/23/18 19:00 Temperature Pulse Rate 96 Respiratory 23 Rate Blood Pressure 104/72 O2 Sat by Pulse 96 Oximetry Medical Decision Making - Lab Data Result diagrams: 04/23/18 16:43 04/23/18 16:43 Lab Results 04/23/18 04/23/18 04/23/18 Range/Units 16:43 16:43 16:43 WBC 4.0 (3.8-10.6) k/uL RBC 4.04 L (4.30-5.90) m/uL Hgb 11.4 L (13.0-17.5) gm/dL Hct 35.0 L (39.0-53.0) % MCV 86.8 (80.0-100.0) fL MCH 28.2 (25.0-35.0) pg MCHC 32.5 (31.0-37.0) g/dL RDW 15.5 (11.5-15.5) % Plt Count 226 (150-450) k/uL Neutrophils % 68 % Lymphocytes % 16 % Monocytes % 9 % Eosinophils % 5 % Basophils % 0 % Neutrophils # 2.8 (1.3-7.7) k/uL Lymphocytes # 0.6 L (1.0-4.8) k/uL Monocytes # 0.4 (0-1.0) k/uL Eosinophils # 0.2 (0-0.7) k/uL Basophils # 0.0 (0-0.2) k/uL PT (9.0-12.0) sec INR (<1.2) Sodium 136 L (137-145) mmol/L Potassium 5.3 H (3.5-5.1) mmol/L Chloride 98 (98-107) mmol/L Carbon Dioxide 29 (22-30) mmol/L Anion Gap 9 mmol/L BUN 24 H (9-20) mg/dL Creatinine 0.92 (0.66-1.25) mg/dL Est GFR (CKD-EPI)AfAm >90 (>60 ml/min/1.73 sqM) Est GFR (CKD-EPI)NonAf >90 (>60 ml/min/1.73 sqM) Glucose 94 (74-99) mg/dL Plasma Lactic Acid Yang 1.1 (0.7-2.0) mmol/L Calcium 9.7 (8.4-10.2) mg/dL Magnesium 2.1 (1.6-2.3) mg/dL Total Bilirubin 0.9 (0.2-1.3) mg/dL AST 38 (17-59) U/L ALT 22 (21-72) U/L Alkaline Phosphatase 78 (38-126) U/L Creatine Kinase 39 L (55-170) U/L Total Protein 7.5 (6.3-8.2) g/dL Albumin 4.1 (3.5-5.0) g/dL Urine Color Urine Appearance (Clear) Urine pH (5.0-8.0) Ur Specific [place] (1.001-1.035) Urine Protein (Negative) Urine Glucose (UA) (Negative) Urine Ketones (Negative) Urine Blood (Negative) Urine Nitrite (Negative) Urine Bilirubin (Negative) Urine Urobilinogen (<2.0) mg/dL Ur Leukocyte Esterase (Negative) Urine RBC (0-5) /hpf Urine WBC (0-5) /hpf 04/23/18 04/23/18 Range/Units 16:43 16:43 WBC (3.8-10.6) k/uL RBC (4.30-5.90) m/uL Hgb (13.0-17.5) gm/dL Hct (39.0-53.0) % MCV (80.0-100.0) fL MCH (25.0-35.0) pg MCHC (31.0-37.0) g/dL RDW (11.5-15.5) % Plt Count (150-450) k/uL Neutrophils % % Lymphocytes % % Monocytes % % Eosinophils % % Basophils % % Neutrophils # (1.3-7.7) k/uL Lymphocytes # (1.0-4.8) k/uL Monocytes # (0-1.0) k/uL Eosinophils # (0-0.7) k/uL Basophils # (0-0.2) k/uL PT 11.1 (9.0-12.0) sec INR 1.1 (<1.2) Sodium (137-145) mmol/L Potassium (3.5-5.1) mmol/L Chloride (98-107) mmol/L Carbon Dioxide (22-30) mmol/L Anion Gap mmol/L BUN (9-20) mg/dL Creatinine (0.66-1.25) mg/dL Est GFR (CKD-EPI)AfAm (>60 ml/min/1.73 sqM) Est GFR (CKD-EPI)NonAf (>60 ml/min/1.73 sqM) Glucose (74-99) mg/dL Plasma Lactic Acid Yang (0.7-2.0) mmol/L Calcium (8.4-10.2) mg/dL Magnesium (1.6-2.3) mg/dL Total Bilirubin (0.2-1.3) mg/dL AST (17-59) U/L ALT (21-72) U/L Alkaline Phosphatase (38-126) U/L Creatine Kinase (55-170) U/L Total Protein (6.3-8.2) g/dL Albumin (3.5-5.0) g/dL Urine Color Yellow Urine Appearance Clear (Clear) Urine pH 6.0 (5.0-8.0) Ur Specific [place] 1.015 (1.001-1.035) Urine Protein 1+ H (Negative) Urine Glucose (UA) Negative (Negative) Urine Ketones 1+ (Negative) Urine Blood Negative (Negative) Urine Nitrite Negative (Negative) Urine Bilirubin Negative (Negative) Urine Urobilinogen 2.0 (<2.0) mg/dL Ur Leukocyte Esterase Large (Negative) Urine RBC 1 (0-5) /hpf Urine WBC 3 (0-5) /hpf Disposition Clinical Impression: Generalized weakness Disposition: ADMITTED IP TO THIS HOSP Condition: Fair Referrals: Javier Mcleod MD [Primary Care Provider] - 1-2 days Decision Time: 20:35
[2018-04-23 19:45] LABS: RBC,Urine 1 /hpf (0-5); WBC,Urine 3 /hpf (0-5)
[2018-04-23] MEDS ORDERED: ACETAMINOPHEN TAB 325 MG TAB PO PRN (20:30)
[2018-04-23] MEDS ORDERED: NALOXONE 0.4 MG/ML 1 ML VIAL IV PRN (20:30)
[2018-04-23] MEDS ORDERED: SODIUM CHLORIDE 0.9% 1,000 ML IV SCH (20:30)
[2018-04-23] MEDS ORDERED: ARTIFICIAL TEARS-HYPROMELLOSE DROPS 15 ML BTL BOTH EYES PRN (20:32)
[2018-04-23] MEDS ORDERED: diphenhydrAMINE 25 MG CAP PO PRN (20:32)
[2018-04-23] MEDS ORDERED: cefTAZidime 1 GM VIAL IVPB SCH (21:00)
[2018-04-23] MEDS: LACTULOSE 20 GM/30 ML CUP PO SCH (23:25)
[2018-04-23] MEDS: PRAMIPEXOLE 0.25 MG TAB PO SCH (23:26)
[2018-04-24] MEDS: CARBIDOPA-LEVODOPA 25-250 MG 1 EACH TAB PO SCH ×3 (00:57→13:34)
[2018-04-24] MEDS: HEPARIN SODIUM,PORCINE 5,000 UNIT/ML 1 ML VIAL SQ SCH ×2 (03:10→09:54)
[2018-04-24] MEDS ORDERED: FUROSEMIDE 40 MG TAB PO SCH (06:00)
[2018-04-24 07:13] VITALS: TEMP 97.6
--- NOTE | 2018-04-24 08:27 | HP ---
HISTORY AND PHYSICAL DATE OF SERVICE: 04/24/2018 CHIEF COMPLAINT: Weakness. HISTORY OF PRESENT ILLNESS: This 57-year-old gentleman with a past medical history of multiple medical problems including diabetes, GERD, pneumonia, prostate disorder, melanoma stage IV with metastasis, enlarged lymph nodes, diabetes mellitus type 2 with ESBL MDR VRE was being followed by Dr. Mcleod in [facility]. The patient had recent episode of sepsis and multiple medical issues including wound infection of the left foot also. The patient had features of sepsis and the patient also had wound VAC on the wound. The patient also Parkinson's, but currently the patient is noted to have some weakness and some change in mental status and the patient was taken to [facility] for evaluation and treatment. The patient was treated for UTI in the [facility] at this time. The patient also had a midline on the left forearm also. There is no history of any trauma. No history of headache, loss of consciousness, or seizures at this time. PAST MEDICAL HISTORY: History of diabetes mellitus type 2, GERD, pneumonia, history of Parkinson's, history of recent UTI and sepsis, septic shock. MEDICATIONS: Medications prior to admission include home medications are: 1. Benadryl 25 mg q.8 p.r.n. 2. Mirapex 1.5 mg t.i.d. 3. DuoNeb t.i.d. 4. Sinemet 25/250 one p.o. t.i.d. 5. Artificial Tears 2 drops t.i.d. 6. Lactulose 20 b.i.d. 7. Fortaz 1 gram IV b.i.d. 8. Senna 8.6 daily. 9. Mysoline 50 mg p.o. daily. 10.Protonix 40 mg daily. 11.Lasix 40 mg daily. 12.Flomax 0.4 q.h.s. 13.K-Dur 10 mEq p.o. daily. 14.Acidophilus 1 tablet p.o. daily. 15.Insulin 20 units subcu q.h.s. 16.Iron sulfate 325 mg p.o. daily. 17.Ecotrin 81 mg p.o. daily. ALLERGIES: Allergies are SULFA. FAMILY HISTORY: History of cancer, breast cancer in the family. SOCIAL HISTORY: No history of smoking. No history of alcohol intake. REVIEW OF SYSTEMS: Could not be taken because the patient is mildly confused. PHYSICAL EXAMINATION: Pulse is 98, blood pressure 138/85, respirations 17, temperature 97.1, pulse ox 97% on room air. HEENT: Conjunctivae normal. Oral mucosa moist. Neck is no jugular venous distention. No carotid bruit. No lymph node enlargement. CARDIOVASCULAR: S1, S2 muffled. RESPIRATORY: Breath sounds diminished at the bases. Scattered rhonchi and crackles. ABDOMEN: Soft, nontender. No mass palpable. LEGS: Minimal edema. Left foot dorsal ulcer present. NERVOUS SYSTEM: Higher functions as mentioned earlier. Diffusely weak. Tone is increased. SKIN: No ulcer, rash or bleeding. JOINTS: No active deformity arthropathy. LABS: WBC 4, hemoglobin is 11.4. Sodium 136, potassium 5.3. ASSESSMENT: 1. Weakness for evaluation, rule out sepsis. 2. History of recent urinary tract infection with sepsis. 3. Left dorsal wound on wound VAC. 4. Hyponatremia. 5. Parkinson's. 6. Gait dysfunction. 7. Diabetes mellitus type 2. 8. History of gastroesophageal reflux disease. 9. History of pneumonia. 10.History of melanoma stage IV with metastasis. 11.Enlarged lymph nodes. 12.History of weakness. 13.History of colitis. 14.History of benign prostatic hypertrophy. 15.History of recurrent urinary tract infections. 16.History ESBL. 17.History of VRE. RECOMMENDATIONS AND DISCUSSION: In this 57-year-old gentleman who presented with multiple complex medical issues , we will monitor the patient closely. Continue the current medications, continues symptomatic treatment. Fortaz has been initiated. Obtain cultures. PT, OT evaluation. Consult Infectious Disease. Resume the home medications. Prognosis guarded because of multiple complex medical issues. Further recommendations to follow. See orders for details. A copy of dictation forwarded to Dr. Mcleod who is the primary physician. MMODL / IJN: [id number] / LESA
[2018-04-24] MEDS ORDERED: LACTOBACILLUS ACIDOPHILUS PO SCH (09:00)
[2018-04-24] MEDS ORDERED: POTASSIUM CHLORIDE ER 10 MEQ TAB.ER.PRT PO SCH (09:00)
[2018-04-24] MEDS ORDERED: SENNOSIDES 8.6 MG TAB PO SCH (09:00)
[2018-04-24] MEDS ORDERED: PRIMIDONE 50 MG TAB PO SCH (09:00)
[2018-04-24] MEDS ORDERED: PANTOPRAZOLE 40 MG/10 ML VIAL IV SCH (09:00)
[2018-04-24] MEDS ORDERED: FERROUS SULFATE 325 MG TAB PO SCH (09:00)
[2018-04-24] MEDS ORDERED: ASPIRIN 81 MG PO SCH (09:00)
[2018-04-24] MEDS: IPRATROPIUM-ALBUTEROL 3 ML NEB INHALATION SCH ×2 (09:44→15:57)
[2018-04-24] MEDS: INSULIN ASPART (NovoLOG) 100 UNIT/ML VIAL SQ SCH ×2 (09:53→11:49)
[2018-04-24] MEDS: LACTULOSE 20 GM/30 ML CUP PO SCH (09:54)
[2018-04-24] MEDS: PRAMIPEXOLE 0.25 MG TAB PO SCH ×2 (10:15→13:34)
[2018-04-24 11:42] LABS: Glucose,Whole Blood 104 mg/dL (75-99)
[2018-04-24 12:47] LABS: Hemoglobin A1C 6.2 % (4.0-6.0)
--- NOTE | 2018-04-24 14:31 | CT ---
EXAMINATION TYPE: CT brain wo con DATE OF EXAM: 04/24/2018 COMPARISON: None INDICATION: Change in mental status DLP: 1095.4 mGycm, Automated exposure control for dose reduction was used. CONTRAST: None CT of the brain is performed utilizing 3 mm thick sections through the posterior fossa and 3 mm thick sections through the remaining calvarium. Study is performed within 24 hours of arrival to the hosp ital. There is a 3.9 x 3.5 cm hyperdense area with surrounding hypodensity within the right frontal lobe. A fluid fluid level may be present. Findings are suggestive for acute to subacute intracranial hemorrh age. This has some mass effect on the adjacent sulci at this level. Some mass effect on the anterior horn of the right lateral ventricle is present. No acute infarcts are evident. Of chronic white matter changes are evident Ventricles and sulci are appropriate for patient age and weight from the hemorrhage site. Paranasal sinuses and mastoid air cells within the [id number] are clear. IMPRESSIONS: 1. 3.9 x 3.5 cm right frontal lobe intraparenchymal hemorrhage with hematocrit level and some surro unding edema. This has mass effect on the adjacent brain and the anterior horn right lateral ventricl e. No midline shift or subfalcine herniation is evident. Findings are compatible with acute to subacu te hemorrhage. A [place] critical message alert has been initiated for Haylee Caballero via the [employer] System on 04/24/2018 2:28 PM. This message alert has been sent to Haylee Caballero via the pre ferences provided by the clinician for the receipt of Radiology Critical Findings. Message ID [id number] .
[2018-04-24 16:35] VITALS: BP 99/62; PULSE 84; RESP 17
--- NOTE | 2018-04-24 19:02 | CONS ---
CONSULTATION DATE OF SERVICE: 04/24/2018. REASON FOR CONSULTATION: Left foot wound and infection. HISTORY OF PRESENT ILLNESS: The patient is a 57-year-old male, well known to my service in this patient who did have a chronic left foot wound after surgical drainage of an abscess, also with a UTI with recent diagnosis with Pseudomonas UTI currently covered with Fortaz. The patient has been sent to the ER last night for the patient having symptoms of weakness and fogginess of the brain. No clear history of any fever. The patient feels weak and lethargic. Denies having any headache. No nausea, no vomiting. No abdominal pain or any diarrhea. With these symptoms, the patient was evaluated by the ER physician. On arrival to the ER, the patient has been afebrile. The patient has remained afebrile throughout his hospital stay. The patient white count is normal. The patient UA has been negative. He also had a chest x-ray that was reported negative for any pneumonia. The patient has been continued on the Fortaz. I was asked to see the patient to rule out any infectious etiology and management of his left foot wound. REVIEW OF SYSTEMS: Positive points have been mentioned in HPI. Rest of the systems have been negative. PAST MEDICAL HISTORY: Prostate disorder, metastatic melanoma, myositis, gram-negative pneumonia and left foot wound with secondary infection and UTI and urinary retention. PAST SURGICAL HISTORY: Tonsillectomy, right with biopsy, left foot wound debridement. SOCIAL HISTORY: No history of smoking, drinking, or drug use. Currently a [facility] resident. FAMILY HISTORY: Mother with history of breast cancer. Father history of congestive heart failure, Parkinson disease. ALLERGIES: SULFA. MEDICATIONS: The patient is currently on Tylenol, DuoNeb, Sinemet, ceftazidime 1 g q.12h, Benadryl, iron sulfate, Lasix, NovoLog, Levemir, lactulose, Narcan, Protonix, K-Dur, Mysoline, Senokot, Flomax. PHYSICAL EXAMINATION: Blood pressure is 99/62 with a pulse of 84. Temperature 97.6. He is 95% on room air. General description is a middle-aged male up in the chair in no distress. No tachypnea or accessory muscles of respiration use. HEENT: Shows slight pallor. No scleral icterus. Oral mucosa membranes are dry. No pharyngeal erythema or thrush. Neck trachea. No thyromegaly. Lungs unlabored breathing. Clear to auscultation anteriorly. Heart S1, S2. Regular rate and rhythm. Abdomen soft, no tenderness. Left foot wound with good granulation tissue. No slough tissue. No surrounding swelling, redness or foul smelling drainage. Skin examination: No rash or mass palpable. Neurological: Patient is awake, alert, oriented times three. Mood and affect normal. LABS: Hemoglobin 11.4, white count 4.0, BUN of 24, creatinine 0.92. After I evaluated the patient, the patient did have a CT of the brain completed that report with 3.9 x 3.5 cm frontal lobe intraparenchymal hemorrhage. DIAGNOSTIC IMPRESSION AND PLAN: Patient admitted to the hospital with mental status changes. Source is likely intracerebral hemorrhage as seen on the CT, completed after my evaluation. The patient currently does not have any clinical focus of infection. The patient left foot wound looks clean and recent Pseudomonas urinary tract infection has been adequately treated. PLAN: 1. Left foot wound and local care of the wound with wound VAC, black foam to continue Friday. 2. Fortaz can be safely discontinued. 3. Patient being transferred to tertiary care for management of underlying intracerebral hemorrhage. MMODL / IJN: [id number] /
--- NOTE | 2018-04-24 19:24 | DS ---
DISCHARGE SUMMARY DATE OF SERVICE: 04/24/2018 FINAL DIAGNOSES: 1. Acute right frontoparietal intraparenchymal hemorrhage with some surrounding edema and mass effect. 2. History of recent urinary tract infection with sepsis. 3. Weakness, possible sepsis. 4. Left dorsal foot wound on wound VAC. 5. Hyponatremia. 6. Parkinson's. 7. Gait dysfunction. 8. Diabetes mellitus type 2. 9. History of gastroesophageal reflux disease. 10.History of pneumonia. 11.History of melanoma stage IV with metastasis. 12.History of enlarged lymph nodes. 13.History of weakness. 14.History of colitis. 15.History of benign prostatic hypertrophy. 16.History of recurrent urinary tract infection. 17.History of ESBL. 18.History of VRE. DISCHARGE DISPOSITION: The patient being transferred to [facility] for further evaluation and treatment. Total time taken 35 minutes. HISTORY OF PRESENT ILLNESS: This 57-year-old gentleman with a past medical history of multiple medical problems including diabetes, GERD, pneumonia and recent infection, sepsis, being followed by Dr. Mcleod in [facility] was admitted with weakness. The patient was given broad-spectrum IV antibiotics to rule out the possibility of sepsis. Cultures are pending. A CT scan of the brain showed a 3.9 to 3.5 cm right frontal lobe intraparenchymal hemorrhage with some surrounding edema. The patient also had some mass effect also. The case will be discussed with the [facility] and the patient be transferred to [facility] for further evaluation and treatment. CURRENT MEDICATIONS: 1. Tylenol p.r.n. 2. Artificial tears. 3. Carbidopa/L-dopa. 4. Fortaz 1 g daily. 5. Benadryl p.r.n. 6. Iron sulfate. 7. Lasix 40 mg daily. 8. Levemir 20 units subcu q.h.s. 9. DuoNeb q.i.d. and p.r.n. 10.Lactulose. 11.Protonix. 12.KCL. 13.Mirapex. 14.Mysoline. 15.Senna. 16.Flomax 0.4 q.h.s. MMVANESSA / VIRAJN: [id number] /
[2018-04-24] MEDS ORDERED: INSULIN DETEMIR (LEVEMIR) 100 UNIT/ML SYR SQ SCH (21:00)
[2018-04-24] MEDS ORDERED: TAMSULOSIN 0.4 MG CAP.ER.24H PO SCH (21:00)
== END 2018-04-24 17:20 | disposition short-term general hospital (02) | DRG 64 ==
LOC: EC 16:14 → 4SSUR 20:30
PROVIDERS: ADMIT Internal Medicine; ATTEND Internal Medicine
DX: I61.8 Other nontraumatic intracerebral hemorrhage (principal); G93.6 Cerebral edema; C79.9 Secondary malignant neoplasm of unspecified site; E87.1 Hypo-osmolality and hyponatremia; N39.0 Urinary tract infection, site not specified; C43.9 Malignant melanoma of skin, unspecified; G20 Parkinson's disease; D64.9 Anemia, unspecified; E11.9 Type 2 diabetes mellitus without complications; R40.2142 Coma scale, eyes open, spontaneous, at arrival to emergency department; R40.2362 Coma scale, best motor response, obeys commands, at arrival to emergency department; R40.2252 Coma scale, best verbal response, oriented, at arrival to emergency department; R32 Unspecified urinary incontinence; R33.9 Retention of urine, unspecified; M60.9 Myositis, unspecified; R26.9 Unspecified abnormalities of gait and mobility; K21.9 Gastro-esophageal reflux disease without esophagitis; Z79.2 Long term (current) use of antibiotics; Z79.82 Long term (current) use of aspirin; Z79.4 Long term (current) use of insulin; Z79.899 Other long term (current) drug therapy; Z88.2 Allergy status to sulfonamides; Z87.01 Personal history of pneumonia (recurrent); Z86.19 Personal history of other infectious and parasitic diseases; Z87.440 Personal history of urinary (tract) infections; Z80.3 Family history of malignant neoplasm of breast; Z82.49 Family history of ischemic heart disease and other diseases of the circulatory system; Z82.0 Family history of epilepsy and other diseases of the nervous system; Z87.438 Personal history of other diseases of male genital organs
CPT/HCPCS: 36415; 70450; 71045; 80053; 81001; 82550; 83036; 83605; 83735; 85025; 85610; 87040; 87086; 93005; 94640; 99285